=== PATIENT | male | born 1945 | race Hispanic/Latino ===

== ENCOUNTER 2017-03-12 08:19 | Inpatient (IN) | payer MEDICARE ==
[2017-03-12] MEDS ORDERED: Sodium Chloride 0.9% 1,000 ML IV SCH (08:30)
[2017-03-12] MEDS ORDERED: Sodium Chloride 0.9% 1,000 ML IV STA ×2 (08:30→12:48)
[2017-03-12] MEDS ORDERED: Propofol 10 mg/ml 1,000 MG/100 ML VIAL IV PRN (08:31)
--- NOTE | 2017-03-12 08:38 | ED PDOC ---
Arrival/HPI - General Time Seen by Provider: 03/12/17 08:23 Historian: Family, EMS - History of Present Illness Narrative History of Present Illness (Text): 03/12/17 08:2 Munir Sorensen is a 71 year old male, whose past medical history includes diabetes, hypertension, and bladder problems, is brought in via EMS after family found him unresponsive this morning. Per EMS, patient was intubated with Etomidate 30, Rocuronium 120 and Versed 5mg (after intubation). Patient was noted to be tachypneic. According to , she states patient has not been acting like himself recently and reports patient has not been eating. says he typically goes to [facility]. PMD: Dr. Maurer Time/Duration: Prior to Arrival Symptom Onset: Sudden Symptom Course: Unchanged Context: Home Past Medical History - Provider Review Nursing Documentation Reviewed: Yes Family/Social History - Physician Review Nursing Documentation Reviewed: Yes Family/Social History: Unknown Family HX Allergies/Home Meds Allergies/Adverse Reactions: Allergies No Known Allergies Allergy (Verified 03/12/17 08:28) believes her has not allergies to medications. Home Medications: Home Meds Medication Instructions Recorded Confirmed Unobtainable 03/12/17 03/12/17 Review of Systems - Review of Systems Systems not reviewed;Unavailable: Intubated Physical Exam Vital Signs Temp Pulse Resp BP Pulse Ox 03/12/17 10:24 132 H 16 146/74 100 03/12/17 08:51 98.8 F 139 H 20 140/89 Medical Decision Making ED Course and Treatment: 03/12/17 Impression: 71 year old male found unresponsive by family [employer]. Intubated in the field and found with an elevated glucose. Differential Diagnosis included but are not limited to: DKA due to Infectious Etiology vs Electroylyte abnormablity vs CVA vs Overdose Plan: -- EKG -- Chest X-ray -- CT Head without contrast -- Labs -- Diprivan, Sodium Chloride -- Urinalysis -- Reassess and disposition Progress Notes: 03/12/17 09:49 Patient's ABG found to have pH 6.88, pCO2 29 and Glucose of >750. Patient treated with Insulin IV bolus, then Insulin drip. WBC 22 with cloudy urine so treated empirically with Vancomycin IV and Zosyn IV. Case discussed with Dr. Segura who will accept patient to the ICU. 03/12/17 10:[address] Linder who is on the medical service for admissions. EKG: Regular rhythm, nonspecific intraventricular block 03/12/17 10:[address] Linder who will admit him to his service. - Critical Care Critical Care Minutes: 60 minutes - Lab Interpretations Lab Results: 03/12/17 08:30 03/12/17 10:20 Lab Results 03/12/17 10:46: POC Glucose (mg/dL) > 500 H* 03/12/17 10:20: pO2 273 H, VBG pH 6.86 L*, VBG pCO2 32.0 L, VBG HCO3 5.7 L, VBG Total CO2 6.7 L, VBG O2 Sat (Calc) 100.5 H, VBG Base Excess -27.6 L, VBG Potassium 4.2, Sodium 138.0, Chloride 98.0, Glucose > 750 H*, Lactate 1.8, FiO2 21.0, Venous Blood Potassium 4.2 03/12/17 10:20: Sodium 143, Chloride 101, Potassium 3.9, Carbon Dioxide 7 L, Anion Gap 39 H, BUN 42 H, Creatinine 2.1 H, Est GFR ( Amer) 38, Est GFR ( Non-Af Amer) 31, Random Glucose 760 H*, Calcium 8.8, Phosphorus 11.0 H, Magnesium 2.1, Total Bilirubin 0.6, AST 19, ALT 17, Alkaline Phosphatase 93, Lactate Dehydrogenase 415, Total Creatine Kinase 71, Troponin I 0.05, NT-Pro-B Natriuret Pep 382, Total Protein 7.6, Albumin 3.9, Globulin 3.7, Albumin/ Globulin Ratio 1.1 03/12/17 09:05: pCO2 29 L, pO2 252.0 H, HCO3 5.2 L*, ABG pH 6.86 L*, ABG Total CO2 6.1 L, ABG O2 Saturation 100.7 H, ABG Base Excess -27.7 L, ABG Potassium 3.9 , Sodium 138.0, Chloride 97.0 L, Glucose > 750 H*, Lactate 1.9, Mechanical Rate 14, FiO2 60.0, Tidal Volume 450, PEEP 5, Arterial Blood Potassium 3.9 03/12/17 08:30: PT 12.7 H, INR 1.18 H, APTT 30.1 03/12/17 08:30: WBC 22.4 H, RBC 5.43, Hgb 16.7, Hct 51.1, MCV 94.1, MCH 30.8, MCHC 32.7, RDW 14.2, Plt Count 428, MPV 10.6, Gran % 88.1 H, Lymph % (Auto) 4.9 L, [place] % (Auto) 6.5 H, Eos % (Auto) 0.1 L, Baso % (Auto) 0.4, Gran # 19.77 H, Lymph # 1.1 L, [place] # 1.5 H, Eos # 0.0, Baso # 0.08, Neutrophils % (Manual) 90 H , Lymphocytes % (Manual) 7 L, Monocytes % (Manual) 3, Platelet Evaluation Normal I have reviewed the lab results: Yes Interpretation: Abnormal lab values - RAD Interpretation Radiology Orders: 03/12/17 08:25 CHEST PORTABLE [RAD] Stat 03/12/17 08:28 HEAD W/O CONTRAST [CT] Stat Waste Elimination: ED Physician - EKG Interpretation Interpreted by ED Physician: Yes Type: 12 lead EKG - Medication Orders Current Medication Orders: Propofol (Diprivan) 1,000 mg in 100 mls @ 2.913 mls/hr IV .Q24H PRN; Protocol; 5 MCG/KG/MIN PRN Reason: TITRATE PER MD ORDER Last Admin: 03/12/17 10:01 Dose: 2.913 mls/hr Insulin Human Regular 100 (units/ Sodium Chloride) 100 mls @ 10 mls/hr IV .Q10H PRN; Protocol; 10 UNITS/HR PRN Reason: TITRATE PER MD ORDER Last Admin: 03/12/17 10:50 Dose: 10 mls/hr Sodium Bicarbonate 75 meq/ (Sodium Chloride) 1,075 mls @ 200 mls/hr IV .Q5H23M KAMILAH Last Admin: 03/12/17 10:49 Dose: 200 mls/hr Discontinued Medications Sodium Chloride (Sodium Chloride 0.9%) 1,000 mls @ 999 mls/hr IV .Q1H1M STA Stop: 03/12/17 09:30 Last Admin: 03/12/17 09:59 Dose: 999 mls/hr Vancomycin HCl (Vancomycin 1gm) 1 gm in 250 mls @ 167 mls/hr IVPB STAT STA PRN Reason: Protocol Stop: 03/12/17 10:45 Piperacillin Sod/Tazobactam Sod (Zosyn 4.5 Gm In Ns 100ml) 4.5 gm in 100 mls @ 200 mls/hr IVPB STAT STA PRN Reason: Protocol Stop: 03/12/17 09:44 Last Admin: 03/12/17 10:11 Dose: 200 mls/hr Insulin Human Regular (Humulin R) 10 units IVP STAT STA Stop: 03/12/17 09:02 Last Admin: 03/12/17 09:20 Dose: 10 units Sodium Bicarbonate (Sodium Bicarbonate 8.4% (50 Meq) Syringe) 50 meq IVP ONCE ONE Stop: 03/12/17 09:20 Last Admin: 03/12/17 10:58 Dose: 50 meq - Scribe Statement The provider has reviewed the documentation as recorded by the Bell Mon Provider Scribe Attestation: All medical record entries made by the Bell were at my direction and personally dictated by me. I have reviewed the chart and agree that the record accurately reflects my personal performance of the history, physical exam, medical decision making, and the department course for this patient. I have also personally directed, reviewed, and agree with the discharge instructions and disposition. Disposition/Present on Arrival - Present on Arrival Any Indicators Present on Arrival: No - Disposition Have Diagnosis and Disposition been Completed?: Yes Diagnosis: DKA (diabetic ketoacidoses), Respiratory distress Disposition Time: 09:51 Patient Plan: Admission, ICU Patient Problems: Current Active Problems Problem Status Onset DKA (diabetic ketoacidoses) Acute Respiratory distress Acute Condition: CRITICAL Referrals: PCP,NO [Primary Care Provider] - Follow up with primary
[2017-03-12 08:56] LABS: BASO # 0.08 K/mm3 (0.0-2.0); BASO % 0.4 % (0.0-3.0); EOS % 0.1 % (1.5-5.0); GRAN # 19.77 (1.4-6.5); GRAN % 88.1 % (50.0-68.0); HEMATOCRIT 51.1 % (42.0-52.0); LYMPH # 1.1 (1.2-3.4); LYMPH % 4.9 % (22.0-35.0); MEAN CELL VOLUME 94.1 fl (80.0-105.0); MEAN CORPUSCULAR HEMOGLOBIN 30.8 pg (25.0-35.0); MEAN CORPUSCULAR HGB CONC 32.7 g/dl (31.0-37.0); MEAN PLATELET VOLUME 10.6 fl (7.0-11.0); MONO # 1.5 (0.1-0.6); MONO % 6.5 % (1.0-6.0); PLATELET COUNT 428 10^3/uL (120.0-450.0); RED CELL DISTRIBUTION WIDTH 14.2 % (11.5-14.5); WHITE BLOOD COUNT 22.4 10^3/ul (4.5-11.0)
[2017-03-12] MEDS ORDERED: Insulin Regular 1 UNITS/0.01 ML ML IVP STA (09:01)
[2017-03-12 09:04] LABS: INR 1.18 (0.93-1.08); PARTIAL THROMBOPLASTIN TIME 30.1 Seconds (23.7-30.8)
[2017-03-12 09:09] LABS: ABG MECHANICAL RATE 14; ATERIAL BLOOD GAS PEEP 5
[2017-03-12 09:12] LABS: ARTERIAL BLOOD GAS PH 6.86 (7.35-7.45)
[2017-03-12 09:13] LABS: ARTERIAL BLOOD GAS HCO3 5.2 mmol/L (21-28)
[2017-03-12] MEDS ORDERED: Piperacill/Tazo 4.5gm in NS 4.5 GM/100 ML BAG IVPB STA (09:15)
[2017-03-12] MEDS ORDERED: Vancomycin 1gm in NS 250ml 1 GM/250 ML BAG IVPB STA (09:16)
[2017-03-12] MEDS ORDERED: Sodium Bicarbonate (8.4%) 50 Meq Syringe IVP ONE (09:19)
[2017-03-12] MEDS ORDERED: Insulin Regular 100 UNITS in Sodium Chloride 0.9% 99 ML IV PRN (09:47)
--- NOTE | 2017-03-12 09:58 | CT ---
PROCEDURE: CT HEAD WITHOUT CONTRAST. HISTORY: AMS r/o ICH COMPARISON: None available. TECHNIQUE: Axial computed tomography images were obtained through the head/brain without intravenous contrast. Radiation dose: Total exam DLP = 926.07 mGy-cm. This CT exam was performed using one or more of the following dose reduction techniques: Automated exposure control, adjustment of the mA and/or kV according to patient size, and/or use of iterative reconstruction technique. FINDINGS: HEMORRHAGE: No intracranial hemorrhage. BRAIN: There is no mass, mass effect or abnormal extra-axial fluid collection. VENTRICLES: There is mild age-related global parenchymal volume loss and proportionate enlargement of the ventricles and cortical sulci. CALVARIUM: There is no calvarial fracture. There is a large left occipital scalp hematoma. PARANASAL SINUSES: Predominantly clear. MASTOID AIR CELLS: Predominantly clear. OTHER FINDINGS: None. IMPRESSION: No acute intracranial abnormality. Large left occipital scalp hematoma. Mild age-related global parenchymal volume loss and proportionate enlargement of the ventricles and cortical sulci.
[2017-03-12 10:12] LABS: NEUTROPHIL 90 % (50.0-70.0)
[2017-03-12 10:13] LABS: PLATELET ESTIMATE NORMAL (NORMAL)
[2017-03-12 10:33] LABS: VENOUS BLOOD GAS BASE EXCESS -27.6 mmol/L (0.0-2.0); VENOUS BLOOD PH 6.86 (7.32-7.43)
[2017-03-12 10:43] LABS: ALB/GLOB RATIO 1.1 (1.1-1.8); BILIRUBIN,TOTAL 0.6 mg/dL (0.2-1.3); CALCIUM 8.8 mg/dL (8.4-10.5); MAGNESIUM 2.1 mg/dL (1.7-2.2); POTASSIUM 3.9 mmol/L (3.6-5.0); TOTAL PROTEIN 7.6 g/dL (5.8-8.3)
[2017-03-12 10:54] LABS: TROPONIN I 0.05 ng/mL
--- NOTE | 2017-03-12 12:44 | RAD ---
HISTORY: Sepsis Patient COMPARISON: No prior. FINDINGS: The endotracheal tube terminates 2 cm proximal to the marina. LUNGS: The lungs are well inflated and clear. PLEURA: No significant pleural effusion identified, no pneumothorax apparent. CARDIOVASCULAR: Normal. OSSEOUS STRUCTURES: No significant abnormalities. VISUALIZED UPPER ABDOMEN: Normal. OTHER FINDINGS: None. IMPRESSION: No acute findings.
[2017-03-12 13:02] LABS: ABG MECHANICAL RATE 20; ARTERIAL BLOOD GAS HCO3 7.1 mmol/L (21-28); ARTERIAL BLOOD GAS PH 7.23 (7.35-7.45); ATERIAL BLOOD GAS PEEP 5
[2017-03-12 13:05] VITALS: BMI 32.5
[2017-03-12] MEDS ORDERED: Pneumococcal 23-Valent Vaccine IM ONE (13:05)
[2017-03-12 13:14] LABS: VENOUS BLOOD GAS BASE EXCESS -18.9 mmol/L (0.0-2.0)
[2017-03-12] MEDS: Enoxaparin 40 mg Syringe SC SCH (13:18)
[2017-03-12 13:20] LABS: VENOUS BLOOD PH 7.14 (7.32-7.43)
[2017-03-12 13:24] LABS: CALCIUM 8.8 mg/dL (8.4-10.5); POTASSIUM 3.5 mmol/L (3.6-5.0)
--- NOTE | 2017-03-12 13:44 | CP.PCM.CON ---
History of Present Illness - History of Present Illness History of Present Illness: 71 year old male with PMH of DM, HTN, obesity with BMI 32 was brought in to [facility] because he was found to be unresponsive by the patient's . Apparently, the patient had been acting differently over a couple of days and was somewhat lethargic in the past couple of days. He was apparently also complaining of some dysuria. According to the , the patient also had a skin abscess on the mid-portion of his back about 2 months ago which he drained by himself. There was no note of fevers, no convulsions, no bowel or bladder incontinence, no vomiting. In the ED, the patient was noted to be tachypneic and was intubated and placed on a ventilator. He also was found to have leukocytosis. Infectious diseases consult is requested to further evaluate and manage. Review of Systems - Review of Systems Systems not reviewed;Unavailable: Intubated Past Patient History - Infectious Disease Hx of Infectious Diseases: None - Past Social History Smoking Status: Unknown If Ever Smoked - CARDIAC Hx Hypertension: Yes - ENDOCRINE/METABOLIC Hx Diabetes Mellitus Type 1: Yes - GENITOURINARY/GYNECOLOGICAL Other/Comment: Unknown bladder problem as per . Pt urinates a lot. - PSYCHIATRIC Hx Substance Use: No - SURGICAL HISTORY Hx Surgeries: No (unknown per ) Meds Allergies/Adverse Reactions: Allergies Allergy/AdvReac Type Severity Reaction Status Date / Time No Known Allergies Allergy Verified 03/12/17 11:24 - Medications Medications: Current Medications Enoxaparin Sodium (Lovenox) 40 mg SC DAILY [facility] PRN Reason: Protocol Propofol (Diprivan) 1,000 mg in 100 mls @ 2.913 mls/hr IV .Q24H PRN; Protocol; 5 MCG/KG/MIN PRN Reason: TITRATE PER MD ORDER Last Admin: 03/12/17 10:01 Dose: 2.913 mls/hr Insulin Human Regular 100 (units/ Sodium Chloride) 100 mls @ 10 mls/hr IV .Q10H PRN; Protocol; 10 UNITS/HR PRN Reason: TITRATE PER MD ORDER Last Admin: 03/12/17 10:50 Dose: 10 mls/hr Sodium Bicarbonate 75 meq/ (Sodium Chloride) 1,075 mls @ 200 mls/hr IV .Q5H23M KAMILAH Last Admin: 03/12/17 10:49 Dose: 200 mls/hr Pantoprazole Sodium (Protonix Susp) 40 mg PO 0600,1600 [facility] Physical Exam - Constitutional Appears: Other (Intubated, sedated) - Neck Exam Additional comments: ET tube in place - Respiratory Exam Respiratory Exam: Decreased Breath Sounds - Cardiovascular Exam Cardiovascular Exam: +S1, +S2 - GI/Abdominal Exam GI & Abdominal Exam: Soft. absent: Tenderness Results - Vital Signs Recent Vital Signs: Last Vital Signs Temp 98.8 F 03/12/17 08:51 Pulse 132 H 03/12/17 10:24 Resp 16 03/12/17 10:24 BP 146/74 03/12/17 10:24 Pulse Ox 100 03/12/17 10:24 - Labs Result Diagrams: 03/12/17 08:30 03/12/17 10:20 Assessment & Plan - Assessment and Plan (Free Text) Plan: Assessment Systemic Inflammatory Response with ventilator-dependent respiratory failure in a patient with hyperglycemia and metabolic acidosis in a patient with DM; R/O sepsis DM HTN obesity with BMI 32 Plan Started patient on Vancomycin and Zosyn pending blood, urine cx, PCT, CXR; will also review CT head will monitor clinically
[2017-03-12 13:50] LABS: TROPONIN I 0.15 ng/mL
[2017-03-12] MEDS ORDERED: Potassium Chloride 40 mEq/30 ml LIQ UD PO ONE (14:14)
[2017-03-12 14:50] LABS: PH,URINE 5.5 (4.7-8.0); URINE BILIRUBIN SMALL (NEGATIVE); URINE BLOOD LARGE (NEGATIVE); URINE GLUCOSE (UA) >=1000 mg/dL (NEGATIVE); URINE KETONE 40 mg/dL (NEGATIVE); URINE LEUKOCYTE ESTERASE MODERATE Leu/uL (NEGATIVE); URINE PROTEIN >=300 mg/dL (<30 mg/dL)
[2017-03-12 14:54] LABS: URINE APPEARANCE TURBID (CLEAR); URINE COLOR RED (YELLOW)
[2017-03-12 15:03] LABS: URINE BACTERIA FEW (NEG); URINE RBC TNTC /hpf (0-2); URINE WBC TNTC /hpf (0-6)
--- NOTE | 2017-03-12 15:32 | RAD ---
HISTORY: OG tube placement COMPARISON: 03/12/2017 FINDINGS: The nasogastric tube terminates in the duodenum. LUNGS: The visualized lungs are clear. The lungs apices are excluded from the film. PLEURA: No significant pleural effusion identified, no pneumothorax apparent. CARDIOVASCULAR: Normal. OSSEOUS STRUCTURES: No significant abnormalities. VISUALIZED UPPER ABDOMEN: Normal. OTHER FINDINGS: Surgical clips in the right upper quadrant are related to prior cholecystectomy. IMPRESSION: The nasogastric tube terminates in the duodenum. No acute findings.
--- NOTE | 2017-03-12 15:38 | CP.PCM.PCO ---
Physician Communication Note - Physician Communication Note Physician Communication Note: Pt is Jehov[employer] Witness- no blood pdts, requested DNR-DNI when extubated
--- NOTE | 2017-03-12 15:57 | CP.PCM.CON ---
History of Present Illness - History of Present Illness History of Present Illness: Palliative consult requested by Dr Luis Rasheed Reason: Goals of care 71 year old male who was found unresponsive at home. Patient was intubated in field by EMS. reports patient had been complaining of dysuria. She states he was lethargic and not himself for prior few days. also reports that patient had a cyst on lower back a few months ago which he drained himself. Labs ;WBC 22.4, Glucose 700 +, Tropinin 0.15. Head CT no acute findings, age related global parenchymal volume loss. Chest x ray no acute findings. PMHx: DM, HTN. Social History: Former smoker,unknown alcohol or drug mau. Family History: Non contributory Advance Care Planning: The patient does not have an Advance Directive. Review of Systems: Intubated/sedated unable to obtain Past Patient History - Infectious Disease Hx of Infectious Diseases: None - Past Social History Smoking Status: Unknown If Ever Smoked - CARDIAC Hx Hypertension: Yes - PULMONARY Hx Respiratory Disorders: Yes (SMOKED CIGARETTES H/O .QUIT 30 YRS AGO.) Hx Bronchitis: Yes Other/Comment: INTUBATED 03-12-17 RESP. DISTRESS. - NEUROLOGICAL Hx Neurological Disorder: Yes - HEENT Hx HEENT Problems: Yes Hx Cataracts: Yes (BILATERAL SX) Hx Deafness: Yes - RENAL Hx Chronic Kidney Disease: Yes Other/Comment: HAS BLADDER ISSUES? - ENDOCRINE/METABOLIC Hx Diabetes Mellitus Type 1: Yes - HEMATOLOGICAL/ONCOLOGICAL Hx Blood Disorders: Yes (HEAMTURIA H/O) Other/Comment: [employer]- NO BLOOD TRANSFUSION OR BLOOD PRODUCTS. - INTEGUMENTARY Hx Dermatological Problems: Yes Other/Comment: 03-12-17 BILATERAL GROIN RASH,PENIS,SCROTAL AND TESTICULAR AREA. HAS SOME INCONTINENCY.IASD. SCAR TO RIGHT LOWER BACK AND NECK AREA FROM REMOVAL OF CYST. - MUSCULOSKELETAL/RHEUMATOLOGICAL Hx Musculoskeletal Disorders: Yes Hx Falls: Yes Hx Unsteady Gait: Yes (CANE) - GASTROINTESTINAL Hx Gastrointestinal Disorders: Yes (APPENDECTOMY) - GENITOURINARY/GYNECOLOGICAL Other/Comment: Unknown bladder problem as per . Pt urinates a lot. - PSYCHIATRIC Hx Substance Use: No - SURGICAL HISTORY Hx Surgeries: No (unknown per ) Meds Allergies/Adverse Reactions: Allergies Allergy/AdvReac Type Severity Reaction Status Date / Time No Known Allergies Allergy Verified 03/12/17 11:24 - Medications Medications: Current Medications Enoxaparin Sodium (Lovenox) 40 mg SC DAILY [facility] PRN Reason: Protocol Last Admin: 03/12/17 13:18 Dose: 40 mg Propofol (Diprivan) 1,000 mg in 100 mls @ 2.913 mls/hr IV .Q24H PRN; Protocol; 5 MCG/KG/MIN PRN Reason: TITRATE PER MD ORDER Last Admin: 03/12/17 10:01 Dose: 2.913 mls/hr Sodium Bicarbonate 75 meq/ (Sodium Chloride) 1,075 mls @ 200 mls/hr IV .Q5H23M KAMILAH Last Admin: 03/12/17 10:49 Dose: 200 mls/hr Piperacillin Sod/Tazobactam Sod (Zosyn 3.375 In Ns 100ml) 100 mls @ 200 mls/hr IVPB Q6 [facility]AH PRN Reason: Protocol Stop: 03/19/17 18:01 Insulin Human Regular 100 (units/ Sodium Chloride) 100 mls @ 10 mls/hr IV .Q10H PRN; Protocol; 10 UNITS/HR PRN Reason: TITRATE PER MD ORDER Vancomycin HCl (Vancomycin 1gm) 1 gm in 250 mls @ 167 mls/hr IVPB Q12H [facility] PRN Reason: Protocol Nystatin (Nystop Topical Powder) 1 gm TOP BID KAMILAH Pantoprazole Sodium (Protonix Susp) 40 mg PO 0600,1600 [facility] Physical Exam - Constitutional Appears: Chronically Ill - Eye Exam Eye Exam: Normal appearance, PERRL - ENT Exam ENT Exam: Mucous Membranes Moist - Respiratory Exam Respiratory Exam: Clear to Auscultation Bilateral, NORMAL BREATHING PATTERN - Cardiovascular Exam Cardiovascular Exam: REGULAR RHYTHM, +S1, +S2 - GI/Abdominal Exam GI & Abdominal Exam: Normal Bowel Sounds, Soft - Exam Additional comments: hematuria - Extremities Exam Extremities exam: Positive for: pedal edema, pedal pulses present - Neurological Exam Neurological exam: Altered - Skin Skin Exam: Dry, Warm - Additional Findings Additional findings: Palliative performance scale rating 20% Results - Vital Signs Recent Vital Signs: Last Vital Signs Temp 98 F 03/12/17 12:13 Pulse 132 H 03/12/17 12:13 Resp 16 03/12/17 12:13 BP 146/74 03/12/17 12:13 Pulse Ox 100 03/12/17 10:24 - Labs Result Diagrams: 03/12/17 08:30 03/12/17 13:10 Labs: Laboratory Results - last 24 hr 03/12/17 03/12/17 03/12/17 12:31 12:59 13:10 pCO2 17 L* pO2 178.0 H HCO3 7.1 L* ABG pH 7.23 L ABG Total CO2 7.6 L ABG O2 Saturation 100.3 H ABG Base Excess -18.0 L ABG Potassium 3.0 L VBG pH VBG pCO2 VBG HCO3 VBG Total CO2 VBG O2 Sat (Calc) VBG Base Excess VBG Potassium Sodium 140.0 142 Chloride 102.0 100 Glucose 651 H* Lactate 1.5 Mechanical Rate 20 FiO2 40.0 Tidal Volume 450 PEEP 5 Potassium 3.5 L Carbon Dioxide 8 L Anion Gap 38 H BUN 47 H Creatinine 2.3 H Est GFR ( Amer) 34 Est GFR (Non-Af Amer) 28 POC Glucose (mg/dL) 479 H* Random Glucose 657 H* Calcium 8.8 Total Creatine Kinase 79 Troponin I 0.15 H* D Arterial Blood Potassium 3.0 L Venous Blood Potassium Urine Color Urine Appearance Urine pH Ur Specific [place] Urine Protein Urine Glucose (UA) Urine Ketones Urine Blood Urine Nitrate Urine Bilirubin Urine Urobilinogen Ur Leukocyte Esterase Urine RBC Urine WBC Urine Bacteria Urine Opiates Screen Urine Methadone Screen Ur Barbiturates Screen Ur Phencyclidine Scrn Ur Amphetamines Screen U Benzodiazepines Scrn U Oth Cocaine Metabols U Cannabinoids Screen 03/12/17 03/12/17 03/12/17 13:10 14:34 14:34 pCO2 pO2 48 HCO3 ABG pH ABG Total CO2 ABG O2 Saturation ABG Base Excess ABG Potassium VBG pH 7.14 L* VBG pCO2 25.0 L VBG HCO3 8.5 L VBG Total CO2 9.3 L VBG O2 Sat (Calc) 86.4 H VBG Base Excess -18.9 L VBG Potassium 3.7 Sodium Chloride 98.0 Glucose > 750 H* Lactate 3.0 H Mechanical Rate FiO2 21.0 Tidal Volume PEEP Potassium Carbon Dioxide Anion Gap BUN Creatinine Est GFR ( Amer) Est GFR (Non-Af Amer) POC Glucose (mg/dL) Random Glucose Calcium Total Creatine Kinase Troponin I Arterial Blood Potassium Venous Blood Potassium 3.7 Urine Color Red Urine Appearance Turbid Urine pH 5.5 Ur Specific [place] 1.020 Urine Protein >=300 H Urine Glucose (UA) >=1000 Urine Ketones 40 H Urine Blood Large H Urine Nitrate Positive H Urine Bilirubin Small H Urine Urobilinogen 1.0 H Ur Leukocyte Esterase Moderate H Urine RBC Tntc Urine WBC Tntc Urine Bacteria Few Urine Opiates Screen Negative Urine Methadone Screen Negative Ur Barbiturates Screen Negative Ur Phencyclidine Scrn Negative Ur Amphetamines Screen Negative U Benzodiazepines Scrn Positive H U Oth Cocaine Metabols Negative U Cannabinoids Screen Negative 03/12/17 14:43 pCO2 pO2 HCO3 ABG pH ABG Total CO2 ABG O2 Saturation ABG Base Excess ABG Potassium VBG pH VBG pCO2 VBG HCO3 VBG Total CO2 VBG O2 Sat (Calc) VBG Base Excess VBG Potassium Sodium Chloride Glucose Lactate Mechanical Rate FiO2 Tidal Volume PEEP Potassium Carbon Dioxide Anion Gap BUN Creatinine Est GFR ( Amer) Est GFR (Non-Af Amer) POC Glucose (mg/dL) > 500 H* Random Glucose Calcium Total Creatine Kinase Troponin I Arterial Blood Potassium Venous Blood Potassium Urine Color Urine Appearance Urine pH Ur Specific [place] Urine Protein Urine Glucose (UA) Urine Ketones Urine Blood Urine Nitrate Urine Bilirubin Urine Urobilinogen Ur Leukocyte Esterase Urine RBC Urine WBC Urine Bacteria Urine Opiates Screen Urine Methadone Screen Ur Barbiturates Screen Ur Phencyclidine Scrn Ur Amphetamines Screen U Benzodiazepines Scrn U Oth Cocaine Metabols U Cannabinoids Screen Assessment & Plan - Assessment and Plan (Free Text) Assessment: 71 year old male with history of HTN,DM found unresponsive at home. Intubated in field by EMS. He was admitted with hyperglycemia, respiratory failure, leukocytosis. Patient's and order checker at bedside. Patient is [employer]. As per , patient is not to receive full blood products, but blood expanders acceptable. We discussed resuscitation wishes at length. states patient is DNR. DNR form signed by , a copy is placed in chart. If patient is extubated , does not want him re-intubated in the future. At this point wants time to see if patient improves. If his condition continues to deteriorate or if he needs permanent life prolonging interventions, is willing to discuss alternative options for care. Advance care planning discussion with , 30 minutes Plan: DNR Advance care planning Palliative support
[2017-03-12 17:06] LABS: VENOUS BLOOD GAS BASE EXCESS -9.2 mmol/L (0.0-2.0); VENOUS BLOOD PH 7.23 (7.32-7.43)
[2017-03-12] MEDS: Nystatin 100,000 Units/gm Topical Pow(15 gm) TOP SCH (17:13)
[2017-03-12] MEDS: Piperacillin/Tazobact 3.375 gm 100 ML IVPB SCH ×2 (17:14→23:38)
[2017-03-12] MEDS: Pantoprazole 40 mg Susp UD PO SCH (17:14)
[2017-03-12] MEDS: Insulin Regular 100 UNITS in Sodium Chloride 0.9% 99 ML IV PRN ×2 (17:26→22:08)
[2017-03-12 17:30] LABS: TROPONIN I 0.17 ng/mL
[2017-03-12] MEDS: Propofol 10 mg/ml 1,000 MG/100 ML VIAL IV PRN ×2 (18:10→22:28)
[2017-03-12 18:13] LABS: BASO # 0.02 K/mm3 (0.0-2.0); BASO % 0.1 % (0.0-3.0); GRAN # 14.26 (1.4-6.5); GRAN % 82.7 % (50.0-68.0); HEMATOCRIT 41.4 % (42.0-52.0); LYMPH % 5.6 % (22.0-35.0); MEAN CELL VOLUME 86.3 fl (80.0-105.0); MEAN CORPUSCULAR HEMOGLOBIN 30.4 pg (25.0-35.0); MEAN CORPUSCULAR HGB CONC 35.3 g/dl (31.0-37.0); MEAN PLATELET VOLUME 9.9 fl (7.0-11.0); MONO % 11.6 % (1.0-6.0); RED CELL DISTRIBUTION WIDTH 13.5 % (11.5-14.5); WHITE BLOOD COUNT 17.2 10^3/ul (4.5-11.0)
[2017-03-12 18:32] LABS: CALCIUM 8.5 mg/dL (8.4-10.5); POTASSIUM 3.2 mmol/L (3.6-5.0)
--- NOTE | 2017-03-12 20:25 | CON ---
DATE: 03/12/2017 HISTORY OF PRESENT ILLNESS: The patient is a 71-year-old male who was found unconscious at home. He was intubated, placed on a ventilator brought to the emergency room. PAST MEDICAL HISTORY: The patient's past medical history is notable for history of diabetes mellitus and hypertension. No known cardiac history according to his . According to his , the patient has been feeling weak and "acting funny." She denies any previous cardiac history. There is no smoking history. REVIEW OF SYSTEMS: Unavailable. PHYSICAL EXAMINATION: VITAL SIGNS: The blood pressure is 146/71, heart rate is 132, sinus tachycardia. NECK: Negative JVD. LUNGS: Without rales. HEART: S1, S2. Extremities: Without edema. EKG shows a sinus tachycardia. LABORATORY: White count of 22,000 with a hemoglobin of 16.7. His glucose is 760. His carbon dioxide is 7, BUN and creatinine are 42 and 2.1. IMPRESSION: 1. Respiratory failure. 2. Loss of consciousness 3. Diabetic ketoacidosis. 4. Prerenal azotemia with a renal component to it. 5. Diabetes mellitus. 6. History of diabetic coma in the past. Given these findings, Adenocard was administered at 6 and 12 mg. There was no slowing of the heart rate consistent with a sinus tachycardia. We will obtain an echocardiogram to evaluate LV function. Aggressive IV fluid hydration and insulin would be appropriate. Bernardo Cruz MD
[2017-03-12 20:48] LABS: CALCIUM 8.2 mg/dL (8.4-10.5)
--- NOTE | 2017-03-12 20:56 | CARD ---
APPROVED REPORT EKG Measurement Heart [id number] <Conclusion> Wide complex tachycardia Left axis deviation Nonspecific intraventricular block Abnormal ECG
[2017-03-12] MEDS ORDERED: Vancomycin 1gm in NS 250ml 1 GM/250 ML BAG IVPB SCH (21:00)
[2017-03-12 21:01] LABS: TROPONIN I 0.15 ng/mL
--- NOTE | 2017-03-12 21:08 | HP ---
DATE: March 11, 2017 HISTORY OF PRESENT ILLNESS The patient is a 71-year-old male who was brought into the emergency room by the [facility] [place] ambulance for altered mental status. The patient was brought to the emergency room by the EMS for altered mental status. All of the history is obtained through the patient's and the friend. According to the patient's , the patient has been acting differently for the last few days which is being concurred by the patient's friend. The patient was last seen in a normal state of mind last seen awake and responsive last night according to the . The patient was seen awake and responsive last night according to the patient's . The patient's 13 system review of symptoms according to the patient's as history of diabetes, hypertension, bladder problem, history of some back problems or infection, months ago self-treated by the patient. According the patient's 13 system review is also that the patient was found unresponsive this morning with the patient's . The patient's called EMS. The patient was intubated by the EMS with etomidate, rocuronium, and Versed. The patient was found to be tachypneic in the field by the EMS the patient was intubated. By the EMS and the patient was brought to the emergency room. CODE STATUS Full code. LIVING WILL/ADVANCE DIRECTIVE None. ALLERGIES None. HOME MEDICATIONS Lantus 40 units twice a day, Cozaar 100 mg daily, metoprolol 100 mg twice a day, glipizide 10 mg twice a day, NPH insulin dose unknown. PAST MEDICAL HISTORY Significant for hypertension, history of diabetic ketoacidosis many years ago, history of type 1 insulin requiring diabetes mellitus, history of questionable noncompliance, history of questionable infection of the back many years ago self treated according to the patient's . The patient's all previous hospitalization are in [place] or [place]. The patient is seen in ICU bed #5. The patient is intubated lying in the bed. Responsive only to painful stimuli of the right lower extremity when the patient withdraws his right lower extremity. PHYSICAL EXAMINATION VITAL SIGNS: T-max 98.8, pulse rate 130 to 139. Blood pressure 146/74 to 140/89, respiration 16 to 20, O2 sat of intubation and respirator 100%. HEAD: Normocephalic and atraumatic. HEENT: Shows small questionable fixed nonreactive pupils. No gross facial asymmetry noted. Positive ET tube noted. NECK: No neck rigidity. CHEST: Symmetrical. LUNGS: Shows positive rhonchi upper lung lozoya. CARDIOVASCULAR: S1 and S2, tachycardic rhythm. ABDOMEN: Protuberant. Positive bowel sound. Nontender abdomen. GENITALIA: Male. Positive Abad catheter. RECTAL: Deferred. EXTREMITIES: Show no pitting edema. No Mitchell's or Salima's signs. NEURO: Neurologically, the patient is not responsive verbally, only responsive to responsive to painful stimuli of the lower extremity when the patient withdraws his right lower extremity. MUSCULOSKELETAL: Shows a body mass index of almost 33. Cranial nerve II through XII limited. PSYCHIATRIC: Not applicable. VASCULAR: Palpable pulses. DIAGNOSTICS EKG shows questionable white complex rhythm with left anterior hemiblock. No old EKG available for comparison. Chest x-ray was reviewed. The patient had a CAT scan of the head done, which was negative for bleed or acute stroke. Ventriculomegaly and global parenchymal volume loss was noted and a large left occipital scalp hematoma was noted. The patient was seen in the emergency room by Dr. Rae. LABORATORY DATA The patient's lab work was reviewed. WBC count 22.4, hemoglobin/hematocrit 16.7/51.1, platelet 428, granulocytes 88% 90%segs. PT/TT 12.7/30.1. The patient's ABG was done pH of 6.686, pCO2 of 29, pO2 of 252, bicarb of 5.2. Lactate was 1.8, blood glucose greater than 750. Chemistry shows sodium 143, potassium 3.9, chloride 101, CO2 of 7, anion gap 39, BUN 42, creatinine 2.1, GFR 38. Initial glucose chemistry glucose 760 and repeat glucose greater than 500, calcium 8.8, phosphorus 11.0, magnesium 2.1. Troponin 0.25 and BNP 382. TSH is normal. The patient was treated and stabilized in the ER by Dr. Rae. The patient was started on insulin drip. The patient was started on IV fluid. The patient was given bicarb drip by the heel builder. The patient was given a gram of vancomycin and Zosyn 4.5 in the ER. Bicarb drip was ordered. Insulin drip was ordered. Diprivan was ordered. The patient was evaluated in the emergency room by the ER physician and heel builder. IMPRESSION AND PLAN 1. Acute ventilator dependent respiratory failure. 2. Diabetic ketoacidosis. 3. Tachycardia, etiology undetermined. 4. Questionable sepsis with leukocytosis, granulocytosis, and tachycardia. 5. Questionable systemic inflammatory response syndrome versus sepsis. 6. Diabetic ketoacidosis with increase anion gap metabolic acidosis. 7. Acute kidney injury. 8. Uncontrolled type 1 diabetes mellitus with hyperglycemia. 9. Hyperphosphatemia. 10. Indeterminate troponin. 11. Obesity. 12. History of hypertension and diabetes mellitus. 13. Questionable altered mental status versus encephalopathy, etiology undetermined. 14. Cerebral cortical atrophy of the brain with the ventriculomegaly 15. Left occipital scalp hematoma. 16. Tachycardia with left anterior hemiblock. 17. Leukocytosis with granulocytosis, etiology undetermined. 18. Encephalopathy verses altered mental status, etiology undetermined. 19. Questionable cardiomegaly on the chest x-ray. PLAN At this time, the patient is to be admitted to intensive care unit. The patient has been ordered serial labs. The patient has been ordered blood cultures, urine cultures. Current consultation Cardiology, Endocrinology, Infectious Disease, Nephrology, and Neurology program. Procalcitonin level was ordered. The patient was given insulin 10 units IV and the patient started on insulin drip at 10 Hz per hour. Diprivan drip was started. Bicarb drip has been ordered by . The patient is on IV fluids hydration. The patient is on bicarb drip at 200 mL an hour. The patient was given vancomycin 1 g and Zosyn 4.5 in the emergency room. The patient has been ordered serial EKG echocardiogram. The patient at present has been admitted to intensive care unit. At present, the patient's further management will be dependent upon the patient's clinical condition, hemodynamic status and as per the patient response to therapeutic intervention as per the patient's diagnostic test results and as per recommendation by all the physician involved in the care of the patient. The patient's condition is critical. Prognosis is guarded to poor. I have met with the patient's and the friend, who brought the patient to the emergency room. I have explained to the patient's and the patient's friend about overall the patient's diagnosis in layman's language and test results in layman's language which they acknowledged understand. I have also explained to the patient's and the friend that the patient's prognosis is guarded to poor and condition is critical and the patient is at risk for multiple complication and is at risk for multiple bad outcomes, which they acknowledged understood. Time spent in the entire management reviewed data and discussion with physicians more than 1 hour 55 minutes. Paulino Linder MD
[2017-03-12] MEDS: SODIUM BICARBONATE IV SCH (22:13)
[2017-03-12] MEDS: [UNRECOGNIZED DRUG - OTHER] IV SCH (22:13)
[2017-03-12] MEDS: POTASSIUM CHLORIDE IV SCH (22:13)
--- NOTE | 2017-03-12 23:46 | CON ---
DATE: 03/12/2017 HISTORY OF PRESENT ILLNESS: This is a 71-year-old gentleman who was found to be unresponsive this morning and was brought in by his family members to [facility] ER. His past medical history includes diabetes, hypertension, bladder problem. The patient was intubated by EMS services using etomidate, vecuronium and Versed. He also noted to be tachypneic. There was some period of personality changes. The patient also was not feeling well over the last few days according to the patient's . No nausea, no vomiting, no diarrhea, no constipation, no fever, no chills, no sweats. PAST MEDICAL HISTORY: Diabetes, hypertension, bladder problems. FAMILY HISTORY: Noncontributory. SOCIAL HISTORY: No alcohol or illicit drug abuse. No tobacco smoking. ALLERGIES: NKDA. HOME MEDICATIONS: Insulin, Cozaar, metoprolol, glipizide, NPH insulin. REVIEW OF SYSTEMS: Review of 12-point review of systems other than mentioned in history of present illness is negative. PHYSICAL EXAMINATION VITAL SIGNS: Heart rate 134, blood pressure 156/85, oxygen saturation 100% on 40% FiO2. The patient is intubated chronically. He is on PRVC 450/20/5/40. HEAD AND NECK: There are some scalp hematoma present. HEART: Regular rate and rhythm. S1 and S2 normal. ABDOMEN: Soft, nontender and nondistended. MUSCULOSKELETAL: No C/C/E. NEUROLOGIC: The patient is sedated with Propofol 20 mcg per kg per minute. SKIN: Moist. PSYCHIATRY: The patient is sedated. LABORATORY DATA: WBC 22.4, hemoglobin 16.7, platelet counts 428. Neutrophil predominant. ABG showed pH 6.86, pCO2 of 29, pO2 of 252 on 60% FiO2, lactic acid 1.9. Sodium 143, potassium 3.9, chloride 101, carbon dioxide 7, BUN 42, creatinine 2.1. Glucose 760; however, it later went down to 479. AST 19, ALT 17. Albumin 3.9. TSH 1.23. Potassium 4.2. CURRENT MEDICATION: Insulin drip with Accu-Chek every 1 hour, Lovenox 40 mg subcutaneous daily, bicarbonate drip 200 mL per hour, Propofol drip, vancomycin was given, Zosyn every 6 hours. CAT scan of the head reveals scalp hematoma, but no acute intracranial bleed or subacute or chronic stroke. EKG showed supraventricular tachycardia ( administration of adenosine 6 mg and then 12 mg did not lead to episode of slowing down his heart rate, thus it is hard to say whether it is sinus tachycardia or other type of SVT). Chest x-ray; no active pulmonary disease. Bedside review of echocardiogram revealed presumably 35 to 40% ejection fraction; however, right ventricular assessment is difficult. Official report is pending. ASSESSMENT AND PLAN: This is a 71-year-old gentleman who presented with DKA, most likely due to severe sepsis secondary to UTI, with MOSF, including septic encephalopathy. respiratory failure and AUGUSTIN/ATN. Fluid resuscitation, insulin drip, BMP q4, accu q1h, empiric abx, septic workup, protective lung ventilation strategy to avoid VILI. Once anion gap closed, switch to longer acting s/c formulation of insulin. Once BG<250 will switch to D5 containing IVF NEUROLOGIC: The patient is sedated with Propofol; however, noted to move his left upper extremity. PULMONARY: We will continue with protective lung ventilation strategy. Once the patient is fully fluid resuscitated. Conservative fluid management will be instituted. Conservative oxygen management. FiO2 went down to 40% from 60%. Repeated ABG is pending. VAP bundle. Head of bed elevated > 35 degrees, oral hygiene. Deep venous thrombosis and gastrointestinal prophylaxis. CARDIOVASCULAR: Cardiology consult was appreciated. Official report of echocardiogram is pending. Troponin first set is negative. The patient has supraventricular tachycardia with maintaining adequate blood pressure. GASTROINTESTINAL: The patient currently is n.p.o. Gastrointestinal prophylaxis. ENDOCRINE: We will continue with insulin drip. Accu-Chek every one hour. BMP every 4 hours. Correction electrolytes aggressively. The patient was started on bicarbonate drip as his pH is extremely low at 6.8. Once his anion gap closed, we will switch to long acting subcutaneous formulation of insulin. Once his blood glucose below 250, we will switch to D5 containing fluid. ID: The patient has leukocytosis. He is started on empiric antibiotics and septic workup initiated. ID service was contacted and we will be following the patient as well. We will continue to maintain euvolemia, euglycemia, normothermia, and oxygen saturation of more than 90%. ccm time 40 min Roldan Segura MD [facility]
[2017-03-13] MEDS ORDERED: Potassium Chloride 40 mEq/30 ml LIQ UD PO ONE (00:17)
[2017-03-13] MEDS ORDERED: Acetaminophen 160 mg/5 ml UD PO PRN (01:14)
--- NOTE | 2017-03-13 01:29 | CON ---
ENDOCRINOLOGY CONSULT DATE: LOCATION: Room 128, 5 in CCU. HISTORY OF PRESENT ILLNESS: This is a 71-year-old male with known history of type 2 insulin-requiring diabetes, who apparently was found unresponsive by his at home and has been admitted here for further workup and management of recent marked hyperglycemic exacerbations as noted. PAST MEDICAL HISTORY: As mentioned above, history of type 2 insulin-requiring diabetes on a combination of Lantus given as 40 units subcutaneously b.i.d. with NPH given as coverage scale as ordered, history of hypertensive cardiovascular disease, and dyslipidemia. He is also on glipizide given as 10 mg b.i.d. as ordered and Lantus given as 40 units subcutaneously every 12 hours at home as given. He has also underlying history of morbid obesity. FAMILY HISTORY: Positive for hypertension and heart disease. SOCIAL HISTORY: The patient has supportive family. No known substance use. REVIEW OF SYSTEMS: Review of systems is not possible at this time as the patient is endotracheally intubated as noted. PHYSICAL EXAMINATION: GENERAL: Obese male, in no apparent distress. VITAL SIGNS: Blood pressure of 140/90, pulse of 70 beats per minute and regular, temperature 98, respirations 20, height is 5 feet 8 inches, and weight is 214 pounds. HEENT: Head is normocephalic. Eyes: Anicteric with pink conjunctivae. Funduscopy not possible at this time. Ears, nose and throat otherwise normal. NECK: Supple. Thyroid gland is normal in size. No carotid bruits or any cervical adenopathy. CARDIOPULMONARY: Adynamic precordium. S1 and S2 is rapid and regular. LUNGS: Clear to auscultation. ABDOMEN: Flat and soft with positive bowel sounds. EXTREMITIES: No peripheral edema. Pulses are +2 bilaterally. LABORATORY DATA: The initial chemistry showed BUN of 42, sodium 143, potassium 3.9, chloride 101, CO2 is 7, glucose is 760, creatinine is 2.1, and TSH is normal at this time. ASSESSMENT: This is a 71-year-old male with uncontrolled and decompensated type 2 insulin-requiring diabetes, presenting here with diabetic coma and associated clinical and biochemical evidence of dehydration and prerenal azotemia with previous hyponatremia and severe diabetic ketoacidosis as noted thereof. PLAN OF MANAGEMENT: I concur with current insulin drip infusion started by the vp analysis in the ICU for intense insulin therapy, especially in the light of severe acidosis. We will also continued vigorous IV hydration as given to replenish the lost fluids and electrolytes and the increase of osmotic diuresis resulting in the aforementioned high volume loss of both fluids and electrolytes as mentioned. He was also started on bicarbonate drip as noted because of persistent acidosis as observed. He has also been started empirically on IV antibiotics for possible bacteremia and/or septicemia as noted. We will obtain serial chemistries and supplement accordingly as needed. As the patient improves metabolically and also clinically, then we will start him back on a more physiologic basal and bolus insulin drug combination as ordered. If he is weaned off the ventilator after the substance and improvement of the acidosis, then we will advance his diet and switch him over to a more physiologic basal and bolus insulin drug combination as indicated. We will follow with you. Trinidad Gomez MD
[2017-03-13 02:31] LABS: CALCIUM 8.5 mg/dL (8.4-10.5); POTASSIUM 3.7 mmol/L (3.6-5.0)
[2017-03-13] MEDS: Insulin Regular 100 UNITS in Sodium Chloride 0.9% 99 ML IV PRN (02:39)
--- NOTE | 2017-03-13 03:21 | CON ---
NEUROLOGY CONSULTATION NOTE DATE: REASON FOR CONSULTATION: Altered mental status. HISTORY OF PRESENT ILLNESS: The patient is a 71-year-old male who has been asked for altered mental status. Patient was found unresponsive by the family in the morning. Patient was intubated and brought to the hospital. According to , patient was not acting like himself and not eating properly. Patient is unable to give history because of his underlying medical condition. PAST MEDICAL HISTORY: Includes diabetes mellitus and hypertension. FAMILY HISTORY: Unknown. SOCIAL HISTORY: Patient drinks socially. There is no history of illicit drug use. Nonsmoker. REVIEW OF SYSTEMS: Unable to obtain because of patient being intubated and slightly sedated. MEDICATIONS AT HOME: Include insulin, Cozaar, Lopressor, Glipizide, and Novolin. ALLERGIES: NO KNOWN DRUG ALLERGIES, PHYSICAL EXAMINATION: VITAL SIGNS: Patient is an elderly male, lying on the bed, on a ventilator. His blood pressure is 146/74, heart rate is 130 per minute, breathing at the rate of 16 per minute, temperature is 98 degree Fahrenheit. HEENT: Head is normocephalic and atraumatic. NECK: Supple. There are no carotid bruits. LUNGS: Clear. CARDIOVASCULAR: S1 and S2 audible. No murmurs. ABDOMEN: Soft and nontender. Bowel sounds are present. NEUROLOGIC: Mental status: Patient is slightly sedated. He is not following commands. He withdraws all extremities to to noxious painful stimuli. Minimal grimace to pain. Cranial nerve examination: Pupils 2 mm minimally reactive to light. Positive dolls eye movements. Positive corneal reflex. Positive gag reflex. Positive withdrawal of extremities to noxious painful stimuli. Reflexes are absent. Plantars no response. Gait is untestable. LABORATORY DATA: Reviewed. Shows WBC of 22.4, hemoglobin of 16.7, hematocrit 51.1 and platelets of 428. His sodium is 142, potassium 3.5, chloride 100, carbon dioxide content of 8, BUN of 47, creatinine of 2.3 and glucose of . Urinalysis is positive for nitrites and bacteria. Urine toxicology screen is positive for benzodiazepines. He had a CT scan of the head done, which shows no acute intracranial abnormality. Large left occipital scalp hematoma. Mild age related global parenchymal volume loss. IMPRESSION: Altered mental status, which appears to be secondary to toxic metabolic encephalopathy with underlying urinary tract infection and sepsis as well as possible diabetic ketoacidosis. RECOMMENDATIONS: 1. Patient to have a electroencephalogram. 2. Patient to be continued on IV antibiotics. 3. Patient is on insulin drip at the moment. 4. Patient to have ventilator support. 5. Patient's DNR status is noted. 6. Please continue supportive care and other treatment. Thank you for the opportunity to participate in the care of this patient. Jone Sigala MD
[2017-03-13] MEDS: SODIUM BICARBONATE IV SCH ×2 (04:55→11:14)
[2017-03-13] MEDS: POTASSIUM CHLORIDE IV SCH ×2 (04:55→11:14)
[2017-03-13] MEDS: [UNRECOGNIZED DRUG - OTHER] IV SCH ×2 (04:55→11:14)
[2017-03-13 05:38] LABS: ALB/GLOB RATIO 0.9 (1.1-1.8); BILIRUBIN,DIRECT 0.5 mg/dL (0.0-0.4); BILIRUBIN,TOTAL 0.6 mg/dL (0.2-1.3); CALCIUM 8.5 mg/dL (8.4-10.5); MAGNESIUM 1.7 mg/dL (1.7-2.2); TOTAL PROTEIN 6.6 g/dL (5.8-8.3)
[2017-03-13] MEDS ORDERED: Potassium & Sodium Phosphate PO SCH (06:00)
[2017-03-13] MEDS: Piperacillin/Tazobact 3.375 gm 100 ML IVPB SCH ×3 (06:28→20:32)
[2017-03-13] MEDS: Pantoprazole 40 mg Susp UD PO SCH ×2 (06:31→16:50)
[2017-03-13] MEDS: Potassium & Sodium Phosphate GT SCH ×3 (06:31→21:41)
[2017-03-13 06:50] LABS: BASO # 0.02 K/mm3 (0.0-2.0); BASO % 0.1 % (0.0-3.0); EOS % 0.1 % (1.5-5.0); GRAN # 17.11 (1.4-6.5); GRAN % 87.9 % (50.0-68.0); LYMPH # 0.5 (1.2-3.4); LYMPH % 2.6 % (22.0-35.0); MEAN CELL VOLUME 83.9 fl (80.0-105.0); MEAN CORPUSCULAR HEMOGLOBIN 30.1 pg (25.0-35.0); MEAN CORPUSCULAR HGB CONC 35.9 g/dl (31.0-37.0); MEAN PLATELET VOLUME 10.4 fl (7.0-11.0); MONO # 1.8 (0.1-0.6); MONO % 9.3 % (1.0-6.0); RED CELL DISTRIBUTION WIDTH 13.5 % (11.5-14.5)
[2017-03-13 06:53] LABS: PHOSPHOROUS 0.5 mg/dL (2.5-4.5); WHITE BLOOD COUNT 19.5 10^3/ul (4.5-11.0)
[2017-03-13] MEDS ORDERED: Insulin Detemir 100 units/ml Vial (Levemir) SC ONE (08:00)
[2017-03-13 08:01] LABS: VENOUS BLOOD GAS BASE EXCESS 0.7 mmol/L (0.0-2.0); VENOUS BLOOD PH 7.41 (7.32-7.43)
[2017-03-13] MEDS: Insulin Lispro (HUMAlog) HIGH Coverage SC SCH ×3 (08:15→21:39)
[2017-03-13] MEDS: Linezolid 600 mg in D5W 300 ml 600 MG/300 ML BAG IVPB SCH ×2 (09:30→21:42)
[2017-03-13] MEDS: Enoxaparin 40 mg Syringe SC SCH (09:32)
[2017-03-13] MEDS: Nystatin 100,000 Units/gm Topical Pow(15 gm) TOP SCH (09:35)
--- NOTE | 2017-03-13 09:51 | PN ---
DATE: 03/13/2017 SUBJECTIVE: The patient is seen and examined at bedside. He is off of sedation. Propofol is off. He is on pressure support 5/5 with rapid shallow breathing index varies between 70-80 and FiO2 of 40%. On that setting, his oxygen saturation 100% and heart rate 107. The patient is febrile with a temperature of 102. Of note, the patient has moderate leukocyte esterase in the urine and positive urine nitrites with multiple WBCs and bacteria. Urine culture is pending. PHYSICAL EXAMINATION: VITAL SIGNS: Heart rate 107, oxygen saturation 100%, temperature 102, and blood pressure 111/70. HEENT: Head and neck, some hematoma on the scalp. HEART: Regular rate and rhythm. S1 and S2 normal. ABDOMEN: Soft, nontender, and nondistended. MUSCULOSKELETAL: No C/C/E. NEUROLOGIC: The patient is still under residual effect of propofol. SKIN: Moist. PSYCHIATRIC: The patient is sedated. LABORATORY DATA: WBC 19.5 up from 17.2, hemoglobin 14, and platelet count >100. Sodium 144, potassium 4, chloride 109, carbon dioxide 25, BUN 49, and creatinine 1.7 relatively stable. Blood glucose 127, phosphorus 0.5 (supplemented), AST 30, and ALT 27. MEDICATIONS: Tylenol IV p.r.n., Lovenox 40 mg subcutaneously daily, regular insulin drip, Protonix, phosphorus supplementation, propofol drip as well, normal saline 200 mL/hour, vancomycin, and Zosyn. ASSESSMENT AND PLAN: This is a 71-year-old gentleman who presented with diabetic ketoacidosis most likely secondary to severe sepsis with urinary tract infection. He initially was found unresponsive, requiring endotracheal intubation for airway protection. At present time, his anion gap closed. Propofol is off and we are awaiting for him to wake up to proceed with extubation attempt. The patient is on pressure support and appears to tolerate respiratory montague well. Pressure support 5/5 with FiO2 of 40%. He maintains hemodynamics relatively stable (except for mild tachycardia at 107, sinus). NEUROLOGIC: The patient is off of propofol and started to waking up; however, needs to be more awake and alert before extubation will be attempted. PULMONARY: The patient tolerated pressure support trial. Sedation is off with weaning attempt is in progress. At present time, the patient appears to be fluid resuscitated and we will proceed with conservative fluid management and conservative oxygen management. Head of bed elevated >35 degrees, oral hygiene, DVT and GI prophylaxis. CARDIOVASCULAR: The patient is relatively stable except for mild tachycardia. He is fluid resuscitated. GASTROINTESTINAL: The patient is n.p.o. in anticipation of extubation soon. He is on GI prophylaxis. INFECTIOUS DISEASE: The patient has UTI with severe sepsis. He is on vancomycin and Zosyn while septic workup is in progress. ID service is following the patient as well. He is febrile, most likely due to UTI. ENDOCRINE: The patient's blood glucose is controlled and we will overlap long-acting subcutaneous formulation of insulin with insulin drip with subsequent discontinue of insulin drip. Anion gap is closed. RENAL: The patient has acute kidney injury, which is improving; however, we are continuing fluids. We will continue to target euvolemia, glycemia, normothermia, and oxygen saturation more than 90%. ccm time 40 min Roldan Segura MD [facility]
--- NOTE | 2017-03-13 10:13 | CP.PCM.PN ---
Subjective - Date & Time of Evaluation Date of Evaluation: 03/13/17 Time of Evaluation: 09:50 - Subjective Subjective: Still on the ventilator, has now developed fever but is on a weaning trial. Objective - Vital Signs/Intake and Output Vital Signs (last 24 hours): Temp Pulse Resp BP Pulse Ox 100.9 F H 111 H 20 84/52 L 100 03/13/17 03:13 03/13/17 03:13 03/13/17 03:13 03/13/17 03:13 03/13/17 03:13 Intake and Output: 03/12/17 03/13/17 18:59 06:59 Intake Total 315 Balance 315 - Medications Medications: Current Medications Acetaminophen (Tylenol 160mg/5ml Oral Soln) 320 mg PO Q4 PRN PRN Reason: Temperature Last Admin: 03/13/17 02:20 Dose: 320 mg Enoxaparin Sodium (Lovenox) 40 mg SC DAILY KAMILAH PRN Reason: Protocol Last Admin: 03/12/17 13:18 Dose: 40 mg Piperacillin Sod/Tazobactam Sod (Zosyn 3.375 In Ns 100ml) 100 mls @ 200 mls/hr IVPB Q6 KAMILAH PRN Reason: Protocol Stop: 03/19/17 18:01 Last Admin: 03/13/17 06:28 Dose: 200 mls/hr Insulin Human Regular 100 (units/ Sodium Chloride) 100 mls @ 10 mls/hr IV .Q10H PRN; Protocol; 10 UNITS/HR PRN Reason: TITRATE PER MD ORDER Last Titration: 03/13/17 04:03 Dose: 5 units/hr, 5 mls/hr Vancomycin HCl (Vancomycin 1gm) 1 gm in 250 mls @ 167 mls/hr IVPB Q12H KAMILAH PRN Reason: Protocol Last Admin: 03/12/17 21:01 Dose: 167 mls/hr Propofol (Diprivan) 1,000 mg in 100 mls @ 2.913 mls/hr IV .Q24H PRN; Protocol; 5 MCG/KG/MIN PRN Reason: TITRATE PER MD ORDER Last Admin: 03/12/17 22:28 Dose: 20 mcg/kg/min, 11.652 mls/hr Sodium Bicarbonate 75 meq/Potassium Chloride 10 meq/Sodium Chloride 1,080 mls @ 200 mls/hr IV .Q5H24M [facility] Last Admin: 03/13/17 04:55 Dose: 200 mls/hr Nystatin (Nystop Topical Powder) 1 gm TOP BID [facility] Last Admin: 03/12/17 17:13 Dose: 1 pow Pantoprazole Sodium (Protonix Susp) 40 mg PO 0600,1600 [facility] Last Admin: 03/13/17 06:31 Dose: 40 mg Potassium Phos/Sodium Phos (Neutra-Phos) 1 pkt GT Q8H [facility] Last Admin: 03/13/17 06:31 Dose: 1 pkt - Labs Labs: 03/12/17 18:07 03/13/17 01:30 PT 12.7 Seconds (9.9-11.8) H 03/12/17 08:30 INR 1.18 (0.93-1.08) H 03/12/17 08:30 APTT 30.1 Seconds (23.7-30.8) 03/12/17 08:30 - Constitutional Appears: Other (intubated, arousable by tactile stimuli) - ENT Exam Additional comments: ET tube in place - Neck Exam Neck Exam: absent: Meningismus - Respiratory Exam Respiratory Exam: Decreased Breath Sounds - Cardiovascular Exam Cardiovascular Exam: +S1, +S2 - GI/Abdominal Exam GI & Abdominal Exam: Soft. absent: Tenderness - Skin Skin Exam: Rash (noted in the perineal area, erythematous) Assessment and Plan - Assessment and Plan (Free Text) Plan: Assessment Systemic Inflammatory Response with fever and ventilator-dependent respiratory failure in a patient with hyperglycemia and metabolic acidosis in a patient with DM, R/O severe sepsis from UTI acute on chronic renal failure DM HTN obesity with BMI 32 Plan continue Zosyn and will change Vancomycin to Zyvox pending blood, urine cx, PCT ; CXR does not show infiltrates; will also review CT head will continue to monitor clinically
--- NOTE | 2017-03-13 11:43 | PN ---
DATE: 03/13/2017 The patient is seen today in ICU bed #5. The patient is more responsive. The patient is presently on a CPAP. The patient is responsive to painful stimuli. Overnight nurse's notes were reviewed. Overnight, the patient was maintained on AC tidal volume of 450, FIO2 of 40%, rate of 20, PEEP of 5. Vital signs: T-max is 100.8. Telemetry shows sinus tachycardia in 100s. Blood pressure on telemetry at present 146/86, in the last 24 hours blood pressure has been in his 90s systolic. Respirations 20, O2 sat is 100%. Head examination normocephalic, atraumatic. Positive ET tube noted. Positive NG tube noted. Neck is short and supple. Chest: Examination shows kyphosis. Lungs: Examination shows positive rhonchi upper lung lozoya.. Cardiovascular: Shows S1, S2. Regular rhythm, tachycardic rhythm. Abdomen is soft, protuberant. Genitalia: Male. Positive Abad catheter. Neurologic: The patient is responsive to painful stimuli by grimacing and attempting to open eyes. Musculoskeletal: Examination shows elevated body mass index of 33. Psychiatric examination is not applicable. Motor strength. The patient is responsive to painful stimuli. DIAGNOSTICS: Reviewed. WBC 19.5, down from 22.4. Granulocytes 88% segs. The patient's VBG shows a pH of 7.41, pCO2 of 40, bicarb 25, O2 sat 82%, lactic acid is 2.5. Sodium 141, potassium 4.0, chloride 104, CO2 22, anion gap 19, BUN 46, creatinine 1.6, creatinine is down from 2.1 to 1.65; GFR is 52, glucose random glucose down from 760-657 to 507-306 to 119-99, calcium 8.8, hemoglobin A1c is 14.4, fructose mean is elevated at 324, calcium 8.0, phosphorus is down from 11 to 0.5. LFTs are normal. Troponin has bumped up to 0.17 now 0.15. Procalcitonin level is negative. Vitamin D 25 hydroxy level is 24, beta-hydroxybutyrate is pending. Blood cultures, no growth. IMPRESSION: 1. Ventilator dependent respiratory failure. 2. Diabetic ketoacidosis. 3. Possible sepsis. 4. Severe increased anion gap metabolic acidosis. 5. Questionable acute non-ST elevation myocardial infarction with elevated with elevated troponin. 6. Questionable non-ST elevation myocardial infarction. 7. Fever. 8. Tachycardia. 9. Leukocytosis with granulocytosis. 10. Severe metabolic acidosis and diabetic ketoacidosis. 11. Lactic acidosis. 12. Acute kidney injury with underlying chronic kidney disease. 13. Uncontrolled insulin requiring diabetes mellitus with hemoglobin A1c of 14.4 and fructose mean of greater than 300. 14. Hypocalcemia. 15. Hypophosphatemia and hyperphosphatemia. 16. Hypovitaminosis D. 17. Proteinuria, ketonuria microscopic hematuria, pyuria, bacteriuria. The patient will be ordered an MRI of the brain and MRA of the brain once relatively stable, the patient will be continued on the above therapeutic interventions. At present, the patient is ordered above diagnostic therapeutic interventions, we are awaiting for further diagnostic therapeutic interventions and further recommendations by all the physicians involving the care of the patient. At present, the patient will be continued on the above therapeutic interventions. The patient's overall prognosis is guarded to poor. CONDITION: Critical. Paulino Linder MD
[2017-03-13 12:20] LABS: VENOUS BLOOD GAS BASE EXCESS 4.9 mmol/L (0.0-2.0)
[2017-03-13 12:27] LABS: CALCIUM 8.1 mg/dL (8.4-10.5); POTASSIUM 3.4 mmol/L (3.6-5.0)
--- NOTE | 2017-03-13 12:30 | RAD ---
HISTORY: fever COMPARISON: Made with prior study 03/12/2017 FINDINGS: In situ ETT, tip of which lies approximately 3.5 cm above marina. NGT is present, the tip of which overlies the mid upper abdomen. LUNGS: Mild bibasilar atelectasis right greater than left. . PLEURA: No significant pleural effusion identified, no pneumothorax apparent. CARDIOVASCULAR: Normal. OSSEOUS STRUCTURES: Mild multilevel degenerative spondylosis of the thoracic spine. VISUALIZED UPPER ABDOMEN: Metallic clips right upper quadrant of the abdomen consistent with prior cholecystectomy. OTHER FINDINGS: None. IMPRESSION: ETT and NGT as above. Mild bibasilar atelectasis right greater than left. Slight elevation right hemidiaphragm could be due to eventration of.
--- NOTE | 2017-03-13 13:35 | PN ---
DATE: 03/13/2017 The patient remains lethargic. OBJECTIVE: Blood pressure is 130/68, the heart rate is sinus tachycardia at 108 temperature is 101.3. Neck: Negative JVD. Lungs: Without rales or S1, S2. Extremities: Without edema. Hemoglobin is 14, white count is 19, BUN and creatinine is 45 and 1.7. Glucose is 116. IMPRESSION: 1. Status post diabetic ketoacidosis. 2. Altered mental status. 3. Renal insufficiency. 4. Sinus tachycardia. 5. Sepsis. Given these findings the findings, the patient's LV function is preserved. We will continue aggressive IV hydration as well as treatment for his infection. Bernardo Cruz MD
[2017-03-13] MEDS ORDERED: Fluconazole IV 200mg/100 ml NS 100 ML IVPB ONE (14:35)
[2017-03-13] MEDS: Fluconazole IV 200mg/100 ml NS 100 MG in Premixed IV 1 EA IVPB SCH (16:10)
[2017-03-13] MEDS: Metoprolol 1 mg/ml Inj IVP SCH ×3 (16:18→21:35)
[2017-03-13] MEDS ORDERED: POTASSIUM PHOSPHATE IV SCH (17:00)
[2017-03-13] MEDS ORDERED: SODIUM CHLORIDE IV SCH (17:00)
--- NOTE | 2017-03-13 19:14 | PN ---
ENDO FOLLOWUP NOTE LOCATION: In ICU 128, room 5. SUBJECTIVE: This is a 71-year-old male with acute respiratory failure and was actually found unresponsive at home by his and with supervening diabetic ketoacidosis and dehydration and is now being followed closely for metabolic management. He received intensive insulin therapy with an insulin drip infusion as noted with vigorous IV hydration as given. He remains intubated at this time with fever developing overnight on concomitant IV antibiotics for empirical management. His glycemic levels are fluctuating, but much improved at this time and the latest glucose levels have ranged from 110 to 120 mg/dL. His latest chemistry showed a BUN of 45, sodium 146, potassium 3.4, , CO2 of 27, glucose 153 and creatinine is 1.5. So at this time, we will continue the present medical management with ongoing finger stick every 6 hours with Humalog high-dose as given. He is also receiving a stat dose of Levemir at 20 units subcu this morning as noted and given. We will obtain serum chemistries and supplement accordingly as needed. If hyperglycemic levels supervene then we will give him a ongoing dose of basal insulin given once or twice daily as indicated. We will follow. Trinidad Gomez MD
--- NOTE | 2017-03-13 20:26 | PN ---
NEUROLOGY PROGRESS NOTE DATE: SUBJECTIVE: The patient is lying on the bed, in no acute distress. PHYSICAL EXAMINATION VITAL SIGNS: His blood pressure is 134/80, heart rate is 98 per minute, he is breathing at a rate of 16 per minute, temperature is 102 degree Fahrenheit. HEENT: Head is normocephalic, atraumatic. NECK: Supple. There are no carotid bruits. LUNGS: Clear. HEART: S1 and S2 audible. No murmurs. ABDOMEN: Soft. Nontender. Bowel sounds present. NEUROLOGIC: Mental status: The patient is sleepy, but arousable. He is not following commands. He just moans to painful stimuli. He is not verbalizing. Cranial nerve examination, pupils 3-mm bilaterally reactive to light, the extraocular movements are intact. There is no facial asymmetry. He is moving all 4 extremities symmetrically, power appears to be 5/5. Plantars are downgoing bilaterally. LABORATORY DATA: Reviewed shows WBC of 19.5, hemoglobin of 14.0, hematocrit 39.0 and platelets of 243. His sodium is 146, potassium 3.4, chloride 109, carbon dioxide 27, BUN of 45, creatinine 1.7 and glucose of 116. He had an electroencephalogram done which shows [id number] bihemispheric cerebral dysfunction. No epileptiform activity is seen. IMPRESSION: Altered mental status which appears to be secondary to toxic metabolic encephalopathy. RECOMMENDATIONS: 1. The patient to have MRI of the brain without contrast. 2. The patient is status post extubation. 3. The patient to be continued on IV antibiotics. 4. The patient's electroencephalogram does not show any epileptogenic activity. 5. Please continue supportive care and other treatment. Thank you for the opportunity to participate in the care of this patient. Jone Sigala MD
[2017-03-13] MEDS: SODIUM CHLORIDE IV SCH (20:32)
[2017-03-13] MEDS: POTASSIUM PHOSPHATE IV SCH (20:32)
--- NOTE | 2017-03-13 22:18 | US ---
EXAM: US Retroperitoneal Limited, Renal CLINICAL HISTORY: 71 years old, male; Abnormal findings; Abnormal lab test; Abnormal kidney function lab tests; Additional info: ? Arf, ckd, iddm/dka TECHNIQUE: Real-time ultrasound of the retroperitoneum (limited) with image documentation. COMPARISON: No relevant prior studies available. FINDINGS: Right kidney: No stones. No solid mass. Mild hydronephrosis. Left kidney: No stones. No solid mass. No hydronephrosis. An anechoic focus is identified within the upper pole of the left kidney, measuring 8.4 cm in greatest dimension, consistent with a cyst. IMPRESSION: Mild right-sided hydronephrosis. Simple cyst within the upper pole of the left kidney.
--- NOTE | 2017-03-13 22:54 | CARD ---
APPROVED REPORT EKG Measurement Heart [id number] <Conclusion> Sinus tachycardia with short KS Left anterior fascicular block Abnormal ECG
[2017-03-14] MEDS: Piperacillin/Tazobact 3.375 gm 100 ML IVPB SCH ×4 (00:47→17:32)
--- NOTE | 2017-03-14 02:10 | CON ---
DATE: 03/13/2017 The patient is admitted for Dr. Linder. REFERRING PHYSICIAN: Paulino Linder MD REASON FOR CONSULTATION: Evaluation of the patient unknown to me, who presents with altered mental status, DKA in the setting of IDDM, and an elevated BUN and creatinine. HISTORY OF PRESENT ILLNESS: The patient is a 71-year-old white male, unknown to me from previous evaluation. The patient apparently had been followed at the [facility] with admissions to the hospital in [place] when necessary. A long history of IDDM with questionable compliance. Past history of DKA according to family, history of hypertension, the patient presented to the hospital with altered mental status. He was found to have urinary tract infection. No pneumonia. He was felt to be possibly septic with a white blood cell count of 22,400. The patient was found to be in respiratory distress and was intubated. He is currently extubated. He is not responsive to any verbal communication. There are no family members at the bedside for further questioning. The patient was treated successfully for diabetic ketoacidosis. He remains mildly prerenal. On admission, his BUN was 42, it went up as high as 50, it is presently 45. We do not know his baseline BUN. His creatinine was 2.1 on admission, it went as high as 2.3. It is currently 1.7. The patient has been receiving IV fluids with sodium bicarbonate and potassium. We are asked to evaluate the patient for his abnormal renal parameters and to assist in his fluid management in light of his electrolyte abnormalities. Of note, his phosphorus level was 11 on admission, it went down as low as 0.5, it is currently 1.1. Magnesium level is normal. Calcium level is 8.1. Hemoglobin A1c was 14.4%. TSH level was normal. His urinalysis was positive for red blood cells, white blood cells, positive ketones, positive protein. PAST MEDICAL HISTORY: Significant for that of IDDM with a past history of DKA and likely noncompliance with his medications. Hypertension. MEDICATIONS: At home included that of insulin Lantus long acting, Cozaar, metoprolol, glipizide, and perhaps short-acting insulin. ALLERGIES: NO KNOWN ALLERGIES TO MEDICATIONS. CURRENT MEDICATIONS: In hospital include that of, fluconazole, insulin, Lopressor, Lovenox, Neutra-Phos, Nystatin, Ofirmev, Protonix, IV fluid with sodium bicarbonate, Zosyn, and Zyvox. FAMILY HISTORY: Unobtainable. SOCIAL HISTORY: Through the chart, no history of cigarette smoking. Positive history of alcohol use. REVIEW OF SYSTEMS: Unobtainable. PHYSICAL EXAMINATION GENERAL: The patient is currently seen in ICU bed 5. He was staring at the ceiling. He is not responsive to verbal communication. VITAL SIGNS: Blood pressure 134/80, pulse 89, temperature 100 degrees Fahrenheit with a respiratory rate of 25, pulse ox is 100%. HEENT: Shows him to be normocephalic, atraumatic. Conjunctivae are pink. Sclerae are nonicteric. Pupils appear to be equal and reactive to light and accommodation. Extraocular muscles appear to be intact. Posterior pharynx appears to be normal. NECK: Supple. No lymphadenopathy. No neck vein distention. No thyromegaly. No bruits. CHEST: Clear to auscultation and percussion. No rales, no rhonchi, no wheezing. CARDIOVASCULAR: Shows a regular rate and rhythm without murmurs, rubs, or gallops. ABDOMEN: Soft. Bowel sounds normal. No rebound, no guarding, no masses. BACK: No CVAT. No spinal tenderness. EXTREMITIES: Show no cyanosis, no clubbing or edema. Distal lower extremity pulses are 2+ bilaterally. NEUROLOGIC: Difficult to assess. The patient opens his eyes, but is not responsive. He appears to be able to move all 4 extremities without difficulty. The patient has an indwelling Abad catheter. LABORATORY DATA AND IMAGING: Admitting chest x-ray showed no acute pulmonary disease, he had bibasilar atelectasis, right greater than left. Admitting EKG showed a wide complex tachycardia. Labs, CBC, white blood cell count 22.4 on admission, it is currently 19.5, hemoglobin was 16.7, it is currently 14, platelet count is 243,000. Coags, PT of 12.7 with a PTT of 30.1. Admitting blood gas showed a pH of 7.86 with a bicarbonate of 5.2, pCO2 of 29 and a pO2 of 252. Last blood gas was 7.50, with a pO2 of 84 and a pCO2 of 36 with a bicarbonate of 28.1. Chemistries, labs today, sodium 141, potassium 4.0, chloride 104, and CO2 of 22, BUN 46 with a creatinine of 1.6. Glucose is 999, calcium is 8.0, phosphorus level was 1.1 on last check, magnesium 1.7. Liver enzymes are normal. Albumin is 3.1. Vitamin D level 24.5, hemoglobin A1c as noted above was 14.4. TSH level was normal. Urine is positive for red blood cells and WBC. Urine pH was 5.5 with 4+ protein and positive urine ketones. Toxicology positive for benzodiazepines. Microbiology, all cultures are negative, that is blood cultures, urine cultures are pending. ASSESSMENT: Elevated BUN and creatinine. We have no baseline on this patient as his medical care had been done at the [facility]. It is unclear from the ICU staff speaking to his family whether or not the patient has ever had any renal issues in the past. Currently, he is prerenal. His creatinine had dropped from 2.3 to 1.7. His BUN remains in the 40s. The patient will continue hydration and perhaps since it is unclear whether he will eat, a Dobbhoff tube will be placed so that he will receive nutrition. I will obtain a urine sodium, urine creatinine, urine Jesus stain. I will obtain a renal ultrasound to assess his kidney size and to look for any increased echogenicity consistent with chronic medical renal disease. I will obtain 24-hour urine for creatinine clearance and protein. History of IDDM, not well controlled secondary to likely noncompliance. DKA noted and treated. The patient currently is no longer acidotic. IV fluid with sodium bicarbonate will be discontinued and we can continue the patient on IV fluid hydration with K-Phos in light of his low phosphorus levels. Likely sepsis, possibly secondary to UTI, no evidence for pneumonia. Urine cultures are pending. The patient remains on broad-spectrum antibiotics. Altered mental status. It is unclear what the patient's baseline is. In light of the fact that the patient will likely not take in any oral nutrition, discussed with ICU staff, the patient should have a Dobbhoff tube placed for feedings. Hypophosphatemia. The patient will receive IV fluids with K-Phos supplements. Continue to monitor the patient closely in an ICU setting. Accurate I's and O's and daily labs. Discussed with ICU house staff and ICU nursing staff in detail. We will try and obtain outpatient records to see whether or not the patient has any baseline chronic kidney disease. Greater than 35 minutes spent in the care of this patient. Munir Moran MD [facility]
[2017-03-14] MEDS: Insulin Lispro (HUMAlog) HIGH Coverage SC SCH ×5 (03:38→20:23)
[2017-03-14] MEDS: Metoprolol 1 mg/ml Inj IVP SCH ×2 (03:47→09:23)
[2017-03-14] MEDS: SODIUM CHLORIDE IV SCH (04:02)
[2017-03-14] MEDS: POTASSIUM PHOSPHATE IV SCH (04:02)
[2017-03-14] MEDS: Potassium & Sodium Phosphate GT SCH ×3 (06:18→21:16)
--- NOTE | 2017-03-14 07:21 | CP.CCUPN ---
CCU Subjective - Physician Review Subjective (Free Text): 03/14/17 13:49 Patient seen and examined at bedside. Extubated yesterday and had no acute events overnight. Patient is AO x 1 and confused. Follows few commands but stares blankly and responds with minimal words. As per at bedside, patient' s mentation has slightly improved since day of admission but he is still not at baseline and is confused. Complete ROS unobtainable secondary to mental status. CCU Objective - Vital Signs / Intake & Output Vital Signs (Last 4 hours): Vital Signs Temp Pulse Resp BP Pulse Ox 03/14/17 06:28 99.5 F 96 H 95 03/14/17 06:13 100.0 F H 93 H 28 H 111/69 97 03/14/17 06:06 100.0 F H 93 H 28 H 118/58 L 96 03/14/17 06:01 100.0 F H 95 H 98 03/14/17 06:00 100.0 F H 96 H 27 H 95 03/14/17 05:44 100.2 F H 93 H 97 03/14/17 05:36 100.0 F H 93 H 100 03/14/17 05:35 100.0 F H 93 H 100 03/14/17 05:29 100.2 F H 95 H 97 03/14/17 05:22 100.0 F H 95 H 99 03/14/17 05:00 100.0 F H 91 H 28 H 99 03/14/17 04:51 92 H 31 H 03/14/17 04:14 92 H 111/61 100 03/14/17 04:00 90 32 H 100 03/14/17 03:49 99 H 24 112/50 L 100 03/14/17 03:47 102 H 23 112/50 L Intake and Output (Last 8hrs): Intake & Output 03/13/17 03/14/17 03/14/17 22:59 06:59 14:59 Intake Total 700 1550 Output Total 750 1800 Balance -50 -250 Intake: IV 1550 Right Antecubital 1500 Right Forearm 50 Other 700 Output: Urine 750 1800 Urethral (Abad) 750 1800 Other: # Bowel Movements 1 - Physical Exam Head: Positive for: Atraumatic, Normocephalic Pupils: Positive for: PERRL Conjunctiva: Positive for: Normal Mouth: Positive for: Moist Mucous Membranes Respiratory/Chest: Positive for: Rhonchi. Negative for: Respiratory Distress, Accessory Muscle Use Cardiovascular: Positive for: Regular Rate and Rhythm, Normal S1, S2. Negative for: Murmurs Abdomen: Positive for: Distention (mild), Normal Bowel Sounds. Negative for: Tenderness Upper Extremity: Positive for: Normal Inspection. Negative for: Cyanosis, Edema Lower Extremity: Positive for: Normal Inspection. Negative for: Edema Skin: Positive for: Warm, Dry, Normal Color Psychiatric: Positive for: Alert. Negative for: Oriented x 3, Normal Insight, Normal Concentration, Normal Affect - Medications Active Medications: Active Medications Generic Name Dose Route Start Last Admin Trade Name Freq PRN Reason Stop Dose Admin Acetaminophen 650 mg 03/13/17 10:13 Tylenol 325mg Tab PO Q6H PRN TEMP>=99.5F Acetaminophen 650 mg 03/13/17 10:13 Tylenol 650 Mg Supp RC Q6H PRN TEMP>=99.5F Enoxaparin Sodium 40 mg 03/12/17 12:00 03/13/17 09:32 Lovenox SC 40 mg DAILY KAMILAH Administration Protocol Piperacillin Sod/Tazobactam Sod 100 mls @ 200 mls/hr 03/12/17 18:00 03/14/17 06:17 Zosyn 3.375 In Ns 100ml IVPB 03/19/17 18:01 200 mls/hr Q6 KAMILAH Administration Protocol Propofol 1,000 mg in 100 mls @ 2.913 mls/hr 03/12/17 17:42 03/12/17 22:28 Diprivan IV 20 mcg/kg/min .Q24H PRN 11.652 mls/hr TITRATE PER MD ORDER Administration Protocol 5 MCG/KG/MIN Acetaminophen 1,000 mg in 100 mls @ 400 mls/hr 03/13/17 07:29 03/13/17 09:33 Ofirmev IVPB 03/15/17 07:30 400 mls/hr Q6H PRN Administration fever Linezolid 600 mg in 300 mls @ 200 mls/hr 03/13/17 08:45 03/13/17 21:42 Zyvox 600mg/300ml D5w IVPB 03/20/17 08:46 200 mls/hr Q12 KAMILAH Administration Protocol Fluconazole 100 mg/ 50 mls @ 100 mls/hr 03/13/17 10:15 03/13/17 16:10 Miscellaneous IVPB 100 mls/hr DAILY KAMILAH Administration Protocol Potassium Phosphate 10 mmole/ 1,003.3333 mls @ 125 mls/hr 03/13/17 17:01 04:02 Sodium Chloride IV 125 mls/hr .Q8H2M KAMILAH Administration Insulin Human Lispro 0 units 03/13/17 08:15 03/14/17 03:38 Humalog High SC Not Given Q6H KAMILAH Protocol Metoprolol Tartrate 2.5 mg 03/13/17 10:15 03/14/17 03:47 Lopressor IVP 2.5 mg Q6H KAMILAH Administration Nystatin 1 gm 03/12/17 18:00 03/13/17 09:35 Nystop Topical Powder TOP 1 pow BID KAMILAH Administration Nystatin 1 ea 03/14/17 22:00 Mycostatin Cream TOP TID KAMILAH Pantoprazole Sodium 40 mg 03/14/17 10:00 Protonix Inj IVP Q12 KAMILAH Potassium Phos/Sodium Phos 1 pkt 03/13/17 06:15 03/14/17 06:18 Neutra-Phos GT Not Given Q8H KAMILAH - Patient Studies Lab Studies: Lab Studies 03/13/17 03/13/17 03/13/17 Range/Units 23:23 21:15 20:31 pO2 (30-55) mm/Hg VBG pH (7.32-7.43) VBG pCO2 (40-60) VBG HCO3 (21-28) mmol/l VBG Total CO2 (22-28) mmol.L VBG O2 Sat (Calc) (40-65) % VBG Base Excess (0.0-2.0) mmol/L VBG Potassium (3.6-5.2) mmol/L Sodium (132-148) mmol/L Chloride (98-107) mmol/L Glucose (75-110) mg/dl Lactate (0.7-2.1) mmol/L FiO2 % Potassium (3.6-5.0) mmol/L Carbon Dioxide (21-33) mmol/L Anion Gap (10-20) BUN (7-21) mg/dL Creatinine (0.5-1.4) mg/dL Est GFR ( Amer) Est GFR (Non-Af Amer) POC Glucose (mg/dL) 291 H 221 H (65-110) mg/dL Random Glucose (70-110) mg/dL Calcium (8.4-10.5) mg/dL Phosphorus (2.5-4.5) mg/dL Venous Blood Potassium (3.6-5.2) mmol/L Urine Eosinophils Ur Random Creatinine mg/dL Ur Random Sodium meq/L Stool Occult Blood Positive H (NEGATIVE) 03/13/17 03/13/17 03/13/17 Range/Units 18:47 18:47 16:14 pO2 (30-55) mm/Hg VBG pH (7.32-7.43) VBG pCO2 (40-60) VBG HCO3 (21-28) mmol/l VBG Total CO2 (22-28) mmol.L VBG O2 Sat (Calc) (40-65) % VBG Base Excess (0.0-2.0) mmol/L VBG Potassium (3.6-5.2) mmol/L Sodium (132-148) mmol/L Chloride (98-107) mmol/L Glucose (75-110) mg/dl Lactate (0.7-2.1) mmol/L FiO2 % Potassium (3.6-5.0) mmol/L Carbon Dioxide (21-33) mmol/L Anion Gap (10-20) BUN (7-21) mg/dL Creatinine (0.5-1.4) mg/dL Est GFR ( Amer) Est GFR (Non-Af Amer) POC Glucose (mg/dL) 168 H (65-110) mg/dL Random Glucose (70-110) mg/dL Calcium (8.4-10.5) mg/dL Phosphorus (2.5-4.5) mg/dL Venous Blood Potassium (3.6-5.2) mmol/L Urine Eosinophils Negative Ur Random Creatinine 43 mg/dL Ur Random Sodium 34 meq/L Stool Occult Blood (NEGATIVE) 03/13/17 03/13/17 03/13/17 Range/Units 15:04 13:57 13:14 pO2 (30-55) mm/Hg VBG pH (7.32-7.43) VBG pCO2 (40-60) VBG HCO3 (21-28) mmol/l VBG Total CO2 (22-28) mmol.L VBG O2 Sat (Calc) (40-65) % VBG Base Excess (0.0-2.0) mmol/L VBG Potassium (3.6-5.2) mmol/L Sodium (132-148) mmol/L Chloride (98-107) mmol/L Glucose (75-110) mg/dl Lactate (0.7-2.1) mmol/L FiO2 % Potassium (3.6-5.0) mmol/L Carbon Dioxide (21-33) mmol/L Anion Gap (10-20) BUN (7-21) mg/dL Creatinine (0.5-1.4) mg/dL Est GFR ( Amer) Est GFR (Non-Af Amer) POC Glucose (mg/dL) 151 H 141 H 120 H (65-110) mg/dL Random Glucose (70-110) mg/dL Calcium (8.4-10.5) mg/dL Phosphorus (2.5-4.5) mg/dL Venous Blood Potassium (3.6-5.2) mmol/L Urine Eosinophils Ur Random Creatinine mg/dL Ur Random Sodium meq/L Stool Occult Blood (NEGATIVE) 03/13/17 03/13/17 03/13/17 Range/Units 12:30 12:15 12:14 pO2 84 H (30-55) mm/Hg VBG pH 7.50 H (7.32-7.43) VBG pCO2 36.0 L (40-60) VBG HCO3 28.1 H (21-28) mmol/l VBG Total CO2 29.2 H (22-28) mmol.L VBG O2 Sat (Calc) 99.0 H (40-65) % VBG Base Excess 4.9 H (0.0-2.0) mmol/L VBG Potassium 3.3 L (3.6-5.2) mmol/L Sodium 144.0 (132-148) mmol/L Chloride 110.0 H (98-107) mmol/L Glucose 120 H (75-110) mg/dl Lactate 1.5 (0.7-2.1) mmol/L FiO2 21.0 % Potassium (3.6-5.0) mmol/L Carbon Dioxide (21-33) mmol/L Anion Gap (10-20) BUN (7-21) mg/dL Creatinine (0.5-1.4) mg/dL Est GFR ( Amer) Est GFR (Non-Af Amer) POC Glucose (mg/dL) 110 (65-110) mg/dL Random Glucose (70-110) mg/dL Calcium (8.4-10.5) mg/dL Phosphorus 1.1 L* (2.5-4.5) mg/dL Venous Blood Potassium 3.3 L (3.6-5.2) mmol/L Urine Eosinophils Ur Random Creatinine mg/dL Ur Random Sodium meq/L Stool Occult Blood (NEGATIVE) 03/13/17 03/13/17 03/13/17 Range/Units 12:14 11:04 10:07 pO2 (30-55) mm/Hg VBG pH (7.32-7.43) VBG pCO2 (40-60) VBG HCO3 (21-28) mmol/l VBG Total CO2 (22-28) mmol.L VBG O2 Sat (Calc) (40-65) % VBG Base Excess (0.0-2.0) mmol/L VBG Potassium (3.6-5.2) mmol/L Sodium 146 (132-148) mmol/L Chloride 109 H (98-107) mmol/L Glucose (75-110) mg/dl Lactate (0.7-2.1) mmol/L FiO2 % Potassium 3.4 L (3.6-5.0) mmol/L Carbon Dioxide 27 (21-33) mmol/L Anion Gap 13 (10-20) BUN 45 H (7-21) mg/dL Creatinine 1.7 H (0.5-1.4) mg/dL Est GFR ( Amer) 48 Est GFR (Non-Af Amer) 40 POC Glucose (mg/dL) 140 H 143 H (65-110) mg/dL Random Glucose 116 H (70-110) mg/dL Calcium 8.1 L (8.4-10.5) mg/dL Phosphorus (2.5-4.5) mg/dL Venous Blood Potassium (3.6-5.2) mmol/L Urine Eosinophils Ur Random Creatinine mg/dL Ur Random Sodium meq/L Stool Occult Blood (NEGATIVE) 03/13/17 03/13/17 03/13/17 Range/Units 09:03 08:26 07:30 pO2 37 (30-55) mm/Hg VBG pH 7.41 (7.32-7.43) VBG pCO2 40.0 (40-60) VBG HCO3 25.4 (21-28) mmol/l VBG Total CO2 26.6 (22-28) mmol.L VBG O2 Sat (Calc) 82.5 H (40-65) % VBG Base Excess 0.7 (0.0-2.0) mmol/L VBG Potassium 3.8 (3.6-5.2) mmol/L Sodium 139.0 (132-148) mmol/L Chloride 106.0 (98-107) mmol/L Glucose 107 (75-110) mg/dl Lactate 2.5 H (0.7-2.1) mmol/L FiO2 21.0 % Potassium (3.6-5.0) mmol/L Carbon Dioxide (21-33) mmol/L Anion Gap (10-20) BUN (7-21) mg/dL Creatinine (0.5-1.4) mg/dL Est GFR ( Amer) Est GFR (Non-Af Amer) POC Glucose (mg/dL) 117 H 119 H (65-110) mg/dL Random Glucose (70-110) mg/dL Calcium (8.4-10.5) mg/dL Phosphorus (2.5-4.5) mg/dL Venous Blood Potassium 3.8 (3.6-5.2) mmol/L Urine Eosinophils Ur Random Creatinine mg/dL Ur Random Sodium meq/L Stool Occult Blood (NEGATIVE) 03/13/17 03/13/17 Range/Units 07:30 07:19 pO2 (30-55) mm/Hg VBG pH (7.32-7.43) VBG pCO2 (40-60) VBG HCO3 (21-28) mmol/l VBG Total CO2 (22-28) mmol.L VBG O2 Sat (Calc) (40-65) % VBG Base Excess (0.0-2.0) mmol/L VBG Potassium (3.6-5.2) mmol/L Sodium 141 (132-148) mmol/L Chloride 104 (98-107) mmol/L Glucose (75-110) mg/dl Lactate (0.7-2.1) mmol/L FiO2 % Potassium 4.0 (3.6-5.0) mmol/L Carbon Dioxide 22 (21-33) mmol/L Anion Gap 19 (10-20) BUN 46 H (7-21) mg/dL Creatinine 1.6 H (0.5-1.4) mg/dL Est GFR ( Amer) 52 Est GFR (Non-Af Amer) 43 POC Glucose (mg/dL) 127 H (65-110) mg/dL Random Glucose 99 (70-110) mg/dL Calcium 8.0 L (8.4-10.5) mg/dL Phosphorus (2.5-4.5) mg/dL Venous Blood Potassium (3.6-5.2) mmol/L Urine Eosinophils Ur Random Creatinine mg/dL Ur Random Sodium meq/L Stool Occult Blood (NEGATIVE) Laboratory Results - last 24 hr 03/13/17 03/13/17 03/13/17 07:19 07:30 07:30 pO2 37 VBG pH 7.41 VBG pCO2 40.0 VBG HCO3 25.4 VBG Total CO2 26.6 VBG O2 Sat (Calc) 82.5 H VBG Base Excess 0.7 VBG Potassium 3.8 Sodium 141 139.0 Chloride 104 106.0 Glucose 107 Lactate 2.5 H FiO2 21.0 Potassium 4.0 Carbon Dioxide 22 Anion Gap 19 BUN 46 H Creatinine 1.6 H Est GFR ( Amer) 52 Est GFR (Non-Af Amer) 43 POC Glucose (mg/dL) 127 H Random Glucose 99 Calcium 8.0 L Phosphorus Venous Blood Potassium 3.8 Urine Eosinophils Ur Random Creatinine Ur Random Sodium Stool Occult Blood 03/13/17 03/13/17 03/13/17 08:26 09:03 10:07 pO2 VBG pH VBG pCO2 VBG HCO3 VBG Total CO2 VBG O2 Sat (Calc) VBG Base Excess VBG Potassium Sodium Chloride Glucose Lactate FiO2 Potassium Carbon Dioxide Anion Gap BUN Creatinine Est GFR ( Amer) Est GFR (Non-Af Amer) POC Glucose (mg/dL) 119 H 117 H 143 H Random Glucose Calcium Phosphorus Venous Blood Potassium Urine Eosinophils Ur Random Creatinine Ur Random Sodium Stool Occult Blood 03/13/17 03/13/17 03/13/17 11:04 12:14 12:14 pO2 84 H VBG pH 7.50 H VBG pCO2 36.0 L VBG HCO3 28.1 H VBG Total CO2 29.2 H VBG O2 Sat (Calc) 99.0 H VBG Base Excess 4.9 H VBG Potassium 3.3 L Sodium 146 144.0 Chloride 109 H 110.0 H Glucose 120 H Lactate 1.5 FiO2 21.0 Potassium 3.4 L Carbon Dioxide 27 Anion Gap 13 BUN 45 H Creatinine 1.7 H Est GFR ( Amer) 48 Est GFR (Non-Af Amer) 40 POC Glucose (mg/dL) 140 H Random Glucose 116 H Calcium 8.1 L Phosphorus Venous Blood Potassium 3.3 L Urine Eosinophils Ur Random Creatinine Ur Random Sodium Stool Occult Blood 03/13/17 03/13/17 03/13/17 12:15 12:30 13:14 pO2 VBG pH VBG pCO2 VBG HCO3 VBG Total CO2 VBG O2 Sat (Calc) VBG Base Excess VBG Potassium Sodium Chloride Glucose Lactate FiO2 Potassium Carbon Dioxide Anion Gap BUN Creatinine Est GFR ( Amer) Est GFR (Non-Af Amer) POC Glucose (mg/dL) 110 120 H Random Glucose Calcium Phosphorus 1.1 L* Venous Blood Potassium Urine Eosinophils Ur Random Creatinine Ur Random Sodium Stool Occult Blood 03/13/17 03/13/17 03/13/17 13:57 15:04 16:14 pO2 VBG pH VBG pCO2 VBG HCO3 VBG Total CO2 VBG O2 Sat (Calc) VBG Base Excess VBG Potassium Sodium Chloride Glucose Lactate FiO2 Potassium Carbon Dioxide Anion Gap BUN Creatinine Est GFR ( Amer) Est GFR (Non-Af Amer) POC Glucose (mg/dL) 141 H 151 H 168 H Random Glucose Calcium Phosphorus Venous Blood Potassium Urine Eosinophils Ur Random Creatinine Ur Random Sodium Stool Occult Blood 03/13/17 03/13/17 03/13/17 18:47 18:47 20:31 pO2 VBG pH VBG pCO2 VBG HCO3 VBG Total CO2 VBG O2 Sat (Calc) VBG Base Excess VBG Potassium Sodium Chloride Glucose Lactate FiO2 Potassium Carbon Dioxide Anion Gap BUN Creatinine Est GFR ( Amer) Est GFR (Non-Af Amer) POC Glucose (mg/dL) 221 H Random Glucose Calcium Phosphorus Venous Blood Potassium Urine Eosinophils Negative Ur Random Creatinine 43 Ur Random Sodium 34 Stool Occult Blood 03/13/17 03/13/17 21:15 23:23 pO2 VBG pH VBG pCO2 VBG HCO3 VBG Total CO2 VBG O2 Sat (Calc) VBG Base Excess VBG Potassium Sodium Chloride Glucose Lactate FiO2 Potassium Carbon Dioxide Anion Gap BUN Creatinine Est GFR ( Amer) Est GFR (Non-Af Amer) POC Glucose (mg/dL) 291 H Random Glucose Calcium Phosphorus Venous Blood Potassium Urine Eosinophils Ur Random Creatinine Ur Random Sodium Stool Occult Blood Positive H Fingerstick Blood Sugar Results: 250 Review of Systems - Review of Systems Systems not reviewed;Unavailable: Acuity of Condition (AMS) Assessment/Plan - Assessment and Plan (Free Text) Assessment: 71yo male PMHx HTN and DM BIBA for AMS. Found to be in DKA secondary to severe sepsis with UTI Plan: Neuro: - AO x 1 - AMS likely secondary to toxic metabolic encephalopathy vs UTI - Head CT: no acute intracranial abnormality. Large left occipital scalp hematoma. Mild age-related global parenchymal volume loss and proprotionate enlargement of the ventricles and cortical sulci. - Carotid artery u/s: b/l 20-39% proximal ICA stenoses. Antegrade flow in both vertebral arteries - EEG: mild to moderate bihemispheric cerebral dysfunction. No epileptiforms - f/u MRI - f/u ammonia - PT/OT ordered - f/u Speech/swallow eval reccs - Neuro Dr. Brianne Sigala on board Cardio: - f/u Echo - hx of HTN - Lopressor 25mg po bid - Cardio Dr. Cruz on board Respiratory: - extubated 03/13 and satting well on room air - no acute issues GI: - FOBT + - No verito blood loss and H&H stable - f/u CT abd/pelvis - GI Dr. Weathers consulted Renal: - AUGUSTIN vs CKD - baseline unknown - Renal u/s: midl R hydronephrosis- simple cyst upper pole L kidney - f/u CT abd/pelvis - Monitor - Nephro Dr. Moran on board Endo: - Patient presented with DKA - Insulin gtt discontinued and anion gap has closed - HgbA1c 14.4 - Betahydroxybutyric acid pending - Fructosamine: 324 - Accucheck - Levemir 3 u sc hs - RISS high - Endo Dr. Gomez on board Heme/Onc: - H&H stable - No blood transfusions as patient is Jehovas witness - Monitor ID: - UTI with severe sepsis - Blood culture prelim negative x 4 vials - Urine culture pending - UA + Large blood, +nitrate, moderate leuk esterase - Procal 0.3 - low grade temp overnight - Ofirmev 400cc ivpb q6 prn temp - Tylenol 650 po q6 prn temp - Fluconazole 100mg ivpb qdaily - Linezolid 600mg ivpb q12 Day 2 - Zosyn 3.375 ivpb q6 Day 3 - Nystatin 1gm top bid and 1 ea top tid - ID Dr. Andersen on board MSK: - no acute issues Fluids: D5W @ 100cc DVT ppx: Lovenox 40mg sc qd; SCDs GI ppx: Protonix 40mg ivp q12 [address] discussed with Dr. Jovon Soliz PGY2
[2017-03-14 07:24] LABS: BASO # 0.01 K/mm3 (0.0-2.0); BASO % 0.1 % (0.0-3.0); EOS # 0.1 (0.0-0.7); EOS % 0.6 % (1.5-5.0); GRAN # 9.34 (1.4-6.5); GRAN % 86.7 % (50.0-68.0); HEMATOCRIT 40.9 % (42.0-52.0); LYMPH # 0.5 (1.2-3.4); LYMPH % 4.8 % (22.0-35.0); MEAN CELL VOLUME 88.1 fl (80.0-105.0); MEAN CORPUSCULAR HEMOGLOBIN 29.5 pg (25.0-35.0); MEAN CORPUSCULAR HGB CONC 33.5 g/dl (31.0-37.0); MEAN PLATELET VOLUME 9.9 fl (7.0-11.0); MONO # 0.8 (0.1-0.6); MONO % 7.8 % (1.0-6.0); RED CELL DISTRIBUTION WIDTH 14.4 % (11.5-14.5); WHITE BLOOD COUNT 10.8 10^3/ul (4.5-11.0)
[2017-03-14 08:13] LABS: ALB/GLOB RATIO 0.9 (1.1-1.8); BILIRUBIN,DIRECT 0.6 mg/dL (0.0-0.4); BILIRUBIN,TOTAL 0.6 mg/dL (0.2-1.3); CALCIUM 8.1 mg/dL (8.4-10.5); MAGNESIUM 1.7 mg/dL (1.7-2.2); PHOSPHOROUS 3.5 mg/dL (2.5-4.5); POTASSIUM 3.6 mmol/L (3.6-5.0); TOTAL PROTEIN 5.7 g/dL (5.8-8.3)
--- NOTE | 2017-03-14 08:29 | EEG ---
ELECTROENCEPHALOGRAM REPORT DATE: 03/13/2017 INTRODUCTION: This is a digitally recorded EEG monitoring using standard EEG montages. BACKGROUND RHYTHM: The EEG shows background activity of 6 to 7 Hz theta activity in parieto-occipital region. The EEG activity is bilaterally symmetrical and synchronous. Moderate amount of myogenic artifact noticed in this EEG recording. No sleep recording was noted. Abnormal potentials, no spike, sharp waves, or focal slowing was seen. Photic stimulation and hyperventilation. Photic stimulation did not reveal any abnormality. Hyperventilation was not performed. IMPRESSION: Abnormal electroencephalogram. The above findings are consistent with [id number] bihemispheric cerebral dysfunction. No epileptiform activity seen in this electroencephalogram recording. Jone Sigala MD
[2017-03-14] MEDS ORDERED: Fluconazole IV 200mg/100 ml NS 100 ML IVPB ONE (08:53)
[2017-03-14] MEDS: Fluconazole IV 200mg/100 ml NS 100 MG in Premixed IV 1 EA IVPB SCH (09:02)
[2017-03-14] MEDS: Linezolid 600 mg in D5W 300 ml 600 MG/300 ML BAG IVPB SCH ×2 (09:03→21:25)
[2017-03-14] MEDS: Enoxaparin 40 mg Syringe SC SCH (09:04)
[2017-03-14] MEDS: Nystatin 100,000 Units/gm Topical Pow(15 gm) TOP SCH ×2 (09:06→17:31)
--- NOTE | 2017-03-14 10:08 | US ---
PROCEDURE: Bilateral carotid artery duplex ultrasound HISTORY: Carotid stenosis PHYSICIAN(S): Bernardo Escalera MD. TECHNIQUE: Duplex sonography and color-flow Doppler were used to evaluate the carotid bifurcations and limited segments of the vertebral arteries bilaterally. The exam is limited by the patient's inability to cooperate. FINDINGS: There is mild smooth hypoechoic plaque noted at the carotid bifurcations bilaterally. The peak systolic velocity in the proximal right internal carotid artery is 80 cm/sec. This corresponds to a 20 to 39% proximal right ICA stenosis. Normal systolic velocities are noted in the proximal right external carotid artery. There is antegrade flow in the right vertebral artery. The peak systolic velocity in the proximal left internal carotid artery is 83 cm/sec. This corresponds to a 20 to 39% proximal left ICA stenosis. Normal systolic velocities are noted in the proximal left external carotid artery. There is antegrade flow in the left vertebral artery. IMPRESSION: 1. Bilateral 20-39% proximal ICA stenoses. 2. Antegrade flow in both vertebral arteries.
--- NOTE | 2017-03-14 10:33 | CP.PCM.PN ---
Subjective - Date & Time of Evaluation Date of Evaluation: 03/14/17 Time of Evaluation: 09:50 - Subjective Subjective: Now extubated, no fevers this morning, but had low grade fevers overnight. Objective - Vital Signs/Intake and Output Vital Signs (last 24 hours): Temp Pulse Resp BP Pulse Ox 99.5 F 96 H 28 H 111/69 95 03/14/17 06:28 03/14/17 06:28 03/14/17 06:13 03/14/17 06:13 03/14/17 06:28 Intake and Output: 03/13/17 03/14/17 18:59 06:59 Intake Total 720 1550 Output Total 750 1800 Balance -30 -250 - Medications Medications: Current Medications Acetaminophen (Tylenol 325mg Tab) 650 mg PO Q6H PRN PRN Reason: TEMP>=99.5F Acetaminophen (Tylenol 650 Mg Supp) 650 mg RC Q6H PRN PRN Reason: TEMP>=99.5F Enoxaparin Sodium (Lovenox) 40 mg SC DAILY KAMILAH PRN Reason: Protocol Last Admin: 03/13/17 09:32 Dose: 40 mg Piperacillin Sod/Tazobactam Sod (Zosyn 3.375 In Ns 100ml) 100 mls @ 200 mls/hr IVPB Q6 KAMILAH PRN Reason: Protocol Stop: 03/19/17 18:01 Last Admin: 03/14/17 06:17 Dose: 200 mls/hr Propofol (Diprivan) 1,000 mg in 100 mls @ 2.913 mls/hr IV .Q24H PRN; Protocol; 5 MCG/KG/MIN PRN Reason: TITRATE PER MD ORDER Last Admin: 03/12/17 22:28 Dose: 20 mcg/kg/min, 11.652 mls/hr Acetaminophen (Ofirmev) 1,000 mg in 100 mls @ 400 mls/hr IVPB Q6H PRN PRN Reason: fever Stop: 03/15/17 07:30 Last Admin: 03/13/17 09:33 Dose: 400 mls/hr Linezolid (Zyvox 600mg/300ml D5w) 600 mg in 300 mls @ 200 mls/hr IVPB Q12 KAMILAH PRN Reason: Protocol Stop: 03/20/17 08:46 Last Admin: 03/13/17 21:42 Dose: 200 mls/hr Fluconazole 100 mg/ (Miscellaneous) 50 mls @ 100 mls/hr IVPB DAILY [facility] PRN Reason: Protocol Last Admin: 03/13/17 16:10 Dose: 100 mls/hr Potassium Phosphate 10 mmole/ (Sodium Chloride) 1,003.3333 mls @ 125 mls/hr IV .Q8H2M [facility] Last Admin: 03/14/17 04:02 Dose: 125 mls/hr Insulin Human Lispro (Humalog High) 0 units SC Q6H KAMILAH PRN Reason: Protocol Last Admin: 03/14/17 03:38 Dose: Not Given Metoprolol Tartrate (Lopressor) 2.5 mg IVP Q6H [facility] Last Admin: 03/14/17 03:47 Dose: 2.5 mg Nystatin (Nystop Topical Powder) 1 gm TOP BID [facility] Last Admin: 03/13/17 09:35 Dose: 1 pow Nystatin (Mycostatin Cream) 1 ea TOP TID KAMILAH Pantoprazole Sodium (Protonix Inj) 40 mg IVP Q12 [facility] Potassium Phos/Sodium Phos (Neutra-Phos) 1 pkt GT Q8H [facility] Last Admin: 03/14/17 06:18 Dose: Not Given - Labs Labs: 03/13/17 04:30 03/13/17 12:14 PT 12.7 Seconds (9.9-11.8) H 03/12/17 08:30 INR 1.18 (0.93-1.08) H 03/12/17 08:30 APTT 30.1 Seconds (23.7-30.8) 03/12/17 08:30 - Constitutional Appears: Non-toxic - Head Exam Head Exam: NORMAL INSPECTION - ENT Exam ENT Exam: Mucous Membranes Moist - Neck Exam Neck Exam: absent: Meningismus - Respiratory Exam Respiratory Exam: Decreased Breath Sounds - Cardiovascular Exam Cardiovascular Exam: +S1, +S2 - GI/Abdominal Exam GI & Abdominal Exam: Soft. absent: Tenderness Assessment and Plan - Assessment and Plan (Free Text) Plan: Assessment Systemic Inflammatory Response with fever S/P ventilator-dependent respiratory failure in a patient with hyperglycemia and metabolic acidosis in a patient with DM, R/O severe sepsis from UTI probable [place] rash on the perineum acute on chronic renal failure DM HTN obesity with BMI 32 Plan continue Zosyn and Zyvox (day 2) pending final blood, urine cx; PCT is only 0.3 ; CXR does not show infiltrates; reviewed CT head showing left occipital scalp hematoma will continue to monitor clinically
[2017-03-14] MEDS ORDERED: POTASSIUM PHOSPHATE IV SCH (10:45)
[2017-03-14] MEDS ORDERED: DEXTROSE IV SCH (10:45)
[2017-03-14] MEDS ORDERED: NS IV SCH (10:45)
--- NOTE | 2017-03-14 11:03 | CP.PCM.PN ---
<DerickTrell - Last Filed: 03/14/17 15:20> Subjective - Date & Time of Evaluation Date of Evaluation: 03/14/17 Time of Evaluation: 10:59 - Subjective Subjective: Medicine Progress note. Dr. Linder Pt seen and examined at bedside. No acute events overnight. Patient was extubated yesterday. Currently responds to questions with minimal words. Alert and oriented to person only. Does not follow commands appropriately. Denies any complaints. Objective - Vital Signs/Intake and Output Vital Signs (last 24 hours): Temp Pulse Resp BP Pulse Ox 99.5 F 88 28 H 127/61 95 03/14/17 06:28 03/14/17 09:23 03/14/17 06:13 03/14/17 09:23 03/14/17 06:28 Intake and Output: 03/14/17 03/14/17 06:59 18:59 Intake Total 1550 Output Total 1800 Balance -250 - Medications Medications: Current Medications Acetaminophen (Tylenol 325mg Tab) 650 mg PO Q6H PRN PRN Reason: TEMP>=99.5F Acetaminophen (Tylenol 650 Mg Supp) 650 mg RC Q6H PRN PRN Reason: TEMP>=99.5F Enoxaparin Sodium (Lovenox) 40 mg SC DAILY [facility] PRN Reason: Protocol Last Admin: 03/14/17 09:04 Dose: 40 mg Piperacillin Sod/Tazobactam Sod (Zosyn 3.375 In Ns 100ml) 100 mls @ 200 mls/hr IVPB Q6 [facility]AH PRN Reason: Protocol Stop: 03/19/17 18:01 Last Admin: 03/14/17 06:17 Dose: 200 mls/hr Propofol (Diprivan) 1,000 mg in 100 mls @ 2.913 mls/hr IV .Q24H PRN; Protocol; 5 MCG/KG/MIN PRN Reason: TITRATE PER MD ORDER Last Admin: 03/12/17 22:28 Dose: 20 mcg/kg/min, 11.652 mls/hr Acetaminophen (Ofirmev) 1,000 mg in 100 mls @ 400 mls/hr IVPB Q6H PRN PRN Reason: fever Stop: 03/15/17 07:30 Last Admin: 03/13/17 09:33 Dose: 400 mls/hr Linezolid (Zyvox 600mg/300ml D5w) 600 mg in 300 mls @ 200 mls/hr IVPB Q12 [facility] PRN Reason: Protocol Stop: 03/20/17 08:46 Last Admin: 03/14/17 09:03 Dose: 200 mls/hr Fluconazole 100 mg/ (Miscellaneous) 50 mls @ 100 mls/hr IVPB DAILY K[facility]ILAH PRN Reason: Protocol Last Admin: 03/14/17 09:02 Dose: 100 mls/hr Potassium Phosphate 10 mmole/ (Dextrose/Sodium Chloride) 1,003.3333 mls @ 100 mls/hr IV .Q10H2M [facility] Insulin Human Lispro (Humalog High) 0 units SC Q6H K[facility]ILAH PRN Reason: Protocol Last Admin: 03/14/17 08:43 Dose: 7 units Metoprolol Tartrate (Lopressor) 2.5 mg IVP Q6H [facility] Last Admin: 03/14/17 09:23 Dose: 2.5 mg Nystatin (Nystop Topical Powder) 1 gm TOP BID [facility] Last Admin: 03/14/17 09:06 Dose: 1 pow Nystatin (Mycostatin Cream) 1 ea TOP TID [facility] Pantoprazole Sodium (Protonix Inj) 40 mg IVP Q12 [facility] Last Admin: 03/14/17 09:05 Dose: 40 mg Potassium Phos/Sodium Phos (Neutra-Phos) 1 pkt GT Q8H [facility] Last Admin: 03/14/17 06:18 Dose: Not Given - Labs Labs: 03/14/17 06:30 03/14/17 06:30 PT 12.7 Seconds (9.9-11.8) H 03/12/17 08:30 INR 1.18 (0.93-1.08) H 03/12/17 08:30 APTT 30.1 Seconds (23.7-30.8) 03/12/17 08:30 - Constitutional Appears: Well, No Acute Distress - Head Exam Head Exam: ATRAUMATIC, NORMAL INSPECTION, NORMOCEPHALIC - Eye Exam Eye Exam: EOMI Pupil Exam: PERRL - ENT Exam ENT Exam: Mucous Membranes Moist - Respiratory Exam Respiratory Exam: Decreased Breath Sounds, Rhonchi (diffuse rhonchi heard). absent: Respiratory Distress - Cardiovascular Exam Cardiovascular Exam: RRR. absent: JVD - GI/Abdominal Exam GI & Abdominal Exam: Distended (mild distention noted), Soft. absent: Guarding , Rigid, Tenderness - Extremities Exam Extremities Exam: Normal Inspection - Neurological Exam Neurological Exam: Alert Additional comments: oriented to person only. Unable to answer where he is, what month or the situation. Does not follow commands appropriately - Skin Skin Exam: Dry, Intact, Rash, Warm Assessment and Plan - Assessment and Plan (Free Text) Assessment: 71yo M with PMHx including HTN and DM here with AMS, DKA, and SIRS 1. AMS likely secondary to metabolic derangements CT head - no intracranial hemorrhage. Left occipital scalp hematoma - f/u MRI Brain - f/u Ammonia Carotid US - bilateral 20-39% proximal ICA stenosis. Antegrade flow in vertebrals Neurology following, appreciate recs f/u Speech and Language eval recs 2. DKA likely secondary to severe sepsis, UTI Endocrindology following, appreciate recs On SS coverage Levemir 14U SC q12 3. Severe Sepsis, UTI Leukocytosis improving, Afebrile ID following, appreciate recs Rash Nystatin Topical Blood Cxs - NGTD Urine Cxs - pending Zosyn renally dosed Linezolid Fluconazole 4. Electrolyte abnormalities Recheck and replete as needed Hypernatremia D5W @100 5. Renal insufficiency Nephrology following Renal US - mild R hydronephrosis BUN/Creat improving continue to monitor 6. Positive FOB f/u CT GI consulted, appreciate recs on protonix 40q12 7. Mildly Elevated Troponins Cardiology following, appreciate recs No evidence of heart failure tolerating current IV fluids 8. PPx Protonix Lovenox Dispo: Start Liquid diet if tolerating for enteric feeding Palliative care consult appreciated. DNR/DNI. If patient does not improve clinically, alternate options may be discussed Congregational: NO blood products. Blood expanding products okay to use Further recs as per Dr. Kailash Sepulveda PGY1 <Paulino Linder U - Last Filed: 03/24/17 21:57> Objective - Vital Signs/Intake and Output Vital Signs (last 24 hours): Temp Pulse Resp BP Pulse Ox 97.9 F 68 20 110/60 98 03/24/17 16:44 03/24/17 17:57 03/24/17 16:44 03/24/17 17:22 03/24/17 16:44 Intake and Output: 03/24/17 03/25/17 18:59 06:59 Intake Total 320 600 Output Total 700 900 Balance -380 -300 - Medications Medications: Current Medications Acetaminophen (Tylenol 325mg Tab) 650 mg PO Q6H PRN PRN Reason: TEMP>=99.5F Acetaminophen (Tylenol 650 Mg Supp) 650 mg RC Q6H PRN PRN Reason: TEMP>=99.5F Last Admin: 03/17/17 03:50 Dose: 650 mg Apixaban (Eliquis) 5 mg PO BID [facility] PRN Reason: Protocol Last Admin: 03/24/17 18:39 Dose: 5 mg Diltiazem HCl (Cardizem) 60 mg PO TID [facility] Last Admin: 03/24/17 18:39 Dose: 60 mg Fluconazole (Diflucan) 100 mg PO DAILY [facility] PRN Reason: Protocol Last Admin: 03/24/17 10:11 Dose: 100 mg Insulin Detemir (Levemir) 10 unit SC DAILY [facility] Last Admin: 03/24/17 10:12 Dose: 1 unit Insulin Human Regular (Humulin R Low) 0 units SC ACHS [facility] PRN Reason: Protocol Last Admin: 03/24/17 18:40 Dose: 3 units Magnesium Oxide (Mag-Ox) 400 mg PO BID [facility] Last Admin: 03/24/17 18:39 Dose: 400 mg Metoprolol Tartrate (Lopressor) 25 mg PO BID [facility] Last Admin: 03/24/17 17:22 Dose: Not Given Nystatin (Nystop Topical Powder) 1 gm TOP BID [facility] Last Admin: 03/23/17 17:32 Dose: 1 applic Pantoprazole Sodium (Protonix Ec Tab) 40 mg PO 0600 [facility] Last Admin: 03/24/17 05:41 Dose: 40 mg Valacyclovir HCl (Valtrex) 1 gm PO DAILY [facility]AH PRN Reason: Protocol Last Admin: 03/24/17 17:24 Dose: 1 gm - Labs Labs: 03/24/17 05:30 03/23/17 05:00 PT 13.7 Seconds (9.9-11.8) H 03/22/17 08:50 INR 1.27 (0.93-1.08) H 03/22/17 08:50 APTT 59.1 Seconds (23.7-30.8) H 03/22/17 08:50 Attending/Attestation - Attestation I have personally seen and examined this patient.: Yes I have fully participated in the care of the patient.: Yes I have reviewed all pertinent clinical information, including history, physical exam and plan: Yes
--- NOTE | 2017-03-14 11:33 | PN ---
DATE: 03/14/2017 CARDIOLOGY FOLLOWUP SUBJECTIVE: The patient is awake in no acute distress. PHYSICAL EXAMINATION: VITAL SIGNS: Blood pressure 127/61, heart rate in the 80s, temperature is 100. NECK: Negative JVD. LUNGS: Decreased breath sounds bilaterally. HEART: Reveal S1, S2. EXTREMITIES: Without edema. LABORATORY DATA: Hemoglobin is 13.7, white count is down to 10.8, glucose 338 with a creatinine of 1.5. IMPRESSION: 1. Status post below knee amputation 2. Sepsis. 3. Improvement of altered mental status. 4. Renal insufficiency. 5. Diabetes. PLAN: Given these findings, the patient is not in any heart failure. His LV function is tolerating his IV fluids. Bernardo Cruz MD
[2017-03-14 12:40] LABS: CHOLESTEROL 171 mg/dL (130-200)
[2017-03-14] MEDS ORDERED: Insulin Detemir 100 units/ml Vial (Levemir) SC ONE (14:00)
--- NOTE | 2017-03-14 14:15 | PN ---
DATE: 03/14/2017 NEUROLOGY PROGRESS NOTE SUBJECTIVE: The patient is lying on the bed, in no acute distress. Denies having any headaches. PHYSICAL EXAMINATION VITAL SIGNS: His blood pressure is 92/47, heart rate is 89 per minute, breathing at the rate of 16 per minute, temperature is 100 degrees Fahrenheit. HEENT: Head is normocephalic and atraumatic. NECK: Supple. There are no carotid bruits. LUNGS: Clear. CARDIOVASCULAR: S1 and S2 audible. No murmurs. ABDOMEN: Soft and nontender. Bowel sounds are present. NEUROLOGICAL EXAM: Mental Status: The patient is awake, alert. He looks at the examiner. He follows some commands. He answers some simple questions, mostly by yes and no. He knows his name. Cranial Nerve Examination: Pupils are 3 mm bilaterally reactive to light. Visual lozoya are full. Extraocular movements are intact. There is no facial asymmetry. Palate is upgoing bilaterally and tongue is midline. Motor Examination: Tone is normal and power appears to be 4 to 5/5 all over, however, he is moving his right side less than the left. Gait is deferred at the moment. LABORATORY DATA: Reviewed shows WBC of 10.8, hemoglobin 13.7, hematocrit 40.9, and platelets of 163. His sodium is 151, potassium 3.6, chloride of 110, carbon dioxide content of 22, BUN of 37, creatinine 1.5, and glucose of 338. IMPRESSION: 1. Altered mental status, appears to be secondary to toxic metabolic encephalopathy. RECOMMENDATIONS: 1. The patient to have MRI of the brain without contrast. 2. The patient to be continued on IV antibiotics. 3. I will also obtain serum ammonia level. 4. Please continue support care and other treatment. Thank you for the opportunity to participate in the care of this patient. Jone Sigala MD
--- NOTE | 2017-03-14 14:38 | MRI ---
PROCEDURE: MRI BRAIN WITHOUT CONTRAST HISTORY: AMS COMPARISON: None. TECHNIQUE: Multiplanar, multisequence MR images of the brain were obtained without intravenous contrast enhancement. FINDINGS: Motion artifacts severely degraded core on this examination. HEMORRHAGE: None DWI: No no definitive evidence of an acute or early subacute infarction. BRAIN PARENCHYMA: Diffuse cerebral atrophy chronic microangiopathy are identified. There is a 1 cm lesion abutting the nikko-superior margin of the right-sided the incisura or possibly in the superior anterior margins of the right cerebellum appearing dark on T1, bright on T2 and very bright on FLAIR weighting. This may represent a proteinaceous cyst or potentially a solid lesion. It is dark on diffusion-weighted imaging. Follow-up MRI with contrast is advised, particularly the patient is able to maintain adequate positioning. VENTRICLES: Unremarkable. No hydrocephalus. CRANIUM: Unremarkable. ORBITS: Grossly unremarkable. PARANASAL SINUSES/MASTOIDS: Limited right mastoid effusions are identified. VASCULAR SYSTEM: Skull base flow voids intact. OTHER FINDINGS: None. IMPRESSION: Very limited brain MRI due to motion artifacts with no definite acute or subacute brain infarction appreciated. 1 cm proteinaceous cyst or potential solid lesion is seen at the right posterior fossa approaching the anterior incisura, potentially representing a complex cyst or even a solid mass. This is dark on CT and does not represent acute hemorrhage but is bright on gradient echo imaging and is not represent chronic hemorrhage either. Follow-up MRI with contrast is advised, particularly if the patient is able to maintain adequate positioning. Age related neuro degenerative changes are identified mildly once again. Bilateral occipital scalp hematoma is appreciated with in the left the left greater than right.
--- NOTE | 2017-03-14 15:16 | CT ---
PROCEDURE: CT Chest, Abdomen and Pelvis without intravenous contrast HISTORY: ??sepsis/HYDRONEPHROSIS COMPARISON: None. TECHNIQUE: Radiation dose: Total exam DLP = 1480.35 mGy-cm. This CT exam was performed using one or more of the following dose reduction techniques: Automated exposure control, adjustment of the mA and/or kV according to patient size, and/or use of iterative reconstruction technique. FINDINGS: CT CHEST WITHOUT CONTRAST: LUNGS: Prior endotracheal tube seen in chest radiograph 03/13/2017 is been removed as well as nasogastric tube. Limited bilateral dependent atelectasis favored over pneumonia though the latter is not completely excluded. Central airways appear clear. No definitive pulmonary mass is identified within well-aerated lung. MEDIASTINUM: Unremarkable. Normal caliber aorta and pulmonary arterial trunk. Normal size heart. Thoracic inlet appears unremarkable. LYMPH NODES: Unremarkable. PLEURA: Minimal bilateral pleural effusions are identified, right greater than left. No pericardial effusion. BONES: Unremarkable. OTHER FINDINGS: None. CT ABDOMEN AND PELVIS: LIVER: Unremarkable. No gross lesion or ductal dilatation. GALLBLADDER AND BILE DUCTS: Prior cholecystectomy noted. Clinically correlate. PANCREAS: Unremarkable. No gross lesion or ductal dilatation. SPLEEN: Unremarkable. ADRENALS: Unremarkable. No mass. KIDNEYS AND URETERS: No definite obstructive uropathy bilaterally. A tiny right renal cyst identified measuring a maximum of 1.9 cm off the lower pole right kidney with punctate intrarenal calculus calculus difficult to exclude at the midpole right kidney. The lucency is too small to characterize the midpole right kidney anteriorly. A the 3.5 x 2.8 cm cyst seen the at the upper pole left kidney with the 9.9 x 7.6 cm cyst exophytic off the mid to lower pole posteriorly. Nonspecific streaky perinephric changes are identified bilaterally. VASCULATURE: Unremarkable. No aortic aneurysm. BOWEL: Unremarkable. No obstruction. No gross mural thickening. APPENDIX: Normal appendix. PERITONEUM: Unremarkable. No free fluid. No free air. LYMPH NODES: Unremarkable. No enlarged lymph nodes. BLADDER: The bladder is decompressed by Abad catheter. REPRODUCTIVE: Mildly enlarged prostate gland noted. BONES: No suspicious bony findings although multilevel lumbar spondylosis appreciated. OTHER FINDINGS: None. IMPRESSION: Limited bilateral basilar dependent atelectasis favored over pneumonia however clinical correlation is advised. Trace bilateral pleural effusions are identified. No significant thoracic lymphadenopathy. Patient apparently extubated prior chest radiograph 03/13/2017. No abscess or suspicious fluid collection is appreciated in the abdomen. Bilateral renal cysts are identified greater the left and right kidney which are poorly characterized due lack of intravenous contrast. Nonspecific perinephric changes seen in the kidneys. Prior cholecystectomy. Additional lesser findings as discussed above.
--- NOTE | 2017-03-14 16:29 | CP.CCUPN ---
CCU Subjective - Physician Review Events Since Last Encounter (Free Text): 03/14/17 16:27 Overnight noted to have low grade temp 100. AMS. CCU Objective - Vital Signs / Intake & Output Vital Signs (Last 4 hours): Vital Signs Temp Pulse Resp BP Pulse Ox 03/14/17 15:48 92 H 03/14/17 15:43 100.4 F H 90 97 03/14/17 15:38 100.4 F H 93 H 81 L 03/14/17 15:36 100.4 F H 92 H 97 03/14/17 15:34 100.4 F H 91 H 17 03/14/17 15:33 100.4 F H 91 H 30 H 95 03/14/17 15:32 100.4 F H 92 H 18 03/14/17 15:27 100.2 F H 92 H 97 03/14/17 15:26 100.2 F H 94 H 11 L 03/14/17 15:22 100.2 F H 90 97 03/14/17 15:19 100.2 F H 90 97 03/14/17 15:18 100.2 F H 91 H 96 03/14/17 15:17 100.2 F H 91 H 98 03/14/17 15:15 100.2 F H 90 97 03/14/17 15:13 100.2 F H 91 H 34 H 115/61 98 03/14/17 15:12 100.2 F H 90 96 03/14/17 15:11 100.2 F H 90 98 03/14/17 15:08 100.2 F H 90 97 03/14/17 15:03 100.0 F H 94 H 95 03/14/17 15:00 100.0 F H 90 11 L 97 03/14/17 14:57 100.0 F H 92 H 95 03/14/17 14:56 100.0 F H 92 H 97 03/14/17 14:54 100.0 F H 91 H 96 03/14/17 14:50 100.0 F H 93 H 97 03/14/17 14:48 100.0 F H 92 H 98 03/14/17 14:47 100.0 F H 92 H 97 03/14/17 14:13 100.2 F H 90 29 H 123/59 L 97 03/14/17 14:11 100.2 F H 88 96 03/14/17 14:07 100.2 F H 89 03/14/17 14:05 100.2 F H 89 03/14/17 14:03 100.2 F H 89 13 126/67 03/14/17 14:00 100.2 F H 03/14/17 13:01 100.0 F H 89 03/14/17 13:00 100.0 F H 90 34 H 03/14/17 12:58 100.0 F H 89 03/14/17 12:54 100.0 F H 92 H 03/14/17 12:40 100.0 F H 89 03/14/17 12:33 100.0 F H 88 Intake and Output (Last 8hrs): Intake & Output 03/14/17 03/14/17 03/14/17 06:59 14:59 22:59 Intake Total 1550 Output Total 1800 Balance -250 Intake: IV 1550 Right Antecubital 1500 Right Forearm 50 Output: Urine 1800 Urethral (Abad) 1800 Other: # Bowel Movements 1 - Physical Exam Physical Exam Limitations: Positive for: Altered Mental Status Head: Positive for: Atraumatic, Normocephalic Pupils: Positive for: PERRL Conjunctiva: Positive for: Normal Mouth: Positive for: Moist Mucous Membranes Respiratory/Chest: Positive for: Rhonchi. Negative for: Respiratory Distress, Accessory Muscle Use Cardiovascular: Positive for: Regular Rate and Rhythm, Normal S1, S2. Negative for: Murmurs Abdomen: Positive for: Distention (mild), Normal Bowel Sounds. Negative for: Tenderness Upper Extremity: Positive for: Normal Inspection. Negative for: Cyanosis, Edema Lower Extremity: Positive for: Normal Inspection. Negative for: Edema Skin: Positive for: Warm, Dry, Normal Color Psychiatric: Positive for: Alert. Negative for: Oriented x 3, Normal Insight, Normal Concentration, Normal Affect - Medications Active Medications: Active Medications Generic Name Dose Route Start Last Admin Trade Name Freq PRN Reason Stop Dose Admin Acetaminophen 650 mg 03/13/17 10:13 Tylenol 325mg Tab PO Q6H PRN TEMP>=99.5F Acetaminophen 650 mg 03/13/17 10:13 Tylenol 650 Mg Supp RC Q6H PRN TEMP>=99.5F Enoxaparin Sodium 40 mg 03/12/17 12:00 03/14/17 09:04 Lovenox SC 40 mg DAILY KMAILAH Administration Protocol Piperacillin Sod/Tazobactam Sod 100 mls @ 200 mls/hr 03/12/17 18:00 03/14/17 12:07 Zosyn 3.375 In Ns 100ml IVPB 03/19/17 18:01 200 mls/hr Q6 KAMILAH Administration Protocol Acetaminophen 1,000 mg in 100 mls @ 400 mls/hr 03/13/17 07:29 03/13/17 09:33 Ofirmev IVPB 03/15/17 07:30 400 mls/hr Q6H PRN Administration fever Linezolid 600 mg in 300 mls @ 200 mls/hr 03/13/17 08:45 03/14/17 09:03 Zyvox 600mg/300ml D5w IVPB 03/20/17 08:46 200 mls/hr Q12 KAMILAH Administration Protocol Fluconazole 100 mg/ 50 mls @ 100 mls/hr 03/13/17 10:15 03/14/17 09:02 Miscellaneous IVPB 100 mls/hr DAILY KAMILAH Administration Protocol Dextrose 1,000 mls @ 100 mls/hr 03/14/17 11:45 03/14/17 12:05 Dextrose 5% In Water 1000 Ml IV 100 mls/hr .Q10H KAMILAH Administration Insulin Detemir 14 unit 03/14/17 20:00 Levemir SC Q12H KAMILAH Insulin Human Lispro 0 units 03/14/17 16:11 Humalog High SC Q4H KAMILAH Protocol Metoprolol Tartrate 25 mg 03/14/17 18:00 Lopressor PO BID KAMILAH Nystatin 1 gm 03/12/17 18:00 03/14/17 09:06 Nystop Topical Powder TOP 1 pow BID KAMILAH Administration Nystatin 1 ea 03/14/17 22:00 Mycostatin Cream TOP TID KAMILAH Pantoprazole Sodium 40 mg 03/14/17 10:00 03/14/17 09:05 Protonix Inj IVP 40 mg Q12 KAMILAH Administration Potassium Phos/Sodium Phos 1 pkt 03/13/17 06:15 03/14/17 14:17 Neutra-Phos GT Not Given Q8H KAMILAH - Patient Studies Lab Studies: Microbiology Studies 03/12/17 12:00 MRSA Culture (Admit) - Final Nose MRSA NOT DETECTED 03/13/17 07:30 Blood Culture - Preliminary Blood-Venous NO GROWTH AFTER 24 HOURS 03/13/17 07:50 Blood Culture - Preliminary Blood-Venous NO GROWTH AFTER 24 HOURS Lab Studies 03/14/17 03/14/17 03/14/17 Range/Units 16:07 14:05 11:04 WBC (4.5-11.0) 10^3/ul RBC (3.5-6.1) 10^6/uL Hgb (14.0-18.0) g/dL Hct (42.0-52.0) % MCV (80.0-105.0) fl MCH (25.0-35.0) pg MCHC (31.0-37.0) g/dl RDW (11.5-14.5) % Plt Count (120.0-450.0) 10^3/uL MPV (7.0-11.0) fl Gran % (50.0-68.0) % Lymph % (Auto) (22.0-35.0) % [place] % (Auto) (1.0-6.0) % Eos % (Auto) (1.5-5.0) % Baso % (Auto) (0.0-3.0) % Gran # (1.4-6.5) Lymph # (1.2-3.4) [place] # (0.1-0.6) Eos # (0.0-0.7) Baso # (0.0-2.0) K/mm3 Sodium (132-148) mmol/L Potassium (3.6-5.0) mmol/L Chloride (98-107) mmol/L Carbon Dioxide (21-33) mmol/L Anion Gap (10-20) BUN (7-21) mg/dL Creatinine (0.5-1.4) mg/dL Est GFR ( Amer) Est GFR (Non-Af Amer) POC Glucose (mg/dL) 483 H* 395 H 358 H (65-110) mg/dL Random Glucose (70-110) mg/dL Fructosamine (190-270) umol/L Calcium (8.4-10.5) mg/dL Phosphorus (2.5-4.5) mg/dL Magnesium (1.7-2.2) mg/dL Total Bilirubin (0.2-1.3) mg/dL Direct Bilirubin (0.0-0.4) mg/dL AST (17-59) U/L ALT (7-56) U/L Alkaline Phosphatase (38-126) U/L Total Protein (5.8-8.3) g/dL Albumin (3.0-4.8) g/dL Globulin gm/dL Albumin/Globulin Ratio (1.1-1.8) Triglycerides (35-160) mg/dL Cholesterol (130-200) mg/dL LDL Cholesterol Direct (0-129) mg/dL HDL Cholesterol (29-60) mg/dL Urine Eosinophils Ur Random Creatinine mg/dL Ur Random Sodium meq/L Stool Occult Blood (NEGATIVE) 03/14/17 03/14/17 03/14/17 Range/Units 07:47 07:00 06:30 WBC (4.5-11.0) 10^3/ul RBC (3.5-6.1) 10^6/uL Hgb (14.0-18.0) g/dL Hct (42.0-52.0) % MCV (80.0-105.0) fl MCH (25.0-35.0) pg MCHC (31.0-37.0) g/dl RDW (11.5-14.5) % Plt Count (120.0-450.0) 10^3/uL MPV (7.0-11.0) fl Gran % (50.0-68.0) % Lymph % (Auto) (22.0-35.0) % [place] % (Auto) (1.0-6.0) % Eos % (Auto) (1.5-5.0) % Baso % (Auto) (0.0-3.0) % Gran # (1.4-6.5) Lymph # (1.2-3.4) [place] # (0.1-0.6) Eos # (0.0-0.7) Baso # (0.0-2.0) K/mm3 Sodium 151 H (132-148) mmol/L Potassium 3.6 (3.6-5.0) mmol/L Chloride 110 H (98-107) mmol/L Carbon Dioxide 22 (21-33) mmol/L Anion Gap 23 H (10-20) BUN 37 H (7-21) mg/dL Creatinine 1.5 H (0.5-1.4) mg/dL Est GFR ( Amer) 56 Est GFR (Non-Af Amer) 46 POC Glucose (mg/dL) 288 H (65-110) mg/dL Random Glucose 338 H* D (70-110) mg/dL Fructosamine (190-270) umol/L Calcium 8.1 L (8.4-10.5) mg/dL Phosphorus 3.5 (2.5-4.5) mg/dL Magnesium 1.7 (1.7-2.2) mg/dL Total Bilirubin 0.6 (0.2-1.3) mg/dL Direct Bilirubin 0.6 H (0.0-0.4) mg/dL AST 22 (17-59) U/L ALT 23 (7-56) U/L Alkaline Phosphatase 85 (38-126) U/L Total Protein 5.7 L (5.8-8.3) g/dL Albumin 2.7 L (3.0-4.8) g/dL Globulin 2.9 gm/dL Albumin/Globulin Ratio 0.9 L (1.1-1.8) Triglycerides 244 H (35-160) mg/dL Cholesterol 171 (130-200) mg/dL LDL Cholesterol Direct 98 (0-129) mg/dL HDL Cholesterol 28 L (29-60) mg/dL Urine Eosinophils Ur Random Creatinine mg/dL Ur Random Sodium meq/L Stool Occult Blood (NEGATIVE) 03/14/17 03/14/17 03/13/17 Range/Units 06:30 02:06 23:23 WBC 10.8 D (4.5-11.0) 10^3/ul RBC 4.64 (3.5-6.1) 10^6/uL Hgb 13.7 L (14.0-18.0) g/dL Hct 40.9 L (42.0-52.0) % MCV 88.1 D (80.0-105.0) fl MCH 29.5 (25.0-35.0) pg MCHC 33.5 (31.0-37.0) g/dl RDW 14.4 (11.5-14.5) % Plt Count 163 (120.0-450.0) 10^3/uL MPV 9.9 (7.0-11.0) fl Gran % 86.7 H (50.0-68.0) % Lymph % (Auto) 4.8 L (22.0-35.0) % [place] % (Auto) 7.8 H (1.0-6.0) % Eos % (Auto) 0.6 L (1.5-5.0) % Baso % (Auto) 0.1 (0.0-3.0) % Gran # 9.34 H (1.4-6.5) Lymph # 0.5 L (1.2-3.4) [place] # 0.8 H (0.1-0.6) Eos # 0.1 (0.0-0.7) Baso # 0.01 (0.0-2.0) K/mm3 Sodium (132-148) mmol/L Potassium (3.6-5.0) mmol/L Chloride (98-107) mmol/L Carbon Dioxide (21-33) mmol/L Anion Gap (10-20) BUN (7-21) mg/dL Creatinine (0.5-1.4) mg/dL Est GFR ( Amer) Est GFR (Non-Af Amer) POC Glucose (mg/dL) 254 H 291 H (65-110) mg/dL Random Glucose (70-110) mg/dL Fructosamine (190-270) umol/L Calcium (8.4-10.5) mg/dL Phosphorus (2.5-4.5) mg/dL Magnesium (1.7-2.2) mg/dL Total Bilirubin (0.2-1.3) mg/dL Direct Bilirubin (0.0-0.4) mg/dL AST (17-59) U/L ALT (7-56) U/L Alkaline Phosphatase (38-126) U/L Total Protein (5.8-8.3) g/dL Albumin (3.0-4.8) g/dL Globulin gm/dL Albumin/Globulin Ratio (1.1-1.8) Triglycerides (35-160) mg/dL Cholesterol (130-200) mg/dL LDL Cholesterol Direct (0-129) mg/dL HDL Cholesterol (29-60) mg/dL Urine Eosinophils Ur Random Creatinine mg/dL Ur Random Sodium meq/L Stool Occult Blood (NEGATIVE) 03/13/17 03/13/17 03/13/17 Range/Units 21:15 20:31 18:47 WBC (4.5-11.0) 10^3/ul RBC (3.5-6.1) 10^6/uL Hgb (14.0-18.0) g/dL Hct (42.0-52.0) % MCV (80.0-105.0) fl MCH (25.0-35.0) pg MCHC (31.0-37.0) g/dl RDW (11.5-14.5) % Plt Count (120.0-450.0) 10^3/uL MPV (7.0-11.0) fl Gran % (50.0-68.0) % Lymph % (Auto) (22.0-35.0) % [place] % (Auto) (1.0-6.0) % Eos % (Auto) (1.5-5.0) % Baso % (Auto) (0.0-3.0) % Gran # (1.4-6.5) Lymph # (1.2-3.4) [place] # (0.1-0.6) Eos # (0.0-0.7) Baso # (0.0-2.0) K/mm3 Sodium (132-148) mmol/L Potassium (3.6-5.0) mmol/L Chloride (98-107) mmol/L Carbon Dioxide (21-33) mmol/L Anion Gap (10-20) BUN (7-21) mg/dL Creatinine (0.5-1.4) mg/dL Est GFR ( Amer) Est GFR (Non-Af Amer) POC Glucose (mg/dL) 221 H (65-110) mg/dL Random Glucose (70-110) mg/dL Fructosamine (190-270) umol/L Calcium (8.4-10.5) mg/dL Phosphorus (2.5-4.5) mg/dL Magnesium (1.7-2.2) mg/dL Total Bilirubin (0.2-1.3) mg/dL Direct Bilirubin (0.0-0.4) mg/dL AST (17-59) U/L ALT (7-56) U/L Alkaline Phosphatase (38-126) U/L Total Protein (5.8-8.3) g/dL Albumin (3.0-4.8) g/dL Globulin gm/dL Albumin/Globulin Ratio (1.1-1.8) Triglycerides (35-160) mg/dL Cholesterol (130-200) mg/dL LDL Cholesterol Direct (0-129) mg/dL HDL Cholesterol (29-60) mg/dL Urine Eosinophils Negative Ur Random Creatinine mg/dL Ur Random Sodium meq/L Stool Occult Blood Positive H (NEGATIVE) 03/13/17 03/12/17 Range/Units 18:47 11:50 WBC (4.5-11.0) 10^3/ul RBC (3.5-6.1) 10^6/uL Hgb (14.0-18.0) g/dL Hct (42.0-52.0) % MCV (80.0-105.0) fl MCH (25.0-35.0) pg MCHC (31.0-37.0) g/dl RDW (11.5-14.5) % Plt Count (120.0-450.0) 10^3/uL MPV (7.0-11.0) fl Gran % (50.0-68.0) % Lymph % (Auto) (22.0-35.0) % [place] % (Auto) (1.0-6.0) % Eos % (Auto) (1.5-5.0) % Baso % (Auto) (0.0-3.0) % Gran # (1.4-6.5) Lymph # (1.2-3.4) [place] # (0.1-0.6) Eos # (0.0-0.7) Baso # (0.0-2.0) K/mm3 Sodium (132-148) mmol/L Potassium (3.6-5.0) mmol/L Chloride (98-107) mmol/L Carbon Dioxide (21-33) mmol/L Anion Gap (10-20) BUN (7-21) mg/dL Creatinine (0.5-1.4) mg/dL Est GFR ( Amer) Est GFR (Non-Af Amer) POC Glucose (mg/dL) (65-110) mg/dL Random Glucose (70-110) mg/dL Fructosamine 324 H (190-270) umol/L Calcium (8.4-10.5) mg/dL Phosphorus (2.5-4.5) mg/dL Magnesium (1.7-2.2) mg/dL Total Bilirubin (0.2-1.3) mg/dL Direct Bilirubin (0.0-0.4) mg/dL AST (17-59) U/L ALT (7-56) U/L Alkaline Phosphatase (38-126) U/L Total Protein (5.8-8.3) g/dL Albumin (3.0-4.8) g/dL Globulin gm/dL Albumin/Globulin Ratio (1.1-1.8) Triglycerides (35-160) mg/dL Cholesterol (130-200) mg/dL LDL Cholesterol Direct (0-129) mg/dL HDL Cholesterol (29-60) mg/dL Urine Eosinophils Ur Random Creatinine 43 mg/dL Ur Random Sodium 34 meq/L Stool Occult Blood (NEGATIVE) Laboratory Results - last 24 hr 03/12/17 03/13/17 03/13/17 11:50 18:47 18:47 WBC RBC Hgb Hct MCV MCH MCHC RDW Plt Count MPV Gran % Lymph % (Auto) [place] % (Auto) Eos % (Auto) Baso % (Auto) Gran # Lymph # [place] # Eos # Baso # Sodium Potassium Chloride Carbon Dioxide Anion Gap BUN Creatinine Est GFR ( Amer) Est GFR (Non-Af Amer) POC Glucose (mg/dL) Random Glucose Fructosamine 324 H Calcium Phosphorus Magnesium Total Bilirubin Direct Bilirubin AST ALT Alkaline Phosphatase Total Protein Albumin Globulin Albumin/Globulin Ratio Triglycerides Cholesterol LDL Cholesterol Direct HDL Cholesterol Urine Eosinophils Negative Ur Random Creatinine 43 Ur Random Sodium 34 Stool Occult Blood 03/13/17 03/13/17 03/13/17 20:31 21:15 23:23 WBC RBC Hgb Hct MCV MCH MCHC RDW Plt Count MPV Gran % Lymph % (Auto) [place] % (Auto) Eos % (Auto) Baso % (Auto) Gran # Lymph # [place] # Eos # Baso # Sodium Potassium Chloride Carbon Dioxide Anion Gap BUN Creatinine Est GFR ( Amer) Est GFR (Non-Af Amer) POC Glucose (mg/dL) 221 H 291 H Random Glucose Fructosamine Calcium Phosphorus Magnesium Total Bilirubin Direct Bilirubin AST ALT Alkaline Phosphatase Total Protein Albumin Globulin Albumin/Globulin Ratio Triglycerides Cholesterol LDL Cholesterol Direct HDL Cholesterol Urine Eosinophils Ur Random Creatinine Ur Random Sodium Stool Occult Blood Positive H 03/14/17 03/14/17 03/14/17 02:06 06:30 06:30 WBC 10.8 D RBC 4.64 Hgb 13.7 L Hct 40.9 L MCV 88.1 D MCH 29.5 MCHC 33.5 RDW 14.4 Plt Count 163 MPV 9.9 Gran % 86.7 H Lymph % (Auto) 4.8 L [place] % (Auto) 7.8 H Eos % (Auto) 0.6 L Baso % (Auto) 0.1 Gran # 9.34 H Lymph # 0.5 L [place] # 0.8 H Eos # 0.1 Baso # 0.01 Sodium 151 H Potassium 3.6 Chloride 110 H Carbon Dioxide 22 Anion Gap 23 H BUN 37 H Creatinine 1.5 H Est GFR ( Amer) 56 Est GFR (Non-Af Amer) 46 POC Glucose (mg/dL) 254 H Random Glucose 338 H* D Fructosamine Calcium 8.1 L Phosphorus 3.5 Magnesium 1.7 Total Bilirubin 0.6 Direct Bilirubin 0.6 H AST 22 ALT 23 Alkaline Phosphatase 85 Total Protein 5.7 L Albumin 2.7 L Globulin 2.9 Albumin/Globulin Ratio 0.9 L Triglycerides Cholesterol LDL Cholesterol Direct HDL Cholesterol Urine Eosinophils Ur Random Creatinine Ur Random Sodium Stool Occult Blood 03/14/17 03/14/17 03/14/17 07:00 07:47 11:04 WBC RBC Hgb Hct MCV MCH MCHC RDW Plt Count MPV Gran % Lymph % (Auto) [place] % (Auto) Eos % (Auto) Baso % (Auto) Gran # Lymph # [place] # Eos # Baso # Sodium Potassium Chloride Carbon Dioxide Anion Gap BUN Creatinine Est GFR ( Amer) Est GFR (Non-Af Amer) POC Glucose (mg/dL) 288 H 358 H Random Glucose Fructosamine Calcium Phosphorus Magnesium Total Bilirubin Direct Bilirubin AST ALT Alkaline Phosphatase Total Protein Albumin Globulin Albumin/Globulin Ratio Triglycerides 244 H Cholesterol 171 LDL Cholesterol Direct 98 HDL Cholesterol 28 L Urine Eosinophils Ur Random Creatinine Ur Random Sodium Stool Occult Blood 03/14/17 03/14/17 14:05 16:07 WBC RBC Hgb Hct MCV MCH MCHC RDW Plt Count MPV Gran % Lymph % (Auto) [place] % (Auto) Eos % (Auto) Baso % (Auto) Gran # Lymph # [place] # Eos # Baso # Sodium Potassium Chloride Carbon Dioxide Anion Gap BUN Creatinine Est GFR ( Amer) Est GFR (Non-Af Amer) POC Glucose (mg/dL) 395 H 483 H* Random Glucose Fructosamine Calcium Phosphorus Magnesium Total Bilirubin Direct Bilirubin AST ALT Alkaline Phosphatase Total Protein Albumin Globulin Albumin/Globulin Ratio Triglycerides Cholesterol LDL Cholesterol Direct HDL Cholesterol Urine Eosinophils Ur Random Creatinine Ur Random Sodium Stool Occult Blood Fingerstick Blood Sugar Results: 250 Review of Systems - Review of Systems Systems not reviewed;Unavailable: Altered Mental Status Critical Care Progress Note - Ventilator Checklist PUD Prophalyxis: Yes Oral Care with Chlorhexidine Gluconate {CHG}: Yes - Nutrition Nutrition: Nutrition Category Date Time Status Liquid Diet [DIET] Diets 03/14/17 Dinner Ordered Assessment/Plan - Assessment and Plan (Free Text) Assessment: 71 y/o M w/ AMS unclear source. Likely from Sepsis, possibly from Uro source. R Hydronephrosis . UTI . On ABX to cover gram- . CX pending. MRI brain done, no new findings. AMS w/ fevers continued then would plan from LP to r/o encephalitis. Currently patient is stable, no new findings. Monitor electrolytes . AUGUSTIN , baseline unknown. Urine output adequate. D5W added due to free water deficit . DVT P cc time 55 min
--- NOTE | 2017-03-14 17:23 | PN ---
DATE: 03/14/2017 SUBJECTIVE: Patient is seen in ICU, bed 5. Patient is extubated. Patient is alert, awake, responsive, confused, disoriented. Patient is not able to follow simple commands, though the patient is awake. REVIEW OF SYSTEMS: Patient 13 system review could not be accurately obtained. PHYSICAL EXAMINATION: GENERAL: The patient is seen lying in the bed. VITAL SIGNS: T-max is 100.4-100.6. Telemetry shows sinus rhythm, heart rate now down to 80s and 90s. Blood pressure is 117/60, 118/68, 131/62, respiration is high 20s to low 30s per minute, O2 sat is 97-98. INTAKE/OUTPUT: Intake 1550, output 1800. HEENT: Head: Normocephalic, atraumatic. Eyes show pink conjunctivae. Anicteric sclerae. No oropharyngeal lesion. NECK: Questionable soft carotid bruit. CHEST: Kyphosis. LUNGS: Shows occasional positive rhonchi upper lung field. CARDIOVASCULAR: Shows S1, S2, regular rhythm. Questionable soft systolic murmur left sternal border, right second intercostal space. ABDOMEN: Protuberant. Positive bowel sounds. GENITALIA: Male. RECTAL: Deferred. Positive Abda catheter. EXTREMITIES: Shows positive SCDs. Trace swelling of the lower extremity noted. MUSCULOSKELETAL: Shows a body mass index of 32.5. NEUROLOGIC: The patient is alert, awake, responsive, confused, disoriented. Gait examination is not tested. VASCULAR: Palpate pulses. DIAGNOSTICS: 03/14/2017, WBC count is down to 10.8 from 22.4, hemoglobin/hematocrit 13.7 and 40.9, platelets 163. Granulocytes 87% segs. Sodium is 151, potassium 3.6, chloride 110, CO2 22, anion gap 23, BUN 37, creatinine 1.5, GFR 56. Glucose 358, 288, 338, , hemoglobin A1c 14.4, fructosamine 324, calcium 8.1, phosphorus 3.5, magnesium 1.7, total protein 5.7, albumin 2.7. Stool occult blood positive. Fecal occult blood positive. Drug screen positive for benzos. Blood cultures negative. Carotid ultrasound bilateral 20-39% proximal internal carotid artery stenosis. Renal ultrasound shows mild right hydronephrosis, left renal simple cyst. Chest x-ray 03/13/2017, bibasilar atelectasis with right upper abdomen clip suggestive of previous cholecystectomy. Echocardiogram results pending. EKG shows sinus rhythm, sinus tachycardia, left anterior hemiblock. EEG s done which shows bihemispheric cerebral dysfunction. IMPRESSION: 1. Status post ventilator dependent respiratory failure status post extubation. 2. Acute ventilator dependent respiratory failure. 3. Encephalopathy with confusion. 4. Diabetic ketoacidosis. 5. Increased anion gap metabolic acidosis and lactic acidosis. 6. Systemic inflammatory response syndrome with high-grade fever. 7. Possible candidal rash in the perineum. 8. Possible toxic metabolic encephalopathy. 9. Acute renal failure, acute kidney injury with underlying chronic kidney disease stage III. 10. Hypophosphatemia. 11. Persistent refractory fever a body. 12. Leukocytosis with granulocytosis. 13. Lactic acidosis. 14. Severe increased anion gap metabolic acidosis. 15. Hypernatremia. 16. Persistent hyperglycemia. 17. Hypophosphatemia. 18. Protein malnutrition and hypoalbuminemia. 19. Hypokalemia. 20. Questionable acute non-ST elevation myocardial infarction with elevated troponin. 21. Proteinuria, ketonuria, pyuria, bacteriuria. 22. Feet occult blood positive, etiology undetermined. 23. Bilateral internal carotid artery, proximal internal carotid artery 20-39% stenosis. 24. Mild right hydronephrosis with left renal simple cyst. 25. Bibasilar atelectasis, right more than the left. 26. Degenerative spondylosis of the thoracic spine. 27. Status post cholecystectomy. 28. Left anterior hemiblock. 29. Bihemispheric cerebral dysfunction on EEG. 30. Deconditioning. 31. Gait dysfunction. 32. Cerebral cortical atrophy of the brain with ventriculomegaly. 33. Left occipital scalp hematoma. 34. Left anterior hemiblock. 35. Hypernatremia. 36. Leukocytosis with granulocytosis. 37. Persistent hyperglycemia. 38. Uncontrolled diabetes mellitus with persistent hyperglycemia and elevated hemoglobin A1c of 14.49 and elevated fructosamine of greater than 300. 39. Hypovitaminosis D. 40. Morbid obesity with elevated body mass index of 32. PLAN: At this time, the patient has been ordered serial labs. Urine cultures are pending. The patient has current consultation with cardiology, endocrinology, gastroenterology, infectious disease, nephrology, neurology and palliative care. CURRENT MEDICATIONS: IV acetaminophen, Ofirmev 1000 mg IV q. 6h. The patient's IV fluid is changed to D5W at 100 mL an hour for hypernatremia. The patient is on Diflucan 200 mg daily, Humalog high-dose sliding scale coverage q. 6 hours, Levemir was given 20 units one dose yesterday. The patient is on Lopressor 2.5 mg IV q. 6 hours, which will be changed to Lopressor 25 mg q. 12 hours or q. 8 hours, Lovenox 40 mg subcu daily, Mycostatin to affected area three times a day. The patient is on Neutra-Phos three times a day, nystatin cream or powder to affected area. The patient has been on Protonix 40 mg IV q. 12, Tylenol p.r.n., Zosyn 3.375 g IV q. 6, Zyvox 600 mg IV q. 12. The patient's MRI, MRA of the brain is pending. The patient has been ordered a CAT scan of the chest, abdomen, pelvis without contrast only. Repeat EKG ordered. The patient will be ordered out of bed to chair, NELDA blackwell, SCDs. The patient will be started on liquid diet. The patient will be ordered liquid diet. The patient's prognosis at this time is guarded to poor. The patient's further management will be dependent upon the patient's clinical condition, hemodynamic status , as per the patient response to therapeutic intervention, as per the patient's diagnostic test results and as per recommendation by all the physicians involved in the care of the patient. Patient is a DNR as per the patient's 's request and a DNR document completed by the family. Time spent in the entire management, more than 45 minutes. Paulino Linder MD
[2017-03-14 18:32] LABS: URINE BILIRUBIN NEGATIVE (NEGATIVE); URINE BLOOD LARGE (NEGATIVE); URINE GLUCOSE (UA) >=1000 mg/dL (NEGATIVE); URINE KETONE 15 mg/dL (NEGATIVE); URINE LEUKOCYTE ESTERASE MODERATE Leu/uL (NEGATIVE); URINE PROTEIN 30 mg/dL (<30 mg/dL); URINE UROBILINOGEN 0.2 E.U./dL (<1 E.U./dL)
[2017-03-14 18:37] LABS: URINE APPEARANCE SL CLOUDY (CLEAR); URINE COLOR YELLOW (YELLOW)
[2017-03-14 18:47] LABS: URINE RBC TNTC /hpf (0-2); URINE WBC TNTC /hpf (0-6)
[2017-03-14 18:49] LABS: URINE AMORPHOUS SEDIMENT FEW; URINE BACTERIA MOD (NEG); URINE URIC ACID CRYSTALS FEW /hpf
[2017-03-14] MEDS ORDERED: Insulin Detemir 100 units/ml Vial (Levemir) SC SCH ×2 (20:00→22:00)
--- NOTE | 2017-03-14 20:44 | PN ---
DATE: 03/14/2017 SUBJECTIVE: The patient is seen lying in bed. is at bedside. He is arousable. He is confused?, he is moaning, but he does not know why he is moaning. He denies any pain. He denies any chest tightness. He denies any shortness of breath. He does not seem to know where he is. He is currently receiving D5W at 100 mL per hour, IV fluconazole, IV antibiotics, no longer on IV insulin. PHYSICAL EXAMINATION: GENERAL: Obese elderly male, lying in bed in the ICU. VITAL SIGNS: Blood pressure 120/66, heart rate 93, respiratory rate 18. T-max is 100.6. HEENT: Normocephalic, atraumatic. Pupils reactive to light. No pallor. No icterus. NECK: Supple, no JVD. LUNGS: Bilateral equal entry, bilateral equal expansion, no rales, no rhonchi. CARDIAC: S1 and S2. Regular rate and rhythm, no murmur, no rub. ABDOMEN: Obese, distended, soft, bowel sounds present. EXTREMITIES: 2+ pitting edema of the lower extremities. INTAKE AND OUTPUT: 2217/2515. LABORATORY DATA: WBC 10.8, hemoglobin 13.7, hematocrit 40.9, platelets 163. Sodium 151, potassium 3.6, chloride of 110, carbon dioxide 22, BUN 37, creatinine 1.5, glucose 338, calcium 8.1, phosphorus 3.5, magnesium 1.7, total bili 0.6. Urinalysis: Red turbid; pH 5.5; specific gravity 1020; protein greater than 300; glucose greater than 1000; ketones large blood; nitrate positive; moderate leukocyte esterase, stool occult positive, benzodiazepines positive in urine. Blood culture, no growth. CT of the abdomen, chest and pelvis; bilateral basilar dependant atelectasis, trace bilateral pleural effusions, no thoracic lymphadenopathy, no abscess, bilateral renal cysts. CURRENT MEDICATIONS: D5W at 100 mL per hour, fluconazole 100 daily, Humalog insulin, Levemir insulin, Lopressor 25 b.i.d., Lovenox 40, Mycostatin, Neutra-Phos on hold, Protonix 40 IV q. 12; Tylenol, Zosyn 3.375 q. 6; Zyvox 300 q. 12. ASSESSMENT: 1. Severe hypernatremia. 2. Resolving acute kidney injury, suspect underlying chronic kidney disease, stage 3. 3. Status post below the knee amputation. 4. Hypokalemia. 5. Resolved hypophosphatemia. 6. Resolved hypomagnesemia. 7. Poorly controlled diabetes, A1c 14. 8. Urinary tract infection. 9. Sepsis, leukocytosis, fever. 10. Altered mental status?anoxic encephalopathy versus metabolic encephalopathy?? PLAN: 1. Agree with hypotonic IV fluids. 2. Add 10 mEq of KCL to each IV fluid bag. 3. Agree with antibiotics to cover for UTI. 4. Continue finger stick monitoring and titer insulin coverage. 5. Repeat urinalysis. Case discussed at bedside with ICU resident, case discussed with ICU staff, more than 35 minutes spent in the care of this critical-ill patient. Caitlyn Coburn MD
[2017-03-14] MEDS: Nystatin 100,000 Units/gm Cream(15 gm) TOP SCH (21:16)
[2017-03-14 22:16] LABS: HEMATOCRIT 36.8 % (42.0-52.0); MEAN CORPUSCULAR HEMOGLOBIN 29.7 pg (25.0-35.0); MEAN CORPUSCULAR HGB CONC 33.7 g/dl (31.0-37.0); MEAN PLATELET VOLUME 9.1 fl (7.0-11.0); RED CELL DISTRIBUTION WIDTH 14.3 % (11.5-14.5); WHITE BLOOD COUNT 10.1 10^3/ul (4.5-11.0)
--- NOTE | 2017-03-14 23:11 | CARD ---
APPROVED REPORT EKG Measurement Heart [id number] VT [id number] <Conclusion> Normal sinus rhythm Left anterior fascicular block Prolonged QT Abnormal ECG
[2017-03-15] MEDS: Insulin Detemir 100 units/ml Vial (Levemir) SC SCH ×2 (00:23→09:10)
[2017-03-15] MEDS: Insulin Lispro (HUMAlog) HIGH Coverage SC SCH ×6 (00:33→20:58)
[2017-03-15] MEDS: Piperacillin/Tazobact 3.375 gm 100 ML IVPB SCH ×5 (00:33→23:43)
[2017-03-15 01:38] LABS: BLOOD UREA NITROGEN 30 mg/dL (7-21); CALCIUM 7.7 mg/dL (8.4-10.5); CARBON DIOXIDE 25 mmol/L (21-33); CHLORIDE 109 mmol/L (98-107); GFR AFRICAN-AMERICAN > 60; MAGNESIUM 1.8 mg/dL (1.7-2.2); POTASSIUM 3.3 mmol/L (3.6-5.0); SODIUM 146 mmol/L (132-148)
[2017-03-15 01:44] LABS: GLUCOSE,RANDOM 397 mg/dL (70-110)
--- NOTE | 2017-03-15 01:46 | CP.CCUPN ---
CCU Subjective - Physician Review Events Since Last Encounter (Free Text): Patients temperature spiked to 101.7. Na was 151 at 6pm 03/15/17 01:41 03/15/17 01:48 Critical Care Time Spent (in minutes): 50 CCU Objective - Vital Signs / Intake & Output Intake and Output (Last 8hrs): Intake & Output 03/14/17 03/14/17 03/15/17 14:59 22:59 06:59 Intake Total 1875 Output Total 2200 Balance -325 Intake: IV 1875 Right Antecubital 1875 Output: Urine 2200 Urethral (Abad) 2200 Other: # Bowel Movements 1 - Physical Exam Head: Positive for: Atraumatic, Normocephalic Pupils: Positive for: PERRL Conjunctiva: Positive for: Normal Mouth: Positive for: Moist Mucous Membranes Respiratory/Chest: Positive for: Rhonchi. Negative for: Respiratory Distress, Accessory Muscle Use Cardiovascular: Positive for: Regular Rate and Rhythm, Normal S1, S2. Negative for: Murmurs Abdomen: Positive for: Distention (mild), Normal Bowel Sounds. Negative for: Tenderness Upper Extremity: Positive for: Normal Inspection. Negative for: Cyanosis, Edema Lower Extremity: Positive for: Normal Inspection. Negative for: Edema Skin: Positive for: Warm, Dry, Normal Color Psychiatric: Positive for: Alert. Negative for: Oriented x 3, Normal Insight, Normal Concentration, Normal Affect - Medications Active Medications: Active Medications Generic Name Dose Route Start Last Admin Trade Name Freq PRN Reason Stop Dose Admin Acetaminophen 650 mg 03/13/17 10:13 Tylenol 325mg Tab PO Q6H PRN TEMP>=99.5F Acetaminophen 650 mg 03/13/17 10:13 Tylenol 650 Mg Supp RC Q6H PRN TEMP>=99.5F Enoxaparin Sodium 40 mg 03/12/17 12:00 03/14/17 09:04 Lovenox SC 40 mg DAILY KAMILAH Administration Protocol Piperacillin Sod/Tazobactam Sod 100 mls @ 200 mls/hr 03/12/17 18:00 03/15/17 00:33 Zosyn 3.375 In Ns 100ml IVPB 03/19/17 18:01 200 mls/hr Q6 KAMILAH Administration Protocol Acetaminophen 1,000 mg in 100 mls @ 400 mls/hr 03/13/17 07:29 03/14/17 21:17 Ofirmev IVPB 03/15/17 07:30 400 mls/hr Q6H PRN Administration fever Linezolid 600 mg in 300 mls @ 200 mls/hr 03/13/17 08:45 03/14/17 21:25 Zyvox 600mg/300ml D5w IVPB 03/20/17 08:46 200 mls/hr Q12 KAMILAH Administration Protocol Fluconazole 100 mg/ 50 mls @ 100 mls/hr 03/13/17 10:15 03/14/17 09:02 Miscellaneous IVPB 100 mls/hr DAILY KAMILAH Administration Protocol Potassium Chloride 10 meq/ 1,005 mls @ 100 mls/hr 03/14/17 17:45 03/14/17 21: 21 Dextrose IV 100 mls/hr .Q10H3M KAMILAH Administration Insulin Detemir 20 unit 03/14/17 21:48 03/15/17 00:23 Levemir SC Not Given Q12H KAMILAH Insulin Human Lispro 0 units 03/14/17 16:11 03/15/17 00:33 Humalog High SC 15 units Q4H KAMILAH Administration Protocol Metoprolol Tartrate 25 mg 03/14/17 18:00 03/14/17 17:31 Lopressor PO Not Given BID KAMILAH Nystatin 1 gm 03/12/17 18:00 03/14/17 17:31 Nystop Topical Powder TOP 1 applic BID KAMILAH Administration Nystatin 1 ea 03/14/17 22:00 03/14/17 21:16 Mycostatin Cream TOP 1 units TID KAMILAH Administration Pantoprazole Sodium 40 mg 03/14/17 10:00 03/14/17 21:25 Protonix Inj IVP 40 mg Q12 KAMILAH Administration Potassium Phos/Sodium Phos 1 pkt 03/13/17 06:15 03/14/17 21:16 Neutra-Phos GT Not Given Q8H KAMILAH - Patient Studies Lab Studies: Microbiology Studies 03/12/17 12:00 MRSA Culture (Admit) - Final Nose MRSA NOT DETECTED 03/13/17 07:30 Blood Culture - Preliminary Blood-Venous NO GROWTH AFTER 24 HOURS 03/13/17 07:50 Blood Culture - Preliminary Blood-Venous NO GROWTH AFTER 24 HOURS Lab Studies 09/20/17 09/20/17 09/20/17 Range/Units 22:00 22:00 18:25 WBC 10.1 (4.5-11.0) 10^3/ul RBC 4.18 (3.5-6.1) 10^6/uL Hgb 12.4 L (14.0-18.0) g/dL Hct 36.8 L (42.0-52.0) % MCV 88.0 (80.0-105.0) fl MCH 29.7 (25.0-35.0) pg MCHC 33.7 (31.0-37.0) g/dl RDW 14.3 (11.5-14.5) % Plt Count 166 (120.0-450.0) 10^3/uL MPV 9.1 (7.0-11.0) fl Gran % (50.0-68.0) % Lymph % (Auto) (22.0-35.0) % Walker % (Auto) (1.0-6.0) % Eos % (Auto) (1.5-5.0) % Baso % (Auto) (0.0-3.0) % Gran # (1.4-6.5) Lymph # (1.2-3.4) Walker # (0.1-0.6) Eos # (0.0-0.7) Baso # (0.0-2.0) K/mm3 Sodium (132-148) mmol/L Potassium (3.6-5.0) mmol/L Chloride (98-107) mmol/L Carbon Dioxide (21-33) mmol/L Anion Gap (10-20) BUN (7-21) mg/dL Creatinine (0.5-1.4) mg/dL Est GFR ( Amer) Est GFR (Non-Af Amer) POC Glucose (mg/dL) (65-110) mg/dL Random Glucose (70-110) mg/dL Fructosamine (190-270) umol/L Calcium (8.4-10.5) mg/dL Phosphorus (2.5-4.5) mg/dL Magnesium (1.7-2.2) mg/dL Total Bilirubin (0.2-1.3) mg/dL Direct Bilirubin (0.0-0.4) mg/dL AST (17-59) U/L ALT (7-56) U/L Alkaline Phosphatase (38-126) U/L Ammonia < 9 L (9-33) umol/L Total Protein (5.8-8.3) g/dL Albumin (3.0-4.8) g/dL Globulin gm/dL Albumin/Globulin Ratio (1.1-1.8) Triglycerides (35-160) mg/dL Cholesterol (130-200) mg/dL LDL Cholesterol Direct (0-129) mg/dL HDL Cholesterol (29-60) mg/dL Urine Color Yellow (YELLOW) Urine Appearance Sl cloudy (CLEAR) Urine pH 6.0 (4.7-8.0) Ur Specific [place] 1.010 (1.005-1.035) Urine Protein 30 H (<30 mg/dL) mg/dL Urine Glucose (UA) >=1000 (NEGATIVE) mg/dL Urine Ketones 15 H (NEGATIVE) mg/dL Urine Blood Large H (NEGATIVE) Urine Nitrate Negative (NEGATIVE) Urine Bilirubin Negative (NEGATIVE) Urine Urobilinogen 0.2 (<1 E.U./dL) E.U./dL Ur Leukocyte Esterase Moderate H (NEGATIVE) Brennan/uL Urine RBC Tntc (0-2) /hpf Urine WBC Tntc (0-6) /hpf Ur Epithelial Cells 4 - 5 (0-5) /hpf Uric Acid Crystals Few /hpf Amorphous Sediment Few Urine Bacteria Mod (NEG) 03/14/17 03/14/17 03/14/17 Range/Units 16:07 14:05 11:04 WBC (4.5-11.0) 10^3/ul RBC (3.5-6.1) 10^6/uL Hgb (14.0-18.0) g/dL Hct (42.0-52.0) % MCV (80.0-105.0) fl MCH (25.0-35.0) pg MCHC (31.0-37.0) g/dl RDW (11.5-14.5) % Plt Count (120.0-450.0) 10^3/uL MPV (7.0-11.0) fl Gran % (50.0-68.0) % Lymph % (Auto) (22.0-35.0) % Walker % (Auto) (1.0-6.0) % Eos % (Auto) (1.5-5.0) % Baso % (Auto) (0.0-3.0) % Gran # (1.4-6.5) Lymph # (1.2-3.4) Walker # (0.1-0.6) Eos # (0.0-0.7) Baso # (0.0-2.0) K/mm3 Sodium (132-148) mmol/L Potassium (3.6-5.0) mmol/L Chloride (98-107) mmol/L Carbon Dioxide (21-33) mmol/L Anion Gap (10-20) BUN (7-21) mg/dL Creatinine (0.5-1.4) mg/dL Est GFR ( Amer) Est GFR (Non-Af Amer) POC Glucose (mg/dL) 483 H* 395 H 358 H (65-110) mg/dL Random Glucose (70-110) mg/dL Fructosamine (190-270) umol/L Calcium (8.4-10.5) mg/dL Phosphorus (2.5-4.5) mg/dL Magnesium (1.7-2.2) mg/dL Total Bilirubin (0.2-1.3) mg/dL Direct Bilirubin (0.0-0.4) mg/dL AST (17-59) U/L ALT (7-56) U/L Alkaline Phosphatase (38-126) U/L Ammonia (9-33) umol/L Total Protein (5.8-8.3) g/dL Albumin (3.0-4.8) g/dL Globulin gm/dL Albumin/Globulin Ratio (1.1-1.8) Triglycerides (35-160) mg/dL Cholesterol (130-200) mg/dL LDL Cholesterol Direct (0-129) mg/dL HDL Cholesterol (29-60) mg/dL Urine Color (YELLOW) Urine Appearance (CLEAR) Urine pH (4.7-8.0) Ur Specific [place] (1.005-1.035) Urine Protein (<30 mg/dL) mg/dL Urine Glucose (UA) (NEGATIVE) mg/dL Urine Ketones (NEGATIVE) mg/dL Urine Blood (NEGATIVE) Urine Nitrate (NEGATIVE) Urine Bilirubin (NEGATIVE) Urine Urobilinogen (<1 E.U./dL) E.U./dL Ur Leukocyte Esterase (NEGATIVE) Brennan/uL Urine RBC (0-2) /hpf Urine WBC (0-6) /hpf Ur Epithelial Cells (0-5) /hpf Uric Acid Crystals /hpf Amorphous Sediment Urine Bacteria (NEG) 03/14/17 03/14/17 03/14/17 Range/Units 07:47 07:00 06:30 WBC (4.5-11.0) 10^3/ul RBC (3.5-6.1) 10^6/uL Hgb (14.0-18.0) g/dL Hct (42.0-52.0) % MCV (80.0-105.0) fl MCH (25.0-35.0) pg MCHC (31.0-37.0) g/dl RDW (11.5-14.5) % Plt Count (120.0-450.0) 10^3/uL MPV (7.0-11.0) fl Gran % (50.0-68.0) % Lymph % (Auto) (22.0-35.0) % Walker % (Auto) (1.0-6.0) % Eos % (Auto) (1.5-5.0) % Baso % (Auto) (0.0-3.0) % Gran # (1.4-6.5) Lymph # (1.2-3.4) Walker # (0.1-0.6) Eos # (0.0-0.7) Baso # (0.0-2.0) K/mm3 Sodium 151 H (132-148) mmol/L Potassium 3.6 (3.6-5.0) mmol/L Chloride 110 H (98-107) mmol/L Carbon Dioxide 22 (21-33) mmol/L Anion Gap 23 H (10-20) BUN 37 H (7-21) mg/dL Creatinine 1.5 H (0.5-1.4) mg/dL Est GFR ( Amer) 56 Est GFR (Non-Af Amer) 46 POC Glucose (mg/dL) 288 H (65-110) mg/dL Random Glucose 338 H* D (70-110) mg/dL Fructosamine (190-270) umol/L Calcium 8.1 L (8.4-10.5) mg/dL Phosphorus 3.5 (2.5-4.5) mg/dL Magnesium 1.7 (1.7-2.2) mg/dL Total Bilirubin 0.6 (0.2-1.3) mg/dL Direct Bilirubin 0.6 H (0.0-0.4) mg/dL AST 22 (17-59) U/L ALT 23 (7-56) U/L Alkaline Phosphatase 85 (38-126) U/L Ammonia (9-33) umol/L Total Protein 5.7 L (5.8-8.3) g/dL Albumin 2.7 L (3.0-4.8) g/dL Globulin 2.9 gm/dL Albumin/Globulin Ratio 0.9 L (1.1-1.8) Triglycerides 244 H (35-160) mg/dL Cholesterol 171 (130-200) mg/dL LDL Cholesterol Direct 98 (0-129) mg/dL HDL Cholesterol 28 L (29-60) mg/dL Urine Color (YELLOW) Urine Appearance (CLEAR) Urine pH (4.7-8.0) Ur Specific [place] (1.005-1.035) Urine Protein (<30 mg/dL) mg/dL Urine Glucose (UA) (NEGATIVE) mg/dL Urine Ketones (NEGATIVE) mg/dL Urine Blood (NEGATIVE) Urine Nitrate (NEGATIVE) Urine Bilirubin (NEGATIVE) Urine Urobilinogen (<1 E.U./dL) E.U./dL Ur Leukocyte Esterase (NEGATIVE) Brennan/uL Urine RBC (0-2) /hpf Urine WBC (0-6) /hpf Ur Epithelial Cells (0-5) /hpf Uric Acid Crystals /hpf Amorphous Sediment Urine Bacteria (NEG) 03/14/17 03/14/17 03/12/17 Range/Units 06:30 02:06 11:50 WBC 10.8 D (4.5-11.0) 10^3/ul RBC 4.64 (3.5-6.1) 10^6/uL Hgb 13.7 L (14.0-18.0) g/dL Hct 40.9 L (42.0-52.0) % MCV 88.1 D (80.0-105.0) fl MCH 29.5 (25.0-35.0) pg MCHC 33.5 (31.0-37.0) g/dl RDW 14.4 (11.5-14.5) % Plt Count 163 (120.0-450.0) 10^3/uL MPV 9.9 (7.0-11.0) fl Gran % 86.7 H (50.0-68.0) % Lymph % (Auto) 4.8 L (22.0-35.0) % Walker % (Auto) 7.8 H (1.0-6.0) % Eos % (Auto) 0.6 L (1.5-5.0) % Baso % (Auto) 0.1 (0.0-3.0) % Gran # 9.34 H (1.4-6.5) Lymph # 0.5 L (1.2-3.4) Walker # 0.8 H (0.1-0.6) Eos # 0.1 (0.0-0.7) Baso # 0.01 (0.0-2.0) K/mm3 Sodium (132-148) mmol/L Potassium (3.6-5.0) mmol/L Chloride (98-107) mmol/L Carbon Dioxide (21-33) mmol/L Anion Gap (10-20) BUN (7-21) mg/dL Creatinine (0.5-1.4) mg/dL Est GFR ( Amer) Est GFR (Non-Af Amer) POC Glucose (mg/dL) 254 H (65-110) mg/dL Random Glucose (70-110) mg/dL Fructosamine 324 H (190-270) umol/L Calcium (8.4-10.5) mg/dL Phosphorus (2.5-4.5) mg/dL Magnesium (1.7-2.2) mg/dL Total Bilirubin (0.2-1.3) mg/dL Direct Bilirubin (0.0-0.4) mg/dL AST (17-59) U/L ALT (7-56) U/L Alkaline Phosphatase (38-126) U/L Ammonia (9-33) umol/L Total Protein (5.8-8.3) g/dL Albumin (3.0-4.8) g/dL Globulin gm/dL Albumin/Globulin Ratio (1.1-1.8) Triglycerides (35-160) mg/dL Cholesterol (130-200) mg/dL LDL Cholesterol Direct (0-129) mg/dL HDL Cholesterol (29-60) mg/dL Urine Color (YELLOW) Urine Appearance (CLEAR) Urine pH (4.7-8.0) Ur Specific [place] (1.005-1.035) Urine Protein (<30 mg/dL) mg/dL Urine Glucose (UA) (NEGATIVE) mg/dL Urine Ketones (NEGATIVE) mg/dL Urine Blood (NEGATIVE) Urine Nitrate (NEGATIVE) Urine Bilirubin (NEGATIVE) Urine Urobilinogen (<1 E.U./dL) E.U./dL Ur Leukocyte Esterase (NEGATIVE) Brennan/uL Urine RBC (0-2) /hpf Urine WBC (0-6) /hpf Ur Epithelial Cells (0-5) /hpf Uric Acid Crystals /hpf Amorphous Sediment Urine Bacteria (NEG) Laboratory Results - last 24 hr 03/12/17 03/14/17 03/14/17 11:50 02:06 06:30 WBC 10.8 D RBC 4.64 Hgb 13.7 L Hct 40.9 L MCV 88.1 D MCH 29.5 MCHC 33.5 RDW 14.4 Plt Count 163 MPV 9.9 Gran % 86.7 H Lymph % (Auto) 4.8 L Walker % (Auto) 7.8 H Eos % (Auto) 0.6 L Baso % (Auto) 0.1 Gran # 9.34 H Lymph # 0.5 L Walker # 0.8 H Eos # 0.1 Baso # 0.01 Sodium Potassium Chloride Carbon Dioxide Anion Gap BUN Creatinine Est GFR ( Amer) Est GFR (Non-Af Amer) POC Glucose (mg/dL) 254 H Random Glucose Fructosamine 324 H Calcium Phosphorus Magnesium Total Bilirubin Direct Bilirubin AST ALT Alkaline Phosphatase Ammonia Total Protein Albumin Globulin Albumin/Globulin Ratio Triglycerides Cholesterol LDL Cholesterol Direct HDL Cholesterol Urine Color Urine Appearance Urine pH Ur Specific [place] Urine Protein Urine Glucose (UA) Urine Ketones Urine Blood Urine Nitrate Urine Bilirubin Urine Urobilinogen Ur Leukocyte Esterase Urine RBC Urine WBC Ur Epithelial Cells Uric Acid Crystals Amorphous Sediment Urine Bacteria 03/14/17 03/14/17 03/14/17 06:30 07:00 07:47 WBC RBC Hgb Hct MCV MCH MCHC RDW Plt Count MPV Gran % Lymph % (Auto) Walker % (Auto) Eos % (Auto) Baso % (Auto) Gran # Lymph # Walker # Eos # Baso # Sodium 151 H Potassium 3.6 Chloride 110 H Carbon Dioxide 22 Anion Gap 23 H BUN 37 H Creatinine 1.5 H Est GFR ( Amer) 56 Est GFR (Non-Af Amer) 46 POC Glucose (mg/dL) 288 H Random Glucose 338 H* D Fructosamine Calcium 8.1 L Phosphorus 3.5 Magnesium 1.7 Total Bilirubin 0.6 Direct Bilirubin 0.6 H AST 22 ALT 23 Alkaline Phosphatase 85 Ammonia Total Protein 5.7 L Albumin 2.7 L Globulin 2.9 Albumin/Globulin Ratio 0.9 L Triglycerides 244 H Cholesterol 171 LDL Cholesterol Direct 98 HDL Cholesterol 28 L Urine Color Urine Appearance Urine pH Ur Specific [place] Urine Protein Urine Glucose (UA) Urine Ketones Urine Blood Urine Nitrate Urine Bilirubin Urine Urobilinogen Ur Leukocyte Esterase Urine RBC Urine WBC Ur Epithelial Cells Uric Acid Crystals Amorphous Sediment Urine Bacteria 03/14/17 03/14/17 03/14/17 11:04 14:05 16:07 WBC RBC Hgb Hct MCV MCH MCHC RDW Plt Count MPV Gran % Lymph % (Auto) Walker % (Auto) Eos % (Auto) Baso % (Auto) Gran # Lymph # Walker # Eos # Baso # Sodium Potassium Chloride Carbon Dioxide Anion Gap BUN Creatinine Est GFR ( Amer) Est GFR (Non-Af Amer) POC Glucose (mg/dL) 358 H 395 H 483 H* Random Glucose Fructosamine Calcium Phosphorus Magnesium Total Bilirubin Direct Bilirubin AST ALT Alkaline Phosphatase Ammonia Total Protein Albumin Globulin Albumin/Globulin Ratio Triglycerides Cholesterol LDL Cholesterol Direct HDL Cholesterol Urine Color Urine Appearance Urine pH Ur Specific [place] Urine Protein Urine Glucose (UA) Urine Ketones Urine Blood Urine Nitrate Urine Bilirubin Urine Urobilinogen Ur Leukocyte Esterase Urine RBC Urine WBC Ur Epithelial Cells Uric Acid Crystals Amorphous Sediment Urine Bacteria 03/14/17 03/14/17 03/14/17 18:25 22:00 22:00 WBC 10.1 RBC 4.18 Hgb 12.4 L Hct 36.8 L MCV 88.0 MCH 29.7 MCHC 33.7 RDW 14.3 Plt Count 166 MPV 9.1 Gran % Lymph % (Auto) Walker % (Auto) Eos % (Auto) Baso % (Auto) Gran # Lymph # Walker # Eos # Baso # Sodium Potassium Chloride Carbon Dioxide Anion Gap BUN Creatinine Est GFR ( Amer) Est GFR (Non-Af Amer) POC Glucose (mg/dL) Random Glucose Fructosamine Calcium Phosphorus Magnesium Total Bilirubin Direct Bilirubin AST ALT Alkaline Phosphatase Ammonia < 9 L Total Protein Albumin Globulin Albumin/Globulin Ratio Triglycerides Cholesterol LDL Cholesterol Direct HDL Cholesterol Urine Color Yellow Urine Appearance Sl cloudy Urine pH 6.0 Ur Specific [place] 1.010 Urine Protein 30 H Urine Glucose (UA) >=1000 Urine Ketones 15 H Urine Blood Large H Urine Nitrate Negative Urine Bilirubin Negative Urine Urobilinogen 0.2 Ur Leukocyte Esterase Moderate H Urine RBC Tntc Urine WBC Tntc Ur Epithelial Cells 4 - 5 Uric Acid Crystals Few Amorphous Sediment Few Urine Bacteria Mod Fingerstick Blood Sugar Results: 433 Critical Care Progress Note - Nutrition Nutrition: Nutrition Category Date Time Status Liquid Diet [DIET] Diets 03/14/17 Dinner Ordered Assessment/Plan - Assessment and Plan (Free Text) Assessment: 71 y/o M w/ AMS and Spiking Fever and Hypernatremia CBC, Urine and Blood Cultures ordered, chest x ray ordered Patient still on Abx, Will consult ID and discusss if we want to change the Abx regimen. Possible LP to be performed
[2017-03-15] MEDS ORDERED: Magnesium Sulfate 1 gm in D5W 1 GM/100 ML BAG IVPB ONE (07:08)
[2017-03-15 07:24] LABS: BASO # 0.01 K/mm3 (0.0-2.0); BASO % 0.1 % (0.0-3.0); EOS # 0.1 (0.0-0.7); EOS % 1.2 % (1.5-5.0); GRAN # 8.72 (1.4-6.5); HEMATOCRIT 42.9 % (42.0-52.0); LYMPH # 0.7 (1.2-3.4); LYMPH % 6.6 % (22.0-35.0); MEAN CELL VOLUME 88.5 fl (80.0-105.0); MEAN CORPUSCULAR HEMOGLOBIN 29.7 pg (25.0-35.0); MEAN CORPUSCULAR HGB CONC 33.6 g/dl (31.0-37.0); MEAN PLATELET VOLUME 9.9 fl (7.0-11.0); MONO # 0.4 (0.1-0.6); MONO % 4.1 % (1.0-6.0); RED CELL DISTRIBUTION WIDTH 14.4 % (11.5-14.5); WHITE BLOOD COUNT 9.9 10^3/ul (4.5-11.0)
--- NOTE | 2017-03-15 07:40 | RAD ---
HISTORY: AMS COMPARISON: Portable chest 03/13/2017 FINDINGS: Patient appears to been extubated with nasogastric tube also now removed apparently. LUNGS: Trace medial basilar atelectasis is identified with no left-sided airspace disease evident. Limited elevation right hemidiaphragm again evident. PLEURA: No significant pleural effusion identified, no pneumothorax apparent. CARDIOVASCULAR: Normal. OSSEOUS STRUCTURES: No significant abnormalities. VISUALIZED UPPER ABDOMEN: Normal. OTHER FINDINGS: None. IMPRESSION: Status post extubation with nasogastric tube apparently removed as well. Limited atelectasis is noted at the right base, diminished. No left basilar infiltrate identified. No pleural effusion bilaterally.
--- NOTE | 2017-03-15 08:30 | PN ---
DATE: 03/14/2017 ENDOCRINOLOGY FOLLOWUP NOTE LOCATION: In ICU 128, room 5. SUBJECTIVE: This is a 71-year-old male with recent acute respiratory failure presenting here with diabetic ketoacidosis and dehydration and is now being followed closely for metabolic management. He received intensive insulin therapy with an insulin drip infusion and vigorous IV hydration as given. Today's glucose values are fluctuating and elevated, ranging from 288 to 358 and 395 mg/dL. His latest chemistry showed a BUN of 37, sodium 151, potassium 3.6, chloride 110, CO2 is 22, glucose is 338 and creatinine is 1.5. So at this time, we will actually titrate his dose regimen and increase the Levemir to 14 units subcutaneous every 12 hours at 10 a.m. and 10 p.m. daily as given. We will continue Humalog high-dose correction scale given every 4 hours as ordered. We will titrate incrementally as indicated to optimize metabolic control. We will obtain serum chemistry and supplement accordingly as needed. We will follow. Trinidad Gomez MD
[2017-03-15 08:37] LABS: ALB/GLOB RATIO 0.9 (1.1-1.8); ALKALINE PHOSPHATASE 72 U/L (38-126); ALT/SGPT 17 U/L (7-56); AST/SGOT 20 U/L (17-59); BILIRUBIN,DIRECT 0.4 mg/dL (0.0-0.4); BILIRUBIN,TOTAL 0.5 mg/dL (0.2-1.3); BLOOD UREA NITROGEN 24 mg/dL (7-21); CALCIUM 8.2 mg/dL (8.4-10.5); CARBON DIOXIDE 27 mmol/L (21-33); CHLORIDE 113 mmol/L (98-107); GFR AFRICAN-AMERICAN > 60; GLUCOSE,RANDOM 293 mg/dL (70-110); MAGNESIUM 1.8 mg/dL (1.7-2.2); POTASSIUM 3.3 mmol/L (3.6-5.0); SODIUM 150 mmol/L (132-148); TOTAL PROTEIN 6.4 g/dL (5.8-8.3)
[2017-03-15 08:40] LABS: PHOSPHOROUS 1.4 mg/dL (2.5-4.5)
[2017-03-15 08:48] LABS: TROPONIN I 0.05 ng/mL
[2017-03-15] MEDS: Enoxaparin 40 mg Syringe SC SCH (09:10)
[2017-03-15] MEDS ORDERED: Potassium Phosphate 15 MMOLE in Sodium Chloride 0.9% 250 ML IVPB ONE ×3 (09:10→15:30)
[2017-03-15] MEDS: Fluconazole IV 200mg/100 ml NS 100 MG in Premixed IV 1 EA IVPB SCH (09:13)
[2017-03-15] MEDS ORDERED: Potassium Chloride 40 mEq/30 ml LIQ UD PO ONE (09:13)
[2017-03-15] MEDS: Nystatin 100,000 Units/gm Topical Pow(15 gm) TOP SCH ×2 (09:15→17:23)
[2017-03-15] MEDS: Nystatin 100,000 Units/gm Cream(15 gm) TOP SCH ×3 (09:16→17:23)
[2017-03-15] MEDS: Meropenem 1g/NS 100mL IVPB 1 GM/100 ML PIGGYBACK IVPB SCH ×2 (09:18→22:31)
--- NOTE | 2017-03-15 10:07 | CP.CCUPN ---
<Michell Rasheed - Last Filed: 03/15/17 12:49> CCU Subjective - Physician Review Events Since Last Encounter (Free Text): 03/15/17 10:03 Given tylenol overnight for fever. Subjective (Free Text): 03/15/17 10:04 Critical care progress note for Dr. Kelly Rasheed, PGY-1 Pt S & E at bedside. Pt refusing to answer most questions- denies any pain or problems breathing. Critical Care Time Spent (in minutes): 35 CCU Objective - Vital Signs / Intake & Output Vital Signs (Last 4 hours): Vital Signs Pulse Resp BP Pulse Ox 03/15/17 09:12 97 H 147/50 L 03/15/17 09:00 96 H 98 03/15/17 08:16 88 24 147/50 L 97 03/15/17 08:00 89 26 H 97 03/15/17 07:16 90 18 118/61 97 03/15/17 07:00 90 26 H 96 03/15/17 06:16 90 21 116/56 L 92 L Intake and Output (Last 8hrs): Intake & Output 03/14/17 03/15/17 03/15/17 22:59 06:59 14:59 Intake Total 1875 Output Total 2200 Balance -325 Intake: IV 1875 Right Antecubital 1875 Output: Urine 2200 Urethral (Henriquez) 2200 Other: # Bowel Movements 1 - Physical Exam Head: Positive for: Atraumatic, Normocephalic Extroacular Muscles: Positive for: EOMI Conjunctiva: Positive for: Normal Mouth: Positive for: Moist Mucous Membranes. Negative for: Normal Teeth (poor dentition) Nose (External): Positive for: Atraumatic Respiratory/Chest: Positive for: Clear to Auscultation, Good Air Exchange. Negative for: Respiratory Distress, Accessory Muscle Use Cardiovascular: Positive for: Regular Rate and Rhythm, Normal S1, S2. Negative for: Murmurs Abdomen: Positive for: Normal Bowel Sounds. Negative for: Tenderness, Distention (obese), Peritoneal Signs Genitourinary Male: Positive for: Erythema (over scrotum, B/L inguinal areas) Back: Positive for: Normal Inspection Upper Extremity: Positive for: Normal Inspection. Negative for: Cyanosis, Edema Lower Extremity: Positive for: Normal Inspection. Negative for: Edema Neurological: Positive for: GCS=15, Speech Normal Skin: Positive for: Warm, Rashes, Erythematous (B/L inguinal areas with erythema , yellow plaques and white powder in place). Negative for: Dry (moist intertriginous areas), Normal Color Psychiatric: Positive for: Alert, Normal Insight, Normal Concentration, Other ( non compliant with most questioning). Negative for: Oriented x 3, Normal Affect - Medications Active Medications: Active Medications Generic Name Dose Route Start Last Admin Trade Name Freq PRN Reason Stop Dose Admin Acetaminophen 650 mg 03/13/17 10:13 Tylenol 325mg Tab PO Q6H PRN TEMP>=99.5F Acetaminophen 650 mg 03/13/17 10:13 Tylenol 650 Mg Supp RC Q6H PRN TEMP>=99.5F Enoxaparin Sodium 40 mg 03/12/17 12:00 03/15/17 09:10 Lovenox SC 40 mg DAILY KAMILAH Administration Protocol Piperacillin Sod/Tazobactam Sod 100 mls @ 200 mls/hr 03/12/17 18:00 03/15/17 05:07 Zosyn 3.375 In Ns 100ml IVPB 03/19/17 18:01 200 mls/hr Q6 KAMILAH Administration Protocol Fluconazole 100 mg/ 50 mls @ 100 mls/hr 03/13/17 10:15 03/15/17 09:13 Miscellaneous IVPB 100 mls/hr DAILY KAMILAH Administration Protocol Potassium Chloride 10 meq/ 1,005 mls @ 100 mls/hr 03/14/17 17:45 03/15/17 05: 02 Dextrose IV 100 mls/hr .Q10H3M KAMILAH Administration Meropenem 1g/NS 100mL IVPB 1 gm in 100 mls @ 100 mls/hr 03/15/17 10:00 09:18 Meropenem 1g/Ns 100ml Ivpb IVPB 03/22/17 10:01 100 mls/hr Q12 KAMILAH Administration Protocol Potassium Phosphate 15 mmole/ 255 mls @ 42.5 mls/hr 03/15/17 09:10 Sodium Chloride IVPB 03/15/17 15:09 ONCE ONE Potassium Phosphate 15 mmole/ 255 mls @ 42.5 mls/hr 03/15/17 10:30 Sodium Chloride IVPB 03/15/17 16:29 ONCE ONE Insulin Detemir 20 unit 03/14/17 21:48 03/15/17 09:10 Levemir SC 20 unit Q12H KAMILAH Administration Insulin Human Lispro 0 units 03/14/17 16:11 03/15/17 09:11 Humalog High SC 7 units Q4H KAMILAH Administration Protocol Metoprolol Tartrate 25 mg 03/14/17 18:00 03/15/17 09:12 Lopressor PO 25 mg BID KAMILAH Administration Nystatin 1 gm 03/12/17 18:00 03/15/17 09:15 Nystop Topical Powder TOP 1 applic BID KAMILAH Administration Nystatin 1 ea 03/14/17 22:00 03/15/17 09:16 Mycostatin Cream TOP 1 applic TID KAMILAH Administration Pantoprazole Sodium 40 mg 03/14/17 10:00 03/15/17 09:17 Protonix Inj IVP 40 mg Q12 KAMILAH Administration Potassium Phos/Sodium Phos 1 pkt 03/13/17 06:15 03/14/17 21:16 Neutra-Phos GT Not Given Q8H KAMILAH - Patient Studies Lab Studies: Microbiology Studies 03/13/17 07:30 Blood Culture - Preliminary Blood-Venous NO GROWTH AFTER 48 HOURS 03/13/17 07:50 Blood Culture - Preliminary Blood-Venous NO GROWTH AFTER 48 HOURS 03/12/17 12:00 MRSA Culture (Admit) - Final Nose MRSA NOT DETECTED Lab Studies 03/15/17 03/15/17 03/15/17 Range/Units 08:27 08:03 06:30 WBC (4.5-11.0) 10^3/ul RBC (3.5-6.1) 10^6/uL Hgb (14.0-18.0) g/dL Hct (42.0-52.0) % MCV (80.0-105.0) fl MCH (25.0-35.0) pg MCHC (31.0-37.0) g/dl RDW (11.5-14.5) % Plt Count (120.0-450.0) 10^3/uL MPV (7.0-11.0) fl Gran % (50.0-68.0) % Lymph % (Auto) (22.0-35.0) % [place] % (Auto) (1.0-6.0) % Eos % (Auto) (1.5-5.0) % Baso % (Auto) (0.0-3.0) % Gran # (1.4-6.5) Lymph # (1.2-3.4) [place] # (0.1-0.6) Eos # (0.0-0.7) Baso # (0.0-2.0) K/mm3 Sodium 150 H (132-148) mmol/L Potassium 3.3 L (3.6-5.0) mmol/L Chloride 113 H (98-107) mmol/L Carbon Dioxide 27 (21-33) mmol/L Anion Gap 13 (10-20) BUN 24 H (7-21) mg/dL Creatinine 1.3 (0.5-1.4) mg/dL Est GFR ( Amer) > 60 Est GFR (Non-Af Amer) 54 POC Glucose (mg/dL) 297 H (65-110) mg/dL Random Glucose 293 H (70-110) mg/dL Fructosamine (190-270) umol/L Calcium 8.2 L (8.4-10.5) mg/dL Phosphorus 1.4 L* (2.5-4.5) mg/dL Magnesium 1.8 (1.7-2.2) mg/dL Total Bilirubin 0.5 (0.2-1.3) mg/dL Direct Bilirubin 0.4 (0.0-0.4) mg/dL AST 20 (17-59) U/L ALT 17 (7-56) U/L Alkaline Phosphatase 72 (38-126) U/L Ammonia (9-33) umol/L Total Creatine Kinase 82 (35-230) U/L Troponin I 0.05 D ng/mL Total Protein 6.4 (5.8-8.3) g/dL Albumin 2.9 L (3.0-4.8) g/dL Globulin 3.4 gm/dL Albumin/Globulin Ratio 0.9 L (1.1-1.8) Triglycerides (35-160) mg/dL Cholesterol (130-200) mg/dL LDL Cholesterol Direct (0-129) mg/dL HDL Cholesterol (29-60) mg/dL Prostate Specific Ag 8.7 H (0.00-2.5) ng/mL Urine Color (YELLOW) Urine Appearance (CLEAR) Urine pH (4.7-8.0) Ur Specific [place] (1.005-1.035) Urine Protein (<30 mg/dL) mg/dL Urine Glucose (UA) (NEGATIVE) mg/dL Urine Ketones (NEGATIVE) mg/dL Urine Blood (NEGATIVE) Urine Nitrate (NEGATIVE) Urine Bilirubin (NEGATIVE) Urine Urobilinogen (<1 E.U./dL) E.U./dL Ur Leukocyte Esterase (NEGATIVE) Brennan/uL Urine RBC (0-2) /hpf Urine WBC (0-6) /hpf Ur Epithelial Cells (0-5) /hpf Uric Acid Crystals /hpf Amorphous Sediment Urine Bacteria (NEG) 03/15/17 03/15/17 03/15/17 Range/Units 06:30 04:50 00:10 WBC 9.9 (4.5-11.0) 10^3/ul RBC 4.85 (3.5-6.1) 10^6/uL Hgb 14.4 D (14.0-18.0) g/dL Hct 42.9 (42.0-52.0) % MCV 88.5 (80.0-105.0) fl MCH 29.7 (25.0-35.0) pg MCHC 33.6 (31.0-37.0) g/dl RDW 14.4 (11.5-14.5) % Plt Count 178 (120.0-450.0) 10^3/uL MPV 9.9 (7.0-11.0) fl Gran % 88.0 H (50.0-68.0) % Lymph % (Auto) 6.6 L (22.0-35.0) % [place] % (Auto) 4.1 (1.0-6.0) % Eos % (Auto) 1.2 L (1.5-5.0) % Baso % (Auto) 0.1 (0.0-3.0) % Gran # 8.72 H (1.4-6.5) Lymph # 0.7 L (1.2-3.4) [place] # 0.4 (0.1-0.6) Eos # 0.1 (0.0-0.7) Baso # 0.01 (0.0-2.0) K/mm3 Sodium 146 (132-148) mmol/L Potassium 3.3 L (3.6-5.0) mmol/L Chloride 109 H (98-107) mmol/L Carbon Dioxide 25 (21-33) mmol/L Anion Gap 15 (10-20) BUN 30 H (7-21) mg/dL Creatinine 1.3 (0.5-1.4) mg/dL Est GFR ( Amer) > 60 Est GFR (Non-Af Amer) 54 POC Glucose (mg/dL) 322 H (65-110) mg/dL Random Glucose 397 H* (70-110) mg/dL Fructosamine (190-270) umol/L Calcium 7.7 L (8.4-10.5) mg/dL Phosphorus (2.5-4.5) mg/dL Magnesium 1.8 (1.7-2.2) mg/dL Total Bilirubin (0.2-1.3) mg/dL Direct Bilirubin (0.0-0.4) mg/dL AST (17-59) U/L ALT (7-56) U/L Alkaline Phosphatase (38-126) U/L Ammonia (9-33) umol/L Total Creatine Kinase (35-230) U/L Troponin I ng/mL Total Protein (5.8-8.3) g/dL Albumin (3.0-4.8) g/dL Globulin gm/dL Albumin/Globulin Ratio (1.1-1.8) Triglycerides (35-160) mg/dL Cholesterol (130-200) mg/dL LDL Cholesterol Direct (0-129) mg/dL HDL Cholesterol (29-60) mg/dL Prostate Specific Ag (0.00-2.5) ng/mL Urine Color (YELLOW) Urine Appearance (CLEAR) Urine pH (4.7-8.0) Ur Specific [place] (1.005-1.035) Urine Protein (<30 mg/dL) mg/dL Urine Glucose (UA) (NEGATIVE) mg/dL Urine Ketones (NEGATIVE) mg/dL Urine Blood (NEGATIVE) Urine Nitrate (NEGATIVE) Urine Bilirubin (NEGATIVE) Urine Urobilinogen (<1 E.U./dL) E.U./dL Ur Leukocyte Esterase (NEGATIVE) Brennan/uL Urine RBC (0-2) /hpf Urine WBC (0-6) /hpf Ur Epithelial Cells (0-5) /hpf Uric Acid Crystals /hpf Amorphous Sediment Urine Bacteria (NEG) 03/14/17 03/14/17 03/14/17 Range/Units 23:45 22:00 22:00 WBC 10.1 (4.5-11.0) 10^3/ul RBC 4.18 (3.5-6.1) 10^6/uL Hgb 12.4 L (14.0-18.0) g/dL Hct 36.8 L (42.0-52.0) % MCV 88.0 (80.0-105.0) fl MCH 29.7 (25.0-35.0) pg MCHC 33.7 (31.0-37.0) g/dl RDW 14.3 (11.5-14.5) % Plt Count 166 (120.0-450.0) 10^3/uL MPV 9.1 (7.0-11.0) fl Gran % (50.0-68.0) % Lymph % (Auto) (22.0-35.0) % [place] % (Auto) (1.0-6.0) % Eos % (Auto) (1.5-5.0) % Baso % (Auto) (0.0-3.0) % Gran # (1.4-6.5) Lymph # (1.2-3.4) [place] # (0.1-0.6) Eos # (0.0-0.7) Baso # (0.0-2.0) K/mm3 Sodium (132-148) mmol/L Potassium (3.6-5.0) mmol/L Chloride (98-107) mmol/L Carbon Dioxide (21-33) mmol/L Anion Gap (10-20) BUN (7-21) mg/dL Creatinine (0.5-1.4) mg/dL Est GFR ( Amer) Est GFR (Non-Af Amer) POC Glucose (mg/dL) 433 H* (65-110) mg/dL Random Glucose (70-110) mg/dL Fructosamine (190-270) umol/L Calcium (8.4-10.5) mg/dL Phosphorus (2.5-4.5) mg/dL Magnesium (1.7-2.2) mg/dL Total Bilirubin (0.2-1.3) mg/dL Direct Bilirubin (0.0-0.4) mg/dL AST (17-59) U/L ALT (7-56) U/L Alkaline Phosphatase (38-126) U/L Ammonia < 9 L (9-33) umol/L Total Creatine Kinase (35-230) U/L Troponin I ng/mL Total Protein (5.8-8.3) g/dL Albumin (3.0-4.8) g/dL Globulin gm/dL Albumin/Globulin Ratio (1.1-1.8) Triglycerides (35-160) mg/dL Cholesterol (130-200) mg/dL LDL Cholesterol Direct (0-129) mg/dL HDL Cholesterol (29-60) mg/dL Prostate Specific Ag (0.00-2.5) ng/mL Urine Color (YELLOW) Urine Appearance (CLEAR) Urine pH (4.7-8.0) Ur Specific [place] (1.005-1.035) Urine Protein (<30 mg/dL) mg/dL Urine Glucose (UA) (NEGATIVE) mg/dL Urine Ketones (NEGATIVE) mg/dL Urine Blood (NEGATIVE) Urine Nitrate (NEGATIVE) Urine Bilirubin (NEGATIVE) Urine Urobilinogen (<1 E.U./dL) E.U./dL Ur Leukocyte Esterase (NEGATIVE) Brennan/uL Urine RBC (0-2) /hpf Urine WBC (0-6) /hpf Ur Epithelial Cells (0-5) /hpf Uric Acid Crystals /hpf Amorphous Sediment Urine Bacteria (NEG) 03/14/17 03/14/17 03/14/17 Range/Units 20:18 18:25 16:07 WBC (4.5-11.0) 10^3/ul RBC (3.5-6.1) 10^6/uL Hgb (14.0-18.0) g/dL Hct (42.0-52.0) % MCV (80.0-105.0) fl MCH (25.0-35.0) pg MCHC (31.0-37.0) g/dl RDW (11.5-14.5) % Plt Count (120.0-450.0) 10^3/uL MPV (7.0-11.0) fl Gran % (50.0-68.0) % Lymph % (Auto) (22.0-35.0) % [place] % (Auto) (1.0-6.0) % Eos % (Auto) (1.5-5.0) % Baso % (Auto) (0.0-3.0) % Gran # (1.4-6.5) Lymph # (1.2-3.4) [place] # (0.1-0.6) Eos # (0.0-0.7) Baso # (0.0-2.0) K/mm3 Sodium (132-148) mmol/L Potassium (3.6-5.0) mmol/L Chloride (98-107) mmol/L Carbon Dioxide (21-33) mmol/L Anion Gap (10-20) BUN (7-21) mg/dL Creatinine (0.5-1.4) mg/dL Est GFR ( Amer) Est GFR (Non-Af Amer) POC Glucose (mg/dL) 343 H 483 H* (65-110) mg/dL Random Glucose (70-110) mg/dL Fructosamine (190-270) umol/L Calcium (8.4-10.5) mg/dL Phosphorus (2.5-4.5) mg/dL Magnesium (1.7-2.2) mg/dL Total Bilirubin (0.2-1.3) mg/dL Direct Bilirubin (0.0-0.4) mg/dL AST (17-59) U/L ALT (7-56) U/L Alkaline Phosphatase (38-126) U/L Ammonia (9-33) umol/L Total Creatine Kinase (35-230) U/L Troponin I ng/mL Total Protein (5.8-8.3) g/dL Albumin (3.0-4.8) g/dL Globulin gm/dL Albumin/Globulin Ratio (1.1-1.8) Triglycerides (35-160) mg/dL Cholesterol (130-200) mg/dL LDL Cholesterol Direct (0-129) mg/dL HDL Cholesterol (29-60) mg/dL Prostate Specific Ag (0.00-2.5) ng/mL Urine Color Yellow (YELLOW) Urine Appearance Sl cloudy (CLEAR) Urine pH 6.0 (4.7-8.0) Ur Specific [place] 1.010 (1.005-1.035) Urine Protein 30 H (<30 mg/dL) mg/dL Urine Glucose (UA) >=1000 (NEGATIVE) mg/dL Urine Ketones 15 H (NEGATIVE) mg/dL Urine Blood Large H (NEGATIVE) Urine Nitrate Negative (NEGATIVE) Urine Bilirubin Negative (NEGATIVE) Urine Urobilinogen 0.2 (<1 E.U./dL) E.U./dL Ur Leukocyte Esterase Moderate H (NEGATIVE) Brennan/uL Urine RBC Tntc (0-2) /hpf Urine WBC Tntc (0-6) /hpf Ur Epithelial Cells 4 - 5 (0-5) /hpf Uric Acid Crystals Few /hpf Amorphous Sediment Few Urine Bacteria Mod (NEG) 03/14/17 03/14/17 03/14/17 Range/Units 14:05 11:04 07:00 WBC (4.5-11.0) 10^3/ul RBC (3.5-6.1) 10^6/uL Hgb (14.0-18.0) g/dL Hct (42.0-52.0) % MCV (80.0-105.0) fl MCH (25.0-35.0) pg MCHC (31.0-37.0) g/dl RDW (11.5-14.5) % Plt Count (120.0-450.0) 10^3/uL MPV (7.0-11.0) fl Gran % (50.0-68.0) % Lymph % (Auto) (22.0-35.0) % [place] % (Auto) (1.0-6.0) % Eos % (Auto) (1.5-5.0) % Baso % (Auto) (0.0-3.0) % Gran # (1.4-6.5) Lymph # (1.2-3.4) [place] # (0.1-0.6) Eos # (0.0-0.7) Baso # (0.0-2.0) K/mm3 Sodium (132-148) mmol/L Potassium (3.6-5.0) mmol/L Chloride (98-107) mmol/L Carbon Dioxide (21-33) mmol/L Anion Gap (10-20) BUN (7-21) mg/dL Creatinine (0.5-1.4) mg/dL Est GFR ( Amer) Est GFR (Non-Af Amer) POC Glucose (mg/dL) 395 H 358 H (65-110) mg/dL Random Glucose (70-110) mg/dL Fructosamine (190-270) umol/L Calcium (8.4-10.5) mg/dL Phosphorus (2.5-4.5) mg/dL Magnesium (1.7-2.2) mg/dL Total Bilirubin (0.2-1.3) mg/dL Direct Bilirubin (0.0-0.4) mg/dL AST (17-59) U/L ALT (7-56) U/L Alkaline Phosphatase (38-126) U/L Ammonia (9-33) umol/L Total Creatine Kinase (35-230) U/L Troponin I ng/mL Total Protein (5.8-8.3) g/dL Albumin (3.0-4.8) g/dL Globulin gm/dL Albumin/Globulin Ratio (1.1-1.8) Triglycerides 244 H (35-160) mg/dL Cholesterol 171 (130-200) mg/dL LDL Cholesterol Direct 98 (0-129) mg/dL HDL Cholesterol 28 L (29-60) mg/dL Prostate Specific Ag (0.00-2.5) ng/mL Urine Color (YELLOW) Urine Appearance (CLEAR) Urine pH (4.7-8.0) Ur Specific [place] (1.005-1.035) Urine Protein (<30 mg/dL) mg/dL Urine Glucose (UA) (NEGATIVE) mg/dL Urine Ketones (NEGATIVE) mg/dL Urine Blood (NEGATIVE) Urine Nitrate (NEGATIVE) Urine Bilirubin (NEGATIVE) Urine Urobilinogen (<1 E.U./dL) E.U./dL Ur Leukocyte Esterase (NEGATIVE) Brennan/uL Urine RBC (0-2) /hpf Urine WBC (0-6) /hpf Ur Epithelial Cells (0-5) /hpf Uric Acid Crystals /hpf Amorphous Sediment Urine Bacteria (NEG) 03/12/17 Range/Units 11:50 WBC (4.5-11.0) 10^3/ul RBC (3.5-6.1) 10^6/uL Hgb (14.0-18.0) g/dL Hct (42.0-52.0) % MCV (80.0-105.0) fl MCH (25.0-35.0) pg MCHC (31.0-37.0) g/dl RDW (11.5-14.5) % Plt Count (120.0-450.0) 10^3/uL MPV (7.0-11.0) fl Gran % (50.0-68.0) % Lymph % (Auto) (22.0-35.0) % [place] % (Auto) (1.0-6.0) % Eos % (Auto) (1.5-5.0) % Baso % (Auto) (0.0-3.0) % Gran # (1.4-6.5) Lymph # (1.2-3.4) [place] # (0.1-0.6) Eos # (0.0-0.7) Baso # (0.0-2.0) K/mm3 Sodium (132-148) mmol/L Potassium (3.6-5.0) mmol/L Chloride (98-107) mmol/L Carbon Dioxide (21-33) mmol/L Anion Gap (10-20) BUN (7-21) mg/dL Creatinine (0.5-1.4) mg/dL Est GFR ( Amer) Est GFR (Non-Af Amer) POC Glucose (mg/dL) (65-110) mg/dL Random Glucose (70-110) mg/dL Fructosamine 324 H (190-270) umol/L Calcium (8.4-10.5) mg/dL Phosphorus (2.5-4.5) mg/dL Magnesium (1.7-2.2) mg/dL Total Bilirubin (0.2-1.3) mg/dL Direct Bilirubin (0.0-0.4) mg/dL AST (17-59) U/L ALT (7-56) U/L Alkaline Phosphatase (38-126) U/L Ammonia (9-33) umol/L Total Creatine Kinase (35-230) U/L Troponin I ng/mL Total Protein (5.8-8.3) g/dL Albumin (3.0-4.8) g/dL Globulin gm/dL Albumin/Globulin Ratio (1.1-1.8) Triglycerides (35-160) mg/dL Cholesterol (130-200) mg/dL LDL Cholesterol Direct (0-129) mg/dL HDL Cholesterol (29-60) mg/dL Prostate Specific Ag (0.00-2.5) ng/mL Urine Color (YELLOW) Urine Appearance (CLEAR) Urine pH (4.7-8.0) Ur Specific [place] (1.005-1.035) Urine Protein (<30 mg/dL) mg/dL Urine Glucose (UA) (NEGATIVE) mg/dL Urine Ketones (NEGATIVE) mg/dL Urine Blood (NEGATIVE) Urine Nitrate (NEGATIVE) Urine Bilirubin (NEGATIVE) Urine Urobilinogen (<1 E.U./dL) E.U./dL Ur Leukocyte Esterase (NEGATIVE) Brennan/uL Urine RBC (0-2) /hpf Urine WBC (0-6) /hpf Ur Epithelial Cells (0-5) /hpf Uric Acid Crystals /hpf Amorphous Sediment Urine Bacteria (NEG) Laboratory Results - last 24 hr 03/12/17 03/14/17 03/14/17 11:50 07:00 11:04 WBC RBC Hgb Hct MCV MCH MCHC RDW Plt Count MPV Gran % Lymph % (Auto) [place] % (Auto) Eos % (Auto) Baso % (Auto) Gran # Lymph # [place] # Eos # Baso # Sodium Potassium Chloride Carbon Dioxide Anion Gap BUN Creatinine Est GFR ( Amer) Est GFR (Non-Af Amer) POC Glucose (mg/dL) 358 H Random Glucose Fructosamine 324 H Calcium Phosphorus Magnesium Total Bilirubin Direct Bilirubin AST ALT Alkaline Phosphatase Ammonia Total Creatine Kinase Troponin I Total Protein Albumin Globulin Albumin/Globulin Ratio Triglycerides 244 H Cholesterol 171 LDL Cholesterol Direct 98 HDL Cholesterol 28 L Prostate Specific Ag Urine Color Urine Appearance Urine pH Ur Specific [place] Urine Protein Urine Glucose (UA) Urine Ketones Urine Blood Urine Nitrate Urine Bilirubin Urine Urobilinogen Ur Leukocyte Esterase Urine RBC Urine WBC Ur Epithelial Cells Uric Acid Crystals Amorphous Sediment Urine Bacteria 03/14/17 03/14/17 03/14/17 14:05 16:07 18:25 WBC RBC Hgb Hct MCV MCH MCHC RDW Plt Count MPV Gran % Lymph % (Auto) [place] % (Auto) Eos % (Auto) Baso % (Auto) Gran # Lymph # [place] # Eos # Baso # Sodium Potassium Chloride Carbon Dioxide Anion Gap BUN Creatinine Est GFR ( Amer) Est GFR (Non-Af Amer) POC Glucose (mg/dL) 395 H 483 H* Random Glucose Fructosamine Calcium Phosphorus Magnesium Total Bilirubin Direct Bilirubin AST ALT Alkaline Phosphatase Ammonia Total Creatine Kinase Troponin I Total Protein Albumin Globulin Albumin/Globulin Ratio Triglycerides Cholesterol LDL Cholesterol Direct HDL Cholesterol Prostate Specific Ag Urine Color Yellow Urine Appearance Sl cloudy Urine pH 6.0 Ur Specific [place] 1.010 Urine Protein 30 H Urine Glucose (UA) >=1000 Urine Ketones 15 H Urine Blood Large H Urine Nitrate Negative Urine Bilirubin Negative Urine Urobilinogen 0.2 Ur Leukocyte Esterase Moderate H Urine RBC Tntc Urine WBC Tntc Ur Epithelial Cells 4 - 5 Uric Acid Crystals Few Amorphous Sediment Few Urine Bacteria Mod 03/14/17 03/14/17 03/14/17 20:18 22:00 22:00 WBC 10.1 RBC 4.18 Hgb 12.4 L Hct 36.8 L MCV 88.0 MCH 29.7 MCHC 33.7 RDW 14.3 Plt Count 166 MPV 9.1 Gran % Lymph % (Auto) [place] % (Auto) Eos % (Auto) Baso % (Auto) Gran # Lymph # [place] # Eos # Baso # Sodium Potassium Chloride Carbon Dioxide Anion Gap BUN Creatinine Est GFR ( Amer) Est GFR (Non-Af Amer) POC Glucose (mg/dL) 343 H Random Glucose Fructosamine Calcium Phosphorus Magnesium Total Bilirubin Direct Bilirubin AST ALT Alkaline Phosphatase Ammonia < 9 L Total Creatine Kinase Troponin I Total Protein Albumin Globulin Albumin/Globulin Ratio Triglycerides Cholesterol LDL Cholesterol Direct HDL Cholesterol Prostate Specific Ag Urine Color Urine Appearance Urine pH Ur Specific [place] Urine Protein Urine Glucose (UA) Urine Ketones Urine Blood Urine Nitrate Urine Bilirubin Urine Urobilinogen Ur Leukocyte Esterase Urine RBC Urine WBC Ur Epithelial Cells Uric Acid Crystals Amorphous Sediment Urine Bacteria 03/14/17 03/15/17 03/15/17 23:45 00:10 04:50 WBC RBC Hgb Hct MCV MCH MCHC RDW Plt Count MPV Gran % Lymph % (Auto) [place] % (Auto) Eos % (Auto) Baso % (Auto) Gran # Lymph # [place] # Eos # Baso # Sodium 146 Potassium 3.3 L Chloride 109 H Carbon Dioxide 25 Anion Gap 15 BUN 30 H Creatinine 1.3 Est GFR ( Amer) > 60 Est GFR (Non-Af Amer) 54 POC Glucose (mg/dL) 433 H* 322 H Random Glucose 397 H* Fructosamine Calcium 7.7 L Phosphorus Magnesium 1.8 Total Bilirubin Direct Bilirubin AST ALT Alkaline Phosphatase Ammonia Total Creatine Kinase Troponin I Total Protein Albumin Globulin Albumin/Globulin Ratio Triglycerides Cholesterol LDL Cholesterol Direct HDL Cholesterol Prostate Specific Ag Urine Color Urine Appearance Urine pH Ur Specific [place] Urine Protein Urine Glucose (UA) Urine Ketones Urine Blood Urine Nitrate Urine Bilirubin Urine Urobilinogen Ur Leukocyte Esterase Urine RBC Urine WBC Ur Epithelial Cells Uric Acid Crystals Amorphous Sediment Urine Bacteria 03/15/17 03/15/17 03/15/17 06:30 06:30 08:03 WBC 9.9 RBC 4.85 Hgb 14.4 D Hct 42.9 MCV 88.5 MCH 29.7 MCHC 33.6 RDW 14.4 Plt Count 178 MPV 9.9 Gran % 88.0 H Lymph % (Auto) 6.6 L [place] % (Auto) 4.1 Eos % (Auto) 1.2 L Baso % (Auto) 0.1 Gran # 8.72 H Lymph # 0.7 L [place] # 0.4 Eos # 0.1 Baso # 0.01 Sodium Potassium Chloride Carbon Dioxide Anion Gap BUN Creatinine Est GFR ( Amer) Est GFR (Non-Af Amer) POC Glucose (mg/dL) 297 H Random Glucose Fructosamine Calcium Phosphorus Magnesium Total Bilirubin Direct Bilirubin AST ALT Alkaline Phosphatase Ammonia Total Creatine Kinase Troponin I Total Protein Albumin Globulin Albumin/Globulin Ratio Triglycerides Cholesterol LDL Cholesterol Direct HDL Cholesterol Prostate Specific Ag 8.7 H Urine Color Urine Appearance Urine pH Ur Specific [place] Urine Protein Urine Glucose (UA) Urine Ketones Urine Blood Urine Nitrate Urine Bilirubin Urine Urobilinogen Ur Leukocyte Esterase Urine RBC Urine WBC Ur Epithelial Cells Uric Acid Crystals Amorphous Sediment Urine Bacteria 03/15/17 08:27 WBC RBC Hgb Hct MCV MCH MCHC RDW Plt Count MPV Gran % Lymph % (Auto) [place] % (Auto) Eos % (Auto) Baso % (Auto) Gran # Lymph # [place] # Eos # Baso # Sodium 150 H Potassium 3.3 L Chloride 113 H Carbon Dioxide 27 Anion Gap 13 BUN 24 H Creatinine 1.3 Est GFR ( Amer) > 60 Est GFR (Non-Af Amer) 54 POC Glucose (mg/dL) Random Glucose 293 H Fructosamine Calcium 8.2 L Phosphorus 1.4 L* Magnesium 1.8 Total Bilirubin 0.5 Direct Bilirubin 0.4 AST 20 ALT 17 Alkaline Phosphatase 72 Ammonia Total Creatine Kinase 82 Troponin I 0.05 D Total Protein 6.4 Albumin 2.9 L Globulin 3.4 Albumin/Globulin Ratio 0.9 L Triglycerides Cholesterol LDL Cholesterol Direct HDL Cholesterol Prostate Specific Ag Urine Color Urine Appearance Urine pH Ur Specific [place] Urine Protein Urine Glucose (UA) Urine Ketones Urine Blood Urine Nitrate Urine Bilirubin Urine Urobilinogen Ur Leukocyte Esterase Urine RBC Urine WBC Ur Epithelial Cells Uric Acid Crystals Amorphous Sediment Urine Bacteria Fingerstick Blood Sugar Results: 297 Review of Systems - Review of Systems Systems not reviewed;Unavailable: Uncooperative All systems: reviewed and no additional remarkable complaints except - Constitutional Constitutional: absent: Fever, Chills - Cardiovascular Cardiovascular: absent: Chest Pain - Gastrointestinal Gastrointestinal: absent: Abdominal Pain Critical Care Progress Note - Extremities/Vascular Does the Patient have a Central Venous Catheter?: No Does the Patient need a Central Venous Catheter?: No Does the Patient have a Henriquez Catheter?: Yes Does the Patient need a Henriquez Catheter?: No (will remove) - Prophylaxis GI Prophylaxis GI: PPI - Prophylaxis DVT Prophylaxis DVT: Lovenox, SCDs - Nutrition Nutrition: Nutrition Category Date Time Status Liquid Diet [DIET] Diets 03/14/17 Dinner Ordered Assessment/Plan - Assessment and Plan (Free Text) Assessment: 71M w/sepsis, likely 2/2 to UTI, improved clinically, stable for transfer to med -surg Plan: Neuro Does not answer most questions Unable to assess Arousable to verbal stimuli/tactile stimuli Neuro following CVS Normotensive Episodes of hypotension overnight, mostly WNL slightly positive trop sx 3 (0.15, 0.17), no longer positive Cardio following Pulm Sao2>98% on RA Target Sao2>94% Nephro Hypernatremia D5@ + 20KCl@100 Hypokalemia K 3.3 Replaced 40mEq KCl Hypophosphatemia 1.4 Replaced Neutra-phos Nephro following GI CLD GI following Henriquez in place D/c henriquez Endo DM ISS Levemir Accuchecks Endo following ID Febrile overnight, Tmax 100.8 No leukocytosis Groin rash Tylenol PRN fevers Fluconazole Merrem Zosyn Nystatin topical powder Blood cx Urine cx FU repeat Blood and urine cx ID following MSK OOBTC w/assistance Wound care to intertriginous rash/buttocks PT/OT GI/DVT Lovenox Protonix SCDs TEDS Dispo DNR/DNI Stable Transfer to med-surg Pallative care following DW ICU attending Kathya, PGY-1 - Date & Time Date: 03/15/17 Time: 09:50 <Jovon KULKARNI,Yanet H - Last Filed: 03/15/17 16:24> CCU Objective - Vital Signs / Intake & Output Vital Signs (Last 4 hours): Vital Signs Temp Pulse Resp BP Pulse Ox 03/15/17 15:16 83 34 H 138/60 03/15/17 15:00 84 32 H 03/15/17 14:30 85 35 H 03/15/17 14:16 110/56 L 03/15/17 13:52 86 03/15/17 13:16 86 22 134/53 L 94 L 03/15/17 13:00 86 23 96 03/15/17 12:29 97.8 F Intake and Output (Last 8hrs): Intake & Output 03/15/17 03/15/17 03/15/17 06:59 14:59 22:59 Intake Total 1830 Output Total 2200 Balance -370 Intake: IV 1350 Right Antecubital 1350 Oral 480 Output: Urine 2200 Urethral (Henriquez) 2200 Other: # Bowel Movements 1 - Medications Active Medications: Active Medications Generic Name Dose Route Start Last Admin Trade Name Freq PRN Reason Stop Dose Admin Acetaminophen 650 mg 03/13/17 10:13 Tylenol 325mg Tab PO Q6H PRN TEMP>=99.5F Acetaminophen 650 mg 03/13/17 10:13 Tylenol 650 Mg Supp RC Q6H PRN TEMP>=99.5F Enoxaparin Sodium 40 mg 03/12/17 12:00 03/15/17 09:10 Lovenox SC 40 mg DAILY KAMILAH Administration Protocol Piperacillin Sod/Tazobactam Sod 100 mls @ 200 mls/hr 03/12/17 18:00 03/15/17 13:14 Zosyn 3.375 In Ns 100ml IVPB 03/19/17 18:01 200 mls/hr Q6 KAMILAH Administration Protocol Fluconazole 100 mg/ 50 mls @ 100 mls/hr 03/13/17 10:15 03/15/17 09:13 Miscellaneous IVPB 100 mls/hr DAILY KAMILAH Administration Protocol Potassium Chloride 10 meq/ 1,005 mls @ 100 mls/hr 03/14/17 17:45 03/15/17 05: 02 Dextrose IV 100 mls/hr .Q10H3M KAMILAH Administration Meropenem 1g/NS 100mL IVPB 1 gm in 100 mls @ 100 mls/hr 03/15/17 10:00 09:18 Meropenem 1g/Ns 100ml Ivpb IVPB 03/22/17 10:01 100 mls/hr Q12 KAMILAH Administration Protocol Potassium Phosphate 15 mmole/ 255 mls @ 100 mls/hr 03/15/17 15:30 Sodium Chloride IVPB 03/15/17 18:02 ONCE ONE Insulin Detemir 40 unit 03/15/17 22:00 Levemir SC Q12H KAMILAH Insulin Human Lispro 0 units 03/14/17 16:11 03/15/17 13:12 Humalog High SC 10 units Q4H KAMILAH Administration Protocol Metoprolol Tartrate 25 mg 03/14/17 18:00 03/15/17 09:12 Lopressor PO 25 mg BID KAMILAH Administration Nystatin 1 gm 03/12/17 18:00 03/15/17 09:15 Nystop Topical Powder TOP 1 applic BID KAMILAH Administration Nystatin 1 ea 03/14/17 22:00 03/15/17 13:18 Mycostatin Cream TOP 1 applic TID KAMILAH Administration Pantoprazole Sodium 40 mg 03/14/17 10:00 03/15/17 09:17 Protonix Inj IVP 40 mg Q12 KAMILAH Administration Potassium Phos/Sodium Phos 1 pkt 03/13/17 06:15 03/15/17 13:14 Neutra-Phos GT 1 pkt Q8H KAMILAH Administration - Patient Studies Lab Studies: Microbiology Studies 03/13/17 06:52 Urine Culture - Final Urine Yeast Species 03/13/17 07:30 Blood Culture - Preliminary Blood-Venous NO GROWTH AFTER 48 HOURS 03/13/17 07:50 Blood Culture - Preliminary Blood-Venous NO GROWTH AFTER 48 HOURS 03/12/17 12:00 MRSA Culture (Admit) - Final Nose MRSA NOT DETECTED Lab Studies 03/15/17 03/15/17 03/15/17 Range/Units 15:07 11:36 10:09 WBC (4.5-11.0) 10^3/ul RBC (3.5-6.1) 10^6/uL Hgb (14.0-18.0) g/dL Hct (42.0-52.0) % MCV (80.0-105.0) fl MCH (25.0-35.0) pg MCHC (31.0-37.0) g/dl RDW (11.5-14.5) % Plt Count (120.0-450.0) 10^3/uL MPV (7.0-11.0) fl Gran % (50.0-68.0) % Lymph % (Auto) (22.0-35.0) % [place] % (Auto) (1.0-6.0) % Eos % (Auto) (1.5-5.0) % Baso % (Auto) (0.0-3.0) % Gran # (1.4-6.5) Lymph # (1.2-3.4) [place] # (0.1-0.6) Eos # (0.0-0.7) Baso # (0.0-2.0) K/mm3 Sodium (132-148) mmol/L Potassium (3.6-5.0) mmol/L Chloride (98-107) mmol/L Carbon Dioxide (21-33) mmol/L Anion Gap (10-20) BUN (7-21) mg/dL Creatinine (0.5-1.4) mg/dL Est GFR ( Amer) Est GFR (Non-Af Amer) POC Glucose (mg/dL) 312 H 327 H (65-110) mg/dL Random Glucose (70-110) mg/dL Calcium (8.4-10.5) mg/dL Phosphorus (2.5-4.5) mg/dL Magnesium (1.7-2.2) mg/dL Total Bilirubin (0.2-1.3) mg/dL Direct Bilirubin (0.0-0.4) mg/dL AST (17-59) U/L ALT (7-56) U/L Alkaline Phosphatase (38-126) U/L Ammonia (9-33) umol/L Total Creatine Kinase (35-230) U/L Troponin I ng/mL Total Protein (5.8-8.3) g/dL Albumin (3.0-4.8) g/dL Globulin gm/dL Albumin/Globulin Ratio (1.1-1.8) Prostate Specific Ag (0.00-2.5) ng/mL Procalcitonin (0.19-0.49) NG/ML Urine Color Yellow (YELLOW) Urine Appearance Turbid (CLEAR) Urine pH 6.5 (4.7-8.0) Ur Specific [place] 1.010 (1.005-1.035) Urine Protein 100 H (<30 mg/dL) mg/dL Urine Glucose (UA) 500 H (NEGATIVE) mg/dL Urine Ketones Negative (NEGATIVE) mg/dL Urine Blood Moderate H (NEGATIVE) Urine Nitrate Negative (NEGATIVE) Urine Bilirubin Negative (NEGATIVE) Urine Urobilinogen 0.2 (<1 E.U./dL) E.U./dL Ur Leukocyte Esterase Moderate H (NEGATIVE) Brennan/uL Urine RBC 1 - 3 (0-2) /hpf Urine WBC Tntc (0-6) /hpf Ur Epithelial Cells (0-5) /hpf Uric Acid Crystals /hpf Amorphous Sediment Urine Bacteria Few (NEG) 03/15/17 03/15/17 03/15/17 Range/Units 08:27 08:03 06:30 WBC (4.5-11.0) 10^3/ul RBC (3.5-6.1) 10^6/uL Hgb (14.0-18.0) g/dL Hct (42.0-52.0) % MCV (80.0-105.0) fl MCH (25.0-35.0) pg MCHC (31.0-37.0) g/dl RDW (11.5-14.5) % Plt Count (120.0-450.0) 10^3/uL MPV (7.0-11.0) fl Gran % (50.0-68.0) % Lymph % (Auto) (22.0-35.0) % [place] % (Auto) (1.0-6.0) % Eos % (Auto) (1.5-5.0) % Baso % (Auto) (0.0-3.0) % Gran # (1.4-6.5) Lymph # (1.2-3.4) [place] # (0.1-0.6) Eos # (0.0-0.7) Baso # (0.0-2.0) K/mm3 Sodium 150 H (132-148) mmol/L Potassium 3.3 L (3.6-5.0) mmol/L Chloride 113 H (98-107) mmol/L Carbon Dioxide 27 (21-33) mmol/L Anion Gap 13 (10-20) BUN 24 H (7-21) mg/dL Creatinine 1.3 (0.5-1.4) mg/dL Est GFR ( Amer) > 60 Est GFR (Non-Af Amer) 54 POC Glucose (mg/dL) 297 H (65-110) mg/dL Random Glucose 293 H (70-110) mg/dL Calcium 8.2 L (8.4-10.5) mg/dL Phosphorus 1.4 L* (2.5-4.5) mg/dL Magnesium 1.8 (1.7-2.2) mg/dL Total Bilirubin 0.5 (0.2-1.3) mg/dL Direct Bilirubin 0.4 (0.0-0.4) mg/dL AST 20 (17-59) U/L ALT 17 (7-56) U/L Alkaline Phosphatase 72 (38-126) U/L Ammonia (9-33) umol/L Total Creatine Kinase 82 (35-230) U/L Troponin I 0.05 D ng/mL Total Protein 6.4 (5.8-8.3) g/dL Albumin 2.9 L (3.0-4.8) g/dL Globulin 3.4 gm/dL Albumin/Globulin Ratio 0.9 L (1.1-1.8) Prostate Specific Ag (0.00-2.5) ng/mL Procalcitonin 0.56 H (0.19-0.49) NG/ML Urine Color (YELLOW) Urine Appearance (CLEAR) Urine pH (4.7-8.0) Ur Specific [place] (1.005-1.035) Urine Protein (<30 mg/dL) mg/dL Urine Glucose (UA) (NEGATIVE) mg/dL Urine Ketones (NEGATIVE) mg/dL Urine Blood (NEGATIVE) Urine Nitrate (NEGATIVE) Urine Bilirubin (NEGATIVE) Urine Urobilinogen (<1 E.U./dL) E.U./dL Ur Leukocyte Esterase (NEGATIVE) Brennan/uL Urine RBC (0-2) /hpf Urine WBC (0-6) /hpf Ur Epithelial Cells (0-5) /hpf Uric Acid Crystals /hpf Amorphous Sediment Urine Bacteria (NEG) 03/15/17 03/15/17 03/15/17 Range/Units 06:30 06:30 04:50 WBC 9.9 (4.5-11.0) 10^3/ul RBC 4.85 (3.5-6.1) 10^6/uL Hgb 14.4 D (14.0-18.0) g/dL Hct 42.9 (42.0-52.0) % MCV 88.5 (80.0-105.0) fl MCH 29.7 (25.0-35.0) pg MCHC 33.6 (31.0-37.0) g/dl RDW 14.4 (11.5-14.5) % Plt Count 178 (120.0-450.0) 10^3/uL MPV 9.9 (7.0-11.0) fl Gran % 88.0 H (50.0-68.0) % Lymph % (Auto) 6.6 L (22.0-35.0) % [place] % (Auto) 4.1 (1.0-6.0) % Eos % (Auto) 1.2 L (1.5-5.0) % Baso % (Auto) 0.1 (0.0-3.0) % Gran # 8.72 H (1.4-6.5) Lymph # 0.7 L (1.2-3.4) [place] # 0.4 (0.1-0.6) Eos # 0.1 (0.0-0.7) Baso # 0.01 (0.0-2.0) K/mm3 Sodium (132-148) mmol/L Potassium (3.6-5.0) mmol/L Chloride (98-107) mmol/L Carbon Dioxide (21-33) mmol/L Anion Gap (10-20) BUN (7-21) mg/dL Creatinine (0.5-1.4) mg/dL Est GFR ( Amer) Est GFR (Non-Af Amer) POC Glucose (mg/dL) 322 H (65-110) mg/dL Random Glucose (70-110) mg/dL Calcium (8.4-10.5) mg/dL Phosphorus (2.5-4.5) mg/dL Magnesium (1.7-2.2) mg/dL Total Bilirubin (0.2-1.3) mg/dL Direct Bilirubin (0.0-0.4) mg/dL AST (17-59) U/L ALT (7-56) U/L Alkaline Phosphatase (38-126) U/L Ammonia (9-33) umol/L Total Creatine Kinase (35-230) U/L Troponin I ng/mL Total Protein (5.8-8.3) g/dL Albumin (3.0-4.8) g/dL Globulin gm/dL Albumin/Globulin Ratio (1.1-1.8) Prostate Specific Ag 8.7 H (0.00-2.5) ng/mL Procalcitonin (0.19-0.49) NG/ML Urine Color (YELLOW) Urine Appearance (CLEAR) Urine pH (4.7-8.0) Ur Specific [place] (1.005-1.035) Urine Protein (<30 mg/dL) mg/dL Urine Glucose (UA) (NEGATIVE) mg/dL Urine Ketones (NEGATIVE) mg/dL Urine Blood (NEGATIVE) Urine Nitrate (NEGATIVE) Urine Bilirubin (NEGATIVE) Urine Urobilinogen (<1 E.U./dL) E.U./dL Ur Leukocyte Esterase (NEGATIVE) Brennan/uL Urine RBC (0-2) /hpf Urine WBC (0-6) /hpf Ur Epithelial Cells (0-5) /hpf Uric Acid Crystals /hpf Amorphous Sediment Urine Bacteria (NEG) 03/15/17 03/14/17 03/14/17 Range/Units 00:10 23:45 22:00 WBC (4.5-11.0) 10^3/ul RBC (3.5-6.1) 10^6/uL Hgb (14.0-18.0) g/dL Hct (42.0-52.0) % MCV (80.0-105.0) fl MCH (25.0-35.0) pg MCHC (31.0-37.0) g/dl RDW (11.5-14.5) % Plt Count (120.0-450.0) 10^3/uL MPV (7.0-11.0) fl Gran % (50.0-68.0) % Lymph % (Auto) (22.0-35.0) % [place] % (Auto) (1.0-6.0) % Eos % (Auto) (1.5-5.0) % Baso % (Auto) (0.0-3.0) % Gran # (1.4-6.5) Lymph # (1.2-3.4) [place] # (0.1-0.6) Eos # (0.0-0.7) Baso # (0.0-2.0) K/mm3 Sodium 146 (132-148) mmol/L Potassium 3.3 L (3.6-5.0) mmol/L Chloride 109 H (98-107) mmol/L Carbon Dioxide 25 (21-33) mmol/L Anion Gap 15 (10-20) BUN 30 H (7-21) mg/dL Creatinine 1.3 (0.5-1.4) mg/dL Est GFR ( Amer) > 60 Est GFR (Non-Af Amer) 54 POC Glucose (mg/dL) 433 H* (65-110) mg/dL Random Glucose 397 H* (70-110) mg/dL Calcium 7.7 L (8.4-10.5) mg/dL Phosphorus (2.5-4.5) mg/dL Magnesium 1.8 (1.7-2.2) mg/dL Total Bilirubin (0.2-1.3) mg/dL Direct Bilirubin (0.0-0.4) mg/dL AST (17-59) U/L ALT (7-56) U/L Alkaline Phosphatase (38-126) U/L Ammonia < 9 L (9-33) umol/L Total Creatine Kinase (35-230) U/L Troponin I ng/mL Total Protein (5.8-8.3) g/dL Albumin (3.0-4.8) g/dL Globulin gm/dL Albumin/Globulin Ratio (1.1-1.8) Prostate Specific Ag (0.00-2.5) ng/mL Procalcitonin (0.19-0.49) NG/ML Urine Color (YELLOW) Urine Appearance (CLEAR) Urine pH (4.7-8.0) Ur Specific [place] (1.005-1.035) Urine Protein (<30 mg/dL) mg/dL Urine Glucose (UA) (NEGATIVE) mg/dL Urine Ketones (NEGATIVE) mg/dL Urine Blood (NEGATIVE) Urine Nitrate (NEGATIVE) Urine Bilirubin (NEGATIVE) Urine Urobilinogen (<1 E.U./dL) E.U./dL Ur Leukocyte Esterase (NEGATIVE) Brennan/uL Urine RBC (0-2) /hpf Urine WBC (0-6) /hpf Ur Epithelial Cells (0-5) /hpf Uric Acid Crystals /hpf Amorphous Sediment Urine Bacteria (NEG) 03/14/17 03/14/17 03/14/17 Range/Units 22:00 20:18 18:25 WBC 10.1 (4.5-11.0) 10^3/ul RBC 4.18 (3.5-6.1) 10^6/uL Hgb 12.4 L (14.0-18.0) g/dL Hct 36.8 L (42.0-52.0) % MCV 88.0 (80.0-105.0) fl MCH 29.7 (25.0-35.0) pg MCHC 33.7 (31.0-37.0) g/dl RDW 14.3 (11.5-14.5) % Plt Count 166 (120.0-450.0) 10^3/uL MPV 9.1 (7.0-11.0) fl Gran % (50.0-68.0) % Lymph % (Auto) (22.0-35.0) % [place] % (Auto) (1.0-6.0) % Eos % (Auto) (1.5-5.0) % Baso % (Auto) (0.0-3.0) % Gran # (1.4-6.5) Lymph # (1.2-3.4) [place] # (0.1-0.6) Eos # (0.0-0.7) Baso # (0.0-2.0) K/mm3 Sodium (132-148) mmol/L Potassium (3.6-5.0) mmol/L Chloride (98-107) mmol/L Carbon Dioxide (21-33) mmol/L Anion Gap (10-20) BUN (7-21) mg/dL Creatinine (0.5-1.4) mg/dL Est GFR ( Amer) Est GFR (Non-Af Amer) POC Glucose (mg/dL) 343 H (65-110) mg/dL Random Glucose (70-110) mg/dL Calcium (8.4-10.5) mg/dL Phosphorus (2.5-4.5) mg/dL Magnesium (1.7-2.2) mg/dL Total Bilirubin (0.2-1.3) mg/dL Direct Bilirubin (0.0-0.4) mg/dL AST (17-59) U/L ALT (7-56) U/L Alkaline Phosphatase (38-126) U/L Ammonia (9-33) umol/L Total Creatine Kinase (35-230) U/L Troponin I ng/mL Total Protein (5.8-8.3) g/dL Albumin (3.0-4.8) g/dL Globulin gm/dL Albumin/Globulin Ratio (1.1-1.8) Prostate Specific Ag (0.00-2.5) ng/mL Procalcitonin (0.19-0.49) NG/ML Urine Color Yellow (YELLOW) Urine Appearance Sl cloudy (CLEAR) Urine pH 6.0 (4.7-8.0) Ur Specific [place] 1.010 (1.005-1.035) Urine Protein 30 H (<30 mg/dL) mg/dL Urine Glucose (UA) >=1000 (NEGATIVE) mg/dL Urine Ketones 15 H (NEGATIVE) mg/dL Urine Blood Large H (NEGATIVE) Urine Nitrate Negative (NEGATIVE) Urine Bilirubin Negative (NEGATIVE) Urine Urobilinogen 0.2 (<1 E.U./dL) E.U./dL Ur Leukocyte Esterase Moderate H (NEGATIVE) Brennan/uL Urine RBC Tntc (0-2) /hpf Urine WBC Tntc (0-6) /hpf Ur Epithelial Cells 4 - 5 (0-5) /hpf Uric Acid Crystals Few /hpf Amorphous Sediment Few Urine Bacteria Mod (NEG) 03/14/17 Range/Units 16:07 WBC (4.5-11.0) 10^3/ul RBC (3.5-6.1) 10^6/uL Hgb (14.0-18.0) g/dL Hct (42.0-52.0) % MCV (80.0-105.0) fl MCH (25.0-35.0) pg MCHC (31.0-37.0) g/dl RDW (11.5-14.5) % Plt Count (120.0-450.0) 10^3/uL MPV (7.0-11.0) fl Gran % (50.0-68.0) % Lymph % (Auto) (22.0-35.0) % [place] % (Auto) (1.0-6.0) % Eos % (Auto) (1.5-5.0) % Baso % (Auto) (0.0-3.0) % Gran # (1.4-6.5) Lymph # (1.2-3.4) [place] # (0.1-0.6) Eos # (0.0-0.7) Baso # (0.0-2.0) K/mm3 Sodium (132-148) mmol/L Potassium (3.6-5.0) mmol/L Chloride (98-107) mmol/L Carbon Dioxide (21-33) mmol/L Anion Gap (10-20) BUN (7-21) mg/dL Creatinine (0.5-1.4) mg/dL Est GFR ( Amer) Est GFR (Non-Af Amer) POC Glucose (mg/dL) 483 H* (65-110) mg/dL Random Glucose (70-110) mg/dL Calcium (8.4-10.5) mg/dL Phosphorus (2.5-4.5) mg/dL Magnesium (1.7-2.2) mg/dL Total Bilirubin (0.2-1.3) mg/dL Direct Bilirubin (0.0-0.4) mg/dL AST (17-59) U/L ALT (7-56) U/L Alkaline Phosphatase (38-126) U/L Ammonia (9-33) umol/L Total Creatine Kinase (35-230) U/L Troponin I ng/mL Total Protein (5.8-8.3) g/dL Albumin (3.0-4.8) g/dL Globulin gm/dL Albumin/Globulin Ratio (1.1-1.8) Prostate Specific Ag (0.00-2.5) ng/mL Procalcitonin (0.19-0.49) NG/ML Urine Color (YELLOW) Urine Appearance (CLEAR) Urine pH (4.7-8.0) Ur Specific [place] (1.005-1.035) Urine Protein (<30 mg/dL) mg/dL Urine Glucose (UA) (NEGATIVE) mg/dL Urine Ketones (NEGATIVE) mg/dL Urine Blood (NEGATIVE) Urine Nitrate (NEGATIVE) Urine Bilirubin (NEGATIVE) Urine Urobilinogen (<1 E.U./dL) E.U./dL Ur Leukocyte Esterase (NEGATIVE) Brennan/uL Urine RBC (0-2) /hpf Urine WBC (0-6) /hpf Ur Epithelial Cells (0-5) /hpf Uric Acid Crystals /hpf Amorphous Sediment Urine Bacteria (NEG) Laboratory Results - last 24 hr 03/14/17 03/14/17 03/14/17 16:07 18:25 20:18 WBC RBC Hgb Hct MCV MCH MCHC RDW Plt Count MPV Gran % Lymph % (Auto) [place] % (Auto) Eos % (Auto) Baso % (Auto) Gran # Lymph # [place] # Eos # Baso # Sodium Potassium Chloride Carbon Dioxide Anion Gap BUN Creatinine Est GFR ( Amer) Est GFR (Non-Af Amer) POC Glucose (mg/dL) 483 H* 343 H Random Glucose Calcium Phosphorus Magnesium Total Bilirubin Direct Bilirubin AST ALT Alkaline Phosphatase Ammonia Total Creatine Kinase Troponin I Total Protein Albumin Globulin Albumin/Globulin Ratio Prostate Specific Ag Procalcitonin Urine Color Yellow Urine Appearance Sl cloudy Urine pH 6.0 Ur Specific [place] 1.010 Urine Protein 30 H Urine Glucose (UA) >=1000 Urine Ketones 15 H Urine Blood Large H Urine Nitrate Negative Urine Bilirubin Negative Urine Urobilinogen 0.2 Ur Leukocyte Esterase Moderate H Urine RBC Tntc Urine WBC Tntc Ur Epithelial Cells 4 - 5 Uric Acid Crystals Few Amorphous Sediment Few Urine Bacteria Mod 03/14/17 03/14/17 03/14/17 22:00 22:00 23:45 WBC 10.1 RBC 4.18 Hgb 12.4 L Hct 36.8 L MCV 88.0 MCH 29.7 MCHC 33.7 RDW 14.3 Plt Count 166 MPV 9.1 Gran % Lymph % (Auto) [place] % (Auto) Eos % (Auto) Baso % (Auto) Gran # Lymph # [place] # Eos # Baso # Sodium Potassium Chloride Carbon Dioxide Anion Gap BUN Creatinine Est GFR ( Amer) Est GFR (Non-Af Amer) POC Glucose (mg/dL) 433 H* Random Glucose Calcium Phosphorus Magnesium Total Bilirubin Direct Bilirubin AST ALT Alkaline Phosphatase Ammonia < 9 L Total Creatine Kinase Troponin I Total Protein Albumin Globulin Albumin/Globulin Ratio Prostate Specific Ag Procalcitonin Urine Color Urine Appearance Urine pH Ur Specific [place] Urine Protein Urine Glucose (UA) Urine Ketones Urine Blood Urine Nitrate Urine Bilirubin Urine Urobilinogen Ur Leukocyte Esterase Urine RBC Urine WBC Ur Epithelial Cells Uric Acid Crystals Amorphous Sediment Urine Bacteria 03/15/17 03/15/17 03/15/17 00:10 04:50 06:30 WBC 9.9 RBC 4.85 Hgb 14.4 D Hct 42.9 MCV 88.5 MCH 29.7 MCHC 33.6 RDW 14.4 Plt Count 178 MPV 9.9 Gran % 88.0 H Lymph % (Auto) 6.6 L [place] % (Auto) 4.1 Eos % (Auto) 1.2 L Baso % (Auto) 0.1 Gran # 8.72 H Lymph # 0.7 L [place] # 0.4 Eos # 0.1 Baso # 0.01 Sodium 146 Potassium 3.3 L Chloride 109 H Carbon Dioxide 25 Anion Gap 15 BUN 30 H Creatinine 1.3 Est GFR ( Amer) > 60 Est GFR (Non-Af Amer) 54 POC Glucose (mg/dL) 322 H Random Glucose 397 H* Calcium 7.7 L Phosphorus Magnesium 1.8 Total Bilirubin Direct Bilirubin AST ALT Alkaline Phosphatase Ammonia Total Creatine Kinase Troponin I Total Protein Albumin Globulin Albumin/Globulin Ratio Prostate Specific Ag Procalcitonin Urine Color Urine Appearance Urine pH Ur Specific [place] Urine Protein Urine Glucose (UA) Urine Ketones Urine Blood Urine Nitrate Urine Bilirubin Urine Urobilinogen Ur Leukocyte Esterase Urine RBC Urine WBC Ur Epithelial Cells Uric Acid Crystals Amorphous Sediment Urine Bacteria 03/15/17 03/15/17 03/15/17 06:30 06:30 08:03 WBC RBC Hgb Hct MCV MCH MCHC RDW Plt Count MPV Gran % Lymph % (Auto) [place] % (Auto) Eos % (Auto) Baso % (Auto) Gran # Lymph # [place] # Eos # Baso # Sodium Potassium Chloride Carbon Dioxide Anion Gap BUN Creatinine Est GFR ( Amer) Est GFR (Non-Af Amer) POC Glucose (mg/dL) 297 H Random Glucose Calcium Phosphorus Magnesium Total Bilirubin Direct Bilirubin AST ALT Alkaline Phosphatase Ammonia Total Creatine Kinase Troponin I Total Protein Albumin Globulin Albumin/Globulin Ratio Prostate Specific Ag 8.7 H Procalcitonin 0.56 H Urine Color Urine Appearance Urine pH Ur Specific [place] Urine Protein Urine Glucose (UA) Urine Ketones Urine Blood Urine Nitrate Urine Bilirubin Urine Urobilinogen Ur Leukocyte Esterase Urine RBC Urine WBC Ur Epithelial Cells Uric Acid Crystals Amorphous Sediment Urine Bacteria 03/15/17 03/15/17 03/15/17 08:27 10:09 11:36 WBC RBC Hgb Hct MCV MCH MCHC RDW Plt Count MPV Gran % Lymph % (Auto) [place] % (Auto) Eos % (Auto) Baso % (Auto) Gran # Lymph # [place] # Eos # Baso # Sodium 150 H Potassium 3.3 L Chloride 113 H Carbon Dioxide 27 Anion Gap 13 BUN 24 H Creatinine 1.3 Est GFR ( Amer) > 60 Est GFR (Non-Af Amer) 54 POC Glucose (mg/dL) 327 H Random Glucose 293 H Calcium 8.2 L Phosphorus 1.4 L* Magnesium 1.8 Total Bilirubin 0.5 Direct Bilirubin 0.4 AST 20 ALT 17 Alkaline Phosphatase 72 Ammonia Total Creatine Kinase 82 Troponin I 0.05 D Total Protein 6.4 Albumin 2.9 L Globulin 3.4 Albumin/Globulin Ratio 0.9 L Prostate Specific Ag Procalcitonin Urine Color Yellow Urine Appearance Turbid Urine pH 6.5 Ur Specific [place] 1.010 Urine Protein 100 H Urine Glucose (UA) 500 H Urine Ketones Negative Urine Blood Moderate H Urine Nitrate Negative Urine Bilirubin Negative Urine Urobilinogen 0.2 Ur Leukocyte Esterase Moderate H Urine RBC 1 - 3 Urine WBC Tntc Ur Epithelial Cells Uric Acid Crystals Amorphous Sediment Urine Bacteria Few 03/15/17 15:07 WBC RBC Hgb Hct MCV MCH MCHC RDW Plt Count MPV Gran % Lymph % (Auto) [place] % (Auto) Eos % (Auto) Baso % (Auto) Gran # Lymph # [place] # Eos # Baso # Sodium Potassium Chloride Carbon Dioxide Anion Gap BUN Creatinine Est GFR ( Amer) Est GFR (Non-Af Amer) POC Glucose (mg/dL) 312 H Random Glucose Calcium Phosphorus Magnesium Total Bilirubin Direct Bilirubin AST ALT Alkaline Phosphatase Ammonia Total Creatine Kinase Troponin I Total Protein Albumin Globulin Albumin/Globulin Ratio Prostate Specific Ag Procalcitonin Urine Color Urine Appearance Urine pH Ur Specific [place] Urine Protein Urine Glucose (UA) Urine Ketones Urine Blood Urine Nitrate Urine Bilirubin Urine Urobilinogen Ur Leukocyte Esterase Urine RBC Urine WBC Ur Epithelial Cells Uric Acid Crystals Amorphous Sediment Urine Bacteria Critical Care Progress Note - Nutrition Nutrition: Nutrition Category Date Time Status Liquid Diet [DIET] Diets 03/14/17 Dinner Ordered Attending/Attestation - Attestation I have personally seen and examined this patient.: Yes I have fully participated in the care of the patient.: Yes I have reviewed all pertinent clinical information: Yes Notes (Text): 03/15/17 16:19 71 y/o M w/ AMS secondary to metabolic encephalopathy Pt is currently on abx for presumed UTI and urine source. CX pending. Pt WBC has improved and mental status has improved briefly. MRI and Neurology consult called without any new changes in management. BP controlled . If new fevers continue and mental status doesn't improve consider LP Also needs strict insulin control. c time 45 min
--- NOTE | 2017-03-15 10:23 | CP.PCM.PN ---
Subjective - Date & Time of Evaluation Date of Evaluation: 03/15/17 Time of Evaluation: 09:20 - Subjective Subjective: Patient is still having fevers but continues to be extubated, no diarrhea, no vomiting. Objective - Vital Signs/Intake and Output Vital Signs (last 24 hours): Temp Pulse Resp BP Pulse Ox 88.0 F L 89 26 H 118/55 L 96 03/15/17 04:40 03/15/17 05:13 03/15/17 05:13 03/15/17 05:13 03/15/17 05:13 Intake and Output: 03/14/17 03/15/17 18:59 06:59 Intake Total 1875 Output Total 2200 Balance -325 - Medications Medications: Current Medications Acetaminophen (Tylenol 325mg Tab) 650 mg PO Q6H PRN PRN Reason: TEMP>=99.5F Acetaminophen (Tylenol 650 Mg Supp) 650 mg RC Q6H PRN PRN Reason: TEMP>=99.5F Enoxaparin Sodium (Lovenox) 40 mg SC DAILY KAMILAH PRN Reason: Protocol Last Admin: 03/14/17 09:04 Dose: 40 mg Piperacillin Sod/Tazobactam Sod (Zosyn 3.375 In Ns 100ml) 100 mls @ 200 mls/hr IVPB Q6 KAMILAH PRN Reason: Protocol Stop: 03/19/17 18:01 Last Admin: 03/15/17 05:07 Dose: 200 mls/hr Acetaminophen (Ofirmev) 1,000 mg in 100 mls @ 400 mls/hr IVPB Q6H PRN PRN Reason: fever Stop: 03/15/17 07:30 Last Admin: 03/14/17 21:17 Dose: 400 mls/hr Linezolid (Zyvox 600mg/300ml D5w) 600 mg in 300 mls @ 200 mls/hr IVPB Q12 KAMILAH PRN Reason: Protocol Stop: 03/20/17 08:46 Last Admin: 03/14/17 21:25 Dose: 200 mls/hr Fluconazole 100 mg/ (Miscellaneous) 50 mls @ 100 mls/hr IVPB DAILY KAMILAH PRN Reason: Protocol Last Admin: 03/14/17 09:02 Dose: 100 mls/hr Potassium Chloride 10 meq/ (Dextrose) 1,005 mls @ 100 mls/hr IV .Q10H3M [facility] Last Admin: 03/15/17 05:02 Dose: 100 mls/hr Insulin Detemir (Levemir) 20 unit SC Q12H [facility] Last Admin: 03/15/17 00:23 Dose: Not Given Insulin Human Lispro (Humalog High) 0 units SC Q4H [facility] PRN Reason: Protocol Last Admin: 03/15/17 05:06 Dose: 10 units Metoprolol Tartrate (Lopressor) 25 mg PO BID [facility] Last Admin: 03/14/17 17:31 Dose: Not Given Nystatin (Nystop Topical Powder) 1 gm TOP BID [facility] Last Admin: 03/14/17 17:31 Dose: 1 applic Nystatin (Mycostatin Cream) 1 ea TOP TID [facility] Last Admin: 03/14/17 21:16 Dose: 1 units Pantoprazole Sodium (Protonix Inj) 40 mg IVP Q12 [facility] Last Admin: 03/14/17 21:25 Dose: 40 mg Potassium Phos/Sodium Phos (Neutra-Phos) 1 pkt GT Q8H [facility] Last Admin: 03/14/17 21:16 Dose: Not Given - Labs Labs: 03/14/17 22:00 03/15/17 00:10 PT 12.7 Seconds (9.9-11.8) H 03/12/17 08:30 INR 1.18 (0.93-1.08) H 03/12/17 08:30 APTT 30.1 Seconds (23.7-30.8) 03/12/17 08:30 - Constitutional Appears: Chronically Ill - Head Exam Head Exam: NORMAL INSPECTION - ENT Exam ENT Exam: Mucous Membranes Moist - Neck Exam Neck Exam: absent: Meningismus - Respiratory Exam Respiratory Exam: Decreased Breath Sounds - Cardiovascular Exam Cardiovascular Exam: +S1, +S2 - GI/Abdominal Exam GI & Abdominal Exam: Soft. absent: Tenderness - Skin Skin Exam: Rash (around the perineal area is improving) Assessment and Plan - Assessment and Plan (Free Text) Plan: Assessment Systemic Inflammatory Response with fever S/P ventilator-dependent respiratory failure in a patient with hyperglycemia and metabolic acidosis in a patient with DM, R/O severe sepsis from UTI probable [place] rash on the perineum acute on chronic renal failure DM HTN obesity with BMI 32 Plan continue Zyvox and will change Zosyn to Merrem (day 3) pending urine cx; blood cx are negative; PCT is only 0.3; CXR does not show infiltrates; reviewed CT head showing left occipital scalp hematoma (which is also seen on the brain MRI) continue Diflucan (day 3) will continue to monitor clinically
[2017-03-15 10:43] LABS: PH,URINE 6.5 (4.7-8.0); URINE BILIRUBIN NEGATIVE (NEGATIVE); URINE BLOOD MODERATE (NEGATIVE); URINE GLUCOSE (UA) 500 mg/dL (NEGATIVE); URINE KETONE NEGATIVE (NEGATIVE); URINE LEUKOCYTE ESTERASE MODERATE Leu/uL (NEGATIVE); URINE PROTEIN 100 mg/dL (<30 mg/dL); URINE UROBILINOGEN 0.2 E.U./dL (<1 E.U./dL)
[2017-03-15 10:44] LABS: URINE APPEARANCE TURBID (CLEAR); URINE COLOR YELLOW (YELLOW)
[2017-03-15 10:45] LABS: URINE BACTERIA FEW (NEG); URINE WBC TNTC /hpf (0-6)
[2017-03-15] MEDS ORDERED: Insulin Detemir 100 units/ml Vial (Levemir) SC SCH ×2 (11:09→22:00)
[2017-03-15] MEDS ORDERED: Insulin Detemir 100 units/ml Vial (Levemir) SC ONE (11:15)
--- NOTE | 2017-03-15 11:31 | PN ---
DATE: 03/13/2017 The patient is seen today in ICU bed #5. The patient is more responsive. The patient is presently on a CPAP. The patient is responsive to painful stimuli. Overnight nurse's notes were reviewed. Overnight, the patient was maintained on AC tidal volume of 450, FIO2 of 40%, rate of 20, PEEP of 5. Vital signs: T-max is 100.8. Telemetry shows sinus tachycardia in 100s. Blood pressure on telemetry at present 146/86, in the last 24 hours blood pressure has been in his 90s systolic. Respirations 20, O2 sat is 100%. Head examination normocephalic, atraumatic. Positive ET tube noted. Positive NG tube noted. Neck is short and supple. Chest: Examination shows kyphosis. Lungs: Examination shows positive rhonchi upper lung lozoya.. Cardiovascular: Shows S1, S2. Regular rhythm, tachycardic rhythm. Abdomen is soft, protuberant. Genitalia: Male. Positive Abad catheter. Neurologic: The patient is responsive to painful stimuli by grimacing and attempting to open eyes. Musculoskeletal: Examination shows elevated body mass index of 33. Psychiatric examination is not applicable. Motor strength. The patient is responsive to painful stimuli. DIAGNOSTICS: Reviewed. WBC 19.5, down from 22.4. Granulocytes 88% segs. The patient's VBG shows a pH of 7.41, pCO2 of 40, bicarb 25, O2 sat 82%, lactic acid is 2.5. Sodium 141, potassium 4.0, chloride 104, CO2 of 22, anion gap 19, BUN 46, creatinine 1.6, creatinine is down from 2.1 to 1.6; GFR is 52, glucose random glucose down from 760-657 to 507-306 to 119-99, calcium 8.8, hemoglobin A1c is 14.4, fructosamine is elevated at 324, calcium 8.0, phosphorus is down from 11 to 0.5. LFTs are normal. Troponin has bumped up to 0.17 now 0.15. Procalcitonin level is negative. Vitamin D 25 hydroxy level is 24, beta-hydroxybutyrate is pending. Blood cultures, no growth. IMPRESSION: 1. Ventilator dependent respiratory failure. 2. Diabetic ketoacidosis. 3. Possible sepsis. 4. Severe increased anion gap metabolic acidosis. 5. Questionable acute non-ST elevation myocardial infarction with elevated with elevated troponin. 6. Questionable non-ST elevation myocardial infarction. 7. Fever. 8. Tachycardia. 9. Leukocytosis with granulocytosis. 10. Severe metabolic acidosis and diabetic ketoacidosis. 11. Lactic acidosis. 12. Acute kidney injury with underlying chronic kidney disease. 13. Uncontrolled insulin requiring diabetes mellitus with hemoglobin A1c of 14.4 and fructosamine of greater than 300. 14. Hypocalcemia. 15. Hypophosphatemia and hyperphosphatemia. 16. Hypovitaminosis D. 17. Proteinuria, ketonuria microscopic hematuria, pyuria, bacteriuria. 18. Toxic metabolic encephalopathy. 19. Decompensated type 2 insulin requiring diabetes mellitus. 20. Severe diabetic ketoacidosis. 21. Systemic inflammatory response syndrome with ventilator dependent respiratory failure. Plan at this time, the patient has been ordered serial CMP, LFT, magnesium, phosphorus, the patient's has requested a do not resuscitate as per the patient. The patient is a Druze. The patient was seen by CARLOS Godwin from palliative care. The patient's has signed the DNR form. The patient is made DNR at present. The patient has been ordered repeat blood cultures and urine cultures. Current consultations Cardiology, Infectious Disease, Nephrology, Neurology and Palliative Care. The patient's current medications the patient is on Tylenol IV 1000 mg q. 6 h., IV. The patient is on Diflucan 200 mg daily Diprivan drip, Humalog high-dose q. 6 h. sliding scale. The patient is on Levemir 20 units x1 dose, Lopressor was ordered 2.5 IV q. 6 hours, Lovenox 40 mg subcutaneous daily, Neutra-Phos 1 packet q. 8 h., nystatin powder to the affected area. The patient was given potassium 40 mEq x1 dose by the ICU resident. The patient is on bicarb drip. The patient has been ordered bicarbonate drip at 200 mL an hour. The patient is on vancomycin 1 g IV, one dose, the patient is on Zosyn 3.375 IV q. 6 h, Zyvox 600 mg IV q. 12 h. Repeat EKG ordered, EEG ordered by neurology. The patient will be ordered an MRI of the brain and MRA of the brain once relatively stable, the patient will be continued on the above therapeutic interventions. At present, the patient is ordered above diagnostic and therapeutic interventions, we are awaiting for further diagnostic and therapeutic interventions and further recommendations by all the physicians involving the care of the patient. At present, the patient will be continued on the above therapeutic interventions. The patient's overall prognosis is guarded to poor. CONDITION: Critical. Paulino Linder MD
--- NOTE | 2017-03-15 12:05 | PN ---
NEUROLOGY PROGRESS NOTE SUBJECTIVE: The patient is lying on the bed, in no acute distress. Denies having any headaches. PHYSICAL EXAMINATION: VITAL SIGNS: His blood pressure is 147/50, heart rate is 97 per minute, breathing at the rate of 16 per minute, temperature is 99 degree Fahrenheit. HEENT EXAM: Head is normocephalic and atraumatic. NECK: Supple. There are no carotid bruits. LUNGS: Clear. CARDIOVASCULAR EXAM: S1 and S2 audible. No murmurs. ABDOMEN: Soft and nontender. Bowel sounds are present. NEUROLOGICAL EXAM: Mental Status: The patient is awake and alert. He looks at the examiner. He answers some simples questions. He does not know the year or the month. He follows simple commands. Cranial Nerve Examination: Pupils are 3 mm bilaterally, reactive to light. Visual lozoya are full. Extraocular movements are intact. There is no obvious facial asymmetry. He is moving all 4 extremities. Appears to be 4 to 5/5 except the right upper extremity which appears to be 4/5. Plantars downgoing bilaterally. LABORATORY DATA: Reviewed. MRI of the brain shows very limited examination due to motion artifact. No acute or subacute brain infarction appreciated. A 1 cm proteinaceous or potential solid lesion is seen at the right posterior fossa approaching the anterior incisura, potentially representing a complex cyst or even a solid mass that is dark on CT and does not represent acute hemorrhage and is bright on gradient echo imaging and is not representing chronic hemorrhage. Followup MRI with contrast is advised. Age-related degenerative changes. IMPRESSION: Altered mental status which appears to be secondary to toxic metabolic encephalopathy. RECOMMENDATION: 1. The patient is more alert and awake. 2. The patient's MRI does not reveal any acute pathology responsible for the patient's mental status changes. 3. The patient's ammonia level is less than 9. 4. Try to find out the patient's baseline mental status. 5. The patient will have physical therapy and speech therapy. 6. The patient's blood sugar is better controlled. 7. Please continue supportive care and other treatment. Thank you for the opportunity to participate in the care of this patient. Jone Sigala MD [facility] # [id number]
--- NOTE | 2017-03-15 13:10 | PN ---
DATE: 03/15/2017 SUBJECTIVE: The patient is seen in ICU bed 5. The patient is lying in the bed. The patient is much more awake, responsive, alert, oriented x1 to person, disoriented to place, year, date of . Overnight nurse's notes were reviewed. The patient was seen by speech therapist. According to the speech therapist, the patient has severe oropharyngeal dysphagia with high risk for aspiration. The patient was evaluated yesterday. The patient was seen by the licensed clinical social worker. OBJECTIVE: VITAL SIGNS: T-max 100.68. Telemetry shows sinus rhythm, heart rate is in 80s and 90s. Blood pressure 147/50, respirations 24, O2 sat 97-98. Intake 1875 and output 2200. HEAD: Examination normocephalic, atraumatic. EENT: Examination shows pink conjunctivae. Anicteric sclerae. No oropharyngeal lesion. NECK: No neck rigidity. CHEST: Examination symmetrical. LUNGS: Examination shows occasional rhonchi in upper lung field. CARDIOVASCULAR: S1, S2, regular rhythm. Questionable soft systolic murmur left sternal border, right second intercostal space. ABDOMEN: Soft, protuberant. Positive bowel sound. GENITALIA: Male. RECTAL: Examination is deferred. EXTREMITIES: Shows missing NELDA stockings and SCDs. NEUROLOGIC: The patient is alert, awake, oriented x1. Disoriented to person year, date, months, time, place. MUSCULOSKELETAL: Examination shows a body mass index of 32.5. Cranial nerves II-XII limited. Gait examination could not be tested. DIAGNOSTIC DATA: WBC 9.9, hemoglobin/hematocrit 14.4/43, platelet 178. Granulocytes 88% segs. Sodium this morning around 01:00 a.m. the patient's sodium was 146, potassium 3.3, chloride 109, CO2 is 25, anion gap 15, BUN 30, creatinine 1.3, GFR greater than 60. Point of contact glucose 433, 397, 322, 297, 293. Repeat chemistry at 08:27 a.m.; sodium has gone up to 150, potassium is 3.3, chloride 113, CO2 is 27, anion gap 13, BUN 24, creatinine 1.3, GFR greater than 60, glucose 293, calcium 8.2, phosphorus is 1.4, magnesium 1.8. Troponin is 0.05, dropping from the peak troponin is 0.17. PSA is elevated at 8.7. Blood and urine cultures are negative. The patient's chest x-ray from today was reviewed which shows bibasilar atelectasis, right hemidiaphragm elevation. MRI of the brain was reviewed. EKG from 03/15/2017 reviewed. IMPRESSION: 1. Status post ventilator dependent respiratory failure. 2. Status post diabetic ketoacidosis with increase anion gap, metabolic acidosis and lactic acidosis. 3. Systemic inflammatory response syndrome with fever. 4. Tachycardia. 5. High-grade fever. 6. Tachypnea. 7. Hypertension. 8. Transient hypotension with history of hypertension. 9. Leukocytosis with granulocytosis. 10. Severe metabolic alkalosis secondary to diabetic ketoacidosis and increase anion gap metabolic acidosis and lactic acidosis. 11. Hypernatremia. 12. Hypokalemia. 13. Acute kidney injury. 14. Increase anion gap metabolic acidosis. 15. Uncontrolled type 1 insulin requiring diabetes mellitus with hyperglycemia and hemoglobin A1c of 14.4. 16. Hypophosphatemia, hypokalemia, hypomagnesemia. 17. Elevated prostate-specific antigen. 18. Hypertriglyceridemia, hypercholesteremia with elevated LDL and decreased HDL. 19. Questionable non-ST elevation myocardial infarction with elevated troponin. 20. Elevated prostate-specific antigen of grater than 8.5. 21. Hypovitaminosis D. 23. Proteinuria, glycosuria, ketonuria, microscopic hematuria, pyuria, bacteriuria. 24. Fecal occult blood positive, etiology undetermined. 25. Bibasilar atelectasis with elevated right hemidiaphragm. 26. Diffuse cerebral cortical atrophy of the brain with microangiopathy. 27. Right posterior fossa 1 cm proteinaceous cyst or potential solid lesion approaching the anterior incisural representing a complex cyst versus a solid mass. 28. Age related neurodegenerative changes. 29. Bilateral occipital scalp hematoma, left greater than the right. 30. Bibasilar atelectasis with pneumonia. 31. Bilateral pleural effusion, right more than the left. 32. Cholecystectomy. 33. Right renal cyst. 34. Right intrarenal calculus. 35. Left renal cyst. 36. Prostatomegaly. 37. Multilevel lumbar spine degenerative spondylosis. 38. Bilateral renal cyst. 39. Mild right hydronephrosis. 40. Bilateral internal carotid artery 39% stenosis. 41. Left anterior hemiblock. 42. Moderate bihemispheric cerebral dysfunction. 43. Severe hypernatremia. 44. Acute kidney injury with underlying chronic kidney disease stage III. 45. Hypophosphatemia. 46. History of hypertension. 47. History of insulin requiring diabetes mellitus. 48. History of appendectomy. 49. History of cataract surgery. 50. History of hearing deficit. 51. History of gait dysfunction. 52. History of former nicotine and alcohol use. 53. History of hematuria. 54. Status post diabetic ketoacidosis. 55. Altered mental status. 56. Questionable fungal dermatitis of the groin and groin area. 57. Severe oropharyngeal dysphagia with higher risk of aspiration. PLAN: At this time, the patient is awaiting transfer out of the ICU. The patient has been ordered serial CPKs, serial cardiac enzymes, serial chemistries, three repeat CBC has been stable, CBC will be discontinued. The patient's current consultation; cardiology, endocrinology, gastroenterology, infectious disease, nephrology, neurology, and urology for elevated PSA. The patient is presently on D5W at 100 mL an hour with 10 mEq of potassium. The patient is on Diflucan at 200 mg daily, Humalog high-dose sliding scale q. 4 hours, Levemir 20 units twice a day, Lopressor 25 mg twice a day, Lovenox 40 mg subcu daily. The patient is ordered magnesium sulfate rider. The patient is on meropenem 1 g IV q. 12 hours. Nystatin cream ordered to affected area. The patient is on Neutra-Phos q. 8 hours. The patient has been ordered K-Phos rider for hypophosphatemia and hypokalemia. The patient is on Zosyn 3.375 g IV q. 6 hours. The patient is started on liquid diet. The patient has been ordered out of bed, SCDs, NELDA, physical therapy, occupational therapy, speech therapy has been ordered. The patient's condition and prognosis is guarded. Paulino Linder MD
[2017-03-15] MEDS: Potassium & Sodium Phosphate GT SCH ×2 (13:14→22:49)
--- NOTE | 2017-03-15 14:41 | CP.PCM.PN ---
Subjective - Date & Time of Evaluation Date of Evaluation: 03/15/17 Time of Evaluation: 13:00 - Subjective Subjective: Awake, slow to respond to questions/command. Intermittently able to follow simple command Objective - Vital Signs/Intake and Output Vital Signs (last 24 hours): Temp Pulse Resp BP Pulse Ox 97.8 F 86 22 134/53 L 94 L 03/15/17 12:29 03/15/17 13:16 03/15/17 13:16 03/15/17 13:16 03/15/17 13:16 - Medications Medications: Current Medications Acetaminophen (Tylenol 325mg Tab) 650 mg PO Q6H PRN PRN Reason: TEMP>=99.5F Acetaminophen (Tylenol 650 Mg Supp) 650 mg RC Q6H PRN PRN Reason: TEMP>=99.5F Enoxaparin Sodium (Lovenox) 40 mg SC DAILY KAMILAH PRN Reason: Protocol Last Admin: 03/15/17 09:10 Dose: 40 mg Piperacillin Sod/Tazobactam Sod (Zosyn 3.375 In Ns 100ml) 100 mls @ 200 mls/hr IVPB Q6 KAMILAH PRN Reason: Protocol Stop: 03/19/17 18:01 Last Admin: 03/15/17 13:14 Dose: 200 mls/hr Fluconazole 100 mg/ (Miscellaneous) 50 mls @ 100 mls/hr IVPB DAILY KAMILAH PRN Reason: Protocol Last Admin: 03/15/17 09:13 Dose: 100 mls/hr Potassium Chloride 10 meq/ (Dextrose) 1,005 mls @ 100 mls/hr IV .Q10H3M [facility] Last Admin: 03/15/17 05:02 Dose: 100 mls/hr Meropenem 1g/NS 100mL IVPB (Meropenem 1g/Ns 100ml Ivpb) 1 gm in 100 mls @ 100 mls/hr IVPB Q12 KAMILAH PRN Reason: Protocol Stop: 03/22/17 10:01 Last Admin: 03/15/17 09:18 Dose: 100 mls/hr Potassium Phosphate 15 mmole/ (Sodium Chloride) 255 mls @ 42.5 mls/hr IVPB ONCE ONE Stop: 03/15/17 15:09 Last Admin: 03/15/17 13:19 Dose: 42.5 mls/hr Potassium Phosphate 15 mmole/ (Sodium Chloride) 255 mls @ 42.5 mls/hr IVPB ONCE ONE Stop: 03/15/17 16:29 Insulin Detemir (Levemir) 30 unit SC Q12H [facility] Last Admin: 03/15/17 13:18 Dose: Not Given Insulin Human Lispro (Humalog High) 0 units SC Q4H [facility] PRN Reason: Protocol Last Admin: 03/15/17 13:12 Dose: 10 units Metoprolol Tartrate (Lopressor) 25 mg PO BID [facility] Last Admin: 03/15/17 09:12 Dose: 25 mg Nystatin (Nystop Topical Powder) 1 gm TOP BID [facility] Last Admin: 03/15/17 09:15 Dose: 1 applic Nystatin (Mycostatin Cream) 1 ea TOP TID [facility] Last Admin: 03/15/17 13:18 Dose: 1 applic Pantoprazole Sodium (Protonix Inj) 40 mg IVP Q12 [facility] Last Admin: 03/15/17 09:17 Dose: 40 mg Potassium Phos/Sodium Phos (Neutra-Phos) 1 pkt GT Q8H [facility] Last Admin: 03/15/17 13:14 Dose: 1 pkt - Labs Labs: 03/15/17 06:30 03/15/17 08:27 PT 12.7 Seconds (9.9-11.8) H 03/12/17 08:30 INR 1.18 (0.93-1.08) H 03/12/17 08:30 APTT 30.1 Seconds (23.7-30.8) 03/12/17 08:30 - Constitutional Appears: No Acute Distress, Chronically Ill - Head Exam Head Exam: NORMAL INSPECTION - Eye Exam Eye Exam: Normal appearance, PERRL - ENT Exam ENT Exam: Mucous Membranes Moist - Neck Exam Neck Exam: Normal Inspection - Respiratory Exam Respiratory Exam: Clear to Ausculation Bilateral, NORMAL BREATHING PATTERN - Cardiovascular Exam Cardiovascular Exam: REGULAR RHYTHM, +S1, +S2 - GI/Abdominal Exam GI & Abdominal Exam: Soft, Normal Bowel Sounds - Exam Additional comments: Erythematous rash inguinal area - Extremities Exam Extremities Exam: Full ROM, Normal Inspection - Back Exam Back Exam: NORMAL INSPECTION - Neurological Exam Neurological Exam: Alert - Skin Skin Exam: Dry, Warm Assessment and Plan - Assessment and Plan (Free Text) Assessment: 71 year old male with history of uncontrolled DM, HTN who was admitted with AMS , respiratory failure s/p intubation, DKA, SIRS. Patient appears comfortable, alert with altered mental status. He needs affiance with all ADL's. Swallow evaluation recommendation of puree consistency diet with thin liquids; aspiration precautions. Patients , Janette at [facility]. We discussed future goals of care and advance care planning. understands that patent will likely need rehab at [facility]. POLST explained. agreeable and completed POLST:DNR/DNI. A copy is on the chart. Psychosocial support given Time spent id advance care planning discussion with , 20 minutes Plan: POLST: DNR/DNI Palliative counseling and support.
--- NOTE | 2017-03-15 14:49 | CP.PCM.CON ---
<Katty Rico - Last Filed: 03/15/17 14:46> History of Present Illness - History of Present Illness History of Present Illness: Covering GI consult for Dr. Weathers. Seen and examined at the bedside earlier today, the chart was reviewed. Request for GI consult is for positive guaiac. HPI: This is a 71-year-old male seen in the ICU was brought to the emergency room by ambulance for altered mental status. The patient on admission was intubated by EMS, he was found to be tapped to picnic. The patient previous to this was reported to be awake and responsive the night before although the patient's and friend reported that the patient was acting differently for the past few days.The patient now has been extubated is awake and alert not as verbal, poor historian and no family at the bedside. All The patient medical information obtained from medical team and medical chart. The patient follows simple commands. yesterday, the patient had a bowel movement it was noted to be dark so stool for guaiac was obtained which was positive. Patient with no reports of nausea, hematemesis, or abdominal pain. His hemoglobin has been stable with no reports of verito bleeding. He had a brain MRI which showed bilateral occipital scalp hematoma left greater than right. He also had a CT scan of the chest abdomen and pelvis, the report was reviewed, findings were bilateral pleural effusion, abdomen was negative for abscess or fluid collection , reporting cholecystectomy, and bilateral renal cysts. Past medical history: Diabetes mellitus type 2, noncompliant with medications, hypertension, history of DKA many years ago Surgical history: unknown, on ct scan cholecystectomy Allergies: No known drug allergies Family history: unknown Social history:as per chart no history of smoking, history of alcohol use Medications: Reviewed as per MAR ROS: Systems reviewed with positive finding see HPI Past Patient History - Infectious Disease Hx of Infectious Diseases: None - Past Social History Smoking Status: Unknown If Ever Smoked - CARDIAC Hx Hypertension: Yes - PULMONARY Hx Respiratory Disorders: Yes (SMOKED CIGARETTES H/O .QUIT 30 YRS AGO.) Hx Bronchitis: Yes Other/Comment: INTUBATED 03-12-17 RESP. DISTRESS. - NEUROLOGICAL Hx Neurological Disorder: Yes - HEENT Hx HEENT Problems: Yes Hx Cataracts: Yes (BILATERAL SX) Hx Deafness: Yes - RENAL Hx Chronic Kidney Disease: Yes Other/Comment: HAS BLADDER ISSUES? - ENDOCRINE/METABOLIC Hx Diabetes Mellitus Type 1: Yes - HEMATOLOGICAL/ONCOLOGICAL Hx Blood Disorders: Yes (HEAMTURIA H/O) Other/Comment: ANABAPTISM- NO BLOOD TRANSFUSION OR BLOOD PRODUCTS. - INTEGUMENTARY Hx Dermatological Problems: Yes Other/Comment: 03-12-17 BILATERAL GROIN RASH,PENIS,SCROTAL AND TESTICULAR AREA. HAS SOME INCONTINENCY.IASD. SCAR TO RIGHT LOWER BACK AND NECK AREA FROM REMOVAL OF CYST. - MUSCULOSKELETAL/RHEUMATOLOGICAL Hx Musculoskeletal Disorders: Yes Hx Falls: Yes Hx Unsteady Gait: Yes (CANE) - GASTROINTESTINAL Hx Gastrointestinal Disorders: Yes (APPENDECTOMY) - GENITOURINARY/GYNECOLOGICAL Other/Comment: Unknown bladder problem as per . Pt urinates a lot. - PSYCHIATRIC Hx Substance Use: No - SURGICAL HISTORY Hx Surgeries: No (unknown per ) Meds Allergies/Adverse Reactions: Allergies Allergy/AdvReac Type Severity Reaction Status Date / Time No Known Allergies Allergy Verified 03/12/17 11:24 - Medications Medications: Current Medications Acetaminophen (Tylenol 325mg Tab) 650 mg PO Q6H PRN PRN Reason: TEMP>=99.5F Acetaminophen (Tylenol 650 Mg Supp) 650 mg RC Q6H PRN PRN Reason: TEMP>=99.5F Enoxaparin Sodium (Lovenox) 40 mg SC DAILY KAMILAH PRN Reason: Protocol Last Admin: 03/15/17 09:10 Dose: 40 mg Piperacillin Sod/Tazobactam Sod (Zosyn 3.375 In Ns 100ml) 100 mls @ 200 mls/hr IVPB Q6 KAMILAH PRN Reason: Protocol Stop: 03/19/17 18:01 Last Admin: 03/15/17 13:14 Dose: 200 mls/hr Fluconazole 100 mg/ (Miscellaneous) 50 mls @ 100 mls/hr IVPB DAILY KAMILAH PRN Reason: Protocol Last Admin: 03/15/17 09:13 Dose: 100 mls/hr Potassium Chloride 10 meq/ (Dextrose) 1,005 mls @ 100 mls/hr IV .Q10H3M [facility] Last Admin: 03/15/17 05:02 Dose: 100 mls/hr Meropenem 1g/NS 100mL IVPB (Meropenem 1g/Ns 100ml Ivpb) 1 gm in 100 mls @ 100 mls/hr IVPB Q12 KAMILAH PRN Reason: Protocol Stop: 03/22/17 10:01 Last Admin: 03/15/17 09:18 Dose: 100 mls/hr Potassium Phosphate 15 mmole/ (Sodium Chloride) 255 mls @ 42.5 mls/hr IVPB ONCE ONE Stop: 03/15/17 15:09 Last Admin: 03/15/17 13:19 Dose: 42.5 mls/hr Potassium Phosphate 15 mmole/ (Sodium Chloride) 255 mls @ 42.5 mls/hr IVPB ONCE ONE Stop: 03/15/17 16:29 Insulin Detemir (Levemir) 30 unit SC Q12H [facility] Last Admin: 03/15/17 13:18 Dose: Not Given Insulin Human Lispro (Humalog High) 0 units SC Q4H [facility] PRN Reason: Protocol Last Admin: 03/15/17 13:12 Dose: 10 units Metoprolol Tartrate (Lopressor) 25 mg PO BID [facility] Last Admin: 03/15/17 09:12 Dose: 25 mg Nystatin (Nystop Topical Powder) 1 gm TOP BID [facility] Last Admin: 03/15/17 09:15 Dose: 1 applic Nystatin (Mycostatin Cream) 1 ea TOP TID [facility] Last Admin: 03/15/17 13:18 Dose: 1 applic Pantoprazole Sodium (Protonix Inj) 40 mg IVP Q12 [facility] Last Admin: 03/15/17 09:17 Dose: 40 mg Potassium Phos/Sodium Phos (Neutra-Phos) 1 pkt GT Q8H [facility] Last Admin: 03/15/17 13:14 Dose: 1 pkt Physical Exam - Constitutional Appears: No Acute Distress - Head Exam Head Exam: NORMOCEPHALIC - Eye Exam Eye Exam: Normal appearance. absent: Scleral icterus - ENT Exam ENT Exam: Mucous Membranes Moist - Neck Exam Neck exam: Positive for: Normal Inspection - Respiratory Exam Respiratory Exam: Decreased Breath Sounds, Rhonchi, NORMAL BREATHING PATTERN. absent: Respiratory Distress - Cardiovascular Exam Cardiovascular Exam: +S1, +S2 - GI/Abdominal Exam GI & Abdominal Exam: Distended, Normal Bowel Sounds, Soft. absent: Guarding, Rebound, Tenderness - Rectal Exam Rectal Exam: Hemorrhoids. absent: Black Stool, Bloody Stool - Extremities Exam Extremities exam: Positive for: pedal pulses present. Negative for: calf tenderness, pedal edema - Neurological Exam Neurological exam: Alert, Altered Additional comments: follows some simple command - Skin Skin Exam: Dry, Warm Results - Vital Signs Recent Vital Signs: Last Vital Signs Temp 97.8 F 03/15/17 12:29 Pulse 86 03/15/17 13:16 Resp 22 03/15/17 13:16 BP 134/53 L 03/15/17 13:16 Pulse Ox 94 L 03/15/17 13:16 - Labs Result Diagrams: 03/15/17 06:30 03/15/17 08:27 Labs: Laboratory Results - last 24 hr 03/12/17 03/14/17 03/14/17 11:50 16:07 18:25 WBC RBC Hgb Hct MCV MCH MCHC RDW Plt Count MPV Gran % Lymph % (Auto) [place] % (Auto) Eos % (Auto) Baso % (Auto) Gran # Lymph # [place] # Eos # Baso # Sodium Potassium Chloride Carbon Dioxide Anion Gap BUN Creatinine Est GFR ( Amer) Est GFR (Non-Af Amer) POC Glucose (mg/dL) 483 H* Random Glucose Fructosamine 324 H Calcium Phosphorus Magnesium Total Bilirubin Direct Bilirubin AST ALT Alkaline Phosphatase Ammonia Total Creatine Kinase Troponin I Total Protein Albumin Globulin Albumin/Globulin Ratio Prostate Specific Ag Procalcitonin Urine Color Yellow Urine Appearance Sl cloudy Urine pH 6.0 Ur Specific [place] 1.010 Urine Protein 30 H Urine Glucose (UA) >=1000 Urine Ketones 15 H Urine Blood Large H Urine Nitrate Negative Urine Bilirubin Negative Urine Urobilinogen 0.2 Ur Leukocyte Esterase Moderate H Urine RBC Tntc Urine WBC Tntc Ur Epithelial Cells 4 - 5 Uric Acid Crystals Few Amorphous Sediment Few Urine Bacteria Mod 03/14/17 03/14/17 03/14/17 20:18 22:00 22:00 WBC 10.1 RBC 4.18 Hgb 12.4 L Hct 36.8 L MCV 88.0 MCH 29.7 MCHC 33.7 RDW 14.3 Plt Count 166 MPV 9.1 Gran % Lymph % (Auto) [place] % (Auto) Eos % (Auto) Baso % (Auto) Gran # Lymph # [place] # Eos # Baso # Sodium Potassium Chloride Carbon Dioxide Anion Gap BUN Creatinine Est GFR ( Amer) Est GFR (Non-Af Amer) POC Glucose (mg/dL) 343 H Random Glucose Fructosamine Calcium Phosphorus Magnesium Total Bilirubin Direct Bilirubin AST ALT Alkaline Phosphatase Ammonia < 9 L Total Creatine Kinase Troponin I Total Protein Albumin Globulin Albumin/Globulin Ratio Prostate Specific Ag Procalcitonin Urine Color Urine Appearance Urine pH Ur Specific [place] Urine Protein Urine Glucose (UA) Urine Ketones Urine Blood Urine Nitrate Urine Bilirubin Urine Urobilinogen Ur Leukocyte Esterase Urine RBC Urine WBC Ur Epithelial Cells Uric Acid Crystals Amorphous Sediment Urine Bacteria 03/14/17 03/15/17 03/15/17 23:45 00:10 04:50 WBC RBC Hgb Hct MCV MCH MCHC RDW Plt Count MPV Gran % Lymph % (Auto) [place] % (Auto) Eos % (Auto) Baso % (Auto) Gran # Lymph # [place] # Eos # Baso # Sodium 146 Potassium 3.3 L Chloride 109 H Carbon Dioxide 25 Anion Gap 15 BUN 30 H Creatinine 1.3 Est GFR ( Amer) > 60 Est GFR (Non-Af Amer) 54 POC Glucose (mg/dL) 433 H* 322 H Random Glucose 397 H* Fructosamine Calcium 7.7 L Phosphorus Magnesium 1.8 Total Bilirubin Direct Bilirubin AST ALT Alkaline Phosphatase Ammonia Total Creatine Kinase Troponin I Total Protein Albumin Globulin Albumin/Globulin Ratio Prostate Specific Ag Procalcitonin Urine Color Urine Appearance Urine pH Ur Specific [place] Urine Protein Urine Glucose (UA) Urine Ketones Urine Blood Urine Nitrate Urine Bilirubin Urine Urobilinogen Ur Leukocyte Esterase Urine RBC Urine WBC Ur Epithelial Cells Uric Acid Crystals Amorphous Sediment Urine Bacteria 03/15/17 03/15/17 03/15/17 06:30 06:30 06:30 WBC 9.9 RBC 4.85 Hgb 14.4 D Hct 42.9 MCV 88.5 MCH 29.7 MCHC 33.6 RDW 14.4 Plt Count 178 MPV 9.9 Gran % 88.0 H Lymph % (Auto) 6.6 L [place] % (Auto) 4.1 Eos % (Auto) 1.2 L Baso % (Auto) 0.1 Gran # 8.72 H Lymph # 0.7 L [place] # 0.4 Eos # 0.1 Baso # 0.01 Sodium Potassium Chloride Carbon Dioxide Anion Gap BUN Creatinine Est GFR ( Amer) Est GFR (Non-Af Amer) POC Glucose (mg/dL) Random Glucose Fructosamine Calcium Phosphorus Magnesium Total Bilirubin Direct Bilirubin AST ALT Alkaline Phosphatase Ammonia Total Creatine Kinase Troponin I Total Protein Albumin Globulin Albumin/Globulin Ratio Prostate Specific Ag 8.7 H Procalcitonin 0.56 H Urine Color Urine Appearance Urine pH Ur Specific [place] Urine Protein Urine Glucose (UA) Urine Ketones Urine Blood Urine Nitrate Urine Bilirubin Urine Urobilinogen Ur Leukocyte Esterase Urine RBC Urine WBC Ur Epithelial Cells Uric Acid Crystals Amorphous Sediment Urine Bacteria 03/15/17 03/15/17 03/15/17 08:03 08:27 10:09 WBC RBC Hgb Hct MCV MCH MCHC RDW Plt Count MPV Gran % Lymph % (Auto) [place] % (Auto) Eos % (Auto) Baso % (Auto) Gran # Lymph # [place] # Eos # Baso # Sodium 150 H Potassium 3.3 L Chloride 113 H Carbon Dioxide 27 Anion Gap 13 BUN 24 H Creatinine 1.3 Est GFR ( Amer) > 60 Est GFR (Non-Af Amer) 54 POC Glucose (mg/dL) 297 H Random Glucose 293 H Fructosamine Calcium 8.2 L Phosphorus 1.4 L* Magnesium 1.8 Total Bilirubin 0.5 Direct Bilirubin 0.4 AST 20 ALT 17 Alkaline Phosphatase 72 Ammonia Total Creatine Kinase 82 Troponin I 0.05 D Total Protein 6.4 Albumin 2.9 L Globulin 3.4 Albumin/Globulin Ratio 0.9 L Prostate Specific Ag Procalcitonin Urine Color Yellow Urine Appearance Turbid Urine pH 6.5 Ur Specific [place] 1.010 Urine Protein 100 H Urine Glucose (UA) 500 H Urine Ketones Negative Urine Blood Moderate H Urine Nitrate Negative Urine Bilirubin Negative Urine Urobilinogen 0.2 Ur Leukocyte Esterase Moderate H Urine RBC 1 - 3 Urine WBC Tntc Ur Epithelial Cells Uric Acid Crystals Amorphous Sediment Urine Bacteria Few 03/15/17 11:36 WBC RBC Hgb Hct MCV MCH MCHC RDW Plt Count MPV Gran % Lymph % (Auto) [place] % (Auto) Eos % (Auto) Baso % (Auto) Gran # Lymph # [place] # Eos # Baso # Sodium Potassium Chloride Carbon Dioxide Anion Gap BUN Creatinine Est GFR ( Amer) Est GFR (Non-Af Amer) POC Glucose (mg/dL) 327 H Random Glucose Fructosamine Calcium Phosphorus Magnesium Total Bilirubin Direct Bilirubin AST ALT Alkaline Phosphatase Ammonia Total Creatine Kinase Troponin I Total Protein Albumin Globulin Albumin/Globulin Ratio Prostate Specific Ag Procalcitonin Urine Color Urine Appearance Urine pH Ur Specific [place] Urine Protein Urine Glucose (UA) Urine Ketones Urine Blood Urine Nitrate Urine Bilirubin Urine Urobilinogen Ur Leukocyte Esterase Urine RBC Urine WBC Ur Epithelial Cells Uric Acid Crystals Amorphous Sediment Urine Bacteria Assessment & Plan - Assessment and Plan (Free Text) Assessment: ASSESSMENT: Guiac Positive, h/h stable, no active GI bleed Hemorrhoids Altered Mental Status S/p Respiratitory Failure Improving leukocytosis UTI DKA Obesity Left Occipital Hematoma Plan: Monitor H&H and for GI bleed Continue Protonix twice a day On the Lovenox IV antibiotics as per ID On clear liquids Pending swallow evaluation as per ICU team Thank you for this consult and for allowing us to participate in your patient's care, further recommendations based upon clinical course. Seen and discussed with Dr. Mix. <Sae Mix V - Last Filed: 03/16/17 23:14> Meds - Medications Medications: Current Medications Acetaminophen (Tylenol 325mg Tab) 650 mg PO Q6H PRN PRN Reason: TEMP>=99.5F Acetaminophen (Tylenol 650 Mg Supp) 650 mg RC Q6H PRN PRN Reason: TEMP>=99.5F Last Admin: 03/15/17 22:44 Dose: 650 mg Enoxaparin Sodium (Lovenox) 40 mg SC DAILY KAMILAH PRN Reason: Protocol Last Admin: 03/15/17 09:10 Dose: 40 mg Piperacillin Sod/Tazobactam Sod (Zosyn 3.375 In Ns 100ml) 100 mls @ 200 mls/hr IVPB Q6 KAMILAH PRN Reason: Protocol Stop: 03/19/17 18:01 Last Admin: 03/15/17 23:43 Dose: 200 mls/hr Fluconazole 100 mg/ (Miscellaneous) 50 mls @ 100 mls/hr IVPB DAILY KAMILAH PRN Reason: Protocol Last Admin: 03/15/17 09:13 Dose: 100 mls/hr Meropenem 1g/NS 100mL IVPB (Meropenem 1g/Ns 100ml Ivpb) 1 gm in 100 mls @ 100 mls/hr IVPB Q12 KAMILAH PRN Reason: Protocol Stop: 03/22/17 10:01 Last Admin: 03/15/17 22:31 Dose: 100 mls/hr Potassium Phosphate 15 mmole/ (Dextrose) 1,005 mls @ 100 mls/hr IV .Q10H3M [facility] Insulin Detemir (Levemir) 40 unit SC Q12H [facility] Last Admin: 03/15/17 22:29 Dose: 40 unit Insulin Human Lispro (Humalog High) 0 units SC Q4H [facility] PRN Reason: Protocol Last Admin: 03/15/17 20:58 Dose: Not Given Metoprolol Tartrate (Lopressor) 25 mg PO BID [facility] Last Admin: 03/15/17 17:21 Dose: 25 mg Nystatin (Nystop Topical Powder) 1 gm TOP BID [facility] Last Admin: 03/15/17 17:23 Dose: 1 applic Nystatin (Mycostatin Cream) 1 ea TOP TID [facility] Last Admin: 03/15/17 17:23 Dose: 1 applic Pantoprazole Sodium (Protonix Inj) 40 mg IVP Q12 [facility] Last Admin: 03/15/17 22:31 Dose: 40 mg Potassium Phos/Sodium Phos (Neutra-Phos) 1 pkt GT Q8H [facility] Last Admin: 03/15/17 22:49 Dose: Not Given Results - Vital Signs Recent Vital Signs: Last Vital Signs Temp 102.1 F H 03/15/17 22:44 Pulse 82 03/15/17 17:21 Resp 34 H 03/15/17 15:16 BP 123/82 03/15/17 17:21 Pulse Ox 94 L 03/15/17 13:16 - Labs Result Diagrams: 03/16/17 07:41 03/16/17 07:41 Labs: Laboratory Results - last 24 hr 03/14/17 03/14/17 03/15/17 20:18 23:45 00:10 WBC RBC Hgb Hct MCV MCH MCHC RDW Plt Count MPV Gran % Lymph % (Auto) [place] % (Auto) Eos % (Auto) Baso % (Auto) Gran # Lymph # [place] # Eos # Baso # Sodium 146 Potassium 3.3 L Chloride 109 H Carbon Dioxide 25 Anion Gap 15 BUN 30 H Creatinine 1.3 Est GFR ( Amer) > 60 Est GFR (Non-Af Amer) 54 POC Glucose (mg/dL) 343 H 433 H* Random Glucose 397 H* Calcium 7.7 L Phosphorus Magnesium 1.8 Total Bilirubin Direct Bilirubin AST ALT Alkaline Phosphatase Total Creatine Kinase Troponin I Total Protein Albumin Globulin Albumin/Globulin Ratio Prostate Specific Ag Procalcitonin Urine Color Urine Appearance Urine pH Ur Specific [place] Urine Protein Urine Glucose (UA) Urine Ketones Urine Blood Urine Nitrate Urine Bilirubin Urine Urobilinogen Ur Leukocyte Esterase Urine RBC Urine WBC Urine Bacteria 03/15/17 03/15/17 03/15/17 04:50 06:30 06:30 WBC 9.9 RBC 4.85 Hgb 14.4 D Hct 42.9 MCV 88.5 MCH 29.7 MCHC 33.6 RDW 14.4 Plt Count 178 MPV 9.9 Gran % 88.0 H Lymph % (Auto) 6.6 L [place] % (Auto) 4.1 Eos % (Auto) 1.2 L Baso % (Auto) 0.1 Gran # 8.72 H Lymph # 0.7 L [place] # 0.4 Eos # 0.1 Baso # 0.01 Sodium Potassium Chloride Carbon Dioxide Anion Gap BUN Creatinine Est GFR ( Amer) Est GFR (Non-Af Amer) POC Glucose (mg/dL) 322 H Random Glucose Calcium Phosphorus Magnesium Total Bilirubin Direct Bilirubin AST ALT Alkaline Phosphatase Total Creatine Kinase Troponin I Total Protein Albumin Globulin Albumin/Globulin Ratio Prostate Specific Ag 8.7 H Procalcitonin Urine Color Urine Appearance Urine pH Ur Specific [place] Urine Protein Urine Glucose (UA) Urine Ketones Urine Blood Urine Nitrate Urine Bilirubin Urine Urobilinogen Ur Leukocyte Esterase Urine RBC Urine WBC Urine Bacteria 03/15/17 03/15/17 03/15/17 06:30 08:03 08:27 WBC RBC Hgb Hct MCV MCH MCHC RDW Plt Count MPV Gran % Lymph % (Auto) [place] % (Auto) Eos % (Auto) Baso % (Auto) Gran # Lymph # [place] # Eos # Baso # Sodium 150 H Potassium 3.3 L Chloride 113 H Carbon Dioxide 27 Anion Gap 13 BUN 24 H Creatinine 1.3 Est GFR ( Amer) > 60 Est GFR (Non-Af Amer) 54 POC Glucose (mg/dL) 297 H Random Glucose 293 H Calcium 8.2 L Phosphorus 1.4 L* Magnesium 1.8 Total Bilirubin 0.5 Direct Bilirubin 0.4 AST 20 ALT 17 Alkaline Phosphatase 72 Total Creatine Kinase 82 Troponin I 0.05 D Total Protein 6.4 Albumin 2.9 L Globulin 3.4 Albumin/Globulin Ratio 0.9 L Prostate Specific Ag Procalcitonin 0.56 H Urine Color Urine Appearance Urine pH Ur Specific [place] Urine Protein Urine Glucose (UA) Urine Ketones Urine Blood Urine Nitrate Urine Bilirubin Urine Urobilinogen Ur Leukocyte Esterase Urine RBC Urine WBC Urine Bacteria 03/15/17 03/15/17 03/15/17 10:09 11:36 15:07 WBC RBC Hgb Hct MCV MCH MCHC RDW Plt Count MPV Gran % Lymph % (Auto) [place] % (Auto) Eos % (Auto) Baso % (Auto) Gran # Lymph # [place] # Eos # Baso # Sodium Potassium Chloride Carbon Dioxide Anion Gap BUN Creatinine Est GFR ( Amer) Est GFR (Non-Af Amer) POC Glucose (mg/dL) 327 H 312 H Random Glucose Calcium Phosphorus Magnesium Total Bilirubin Direct Bilirubin AST ALT Alkaline Phosphatase Total Creatine Kinase Troponin I Total Protein Albumin Globulin Albumin/Globulin Ratio Prostate Specific Ag Procalcitonin Urine Color Yellow Urine Appearance Turbid Urine pH 6.5 Ur Specific [place] 1.010 Urine Protein 100 H Urine Glucose (UA) 500 H Urine Ketones Negative Urine Blood Moderate H Urine Nitrate Negative Urine Bilirubin Negative Urine Urobilinogen 0.2 Ur Leukocyte Esterase Moderate H Urine RBC 1 - 3 Urine WBC Tntc Urine Bacteria Few 03/15/17 03/15/17 17:17 20:49 WBC RBC Hgb Hct MCV MCH MCHC RDW Plt Count MPV Gran % Lymph % (Auto) [place] % (Auto) Eos % (Auto) Baso % (Auto) Gran # Lymph # [place] # Eos # Baso # Sodium Potassium Chloride Carbon Dioxide Anion Gap BUN Creatinine Est GFR ( Amer) Est GFR (Non-Af Amer) POC Glucose (mg/dL) 174 H 273 H Random Glucose Calcium Phosphorus Magnesium Total Bilirubin Direct Bilirubin AST ALT Alkaline Phosphatase Total Creatine Kinase Troponin I Total Protein Albumin Globulin Albumin/Globulin Ratio Prostate Specific Ag Procalcitonin Urine Color Urine Appearance Urine pH Ur Specific [place] Urine Protein Urine Glucose (UA) Urine Ketones Urine Blood Urine Nitrate Urine Bilirubin Urine Urobilinogen Ur Leukocyte Esterase Urine RBC Urine WBC Urine Bacteria Attending/Attestation - Attestation I have personally seen and examined this patient.: Yes I have fully participated in the care of the patient.: Yes I have reviewed all pertinent clinical information: Yes Notes (Text): This is an addendum to GI progress report dictated by Katty Rico APN.The patient was seen and examined earlier. Medical records, lab studies, imagings were reviewed. Last 24 hours events reviewed. Agreed with the above treatment plan as outlined in Katty Rico APN's notes the with the addition of the following occult GI bleeding no obvious melena or bright red blood per rectum extending examination abdomen soft no tenderness Follow up of the hemoglobin and hematocrit Would benefit from GI workup after further optimization of the patient electively Dr. Mix covering for Dr. Sabino Weathers 03/15/17 18:06
--- NOTE | 2017-03-15 14:56 | CP.PCM.PN ---
<DerickTrell - Last Filed: 03/15/17 14:53> Subjective - Date & Time of Evaluation Date of Evaluation: 03/15/17 Time of Evaluation: 12:00 - Subjective Subjective: Medicine progress note. Dr. Linder Pt seen and examined at bedside. No acute events overnight. Patient at bedside. Patient is more alert and responsive this morning, however, still only oriented to place. Currently denies any symptoms or complaints. Objective - Vital Signs/Intake and Output Vital Signs (last 24 hours): Temp Pulse Resp BP Pulse Ox 97.8 F 86 22 134/53 L 94 L 03/15/17 12:29 03/15/17 13:16 03/15/17 13:16 03/15/17 13:16 03/15/17 13:16 - Medications Medications: Current Medications Acetaminophen (Tylenol 325mg Tab) 650 mg PO Q6H PRN PRN Reason: TEMP>=99.5F Acetaminophen (Tylenol 650 Mg Supp) 650 mg RC Q6H PRN PRN Reason: TEMP>=99.5F Enoxaparin Sodium (Lovenox) 40 mg SC DAILY [facility] PRN Reason: Protocol Last Admin: 03/15/17 09:10 Dose: 40 mg Piperacillin Sod/Tazobactam Sod (Zosyn 3.375 In Ns 100ml) 100 mls @ 200 mls/hr IVPB Q6 [facility] PRN Reason: Protocol Stop: 03/19/17 18:01 Last Admin: 03/15/17 13:14 Dose: 200 mls/hr Fluconazole 100 mg/ (Miscellaneous) 50 mls @ 100 mls/hr IVPB DAILY [facility] PRN Reason: Protocol Last Admin: 03/15/17 09:13 Dose: 100 mls/hr Potassium Chloride 10 meq/ (Dextrose) 1,005 mls @ 100 mls/hr IV .Q10H3M [facility] Last Admin: 03/15/17 05:02 Dose: 100 mls/hr Meropenem 1g/NS 100mL IVPB (Meropenem 1g/Ns 100ml Ivpb) 1 gm in 100 mls @ 100 mls/hr IVPB Q12 [facility] PRN Reason: Protocol Stop: 03/22/17 10:01 Last Admin: 03/15/17 09:18 Dose: 100 mls/hr Potassium Phosphate 15 mmole/ (Sodium Chloride) 255 mls @ 42.5 mls/hr IVPB ONCE ONE Stop: 03/15/17 15:09 Last Admin: 03/15/17 13:19 Dose: 42.5 mls/hr Potassium Phosphate 15 mmole/ (Sodium Chloride) 255 mls @ 42.5 mls/hr IVPB ONCE ONE Stop: 03/15/17 16:29 Insulin Detemir (Levemir) 30 unit SC Q12H [facility] Last Admin: 03/15/17 13:18 Dose: Not Given Insulin Human Lispro (Humalog High) 0 units SC Q4H [facility] PRN Reason: Protocol Last Admin: 03/15/17 13:12 Dose: 10 units Metoprolol Tartrate (Lopressor) 25 mg PO BID [facility] Last Admin: 03/15/17 09:12 Dose: 25 mg Nystatin (Nystop Topical Powder) 1 gm TOP BID [facility] Last Admin: 03/15/17 09:15 Dose: 1 applic Nystatin (Mycostatin Cream) 1 ea TOP TID [facility] Last Admin: 03/15/17 13:18 Dose: 1 applic Pantoprazole Sodium (Protonix Inj) 40 mg IVP Q12 [facility] Last Admin: 03/15/17 09:17 Dose: 40 mg Potassium Phos/Sodium Phos (Neutra-Phos) 1 pkt GT Q8H [facility] Last Admin: 03/15/17 13:14 Dose: 1 pkt - Labs Labs: 03/15/17 06:30 03/15/17 08:27 PT 12.7 Seconds (9.9-11.8) H 03/12/17 08:30 INR 1.18 (0.93-1.08) H 03/12/17 08:30 APTT 30.1 Seconds (23.7-30.8) 03/12/17 08:30 - Constitutional Appears: Well, No Acute Distress - Head Exam Head Exam: ATRAUMATIC, NORMAL INSPECTION, NORMOCEPHALIC - Eye Exam Eye Exam: EOMI - ENT Exam ENT Exam: Mucous Membranes Moist - Respiratory Exam Respiratory Exam: Rhonchi (occasional rhonchi in the upper lung lozoya), NORMAL BREATHING PATTERN. absent: Respiratory Distress - Cardiovascular Exam Cardiovascular Exam: RRR, +S1, +S2. absent: JVD - GI/Abdominal Exam GI & Abdominal Exam: Soft. absent: Guarding, Rigid, Tenderness - Extremities Exam Extremities Exam: Normal Inspection - Neurological Exam Neurological Exam: Alert. absent: Oriented x3 Additional comments: oriented to person only Assessment and Plan - Assessment and Plan (Free Text) Assessment: 71yo M with PMHx including HTN and DM here with AMS, DKA, and SIRS 1. AMS likely secondary to metabolic derangements CT head - no intracranial hemorrhage. Left occipital scalp hematoma MRI Brain - poor study due motion artifact. No evidence of acute infarct. 1cm cyst or solid lesion at right posterior fossa Ammonia - wnl Carotid US - bilateral 20-39% proximal ICA stenosis. Antegrade flow in vertebrals Neurology following, appreciate recs Speech eval - high risk for aspiration 2. DKA gap closed likely secondary to severe sepsis, UTI Endocrindology following, appreciate recs On SS coverage Levemir 30U SC q12 3. Severe Sepsis, UTI Leukocytosis improving, Afebrile ID following, appreciate recs Rash Nystatin Topical Blood Cxs - NGTD Urine Cxs - pending Zosyn renally dosed Linezolid Fluconazole 4. Electrolyte abnormalities Recheck and replete as needed Hypernatremia D5W @100 5. Renal insufficiency Nephrology following Renal US - mild R hydronephrosis BUN/Creat improving continue to monitor 6. Positive FOB CT - no abdominal abscess or suspicious fluid collections. Bilateral renal cysts , right greater than left GI consulted, appreciate recs continue to monitor H/H for GI bleed on protonix 40q12 7. Mildly Elevated Troponins Cardiology following, appreciate recs No evidence of heart failure tolerating current IV fluids 8. PPx Protonix Lovenox Dispo: Transfer to [facility] High risk for aspiration Palliative care consult appreciated. DNR/DNI. If patient does not improve clinically, alternate options may be discussed [facility]: NO blood products. Blood expanding products okay to use Further recs as per Dr. Kailash Sepulveda PGY1 <Paulino Linder - Last Filed: 03/24/17 21:57> Objective - Vital Signs/Intake and Output Vital Signs (last 24 hours): Temp Pulse Resp BP Pulse Ox 97.9 F 68 20 110/60 98 03/24/17 16:44 03/24/17 17:57 03/24/17 16:44 03/24/17 17:22 03/24/17 16:44 Intake and Output: 03/24/17 03/25/17 18:59 06:59 Intake Total 320 600 Output Total 700 900 Balance -380 -300 - Medications Medications: Current Medications Acetaminophen (Tylenol 325mg Tab) 650 mg PO Q6H PRN PRN Reason: TEMP>=99.5F Acetaminophen (Tylenol 650 Mg Supp) 650 mg RC Q6H PRN PRN Reason: TEMP>=99.5F Last Admin: 03/17/17 03:50 Dose: 650 mg Apixaban (Eliquis) 5 mg PO BID [facility] PRN Reason: Protocol Last Admin: 03/24/17 18:39 Dose: 5 mg Diltiazem HCl (Cardizem) 60 mg PO TID [facility] Last Admin: 03/24/17 18:39 Dose: 60 mg Fluconazole (Diflucan) 100 mg PO DAILY [facility] PRN Reason: Protocol Last Admin: 03/24/17 10:11 Dose: 100 mg Insulin Detemir (Levemir) 10 unit SC DAILY [facility] Last Admin: 03/24/17 10:12 Dose: 1 unit Insulin Human Regular (Humulin R Low) 0 units SC ACHS [facility] PRN Reason: Protocol Last Admin: 03/24/17 18:40 Dose: 3 units Magnesium Oxide (Mag-Ox) 400 mg PO BID [facility] Last Admin: 03/24/17 18:39 Dose: 400 mg Metoprolol Tartrate (Lopressor) 25 mg PO BID [facility] Last Admin: 03/24/17 17:22 Dose: Not Given Nystatin (Nystop Topical Powder) 1 gm TOP BID [facility] Last Admin: 03/23/17 17:32 Dose: 1 applic Pantoprazole Sodium (Protonix Ec Tab) 40 mg PO 0600 [facility] Last Admin: 03/24/17 05:41 Dose: 40 mg Valacyclovir HCl (Valtrex) 1 gm PO DAILY [facility] PRN Reason: Protocol Last Admin: 03/24/17 17:24 Dose: 1 gm - Labs Labs: 03/24/17 05:30 03/23/17 05:00 PT 13.7 Seconds (9.9-11.8) H 03/22/17 08:50 INR 1.27 (0.93-1.08) H 03/22/17 08:50 APTT 59.1 Seconds (23.7-30.8) H 03/22/17 08:50 Attending/Attestation - Attestation I have personally seen and examined this patient.: Yes I have fully participated in the care of the patient.: Yes I have reviewed all pertinent clinical information, including history, physical exam and plan: Yes
--- NOTE | 2017-03-15 17:06 | PN ---
ENDOCRINOLOGY FOLLOWUP NOTE LOCATION: ICU 128, room #5. This is a 71-year-old male with persistent hyperglycemic acceleration. Glucose values still in their 300 range from 312 to 327 mg/dL. His latest chemistry shows BUN of 24, sodium 150, potassium 3.3, chloride 113, CO2 is 27, glucose is 293 and creatinine is 1.3. He remains endotracheally intubated with recent acute respiratory failure as noted, so at this time, we will modify once again his basal insulin and increase the Levemir to 40 units subQ every 12 hours at 8:00 a.m. and 8:00 p.m. daily, as given. We will titrate incrementally as indicated to optimize metabolic control. We will also continue the high-dose correction scale using Humalog insulin as stated. We will follow with you. Trinidad Gomez MD
--- NOTE | 2017-03-15 18:57 | CARD ---
APPROVED REPORT EKG Measurement Heart [id number] <Conclusion> Sinus rhythm with short NV Left anterior fascicular block Prolonged QT Abnormal ECG
--- NOTE | 2017-03-15 22:19 | PN ---
SUBJECTIVE: The patient is seen in the ICU. He is lying in bed. Eyes are open. He is awake. He is not really following commands. He talks but does not make any sense. He does not answer any questions. is at bedside. He does not appear to be in any kind of distress. He is currently on IV fluconazole, IV meropenem, IV Zosyn. He is also receiving IV fluids with potassium phosphate. PHYSICAL EXAMINATION: GENERAL: Obese elderly male, lying in bed in the ICU. VITAL SIGNS: Blood pressure 110/56, heart rate 85, respiratory rate 35, temperature 97.8. HEENT: Normocephalic, atraumatic, positive pallor. NECK: Supple, no JVD. LUNGS: Bilateral equal entry, bilateral equal expansion, poor air entry at bases. CARDIAC: S1 and S2, regular rate and rhythm, no murmur, no rub. ABDOMEN: Obese, distended, soft, nontender, bowel sounds present. EXTREMITIES: Dry skin, 1+ pitting edema, no cyanosis. INTAKE AND OUTPUT: 1830/2200. LABORATORY DATA: WBC 9.9, hemoglobin 14.4, hematocrit 42.9, platelets 178. Sodium 150, potassium 3.3, chloride of 113, CO2 of 27, BUN 24, creatinine 1.3, glucose 293, calcium 8.2, phosphorus 1.4, magnesium 1.8, troponin 0.05, albumin 2.9, PSA 8.7, procalcitonin 0.56. Blood culture, no growth. Urine culture, yeast from . CT of the abdomen, chest and pelvis; bilateral basilar dependant atelectasis, trace bilateral pleural effusions, no abscess or suspicious fluid collection in the abdomen, bilateral renal cysts, nonspecific perinephric changes in the kidneys. CURRENT MEDICATIONS: Fluconazole 100 IV daily, insulin, Lopressor 25 b.i.d., Lovenox 40, meropenem 1 gram q. 12, nystatin, potassium phosphate one packet q. 8, IV fluids with potassium chloride at a 100, switch to IV fluids with potassium phosphate 15 mL, Protonix, Tylenol, Zosyn 3.375 q. 6. ASSESSMENT: 1. Severe hypernatremia. 2. Resolving acute kidney injury, suspect underlying chronic kidney disease, stage 3. 3. Hypokalemia. 4. Hypophosphatemia. 5. Resolved hypomagnesemia. 6. Fungal urinary tract infection. 7. Sepsis, leukocytosis, fever. 8. Altered mental status. 9. Occult-positive stool. 10. Status post diabetic ketoacidosis. PLAN: 1. Continue hypotonic IV fluids. 2. Add potassium phosphate to IV fluids. 3. Continue antibiotics as per ID recommendations. 4. Continue antifungals. 5. Monitor fingersticks and continue insulin coverage. 5. Monitor H and H closely. 7. Monitor electrolytes closely. Case discussed with ICU resident, at bedside, ICU nursing staff at length. More than 35 minutes was spent in the care of this critically-ill patient. Caitlyn Coburn MD
[2017-03-15] MEDS: WATER IV SCH (23:50)
[2017-03-15] MEDS: POTASSIUM PHOSPHATE IV SCH (23:50)
[2017-03-15] MEDS: DEXTROSE IV SCH (23:50)
[2017-03-16] MEDS: Insulin Lispro (HUMAlog) HIGH Coverage SC SCH ×6 (01:11→20:40)
[2017-03-16 04:29] LABS: ARTERIAL BLOOD GAS HCO3 24.5 mmol/L (21-28); ARTERIAL BLOOD GAS PH 7.55 (7.35-7.45)
[2017-03-16] MEDS: Piperacillin/Tazobact 3.375 gm 100 ML IVPB SCH (05:29)
[2017-03-16] MEDS ORDERED: cefTRIAXone 2 GM IN NS 2 GM/100 ML BAG IVPB STA (05:41)
[2017-03-16] MEDS ORDERED: SODIUM CHLORIDE 0.9% IV STA (05:41)
[2017-03-16] MEDS ORDERED: ACYCLOVIR IV STA (05:41)
[2017-03-16] MEDS ORDERED: Vancomycin 1gm in NS 250ml 1 GM/250 ML BAG IVPB STA (05:48)
--- NOTE | 2017-03-16 06:56 | CT ---
EXAM: CT Head Without Intravenous Contrast EXAM DATE/TIME: 03/16/2017 5:36 AM CLINICAL HISTORY: 71 years old, male; Signs and symptoms; Altered mental status/memory loss; Additional info: Change in mental status. New fever. TECHNIQUE: Axial computed tomography images of the head/brain without intravenous contrast. All CT scans at this facility use one or more dose reduction techniques, viz.: automated exposure control; ma/kV adjustment per patient size (including targeted exams where dose is matched to indication; i.e. head); or iterative reconstruction technique. COMPARISON: CT - HEAD W/O CONTRAST 03/12/2017 9:30:51 AM FINDINGS: The previously seen endotracheal tube has been removed. Again seen is subcutaneous soft tissue swelling/subcutaneous hematoma in the occipital region not significantly changed. The brain parenchyma is unchanged. There is no hemorrhage or edema. No significant fluid in the sinuses. The osseous structures are normal. IMPRESSION: No acute findings.
[2017-03-16 07:46] LABS: VENOUS BLOOD GAS BASE EXCESS 0.5 mmol/L (0.0-2.0); VENOUS BLOOD PH 7.34 (7.32-7.43)
[2017-03-16 07:47] LABS: BASO # 0.01 K/mm3 (0.0-2.0); BASO % 0.1 % (0.0-3.0); EOS % 0.1 % (1.5-5.0); GRAN # 15.07 (1.4-6.5); GRAN % 89.7 % (50.0-68.0); HEMATOCRIT 48.6 % (42.0-52.0); LYMPH # 0.5 (1.2-3.4); LYMPH % 2.8 % (22.0-35.0); MEAN CELL VOLUME 90.3 fl (80.0-105.0); MEAN CORPUSCULAR HEMOGLOBIN 29.9 pg (25.0-35.0); MEAN CORPUSCULAR HGB CONC 33.1 g/dl (31.0-37.0); MEAN PLATELET VOLUME 9.7 fl (7.0-11.0); MONO # 1.2 (0.1-0.6); MONO % 7.3 % (1.0-6.0); PLATELET COUNT 166 10^3/uL (120.0-450.0); RED CELL DISTRIBUTION WIDTH 14.3 % (11.5-14.5)
[2017-03-16 07:52] LABS: WHITE BLOOD COUNT 16.8 10^3/ul (4.5-11.0)
[2017-03-16 08:21] LABS: ALB/GLOB RATIO 0.8 (1.1-1.8); ALKALINE PHOSPHATASE 90 U/L (38-126); AST/SGOT 28 U/L (17-59); BILIRUBIN,DIRECT 0.6 mg/dL (0.0-0.4); BILIRUBIN,TOTAL 0.7 mg/dL (0.2-1.3); BLOOD UREA NITROGEN 25 mg/dL (7-21); CALCIUM 8.4 mg/dL (8.4-10.5); CARBON DIOXIDE 26 mmol/L (21-33); CHLORIDE 111 mmol/L (98-107); GFR AFRICAN-AMERICAN 38; GLUCOSE,RANDOM 277 mg/dL (70-110); MAGNESIUM 1.9 mg/dL (1.7-2.2); PHOSPHOROUS 2.4 mg/dL (2.5-4.5); POTASSIUM 3.6 mmol/L (3.6-5.0); SODIUM 148 mmol/L (132-148); TOTAL PROTEIN 7.2 g/dL (5.8-8.3)
[2017-03-16 08:25] LABS: ALT/SGPT < 6 U/L (7-56)
--- NOTE | 2017-03-16 08:37 | RAD ---
HISTORY: New fever COMPARISON: 03/15/2017 FINDINGS: LUNGS: Again seen are low lung volumes. There is mild venous congestion and bibasilar atelectasis. No focal consolidation. PLEURA: No significant pleural effusion identified, no pneumothorax apparent. CARDIOVASCULAR: Normal. OSSEOUS STRUCTURES: No significant abnormalities. VISUALIZED UPPER ABDOMEN: Normal. OTHER FINDINGS: None. IMPRESSION: No acute findings.
[2017-03-16] MEDS ORDERED: Potassium Phosphate 15 MMOLE in Dextrose 5% In Water 250 ML IVPB ONE (09:29)
--- NOTE | 2017-03-16 09:47 | CP.CCUPN ---
<NISHANT TINEO - Last Filed: 03/16/17 09:43> CCU Subjective - Physician Review Subjective (Free Text): 03/16/17 09:43 ICU consulted to evaluate patient with acute mental status changes post ICU discharge on 03/15. Patient seen and assessed at bedside in room 377-2. Patient was unresponive to verbal or tactile stimuli but was responive to noxious stimuli, with incomprehensible sounds made to sternal rub. Per nursing, patient was "more awake and alert" when she received him yesterday afternoon and then he went "downhill" from a mental status standpoint after she had signed him out to the night nurse. Patients was at bedside during this evaluation and states that patient has not been answering to her calling his name since last night. ROS unobtainable due to patients clinical condition. CCU Objective - Vital Signs / Intake & Output Vital Signs (Last 4 hours): Vital Signs Temp Pulse Resp BP Pulse Ox 03/16/17 06:00 102.6 F H 121 H 36 H 130/86 97 03/16/17 05:45 104 F H Intake and Output (Last 8hrs): Intake & Output 03/15/17 03/16/17 03/16/17 22:59 06:59 14:59 Intake Total 1830 1050 Output Total 2200 Balance -370 1050 Intake: IV 1350 1050 R forearm 1050 Right Antecubital 1350 Oral 480 0 Output: Urine 2200 Urethral (Abad) 2200 Other: # Voids Urine, Voided 2 # Bowel Movements 1 0 - Physical Exam Physical Exam Limitations: Positive for: Altered Mental Status Head: Positive for: Atraumatic, Normocephalic Pupils: Positive for: Sluggish Conjunctiva: Positive for: Normal Mouth: Positive for: Moist Mucous Membranes. Negative for: Normal Teeth (poor dentition) Nose (External): Positive for: Atraumatic Neck: Positive for: Normal Range of Motion, Trachea Midline. Negative for: Meningeal Signs, MIDLINE TENDERNESS, JVD, Lymphadenopathy Respiratory/Chest: Positive for: Clear to Auscultation, Good Air Exchange. Negative for: Respiratory Distress, Accessory Muscle Use Cardiovascular: Positive for: Normal S1, S2, Tachycardic. Negative for: Regular Rate and Rhythm, Murmurs, Irregular Rhythm, Bradycardic, Rub, Gallop, Muffled Abdomen: Positive for: Normal Bowel Sounds. Negative for: Tenderness, Distention (obese), Peritoneal Signs Genitourinary Male: Positive for: Erythema (over scrotum, B/L inguinal areas) Upper Extremity: Positive for: Normal Inspection. Negative for: Cyanosis, Edema Lower Extremity: Positive for: Normal Inspection. Negative for: Edema Neurological: Positive for: Speech Normal, Other (Negative brudzinkis and kernigs signs). Negative for: GCS=15 (GCS of 9 (E2V2M5)) Skin: Positive for: Warm, Rashes, Erythematous (B/L inguinal areas with erythema , yellow plaques and white powder in place). Negative for: Dry (moist intertriginous areas), Normal Color Lymphatic: Negative for: Cervical Adenopathy Psychiatric: Positive for: Other (Unresponsive to verbal stimulation). Negative for: Alert, Oriented x 3, Normal Insight, Normal Concentration, Normal Affect - Medications Active Medications: Active Medications Generic Name Dose Route Start Last Admin Trade Name Freq PRN Reason Stop Dose Admin Acetaminophen 650 mg 03/13/17 10:13 Tylenol 325mg Tab PO Q6H PRN TEMP>=99.5F Acetaminophen 650 mg 03/13/17 10:13 03/16/17 03:20 Tylenol 650 Mg Supp RC 650 mg Q6H PRN Administration TEMP>=99.5F Enoxaparin Sodium 40 mg 03/12/17 12:00 03/15/17 09:10 Lovenox SC 40 mg DAILY KAMILAH Administration Protocol Meropenem 1g/NS 100mL IVPB 1 gm in 100 mls @ 100 mls/hr 03/15/17 10:00 22:31 Meropenem 1g/Ns 100ml Ivpb IVPB 03/22/17 10:01 100 mls/hr Q12 KAMILAH Administration Protocol Potassium Phosphate 15 mmole/ 1,005 mls @ 100 mls/hr 03/15/17 16:26 03/15/17 23:50 Dextrose IV 100 mls/hr .Q10H3M KAMILAH Administration Micafungin Sodium 100 mg/ 100 mls @ 100 mls/hr 03/16/17 10:00 Sodium Chloride IV 03/16/17 10:59 DAILY KAMILAH Protocol Amikacin Sulfate 500 mg/ 102 mls @ 204 mls/hr 03/16/17 09:30 Sodium Chloride IVPB 03/16/17 09:59 ONCE ONE Protocol Potassium Phosphate 15 mmole/ 255 mls @ 42.5 mls/hr 03/16/17 09:29 Dextrose IVPB 03/16/17 15:28 ONCE ONE Insulin Detemir 50 unit 03/16/17 10:00 Levemir SC Q12H [facility] Insulin Human Lispro 0 units 03/14/17 16:11 03/16/17 07:58 Humalog High SC 7 units Q4H KAMILAH Administration Protocol Metoprolol Tartrate 25 mg 03/14/17 18:00 03/15/17 17:21 Lopressor PO 25 mg BID KAMILAH Administration Nystatin 1 gm 03/12/17 18:00 03/15/17 17:23 Nystop Topical Powder TOP 1 applic BID KAMILAH Administration Nystatin 1 ea 03/14/17 22:00 03/15/17 17:23 Mycostatin Cream TOP 1 applic TID KAMILAH Administration Pantoprazole Sodium 40 mg 03/14/17 10:00 03/15/17 22:31 Protonix Inj IVP 40 mg Q12 KAMILAH Administration Potassium Phos/Sodium Phos 1 pkt 03/13/17 06:15 03/15/17 22:49 Neutra-Phos GT Not Given Q8H [facility] - Patient Studies Lab Studies: Microbiology Studies 03/14/17 22:17 Urine Culture - Final Urine,Abad No Growth (<1,000 CFU/ML) 03/13/17 07:30 Blood Culture - Preliminary Blood-Venous NO GROWTH AFTER 3 DAYS 03/13/17 07:50 Blood Culture - Preliminary Blood-Venous NO GROWTH AFTER 3 DAYS 03/15/17 07:00 Blood Culture - Preliminary Blood-Venous NO GROWTH AFTER 24 HOURS 03/15/17 06:45 Blood Culture - Preliminary Blood-Venous NO GROWTH AFTER 24 HOURS 03/14/17 22:00 Blood Culture - Preliminary Blood-Venous NO GROWTH AFTER 24 HOURS 03/14/17 21:30 Blood Culture - Preliminary Blood-Venous NO GROWTH AFTER 24 HOURS 03/13/17 06:52 Urine Culture - Final Urine Yeast Species Lab Studies 03/16/17 03/16/17 03/16/17 Range/Units 07:44 07:41 07:41 WBC 16.8 H D (4.5-11.0) 10^3/ul RBC 5.38 (3.5-6.1) 10^6/uL Hgb 16.1 (14.0-18.0) g/dL Hct 48.6 (42.0-52.0) % MCV 90.3 (80.0-105.0) fl MCH 29.9 (25.0-35.0) pg MCHC 33.1 (31.0-37.0) g/dl RDW 14.3 (11.5-14.5) % Plt Count 166 (120.0-450.0) 10^3/uL MPV 9.7 (7.0-11.0) fl Gran % 89.7 H (50.0-68.0) % Lymph % (Auto) 2.8 L (22.0-35.0) % [place] % (Auto) 7.3 H (1.0-6.0) % Eos % (Auto) 0.1 L (1.5-5.0) % Baso % (Auto) 0.1 (0.0-3.0) % Gran # 15.07 H (1.4-6.5) Lymph # 0.5 L (1.2-3.4) [place] # 1.2 H (0.1-0.6) Eos # 0.0 (0.0-0.7) Baso # 0.01 (0.0-2.0) K/mm3 pCO2 (35-45) mm/Hg pO2 63 H (80-100) mm/Hg HCO3 (21-28) mmol/L ABG pH (7.35-7.45) ABG Total CO2 (22-28) mmol.L ABG O2 Saturation (95-98) % ABG Base Excess (-2.0-3.0) mmol/L ABG Potassium (3.6-5.2) mmol/L VBG pH 7.34 (7.32-7.43) VBG pCO2 50.0 (40-60) VBG HCO3 27.0 (21-28) mmol/l VBG Total CO2 28.5 H (22-28) mmol.L VBG O2 Sat (Calc) 95.3 H (40-65) % VBG Base Excess 0.5 (0.0-2.0) mmol/L VBG Potassium 3.5 L (3.6-5.2) mmol/L Sodium 146.0 (132-148) mmol/L Chloride 110.0 H (98-107) mmol/L Glucose 291 H (75-110) mg/dl Lactate 4.0 H* (0.7-2.1) mmol/L FiO2 21.0 % Potassium (3.6-5.0) mmol/L Carbon Dioxide (21-33) mmol/L Anion Gap (10-20) BUN (7-21) mg/dL Creatinine (0.5-1.4) mg/dL Est GFR ( Amer) Est GFR (Non-Af Amer) POC Glucose (mg/dL) 284 H (65-110) mg/dL Random Glucose (70-110) mg/dL Calcium (8.4-10.5) mg/dL Phosphorus (2.5-4.5) mg/dL Magnesium (1.7-2.2) mg/dL Total Bilirubin (0.2-1.3) mg/dL Direct Bilirubin (0.0-0.4) mg/dL AST (17-59) U/L ALT (7-56) U/L Alkaline Phosphatase (38-126) U/L Total Creatine Kinase (35-230) U/L Total Protein (5.8-8.3) g/dL Albumin (3.0-4.8) g/dL Globulin gm/dL Albumin/Globulin Ratio (1.1-1.8) Procalcitonin (0.19-0.49) NG/ML Arterial Blood Potassium (3.6-5.2) mmol/L Venous Blood Potassium 3.5 L (3.6-5.2) mmol/L Urine Color (YELLOW) Urine Appearance (CLEAR) Urine pH (4.7-8.0) Ur Specific [place] (1.005-1.035) Urine Protein (<30 mg/dL) mg/dL Urine Glucose (UA) (NEGATIVE) mg/dL Urine Ketones (NEGATIVE) mg/dL Urine Blood (NEGATIVE) Urine Nitrate (NEGATIVE) Urine Bilirubin (NEGATIVE) Urine Urobilinogen (<1 E.U./dL) E.U./dL Ur Leukocyte Esterase (NEGATIVE) Brennan/uL Urine RBC (0-2) /hpf Urine WBC (0-6) /hpf Urine Bacteria (NEG) 03/16/17 03/16/17 03/16/17 Range/Units 07:41 05:00 04:10 WBC (4.5-11.0) 10^3/ul RBC (3.5-6.1) 10^6/uL Hgb (14.0-18.0) g/dL Hct (42.0-52.0) % MCV (80.0-105.0) fl MCH (25.0-35.0) pg MCHC (31.0-37.0) g/dl RDW (11.5-14.5) % Plt Count (120.0-450.0) 10^3/uL MPV (7.0-11.0) fl Gran % (50.0-68.0) % Lymph % (Auto) (22.0-35.0) % [place] % (Auto) (1.0-6.0) % Eos % (Auto) (1.5-5.0) % Baso % (Auto) (0.0-3.0) % Gran # (1.4-6.5) Lymph # (1.2-3.4) [place] # (0.1-0.6) Eos # (0.0-0.7) Baso # (0.0-2.0) K/mm3 pCO2 28 L (35-45) mm/Hg pO2 86.0 (80-100) mm/Hg HCO3 24.5 (21-28) mmol/L ABG pH 7.55 H (7.35-7.45) ABG Total CO2 25.4 (22-28) mmol.L ABG O2 Saturation 101.0 H (95-98) % ABG Base Excess 3.1 H (-2.0-3.0) mmol/L ABG Potassium 3.2 L (3.6-5.2) mmol/L VBG pH (7.32-7.43) VBG pCO2 (40-60) VBG HCO3 (21-28) mmol/l VBG Total CO2 (22-28) mmol.L VBG O2 Sat (Calc) (40-65) % VBG Base Excess (0.0-2.0) mmol/L VBG Potassium (3.6-5.2) mmol/L Sodium 148 145.0 (132-148) mmol/L Chloride 111 H 114.0 H (98-107) mmol/L Glucose 307 H (75-110) mg/dl Lactate 1.7 (0.7-2.1) mmol/L FiO2 28.0 % Potassium 3.6 (3.6-5.0) mmol/L Carbon Dioxide 26 (21-33) mmol/L Anion Gap 15 (10-20) BUN 25 H (7-21) mg/dL Creatinine 2.1 H (0.5-1.4) mg/dL Est GFR ( Amer) 38 Est GFR (Non-Af Amer) 31 POC Glucose (mg/dL) 274 H (65-110) mg/dL Random Glucose 277 H (70-110) mg/dL Calcium 8.4 (8.4-10.5) mg/dL Phosphorus 2.4 L (2.5-4.5) mg/dL Magnesium 1.9 (1.7-2.2) mg/dL Total Bilirubin 0.7 (0.2-1.3) mg/dL Direct Bilirubin 0.6 H (0.0-0.4) mg/dL AST 28 (17-59) U/L ALT < 6 L (7-56) U/L Alkaline Phosphatase 90 (38-126) U/L Total Creatine Kinase 74 (35-230) U/L Total Protein 7.2 (5.8-8.3) g/dL Albumin 3.3 (3.0-4.8) g/dL Globulin 4.0 gm/dL Albumin/Globulin Ratio 0.8 L (1.1-1.8) Procalcitonin (0.19-0.49) NG/ML Arterial Blood Potassium 3.2 L (3.6-5.2) mmol/L Venous Blood Potassium (3.6-5.2) mmol/L Urine Color (YELLOW) Urine Appearance (CLEAR) Urine pH (4.7-8.0) Ur Specific [place] (1.005-1.035) Urine Protein (<30 mg/dL) mg/dL Urine Glucose (UA) (NEGATIVE) mg/dL Urine Ketones (NEGATIVE) mg/dL Urine Blood (NEGATIVE) Urine Nitrate (NEGATIVE) Urine Bilirubin (NEGATIVE) Urine Urobilinogen (<1 E.U./dL) E.U./dL Ur Leukocyte Esterase (NEGATIVE) Brennan/uL Urine RBC (0-2) /hpf Urine WBC (0-6) /hpf Urine Bacteria (NEG) 03/16/17 03/15/17 03/15/17 Range/Units 00:48 20:49 17:17 WBC (4.5-11.0) 10^3/ul RBC (3.5-6.1) 10^6/uL Hgb (14.0-18.0) g/dL Hct (42.0-52.0) % MCV (80.0-105.0) fl MCH (25.0-35.0) pg MCHC (31.0-37.0) g/dl RDW (11.5-14.5) % Plt Count (120.0-450.0) 10^3/uL MPV (7.0-11.0) fl Gran % (50.0-68.0) % Lymph % (Auto) (22.0-35.0) % [place] % (Auto) (1.0-6.0) % Eos % (Auto) (1.5-5.0) % Baso % (Auto) (0.0-3.0) % Gran # (1.4-6.5) Lymph # (1.2-3.4) [place] # (0.1-0.6) Eos # (0.0-0.7) Baso # (0.0-2.0) K/mm3 pCO2 (35-45) mm/Hg pO2 (80-100) mm/Hg HCO3 (21-28) mmol/L ABG pH (7.35-7.45) ABG Total CO2 (22-28) mmol.L ABG O2 Saturation (95-98) % ABG Base Excess (-2.0-3.0) mmol/L ABG Potassium (3.6-5.2) mmol/L VBG pH (7.32-7.43) VBG pCO2 (40-60) VBG HCO3 (21-28) mmol/l VBG Total CO2 (22-28) mmol.L VBG O2 Sat (Calc) (40-65) % VBG Base Excess (0.0-2.0) mmol/L VBG Potassium (3.6-5.2) mmol/L Sodium (132-148) mmol/L Chloride (98-107) mmol/L Glucose (75-110) mg/dl Lactate (0.7-2.1) mmol/L FiO2 % Potassium (3.6-5.0) mmol/L Carbon Dioxide (21-33) mmol/L Anion Gap (10-20) BUN (7-21) mg/dL Creatinine (0.5-1.4) mg/dL Est GFR ( Amer) Est GFR (Non-Af Amer) POC Glucose (mg/dL) 274 H 273 H 174 H (65-110) mg/dL Random Glucose (70-110) mg/dL Calcium (8.4-10.5) mg/dL Phosphorus (2.5-4.5) mg/dL Magnesium (1.7-2.2) mg/dL Total Bilirubin (0.2-1.3) mg/dL Direct Bilirubin (0.0-0.4) mg/dL AST (17-59) U/L ALT (7-56) U/L Alkaline Phosphatase (38-126) U/L Total Creatine Kinase (35-230) U/L Total Protein (5.8-8.3) g/dL Albumin (3.0-4.8) g/dL Globulin gm/dL Albumin/Globulin Ratio (1.1-1.8) Procalcitonin (0.19-0.49) NG/ML Arterial Blood Potassium (3.6-5.2) mmol/L Venous Blood Potassium (3.6-5.2) mmol/L Urine Color (YELLOW) Urine Appearance (CLEAR) Urine pH (4.7-8.0) Ur Specific [place] (1.005-1.035) Urine Protein (<30 mg/dL) mg/dL Urine Glucose (UA) (NEGATIVE) mg/dL Urine Ketones (NEGATIVE) mg/dL Urine Blood (NEGATIVE) Urine Nitrate (NEGATIVE) Urine Bilirubin (NEGATIVE) Urine Urobilinogen (<1 E.U./dL) E.U./dL Ur Leukocyte Esterase (NEGATIVE) Brennan/uL Urine RBC (0-2) /hpf Urine WBC (0-6) /hpf Urine Bacteria (NEG) 03/15/17 03/15/17 03/15/17 Range/Units 15:07 11:36 10:09 WBC (4.5-11.0) 10^3/ul RBC (3.5-6.1) 10^6/uL Hgb (14.0-18.0) g/dL Hct (42.0-52.0) % MCV (80.0-105.0) fl MCH (25.0-35.0) pg MCHC (31.0-37.0) g/dl RDW (11.5-14.5) % Plt Count (120.0-450.0) 10^3/uL MPV (7.0-11.0) fl Gran % (50.0-68.0) % Lymph % (Auto) (22.0-35.0) % [place] % (Auto) (1.0-6.0) % Eos % (Auto) (1.5-5.0) % Baso % (Auto) (0.0-3.0) % Gran # (1.4-6.5) Lymph # (1.2-3.4) [place] # (0.1-0.6) Eos # (0.0-0.7) Baso # (0.0-2.0) K/mm3 pCO2 (35-45) mm/Hg pO2 (80-100) mm/Hg HCO3 (21-28) mmol/L ABG pH (7.35-7.45) ABG Total CO2 (22-28) mmol.L ABG O2 Saturation (95-98) % ABG Base Excess (-2.0-3.0) mmol/L ABG Potassium (3.6-5.2) mmol/L VBG pH (7.32-7.43) VBG pCO2 (40-60) VBG HCO3 (21-28) mmol/l VBG Total CO2 (22-28) mmol.L VBG O2 Sat (Calc) (40-65) % VBG Base Excess (0.0-2.0) mmol/L VBG Potassium (3.6-5.2) mmol/L Sodium (132-148) mmol/L Chloride (98-107) mmol/L Glucose (75-110) mg/dl Lactate (0.7-2.1) mmol/L FiO2 % Potassium (3.6-5.0) mmol/L Carbon Dioxide (21-33) mmol/L Anion Gap (10-20) BUN (7-21) mg/dL Creatinine (0.5-1.4) mg/dL Est GFR ( Amer) Est GFR (Non-Af Amer) POC Glucose (mg/dL) 312 H 327 H (65-110) mg/dL Random Glucose (70-110) mg/dL Calcium (8.4-10.5) mg/dL Phosphorus (2.5-4.5) mg/dL Magnesium (1.7-2.2) mg/dL Total Bilirubin (0.2-1.3) mg/dL Direct Bilirubin (0.0-0.4) mg/dL AST (17-59) U/L ALT (7-56) U/L Alkaline Phosphatase (38-126) U/L Total Creatine Kinase (35-230) U/L Total Protein (5.8-8.3) g/dL Albumin (3.0-4.8) g/dL Globulin gm/dL Albumin/Globulin Ratio (1.1-1.8) Procalcitonin (0.19-0.49) NG/ML Arterial Blood Potassium (3.6-5.2) mmol/L Venous Blood Potassium (3.6-5.2) mmol/L Urine Color Yellow (YELLOW) Urine Appearance Turbid (CLEAR) Urine pH 6.5 (4.7-8.0) Ur Specific [place] 1.010 (1.005-1.035) Urine Protein 100 H (<30 mg/dL) mg/dL Urine Glucose (UA) 500 H (NEGATIVE) mg/dL Urine Ketones Negative (NEGATIVE) mg/dL Urine Blood Moderate H (NEGATIVE) Urine Nitrate Negative (NEGATIVE) Urine Bilirubin Negative (NEGATIVE) Urine Urobilinogen 0.2 (<1 E.U./dL) E.U./dL Ur Leukocyte Esterase Moderate H (NEGATIVE) Brennan/uL Urine RBC 1 - 3 (0-2) /hpf Urine WBC Tntc (0-6) /hpf Urine Bacteria Few (NEG) 03/15/17 Range/Units 06:30 WBC (4.5-11.0) 10^3/ul RBC (3.5-6.1) 10^6/uL Hgb (14.0-18.0) g/dL Hct (42.0-52.0) % MCV (80.0-105.0) fl MCH (25.0-35.0) pg MCHC (31.0-37.0) g/dl RDW (11.5-14.5) % Plt Count (120.0-450.0) 10^3/uL MPV (7.0-11.0) fl Gran % (50.0-68.0) % Lymph % (Auto) (22.0-35.0) % [place] % (Auto) (1.0-6.0) % Eos % (Auto) (1.5-5.0) % Baso % (Auto) (0.0-3.0) % Gran # (1.4-6.5) Lymph # (1.2-3.4) [place] # (0.1-0.6) Eos # (0.0-0.7) Baso # (0.0-2.0) K/mm3 pCO2 (35-45) mm/Hg pO2 (80-100) mm/Hg HCO3 (21-28) mmol/L ABG pH (7.35-7.45) ABG Total CO2 (22-28) mmol.L ABG O2 Saturation (95-98) % ABG Base Excess (-2.0-3.0) mmol/L ABG Potassium (3.6-5.2) mmol/L VBG pH (7.32-7.43) VBG pCO2 (40-60) VBG HCO3 (21-28) mmol/l VBG Total CO2 (22-28) mmol.L VBG O2 Sat (Calc) (40-65) % VBG Base Excess (0.0-2.0) mmol/L VBG Potassium (3.6-5.2) mmol/L Sodium (132-148) mmol/L Chloride (98-107) mmol/L Glucose (75-110) mg/dl Lactate (0.7-2.1) mmol/L FiO2 % Potassium (3.6-5.0) mmol/L Carbon Dioxide (21-33) mmol/L Anion Gap (10-20) BUN (7-21) mg/dL Creatinine (0.5-1.4) mg/dL Est GFR ( Amer) Est GFR (Non-Af Amer) POC Glucose (mg/dL) (65-110) mg/dL Random Glucose (70-110) mg/dL Calcium (8.4-10.5) mg/dL Phosphorus (2.5-4.5) mg/dL Magnesium (1.7-2.2) mg/dL Total Bilirubin (0.2-1.3) mg/dL Direct Bilirubin (0.0-0.4) mg/dL AST (17-59) U/L ALT (7-56) U/L Alkaline Phosphatase (38-126) U/L Total Creatine Kinase (35-230) U/L Total Protein (5.8-8.3) g/dL Albumin (3.0-4.8) g/dL Globulin gm/dL Albumin/Globulin Ratio (1.1-1.8) Procalcitonin 0.56 H (0.19-0.49) NG/ML Arterial Blood Potassium (3.6-5.2) mmol/L Venous Blood Potassium (3.6-5.2) mmol/L Urine Color (YELLOW) Urine Appearance (CLEAR) Urine pH (4.7-8.0) Ur Specific [place] (1.005-1.035) Urine Protein (<30 mg/dL) mg/dL Urine Glucose (UA) (NEGATIVE) mg/dL Urine Ketones (NEGATIVE) mg/dL Urine Blood (NEGATIVE) Urine Nitrate (NEGATIVE) Urine Bilirubin (NEGATIVE) Urine Urobilinogen (<1 E.U./dL) E.U./dL Ur Leukocyte Esterase (NEGATIVE) Brennan/uL Urine RBC (0-2) /hpf Urine WBC (0-6) /hpf Urine Bacteria (NEG) Laboratory Results - last 24 hr 03/15/17 03/15/17 03/15/17 06:30 10:09 11:36 WBC RBC Hgb Hct MCV MCH MCHC RDW Plt Count MPV Gran % Lymph % (Auto) [place] % (Auto) Eos % (Auto) Baso % (Auto) Gran # Lymph # [place] # Eos # Baso # pCO2 pO2 HCO3 ABG pH ABG Total CO2 ABG O2 Saturation ABG Base Excess ABG Potassium VBG pH VBG pCO2 VBG HCO3 VBG Total CO2 VBG O2 Sat (Calc) VBG Base Excess VBG Potassium Sodium Chloride Glucose Lactate FiO2 Potassium Carbon Dioxide Anion Gap BUN Creatinine Est GFR ( Amer) Est GFR (Non-Af Amer) POC Glucose (mg/dL) 327 H Random Glucose Calcium Phosphorus Magnesium Total Bilirubin Direct Bilirubin AST ALT Alkaline Phosphatase Total Creatine Kinase Total Protein Albumin Globulin Albumin/Globulin Ratio Procalcitonin 0.56 H Arterial Blood Potassium Venous Blood Potassium Urine Color Yellow Urine Appearance Turbid Urine pH 6.5 Ur Specific [place] 1.010 Urine Protein 100 H Urine Glucose (UA) 500 H Urine Ketones Negative Urine Blood Moderate H Urine Nitrate Negative Urine Bilirubin Negative Urine Urobilinogen 0.2 Ur Leukocyte Esterase Moderate H Urine RBC 1 - 3 Urine WBC Tntc Urine Bacteria Few 03/15/17 03/15/17 03/15/17 15:07 17:17 20:49 WBC RBC Hgb Hct MCV MCH MCHC RDW Plt Count MPV Gran % Lymph % (Auto) [place] % (Auto) Eos % (Auto) Baso % (Auto) Gran # Lymph # [place] # Eos # Baso # pCO2 pO2 HCO3 ABG pH ABG Total CO2 ABG O2 Saturation ABG Base Excess ABG Potassium VBG pH VBG pCO2 VBG HCO3 VBG Total CO2 VBG O2 Sat (Calc) VBG Base Excess VBG Potassium Sodium Chloride Glucose Lactate FiO2 Potassium Carbon Dioxide Anion Gap BUN Creatinine Est GFR ( Amer) Est GFR (Non-Af Amer) POC Glucose (mg/dL) 312 H 174 H 273 H Random Glucose Calcium Phosphorus Magnesium Total Bilirubin Direct Bilirubin AST ALT Alkaline Phosphatase Total Creatine Kinase Total Protein Albumin Globulin Albumin/Globulin Ratio Procalcitonin Arterial Blood Potassium Venous Blood Potassium Urine Color Urine Appearance Urine pH Ur Specific [place] Urine Protein Urine Glucose (UA) Urine Ketones Urine Blood Urine Nitrate Urine Bilirubin Urine Urobilinogen Ur Leukocyte Esterase Urine RBC Urine WBC Urine Bacteria 03/16/17 03/16/17 03/16/17 00:48 04:10 05:00 WBC RBC Hgb Hct MCV MCH MCHC RDW Plt Count MPV Gran % Lymph % (Auto) [place] % (Auto) Eos % (Auto) Baso % (Auto) Gran # Lymph # [place] # Eos # Baso # pCO2 28 L pO2 86.0 HCO3 24.5 ABG pH 7.55 H ABG Total CO2 25.4 ABG O2 Saturation 101.0 H ABG Base Excess 3.1 H ABG Potassium 3.2 L VBG pH VBG pCO2 VBG HCO3 VBG Total CO2 VBG O2 Sat (Calc) VBG Base Excess VBG Potassium Sodium 145.0 Chloride 114.0 H Glucose 307 H Lactate 1.7 FiO2 28.0 Potassium Carbon Dioxide Anion Gap BUN Creatinine Est GFR ( Amer) Est GFR (Non-Af Amer) POC Glucose (mg/dL) 274 H 274 H Random Glucose Calcium Phosphorus Magnesium Total Bilirubin Direct Bilirubin AST ALT Alkaline Phosphatase Total Creatine Kinase Total Protein Albumin Globulin Albumin/Globulin Ratio Procalcitonin Arterial Blood Potassium 3.2 L Venous Blood Potassium Urine Color Urine Appearance Urine pH Ur Specific [place] Urine Protein Urine Glucose (UA) Urine Ketones Urine Blood Urine Nitrate Urine Bilirubin Urine Urobilinogen Ur Leukocyte Esterase Urine RBC Urine WBC Urine Bacteria 03/16/17 03/16/17 03/16/17 07:41 07:41 07:41 WBC 16.8 H D RBC 5.38 Hgb 16.1 Hct 48.6 MCV 90.3 MCH 29.9 MCHC 33.1 RDW 14.3 Plt Count 166 MPV 9.7 Gran % 89.7 H Lymph % (Auto) 2.8 L [place] % (Auto) 7.3 H Eos % (Auto) 0.1 L Baso % (Auto) 0.1 Gran # 15.07 H Lymph # 0.5 L [place] # 1.2 H Eos # 0.0 Baso # 0.01 pCO2 pO2 63 H HCO3 ABG pH ABG Total CO2 ABG O2 Saturation ABG Base Excess ABG Potassium VBG pH 7.34 VBG pCO2 50.0 VBG HCO3 27.0 VBG Total CO2 28.5 H VBG O2 Sat (Calc) 95.3 H VBG Base Excess 0.5 VBG Potassium 3.5 L Sodium 148 146.0 Chloride 111 H 110.0 H Glucose 291 H Lactate 4.0 H* FiO2 21.0 Potassium 3.6 Carbon Dioxide 26 Anion Gap 15 BUN 25 H Creatinine 2.1 H Est GFR ( Amer) 38 Est GFR (Non-Af Amer) 31 POC Glucose (mg/dL) Random Glucose 277 H Calcium 8.4 Phosphorus 2.4 L Magnesium 1.9 Total Bilirubin 0.7 Direct Bilirubin 0.6 H AST 28 ALT < 6 L Alkaline Phosphatase 90 Total Creatine Kinase 74 Total Protein 7.2 Albumin 3.3 Globulin 4.0 Albumin/Globulin Ratio 0.8 L Procalcitonin Arterial Blood Potassium Venous Blood Potassium 3.5 L Urine Color Urine Appearance Urine pH Ur Specific [place] Urine Protein Urine Glucose (UA) Urine Ketones Urine Blood Urine Nitrate Urine Bilirubin Urine Urobilinogen Ur Leukocyte Esterase Urine RBC Urine WBC Urine Bacteria 03/16/17 07:44 WBC RBC Hgb Hct MCV MCH MCHC RDW Plt Count MPV Gran % Lymph % (Auto) [place] % (Auto) Eos % (Auto) Baso % (Auto) Gran # Lymph # [place] # Eos # Baso # pCO2 pO2 HCO3 ABG pH ABG Total CO2 ABG O2 Saturation ABG Base Excess ABG Potassium VBG pH VBG pCO2 VBG HCO3 VBG Total CO2 VBG O2 Sat (Calc) VBG Base Excess VBG Potassium Sodium Chloride Glucose Lactate FiO2 Potassium Carbon Dioxide Anion Gap BUN Creatinine Est GFR ( Amer) Est GFR (Non-Af Amer) POC Glucose (mg/dL) 284 H Random Glucose Calcium Phosphorus Magnesium Total Bilirubin Direct Bilirubin AST ALT Alkaline Phosphatase Total Creatine Kinase Total Protein Albumin Globulin Albumin/Globulin Ratio Procalcitonin Arterial Blood Potassium Venous Blood Potassium Urine Color Urine Appearance Urine pH Ur Specific [place] Urine Protein Urine Glucose (UA) Urine Ketones Urine Blood Urine Nitrate Urine Bilirubin Urine Urobilinogen Ur Leukocyte Esterase Urine RBC Urine WBC Urine Bacteria EKG/Cardiology Studies: Cardiology / EKG Studies 03/16/17 08:06 EKG [ELECTROCARDIOGRAM] Stat Comment: Reason For Exam: LACTIC ACID 4.0 Fingerstick Blood Sugar Results: 284 Review of Systems - Review of Systems Review of Systems: Please refer to HPI Critical Care Progress Note - Nutrition Nutrition: Nutrition Category Date Time Status Liquid Diet [DIET] Diets 03/14/17 Dinner Ordered Assessment/Plan - Assessment and Plan (Free Text) Assessment: ICU consulted for 71 year old male with acute mental status changes who was recently discharged from ICU care on 03/15. Plan: Patient with increased leukocytosis, tachycardia and lactate overnight with mild to no changes on chest x-ray. Infectious etiology likely source of AMS. Patient to be transferred to ICU for further monitoring and to r/o meningitis and other sources of new infection. - Date & Time Date: 03/16/17 Time: 09:50 <Jovon KULKARNI,Inaalayna H - Last Filed: 03/16/17 14:46> CCU Objective - Vital Signs / Intake & Output Intake and Output (Last 8hrs): Intake & Output 09/03/16/17 03/16/17 22:59 06:59 14:59 Intake Total 1830 1050 Output Total 2200 Balance -370 1050 Weight 214 lb Intake: IV 1350 1050 R forearm 1050 Right Antecubital 1350 Oral 480 0 Output: Urine 2200 Urethral (Abad) 2200 Other: # Voids Urine, Voided 2 # Bowel Movements 1 0 - Medications Active Medications: Active Medications Generic Name Dose Route Start Last Admin Trade Name Freq PRN Reason Stop Dose Admin Acetaminophen 650 mg 03/13/17 10:13 Tylenol 325mg Tab PO Q6H PRN TEMP>=99.5F Acetaminophen 650 mg 03/13/17 10:13 03/16/17 09:50 Tylenol 650 Mg Supp RC 650 mg Q6H PRN Administration TEMP>=99.5F Enoxaparin Sodium 40 mg 03/12/17 12:00 03/15/17 09:10 Lovenox SC 40 mg DAILY KAMILAH Administration Protocol Meropenem 1g/NS 100mL IVPB 1 gm in 100 mls @ 100 mls/hr 03/15/17 10:00 12:31 Meropenem 1g/Ns 100ml Ivpb IVPB 03/22/17 10:01 Not Given Q12 KAMILAH Protocol Potassium Phosphate 15 mmole/ 1,005 mls @ 100 mls/hr 03/15/17 16:26 03/16/17 12:34 Dextrose IV 100 mls/hr .Q10H3M KAMILAH Administration Potassium Phosphate 15 mmole/ 255 mls @ 42.5 mls/hr 03/16/17 09:29 Dextrose IVPB 03/16/17 15:28 ONCE ONE Acyclovir 800 mg/ Sodium 100 mls @ 100 mls/hr 03/16/17 17:30 Chloride IV 03/23/17 17:31 Q12 KAMILAH Protocol Insulin Detemir 50 unit 03/16/17 10:00 03/16/17 12:30 Levemir SC Not Given Q12H [facility] Insulin Human Lispro 0 units 03/14/17 16:11 03/16/17 11:22 Humalog High SC 7 units Q4H K[facility]ILAH Administration Protocol Metoprolol Tartrate 25 mg 03/14/17 18:00 03/16/17 12:30 Lopressor PO Not Given BID KAMILAH Nystatin 1 gm 03/12/17 18:00 03/16/17 10:33 Nystop Topical Powder TOP 1 applic BID K[facility]ILAH Administration Nystatin 1 ea 03/14/17 22:00 03/16/17 10:32 Mycostatin Cream TOP 1 applic TID KAMILAH Administration Pantoprazole Sodium 40 mg 03/14/17 10:00 03/16/17 10:00 Protonix Inj IVP 40 mg Q12 [facility]AH Administration Potassium Phos/Sodium Phos 1 pkt 03/13/17 06:15 03/15/17 22:49 Neutra-Phos GT Not Given Q8H KAMILAH - Patient Studies Lab Studies: Microbiology Studies 03/15/17 10:09 Urine Culture - Final Urine,Abad No Growth (<1,000 CFU/ML) 03/14/17 22:17 Urine Culture - Final Urine,Abad No Growth (<1,000 CFU/ML) 03/13/17 07:30 Blood Culture - Preliminary Blood-Venous NO GROWTH AFTER 3 DAYS 03/13/17 07:50 Blood Culture - Preliminary Blood-Venous NO GROWTH AFTER 3 DAYS 03/15/17 07:00 Blood Culture - Preliminary Blood-Venous NO GROWTH AFTER 24 HOURS 03/15/17 06:45 Blood Culture - Preliminary Blood-Venous NO GROWTH AFTER 24 HOURS 03/14/17 22:00 Blood Culture - Preliminary Blood-Venous NO GROWTH AFTER 24 HOURS 03/14/17 21:30 Blood Culture - Preliminary Blood-Venous NO GROWTH AFTER 24 HOURS 03/13/17 06:52 Urine Culture - Final Urine Yeast Species Lab Studies 03/16/17 03/16/17 03/16/17 Range/Units 11:11 07:44 07:41 WBC 16.8 H D (4.5-11.0) 10^3/ul RBC 5.38 (3.5-6.1) 10^6/uL Hgb 16.1 (14.0-18.0) g/dL Hct 48.6 (42.0-52.0) % MCV 90.3 (80.0-105.0) fl MCH 29.9 (25.0-35.0) pg MCHC 33.1 (31.0-37.0) g/dl RDW 14.3 (11.5-14.5) % Plt Count 166 (120.0-450.0) 10^3/uL MPV 9.7 (7.0-11.0) fl Gran % 89.7 H (50.0-68.0) % Lymph % (Auto) 2.8 L (22.0-35.0) % Harney % (Auto) 7.3 H (1.0-6.0) % Eos % (Auto) 0.1 L (1.5-5.0) % Baso % (Auto) 0.1 (0.0-3.0) % Gran # 15.07 H (1.4-6.5) Lymph # 0.5 L (1.2-3.4) Harney # 1.2 H (0.1-0.6) Eos # 0.0 (0.0-0.7) Baso # 0.01 (0.0-2.0) K/mm3 Neutrophils % (Manual) 90 H (50.0-70.0) % Band Neutrophils % 4 H (0-2) % Lymphocytes % (Manual) 3 L (22.0-35.0) % Monocytes % (Manual) 3 (1.0-6.0) % Platelet Evaluation Normal (NORMAL) Large Platelets Present Anisocytosis (manual) Slight pCO2 (35-45) mm/Hg pO2 (80-100) mm/Hg HCO3 (21-28) mmol/L ABG pH (7.35-7.45) ABG Total CO2 (22-28) mmol.L ABG O2 Saturation (95-98) % ABG Base Excess (-2.0-3.0) mmol/L ABG Potassium (3.6-5.2) mmol/L VBG pH (7.32-7.43) VBG pCO2 (40-60) VBG HCO3 (21-28) mmol/l VBG Total CO2 (22-28) mmol.L VBG O2 Sat (Calc) (40-65) % VBG Base Excess (0.0-2.0) mmol/L VBG Potassium (3.6-5.2) mmol/L Sodium (132-148) mmol/L Chloride (98-107) mmol/L Glucose (75-110) mg/dl Lactate (0.7-2.1) mmol/L FiO2 % Potassium (3.6-5.0) mmol/L Carbon Dioxide (21-33) mmol/L Anion Gap (10-20) BUN (7-21) mg/dL Creatinine (0.5-1.4) mg/dL Est GFR ( Amer) Est GFR (Non-Af Amer) POC Glucose (mg/dL) 256 H 284 H (65-110) mg/dL Random Glucose (70-110) mg/dL Calcium (8.4-10.5) mg/dL Phosphorus (2.5-4.5) mg/dL Magnesium (1.7-2.2) mg/dL Total Bilirubin (0.2-1.3) mg/dL Direct Bilirubin (0.0-0.4) mg/dL AST (17-59) U/L ALT (7-56) U/L Alkaline Phosphatase (38-126) U/L Total Creatine Kinase (35-230) U/L Total Protein (5.8-8.3) g/dL Albumin (3.0-4.8) g/dL Globulin gm/dL Albumin/Globulin Ratio (1.1-1.8) Arterial Blood Potassium (3.6-5.2) mmol/L Venous Blood Potassium (3.6-5.2) mmol/L 03/16/17 03/16/17 03/16/17 Range/Units 07:41 07:41 05:00 WBC (4.5-11.0) 10^3/ul RBC (3.5-6.1) 10^6/uL Hgb (14.0-18.0) g/dL Hct (42.0-52.0) % MCV (80.0-105.0) fl MCH (25.0-35.0) pg MCHC (31.0-37.0) g/dl RDW (11.5-14.5) % Plt Count (120.0-450.0) 10^3/uL MPV (7.0-11.0) fl Gran % (50.0-68.0) % Lymph % (Auto) (22.0-35.0) % Harney % (Auto) (1.0-6.0) % Eos % (Auto) (1.5-5.0) % Baso % (Auto) (0.0-3.0) % Gran # (1.4-6.5) Lymph # (1.2-3.4) Harney # (0.1-0.6) Eos # (0.0-0.7) Baso # (0.0-2.0) K/mm3 Neutrophils % (Manual) (50.0-70.0) % Band Neutrophils % (0-2) % Lymphocytes % (Manual) (22.0-35.0) % Monocytes % (Manual) (1.0-6.0) % Platelet Evaluation (NORMAL) Large Platelets Anisocytosis (manual) pCO2 (35-45) mm/Hg pO2 63 H (80-100) mm/Hg HCO3 (21-28) mmol/L ABG pH (7.35-7.45) ABG Total CO2 (22-28) mmol.L ABG O2 Saturation (95-98) % ABG Base Excess (-2.0-3.0) mmol/L ABG Potassium (3.6-5.2) mmol/L VBG pH 7.34 (7.32-7.43) VBG pCO2 50.0 (40-60) VBG HCO3 27.0 (21-28) mmol/l VBG Total CO2 28.5 H (22-28) mmol.L VBG O2 Sat (Calc) 95.3 H (40-65) % VBG Base Excess 0.5 (0.0-2.0) mmol/L VBG Potassium 3.5 L (3.6-5.2) mmol/L Sodium 146.0 148 (132-148) mmol/L Chloride 110.0 H 111 H (98-107) mmol/L Glucose 291 H (75-110) mg/dl Lactate 4.0 H* (0.7-2.1) mmol/L FiO2 21.0 % Potassium 3.6 (3.6-5.0) mmol/L Carbon Dioxide 26 (21-33) mmol/L Anion Gap 15 (10-20) BUN 25 H (7-21) mg/dL Creatinine 2.1 H (0.5-1.4) mg/dL Est GFR ( Amer) 38 Est GFR (Non-Af Amer) 31 POC Glucose (mg/dL) 274 H (65-110) mg/dL Random Glucose 277 H (70-110) mg/dL Calcium 8.4 (8.4-10.5) mg/dL Phosphorus 2.4 L (2.5-4.5) mg/dL Magnesium 1.9 (1.7-2.2) mg/dL Total Bilirubin 0.7 (0.2-1.3) mg/dL Direct Bilirubin 0.6 H (0.0-0.4) mg/dL AST 28 (17-59) U/L ALT < 6 L (7-56) U/L Alkaline Phosphatase 90 (38-126) U/L Total Creatine Kinase 74 (35-230) U/L Total Protein 7.2 (5.8-8.3) g/dL Albumin 3.3 (3.0-4.8) g/dL Globulin 4.0 gm/dL Albumin/Globulin Ratio 0.8 L (1.1-1.8) Arterial Blood Potassium (3.6-5.2) mmol/L Venous Blood Potassium 3.5 L (3.6-5.2) mmol/L 03/16/17 03/16/17 03/15/17 Range/Units 04:10 00:48 20:49 WBC (4.5-11.0) 10^3/ul RBC (3.5-6.1) 10^6/uL Hgb (14.0-18.0) g/dL Hct (42.0-52.0) % MCV (80.0-105.0) fl MCH (25.0-35.0) pg MCHC (31.0-37.0) g/dl RDW (11.5-14.5) % Plt Count (120.0-450.0) 10^3/uL MPV (7.0-11.0) fl Gran % (50.0-68.0) % Lymph % (Auto) (22.0-35.0) % Harney % (Auto) (1.0-6.0) % Eos % (Auto) (1.5-5.0) % Baso % (Auto) (0.0-3.0) % Gran # (1.4-6.5) Lymph # (1.2-3.4) Harney # (0.1-0.6) Eos # (0.0-0.7) Baso # (0.0-2.0) K/mm3 Neutrophils % (Manual) (50.0-70.0) % Band Neutrophils % (0-2) % Lymphocytes % (Manual) (22.0-35.0) % Monocytes % (Manual) (1.0-6.0) % Platelet Evaluation (NORMAL) Large Platelets Anisocytosis (manual) pCO2 28 L (35-45) mm/Hg pO2 86.0 (80-100) mm/Hg HCO3 24.5 (21-28) mmol/L ABG pH 7.55 H (7.35-7.45) ABG Total CO2 25.4 (22-28) mmol.L ABG O2 Saturation 101.0 H (95-98) % ABG Base Excess 3.1 H (-2.0-3.0) mmol/L ABG Potassium 3.2 L (3.6-5.2) mmol/L VBG pH (7.32-7.43) VBG pCO2 (40-60) VBG HCO3 (21-28) mmol/l VBG Total CO2 (22-28) mmol.L VBG O2 Sat (Calc) (40-65) % VBG Base Excess (0.0-2.0) mmol/L VBG Potassium (3.6-5.2) mmol/L Sodium 145.0 (132-148) mmol/L Chloride 114.0 H (98-107) mmol/L Glucose 307 H (75-110) mg/dl Lactate 1.7 (0.7-2.1) mmol/L FiO2 28.0 % Potassium (3.6-5.0) mmol/L Carbon Dioxide (21-33) mmol/L Anion Gap (10-20) BUN (7-21) mg/dL Creatinine (0.5-1.4) mg/dL Est GFR ( Amer) Est GFR (Non-Af Amer) POC Glucose (mg/dL) 274 H 273 H (65-110) mg/dL Random Glucose (70-110) mg/dL Calcium (8.4-10.5) mg/dL Phosphorus (2.5-4.5) mg/dL Magnesium (1.7-2.2) mg/dL Total Bilirubin (0.2-1.3) mg/dL Direct Bilirubin (0.0-0.4) mg/dL AST (17-59) U/L ALT (7-56) U/L Alkaline Phosphatase (38-126) U/L Total Creatine Kinase (35-230) U/L Total Protein (5.8-8.3) g/dL Albumin (3.0-4.8) g/dL Globulin gm/dL Albumin/Globulin Ratio (1.1-1.8) Arterial Blood Potassium 3.2 L (3.6-5.2) mmol/L Venous Blood Potassium (3.6-5.2) mmol/L 03/15/17 03/15/17 Range/Units 17:17 15:07 WBC (4.5-11.0) 10^3/ul RBC (3.5-6.1) 10^6/uL Hgb (14.0-18.0) g/dL Hct (42.0-52.0) % MCV (80.0-105.0) fl MCH (25.0-35.0) pg MCHC (31.0-37.0) g/dl RDW (11.5-14.5) % Plt Count (120.0-450.0) 10^3/uL MPV (7.0-11.0) fl Gran % (50.0-68.0) % Lymph % (Auto) (22.0-35.0) % Harney % (Auto) (1.0-6.0) % Eos % (Auto) (1.5-5.0) % Baso % (Auto) (0.0-3.0) % Gran # (1.4-6.5) Lymph # (1.2-3.4) Harney # (0.1-0.6) Eos # (0.0-0.7) Baso # (0.0-2.0) K/mm3 Neutrophils % (Manual) (50.0-70.0) % Band Neutrophils % (0-2) % Lymphocytes % (Manual) (22.0-35.0) % Monocytes % (Manual) (1.0-6.0) % Platelet Evaluation (NORMAL) Large Platelets Anisocytosis (manual) pCO2 (35-45) mm/Hg pO2 (80-100) mm/Hg HCO3 (21-28) mmol/L ABG pH (7.35-7.45) ABG Total CO2 (22-28) mmol.L ABG O2 Saturation (95-98) % ABG Base Excess (-2.0-3.0) mmol/L ABG Potassium (3.6-5.2) mmol/L VBG pH (7.32-7.43) VBG pCO2 (40-60) VBG HCO3 (21-28) mmol/l VBG Total CO2 (22-28) mmol.L VBG O2 Sat (Calc) (40-65) % VBG Base Excess (0.0-2.0) mmol/L VBG Potassium (3.6-5.2) mmol/L Sodium (132-148) mmol/L Chloride (98-107) mmol/L Glucose (75-110) mg/dl Lactate (0.7-2.1) mmol/L FiO2 % Potassium (3.6-5.0) mmol/L Carbon Dioxide (21-33) mmol/L Anion Gap (10-20) BUN (7-21) mg/dL Creatinine (0.5-1.4) mg/dL Est GFR ( Amer) Est GFR (Non-Af Amer) POC Glucose (mg/dL) 174 H 312 H (65-110) mg/dL Random Glucose (70-110) mg/dL Calcium (8.4-10.5) mg/dL Phosphorus (2.5-4.5) mg/dL Magnesium (1.7-2.2) mg/dL Total Bilirubin (0.2-1.3) mg/dL Direct Bilirubin (0.0-0.4) mg/dL AST (17-59) U/L ALT (7-56) U/L Alkaline Phosphatase (38-126) U/L Total Creatine Kinase (35-230) U/L Total Protein (5.8-8.3) g/dL Albumin (3.0-4.8) g/dL Globulin gm/dL Albumin/Globulin Ratio (1.1-1.8) Arterial Blood Potassium (3.6-5.2) mmol/L Venous Blood Potassium (3.6-5.2) mmol/L Laboratory Results - last 24 hr 03/15/17 03/15/17 03/15/17 15:07 17:17 20:49 WBC RBC Hgb Hct MCV MCH MCHC RDW Plt Count MPV Gran % Lymph % (Auto) Harney % (Auto) Eos % (Auto) Baso % (Auto) Gran # Lymph # Harney # Eos # Baso # Neutrophils % (Manual) Band Neutrophils % Lymphocytes % (Manual) Monocytes % (Manual) Platelet Evaluation Large Platelets Anisocytosis (manual) pCO2 pO2 HCO3 ABG pH ABG Total CO2 ABG O2 Saturation ABG Base Excess ABG Potassium VBG pH VBG pCO2 VBG HCO3 VBG Total CO2 VBG O2 Sat (Calc) VBG Base Excess VBG Potassium Sodium Chloride Glucose Lactate FiO2 Potassium Carbon Dioxide Anion Gap BUN Creatinine Est GFR ( Amer) Est GFR (Non-Af Amer) POC Glucose (mg/dL) 312 H 174 H 273 H Random Glucose Calcium Phosphorus Magnesium Total Bilirubin Direct Bilirubin AST ALT Alkaline Phosphatase Total Creatine Kinase Total Protein Albumin Globulin Albumin/Globulin Ratio Arterial Blood Potassium Venous Blood Potassium 03/16/17 03/16/17 03/16/17 00:48 04:10 05:00 WBC RBC Hgb Hct MCV MCH MCHC RDW Plt Count MPV Gran % Lymph % (Auto) Harney % (Auto) Eos % (Auto) Baso % (Auto) Gran # Lymph # Harney # Eos # Baso # Neutrophils % (Manual) Band Neutrophils % Lymphocytes % (Manual) Monocytes % (Manual) Platelet Evaluation Large Platelets Anisocytosis (manual) pCO2 28 L pO2 86.0 HCO3 24.5 ABG pH 7.55 H ABG Total CO2 25.4 ABG O2 Saturation 101.0 H ABG Base Excess 3.1 H ABG Potassium 3.2 L VBG pH VBG pCO2 VBG HCO3 VBG Total CO2 VBG O2 Sat (Calc) VBG Base Excess VBG Potassium Sodium 145.0 Chloride 114.0 H Glucose 307 H Lactate 1.7 FiO2 28.0 Potassium Carbon Dioxide Anion Gap BUN Creatinine Est GFR ( Amer) Est GFR (Non-Af Amer) POC Glucose (mg/dL) 274 H 274 H Random Glucose Calcium Phosphorus Magnesium Total Bilirubin Direct Bilirubin AST ALT Alkaline Phosphatase Total Creatine Kinase Total Protein Albumin Globulin Albumin/Globulin Ratio Arterial Blood Potassium 3.2 L Venous Blood Potassium 03/16/17 03/16/17 03/16/17 07:41 07:41 07:41 WBC 16.8 H D RBC 5.38 Hgb 16.1 Hct 48.6 MCV 90.3 MCH 29.9 MCHC 33.1 RDW 14.3 Plt Count 166 MPV 9.7 Gran % 89.7 H Lymph % (Auto) 2.8 L Harney % (Auto) 7.3 H Eos % (Auto) 0.1 L Baso % (Auto) 0.1 Gran # 15.07 H Lymph # 0.5 L Harney # 1.2 H Eos # 0.0 Baso # 0.01 Neutrophils % (Manual) 90 H Band Neutrophils % 4 H Lymphocytes % (Manual) 3 L Monocytes % (Manual) 3 Platelet Evaluation Normal Large Platelets Present Anisocytosis (manual) Slight pCO2 pO2 63 H HCO3 ABG pH ABG Total CO2 ABG O2 Saturation ABG Base Excess ABG Potassium VBG pH 7.34 VBG pCO2 50.0 VBG HCO3 27.0 VBG Total CO2 28.5 H VBG O2 Sat (Calc) 95.3 H VBG Base Excess 0.5 VBG Potassium 3.5 L Sodium 148 146.0 Chloride 111 H 110.0 H Glucose 291 H Lactate 4.0 H* FiO2 21.0 Potassium 3.6 Carbon Dioxide 26 Anion Gap 15 BUN 25 H Creatinine 2.1 H Est GFR ( Amer) 38 Est GFR (Non-Af Amer) 31 POC Glucose (mg/dL) Random Glucose 277 H Calcium 8.4 Phosphorus 2.4 L Magnesium 1.9 Total Bilirubin 0.7 Direct Bilirubin 0.6 H AST 28 ALT < 6 L Alkaline Phosphatase 90 Total Creatine Kinase 74 Total Protein 7.2 Albumin 3.3 Globulin 4.0 Albumin/Globulin Ratio 0.8 L Arterial Blood Potassium Venous Blood Potassium 3.5 L 03/16/17 03/16/17 07:44 11:11 WBC RBC Hgb Hct MCV MCH MCHC RDW Plt Count MPV Gran % Lymph % (Auto) Harney % (Auto) Eos % (Auto) Baso % (Auto) Gran # Lymph # Harney # Eos # Baso # Neutrophils % (Manual) Band Neutrophils % Lymphocytes % (Manual) Monocytes % (Manual) Platelet Evaluation Large Platelets Anisocytosis (manual) pCO2 pO2 HCO3 ABG pH ABG Total CO2 ABG O2 Saturation ABG Base Excess ABG Potassium VBG pH VBG pCO2 VBG HCO3 VBG Total CO2 VBG O2 Sat (Calc) VBG Base Excess VBG Potassium Sodium Chloride Glucose Lactate FiO2 Potassium Carbon Dioxide Anion Gap BUN Creatinine Est GFR ( Amer) Est GFR (Non-Af Amer) POC Glucose (mg/dL) 284 H 256 H Random Glucose Calcium Phosphorus Magnesium Total Bilirubin Direct Bilirubin AST ALT Alkaline Phosphatase Total Creatine Kinase Total Protein Albumin Globulin Albumin/Globulin Ratio Arterial Blood Potassium Venous Blood Potassium EKG/Cardiology Studies: Cardiology / EKG Studies 03/16/17 08:06 EKG [ELECTROCARDIOGRAM] Stat Comment: Reason For Exam: LACTIC ACID 4.0 Critical Care Progress Note - Nutrition Nutrition: Nutrition Category Date Time Status Liquid Diet [DIET] Diets 03/14/17 Dinner Ordered Attending/Attestation - Attestation I have personally seen and examined this patient.: Yes I have fully participated in the care of the patient.: Yes I have reviewed all pertinent clinical information: Yes Notes (Text): 03/16/17 14:43 71 y/o M that we know well from the ICU. The patient currently was seen awake and at baseline as he was in the ICU. He in continued on multiple abx due to his fevers, elevated WBC and AMS. At this point he is beign treated for FUO. Source unclear. The case was discussed with ID. ABX were upscaled and Antifungal and antivirals were added. LP was attempted with the residents but patient was too combative and difficult to proceed. Will be sent to IR for FLURo . Currrently doesn't meet ICU criteria. Family aware . DNR/DNI Please contact the ICu if any help is needed. cc time 45 min
[2017-03-16] MEDS ORDERED: Micafungin 100 MG in Sodium Chloride 0.9% 100 ML IV SCH (10:00)
[2017-03-16] MEDS ORDERED: Lidocaine 1% Inj (20ml) IJ STA (10:29)
[2017-03-16] MEDS: Nystatin 100,000 Units/gm Cream(15 gm) TOP SCH ×3 (10:32→17:40)
[2017-03-16] MEDS: Nystatin 100,000 Units/gm Topical Pow(15 gm) TOP SCH ×2 (10:33→17:40)
[2017-03-16 11:11] LABS: ANISOCYTOSIS SLIGHT; BAND 4 % (0-2); LARGE PLATELETS PRESENT; NEUTROPHIL 90 % (50.0-70.0); PLATELET ESTIMATE NORMAL (NORMAL)
--- NOTE | 2017-03-16 11:21 | CP.PCM.PN ---
<Katty Rico - Last Filed: 03/16/17 12:08> Subjective - Date & Time of Evaluation Date of Evaluation: 03/16/17 Time of Evaluation: 09:30 - Subjective Subjective: Covering GI note for Dr. Weathers. S&E at bedside, chart reviewed, at bedside, patient with temp last night and reported to be restless and lethargic, he is awake but not follow commands. No reports of overt GI bleed, for transfer to ICU. Ct head done, negative for acute findings, CXR reports mild venous congestion and bibasilar atelectasis. Objective - Vital Signs/Intake and Output Vital Signs (last 24 hours): Temp Pulse Resp BP Pulse Ox 102.6 F H 121 H 36 H 130/86 97 03/16/17 06:00 03/16/17 06:00 03/16/17 06:00 03/16/17 06:00 03/16/17 06:00 Intake and Output: 03/16/17 03/16/17 06:59 18:59 Intake Total 1050 Balance 1050 - Medications Medications: Current Medications Acetaminophen (Tylenol 325mg Tab) 650 mg PO Q6H PRN PRN Reason: TEMP>=99.5F Acetaminophen (Tylenol 650 Mg Supp) 650 mg RC Q6H PRN PRN Reason: TEMP>=99.5F Last Admin: 03/16/17 03:20 Dose: 650 mg Enoxaparin Sodium (Lovenox) 40 mg SC DAILY [facility] PRN Reason: Protocol Last Admin: 03/15/17 09:10 Dose: 40 mg Meropenem 1g/NS 100mL IVPB (Meropenem 1g/Ns 100ml Ivpb) 1 gm in 100 mls @ 100 mls/hr IVPB Q12 [facility] PRN Reason: Protocol Stop: 03/22/17 10:01 Last Admin: 03/15/17 22:31 Dose: 100 mls/hr Potassium Phosphate 15 mmole/ (Dextrose) 1,005 mls @ 100 mls/hr IV .Q10H3M [facility] Last Admin: 03/15/17 23:50 Dose: 100 mls/hr Potassium Phosphate 15 mmole/ (Dextrose) 255 mls @ 42.5 mls/hr IVPB ONCE ONE Stop: 03/16/17 15:28 Insulin Detemir (Levemir) 50 unit SC Q12H [facility] Insulin Human Lispro (Humalog High) 0 units SC Q4H [facility] PRN Reason: Protocol Last Admin: 03/16/17 07:58 Dose: 7 units Metoprolol Tartrate (Lopressor) 25 mg PO BID [facility] Last Admin: 03/15/17 17:21 Dose: 25 mg Nystatin (Nystop Topical Powder) 1 gm TOP BID [facility] Last Admin: 03/15/17 17:23 Dose: 1 applic Nystatin (Mycostatin Cream) 1 ea TOP TID [facility] Last Admin: 03/15/17 17:23 Dose: 1 applic Pantoprazole Sodium (Protonix Inj) 40 mg IVP Q12 [facility] Last Admin: 03/15/17 22:31 Dose: 40 mg Potassium Phos/Sodium Phos (Neutra-Phos) 1 pkt GT Q8H [facility] Last Admin: 03/15/17 22:49 Dose: Not Given - Labs Labs: 03/16/17 07:41 03/16/17 07:41 PT 12.7 Seconds (9.9-11.8) H 03/12/17 08:30 INR 1.18 (0.93-1.08) H 03/12/17 08:30 APTT 30.1 Seconds (23.7-30.8) 03/12/17 08:30 - Constitutional Appears: No Acute Distress - Head Exam Head Exam: NORMOCEPHALIC - Eye Exam Eye Exam: Normal appearance. absent: Scleral icterus - ENT Exam ENT Exam: Mucous Membranes Moist - Neck Exam Neck Exam: Normal Inspection - Respiratory Exam Respiratory Exam: NORMAL BREATHING PATTERN. absent: Respiratory Distress - Cardiovascular Exam Cardiovascular Exam: +S1, +S2 - GI/Abdominal Exam GI & Abdominal Exam: Soft. absent: Guarding, Tenderness, Normal Bowel Sounds, Rebound - Extremities Exam Extremities Exam: Normal Capillary Refill. absent: Calf Tenderness, Pedal Edema - Neurological Exam Neurological Exam: Altered, Awake - Skin Skin Exam: Dry, Warm Assessment and Plan - Assessment and Plan (Free Text) Assessment: ASSESSMENT: Fevers Guiac Positive, h/h stable, no active GI bleed Hemorrhoids Altered Mental Status S/p Respiratitory Failure Improving leukocytosis UTI DKA Obesity Left Occipital Hematoma Plan: for transfer to ICU cooling blanket FU blood culture and urine culture Monitor H&H and for GI bleed Continue Protonix twice a day On the Lovenox IV antibiotics as per ID diet when patient is more alert, continue IVF as per ICU team Seen and discussed with Dr. Mix. <Sae Mix V - Last Filed: 03/16/17 23:17> Objective - Vital Signs/Intake and Output Vital Signs (last 24 hours): Temp Pulse Resp BP Pulse Ox 102.6 F H 111 H 36 H 130/86 97 03/16/17 06:00 03/16/17 18:00 03/16/17 06:00 03/16/17 06:00 03/16/17 06:00 Intake and Output: 03/16/17 03/17/17 18:59 06:59 Intake Total 200 Balance 200 - Medications Medications: Current Medications Acetaminophen (Tylenol 325mg Tab) 650 mg PO Q6H PRN PRN Reason: TEMP>=99.5F Acetaminophen (Tylenol 650 Mg Supp) 650 mg RC Q6H PRN PRN Reason: TEMP>=99.5F Last Admin: 03/16/17 18:03 Dose: 650 mg Enoxaparin Sodium (Lovenox) 40 mg SC DAILY [facility] PRN Reason: Protocol Last Admin: 03/16/17 14:58 Dose: Not Given Meropenem 1g/NS 100mL IVPB (Meropenem 1g/Ns 100ml Ivpb) 1 gm in 100 mls @ 100 mls/hr IVPB Q12 [facility] PRN Reason: Protocol Stop: 03/22/17 10:01 Last Admin: 03/16/17 21:50 Dose: 100 mls/hr Potassium Phosphate 15 mmole/ (Dextrose) 1,005 mls @ 100 mls/hr IV .Q10H3M [facility] Last Admin: 03/16/17 12:34 Dose: 100 mls/hr Acyclovir 800 mg/ Sodium (Chloride) 100 mls @ 100 mls/hr IV Q12 [facility] PRN Reason: Protocol Stop: 03/23/17 17:31 Last Admin: 03/16/17 17:41 Dose: 100 mls/hr Insulin Detemir (Levemir) 50 unit SC Q12H [facility] Last Admin: 03/16/17 21:49 Dose: 50 unit Insulin Human Lispro (Humalog High) 0 units SC Q4H [facility] PRN Reason: Protocol Last Admin: 03/16/17 20:40 Dose: 2 units Metoprolol Tartrate (Lopressor) 25 mg PO BID [facility] Last Admin: 03/16/17 17:40 Dose: Not Given Nystatin (Nystop Topical Powder) 1 gm TOP BID [facility] Last Admin: 03/16/17 17:40 Dose: 1 applic Nystatin (Mycostatin Cream) 1 ea TOP TID [facility] Last Admin: 03/16/17 17:40 Dose: 1 applic Pantoprazole Sodium (Protonix Inj) 40 mg IVP Q12 [facility] Last Admin: 03/16/17 21:53 Dose: 40 mg Potassium Phos/Sodium Phos (Neutra-Phos) 1 pkt GT Q8H [facility] Last Admin: 03/16/17 21:52 Dose: 1 pkt - Labs Labs: 03/16/17 07:41 03/16/17 07:41 PT 12.7 Seconds (9.9-11.8) H 03/12/17 08:30 INR 1.18 (0.93-1.08) H 03/12/17 08:30 APTT 30.1 Seconds (23.7-30.8) 03/12/17 08:30 Attending/Attestation - Attestation I have personally seen and examined this patient.: Yes I have fully participated in the care of the patient.: Yes I have reviewed all pertinent clinical information, including history, physical exam and plan: Yes Notes (Text): This is an addendum to GI progress report dictated by Katty Rico APN.The patient was seen and examined earlier. Medical records, lab studies, imagings were reviewed. Last 24 hours events reviewed. Agreed with the above treatment plan as outlined in Katty Rico APN's notes the with the addition of the following on examination abdomen soft no tenderness Hemoglobin and hematocrit stable Continue PPI 03/16/17 18:15
[2017-03-16] MEDS: Insulin Detemir 100 units/ml Vial (Levemir) SC SCH ×2 (12:30→21:49)
[2017-03-16] MEDS: Meropenem 1g/NS 100mL IVPB 1 GM/100 ML PIGGYBACK IVPB SCH ×3 (12:31→21:50)
[2017-03-16] MEDS: POTASSIUM PHOSPHATE IV SCH ×2 (12:34→23:00)
[2017-03-16] MEDS: WATER IV SCH ×2 (12:34→23:00)
[2017-03-16] MEDS: DEXTROSE IV SCH ×2 (12:34→23:00)
--- NOTE | 2017-03-16 13:22 | CARD ---
APPROVED REPORT EXAM: Two-dimensional and M-mode echocardiogram with Doppler and color Doppler. INDICATION RESP. FAILURE 2D DIMENSIONS Left Atrium (2D)4.2 (1.6-4.0cm) Aortic Valve AoV Peak Jgzcttki561.0cm/Aguilar Peak GR.13mmHg Mitral Valve E/A ratio0.0 TDI E/Lateral E'0.0E/Medial E'0.0 LEFT VENTRICLE The systolic function is moderately impaired. AORTIC VALVE The aortic valve is calcified but opens well. MITRAL VALVE The mitral valve is thickened but opens well. Mitral annular calcification is mild. TRICUSPID VALVE not well visualized PULMONIC VALVE The pulmonic valve is not well visualized. PERICARDIAL EFFUSION There is no pericardial effusion. <Conclusion> Very limited study Moderate global LV hypokinesis MAC noted Calvified AoV
--- NOTE | 2017-03-16 13:31 | PN ---
CARDIOLOGY FOLLOWUP DATE: 03/16/2017 SUBJECTIVE: The patient is lethargic. He does answer to verbal stimuli. OBJECTIVE: VITAL SIGNS: Blood pressure 130/86, heart rate is in the 120s, his temperature is 102. NECK: Negative JVD. LUNGS: Decreased breath sounds bilaterally. HEART: Reveal S1, S2. EXTREMITIES: Without edema. LABORATORY DATA: Hemoglobin is 16.1, white count is 16.8. Chemistries revealed a glucose of 277 with a creatinine of 2.1. IMPRESSION: 1. Altered mental status. 2. Sepsis. 3. History of diabetes mellitus. 4. Renal insufficiency. 5. History of peripheral vascular disease. Given these findings, the patient is for LP today. His long-term prognosis is guarded. Bernardo Cruz MD
--- NOTE | 2017-03-16 14:02 | CP.PCM.PN ---
Subjective - Date & Time of Evaluation Date of Evaluation: 03/16/17 Time of Evaluation: 11:40 - Subjective Subjective: Patient was transferred from the ICU to the floors yesterday. Last night, the patient was noted to have fevers, and is becoming lethargic. No note of diarrhea , no vomiting, no convulsions. Objective - Vital Signs/Intake and Output Vital Signs (last 24 hours): Temp Pulse Resp BP Pulse Ox 102.6 F H 121 H 36 H 130/86 97 03/16/17 06:00 03/16/17 06:00 03/16/17 06:00 03/16/17 06:00 03/16/17 06:00 Intake and Output: 03/16/17 03/16/17 06:59 18:59 Intake Total 1050 Balance 1050 - Medications Medications: Current Medications Acetaminophen (Tylenol 325mg Tab) 650 mg PO Q6H PRN PRN Reason: TEMP>=99.5F Acetaminophen (Tylenol 650 Mg Supp) 650 mg RC Q6H PRN PRN Reason: TEMP>=99.5F Last Admin: 03/16/17 03:20 Dose: 650 mg Enoxaparin Sodium (Lovenox) 40 mg SC DAILY [facility] PRN Reason: Protocol Last Admin: 03/15/17 09:10 Dose: 40 mg Meropenem 1g/NS 100mL IVPB (Meropenem 1g/Ns 100ml Ivpb) 1 gm in 100 mls @ 100 mls/hr IVPB Q12 [facility] PRN Reason: Protocol Stop: 03/22/17 10:01 Last Admin: 03/15/17 22:31 Dose: 100 mls/hr Potassium Phosphate 15 mmole/ (Dextrose) 1,005 mls @ 100 mls/hr IV .Q10H3M [facility] Last Admin: 03/15/17 23:50 Dose: 100 mls/hr Micafungin Sodium 100 mg/ (Sodium Chloride) 100 mls @ 100 mls/hr IV DAILY [facility] PRN Reason: Protocol Stop: 03/16/17 10:59 Amikacin Sulfate 500 mg/ (Sodium Chloride) 102 mls @ 204 mls/hr IVPB ONCE ONE PRN Reason: Protocol Stop: 03/16/17 09:59 Insulin Detemir (Levemir) 50 unit SC Q12H [facility] Insulin Human Lispro (Humalog High) 0 units SC Q4H [facility] PRN Reason: Protocol Last Admin: 03/16/17 07:58 Dose: 7 units Metoprolol Tartrate (Lopressor) 25 mg PO BID [facility] Last Admin: 03/15/17 17:21 Dose: 25 mg Nystatin (Nystop Topical Powder) 1 gm TOP BID [facility] Last Admin: 03/15/17 17:23 Dose: 1 applic Nystatin (Mycostatin Cream) 1 ea TOP TID [facility] Last Admin: 03/15/17 17:23 Dose: 1 applic Pantoprazole Sodium (Protonix Inj) 40 mg IVP Q12 [facility] Last Admin: 03/15/17 22:31 Dose: 40 mg Potassium Phos/Sodium Phos (Neutra-Phos) 1 pkt GT Q8H [facility] Last Admin: 03/15/17 22:49 Dose: Not Given - Labs Labs: 03/16/17 07:41 03/16/17 07:41 PT 12.7 Seconds (9.9-11.8) H 03/12/17 08:30 INR 1.18 (0.93-1.08) H 03/12/17 08:30 APTT 30.1 Seconds (23.7-30.8) 03/12/17 08:30 - Constitutional Appears: Other (lethargic) - Head Exam Head Exam: NORMAL INSPECTION - Neck Exam Neck Exam: absent: Meningismus - Respiratory Exam Respiratory Exam: Decreased Breath Sounds. absent: Rales - Cardiovascular Exam Cardiovascular Exam: +S1, +S2 - GI/Abdominal Exam GI & Abdominal Exam: Soft, Tenderness (mild, epigastric). absent: Distended, Firm, Guarding, Rigid, Rebound Assessment and Plan - Assessment and Plan (Free Text) Plan: Assessment new onset systemic Inflammatory Response syndrome with fever, R/O sepsis R/O encephalitis R/O intra-abdominal infection R/O UTI with yeast in the urine S/P ventilator-dependent respiratory failure in a patient with hyperglycemia and metabolic acidosis in a patient with DM, probable Katiuska rash on the perineum acute on chronic renal failure DM HTN obesity with BMI 32 Plan continue Merrem and will give a dose of IV Vancomycin, give a dose of IV amikacin, switched fluconazole to Mycamine and started renally-adjusted IV Acyclovir pending repeat blood cx, urine cx; CXR does not show infiltrates; reviewed CT head showing left occipital scalp hematoma (which is also seen on the brain MRI) discussed with Dr. Ra Sigala - for lumbar puncture today will also get repeat CT scan of the abdomen and pelvis will continue to monitor clinically Prognosis is guarded at best
[2017-03-16] MEDS: Enoxaparin 40 mg Syringe SC SCH (14:58)
[2017-03-16] MEDS: Potassium & Sodium Phosphate GT SCH ×2 (14:59→21:52)
--- NOTE | 2017-03-16 17:42 | CT ---
PROCEDURE: CT Abdomen and Pelvis without intravenous contrast HISTORY: r/o sepsis, r/o ischemic colitis COMPARISON: Chest abdomen and pelvis CT without contrast 03/14/2017. TECHNIQUE: Helical CT of the abdomen and pelvis was performed without oral or intravenous contrast as per referring physician request .. Contrast Dose: None Radiation dose: Total exam DLP = 1547.15 mGy-cm. This CT exam was performed using one or more of the following dose reduction techniques: Automated exposure control, adjustment of the mA and/or kV according to patient size, and/or use of iterative reconstruction technique. FINDINGS: LOWER THORAX: Limited bilateral pleural effusions persist. No definite infiltrate. LIVER: Elevated right hemidiaphragm is again appreciated with the nonfocal appearing liver. No portal venous gas is encountered. GALLBLADDER AND BILE DUCTS: Prior cholecystectomy again evident. PANCREAS: Unremarkable. No gross lesion or ductal dilatation. SPLEEN: Unremarkable. ADRENALS: Unremarkable. No mass. KIDNEYS AND URETERS: Bilateral hydroureteronephrosis it has developed and appears moderate in severity with the urinary bladder distended moderately. Urinary bladder wall does not appear particularly thickened and there is no radiodense urolithiasis identified bilaterally. While a hydrostatic etiology is possible as the cause of bilateral hydronephrosis is not favored given lack of the usual prominent urinary bladder distension that accompanies the etiology. Consider possible loosening calculi in distal strictures or interval inflammatory change obstructing the bilateral ureterovesical junctions or distal ureters. No perinephric fluid collection bilaterally. Stable lateral cyst identified greater the left and right kidney including minimal calcifications at the periphery of the lower of the dominant left renal cyst. VASCULATURE: Unremarkable. No aortic aneurysm. BOWEL: The bowel appears stable in the interval without gross mural thickening evident her lack of contrast agents limits the sensitivity this examination significantly. No pneumatosis is identified in either large or small bowel. . No obstruction. No gross mural thickening. A rectal probe is noted in situ terminating at the distal sigmoid segment. APPENDIX: Unremarkable. Normal appendix. PERITONEUM: Unremarkable. No free fluid. No free air. LYMPH NODES: Unremarkable. No enlarged lymph nodes. BLADDER: Please see renal section above. REPRODUCTIVE: Enlarged prostate gland again evident. BONES: No acute fracture. OTHER FINDINGS: None. IMPRESSION: 1. No secondary sign of bowel ischemia is appreciable including pneumatosis of the large or small bowel loops or portal venous gas. Superior mesenteric vein also is normal in density. No definitive mural thickening. Again, lack of contrast agents limits evaluation of the abdominal viscera including large and small bowel. 2. Moderate bilateral hydroureteronephrosis with only a mildly distended urinary bladder. No radiodense urolithiasis is identified obstructing distal ureters or the ureterovesical junctions bilaterally. Please see discussion above. 3. Other lesser findings as discussed above.
--- NOTE | 2017-03-16 18:52 | PN ---
DATE: 03/16/2017 SUBJECTIVE: The patient is seen lying in bed. He is awake, his eyes are open. He does not follow any commands. He does not really respond. PHYSICAL EXAMINATION GENERAL: Obese, elderly male lying in bed. VITAL SIGNS: Blood pressure 130/86, heart rate 121, respiratory rate 36, temperature 102.6, T-max 104. HEENT: Normocephalic, atraumatic. NECK: Supple, no JVD. LUNGS: Bilateral equal air entry, no rales, no rhonchi. CARDIAC: S1 and S2, regular rate and rhythm, no murmur, no rub. ABDOMEN: Obese, distended, soft, nontender, and bowel sounds present. EXTREMITIES: A 2+ pitting edema of the lower extremities. INTAKE AND OUTPUT: [id number] LABORATORY DATA: WBC 16.8, hemoglobin 16, hematocrit 48.6, platelet 166. Sodium 148, potassium 3.6, chloride 111, CO2 26, BUN 25, creatinine 2.1, glucose 277, calcium 8.4, phosphorus 2.4, magnesium 1.9, albumin 3.3. Urinalysis from yesterday yellow turbid, pH 6.5, specific gravity 1.010, protein 100, glucose 500, leukocyte esterase moderate. Stool occult positive. VBG pH 7.34, PCO2 50. Urine culture no growth. Blood culture no growth so far from yesterday. CURRENT MEDICATIONS: Acyclovir started today, insulin, Lopressor 25 mg b.i.d., Lovenox 40 mg subcu daily not given, meropenem 1 g q.12 hours, Mycostatin, IV fluids with potassium phosphate, Protonix, Tylenol, one dose given, fluconazole discontinued, started on micafungin. Rocephin 2 g given, vancomycin 1 g given, Zosyn 3.375 mg. ASSESSMENT: 1. Systemic inflammatory response syndrome, fever, leukocytosis, bandemia, altered mental status. 2. Acute kidney injury superimposed on chronic kidney disease stage II/III. 3. Severe uncontrolled diabetes. 4. Hypokalemia. 5. Hypophosphatemia. 6. Hypernatremia improving. 7. Fungal urinary tract infection. 8. Encephalopathy. PLAN: 1. Continue antifungals, change from Diflucan to Micafungin. 2. Agree with antivirals. 3. Continue antibiotics. 4. Continue hypotonic IV fluid with potassium phosphate. 5. Follow up repeat cultures. 6. Agree with spinal tap. 7. The patient is critically ill. Case discussed with nursing staff. Case discussed with at bedside. Past medical and surgical history, family history, social history, all reviewed and unchanged. Caitlyn Coburn MD
--- NOTE | 2017-03-16 19:56 | RAD ---
PROCEDURE: Attempted lumbar puncture HISTORY: Evaluate for meningitis. PHYSICIAN(S): Bernardo Escalera MD. TECHNIQUE: The patient was placed prone with a slight oblique positioning on the fluoroscopy table in the lumbar area prepped and draped usual sterile fashion. 1 percent xylocaine was used to anesthetize the skin soft tissues. Under fluoroscopic guidance, a 20 gauge spinal needle was placed at the L4-5, L3-4, and L 2 3 levels. An oblique approach beneath the right lamina was performed at each level. Dry spinal tabs were obtained each level. The lumbar punctures were attempted by Dr. Forte and Dr. Escalera. The patient tolerated the procedure well FINDINGS: . IMPRESSION: Attempted fluoroscopically-guided lumbar puncture as described above.
[2017-03-17] MEDS: Insulin Lispro (HUMAlog) HIGH Coverage SC SCH ×6 (01:00→20:50)
--- NOTE | 2017-03-17 01:24 | CARD ---
APPROVED REPORT EKG Measurement Heart [id number] CA [id number] <Conclusion> Sinus tachycardia with short CA Left anterior fascicular block Anteroseptal infarct, age undetermined T wave abnormality, consider lateral ischemia Abnormal ECG
--- NOTE | 2017-03-17 02:03 | PN ---
ENDO FOLLOWUP NOTE LOCATION: Room 377. SUBJECTIVE: This is a 71-year-old male with recent uncontrolled type 2 insulin-requiring diabetes and now being followed closely for metabolic management. He currently has ongoing dextrose 5% in normal saline with potassium phosphate at 15 mmol running at 100 mL per hour for ongoing management of initial dehydration and prerenal azotemia as noted. He is currently on a liquid diet as noted. He also has been febrile with temperatures upto 102.6 degrees as noted with persistent hypersomnolence and lethargy. He was previously intubated on admission. He also underwent a lumbar tap today as noted. He remains lethargic and only arousable by tactile stimulation as noted. His glycemic levels are still fluctuating and are ranging from 284 to 309 mg/dL. His latest chemistry shows a BUN of 25, sodium 148, potassium 3.6, chloride 111, CO2 of 26, glucose 277, and creatinine 2.1. So at this time, we will modify once again his basal insulin and increase the Levemir to 50 units subcu every 12 hours to start today as ordered. We will also continue the high-dose correction scale using Humalog insulin as given every 4 hours as noted. We will obtain serial chemistries and supplement accordingly as needed. We will follow. Trinidad Gomez MD
[2017-03-17] MEDS: Potassium & Sodium Phosphate GT SCH ×3 (05:23→22:11)
--- NOTE | 2017-03-17 06:12 | CON ---
GENITOURINARY CONSULTATION DATE: 03/16/2017 CHIEF COMPLAINT: Altered mental status. HISTORY OF PRESENT ILLNESS: This is a 71-year-old male, who was seen in [facility]. The patient is seen on the [facility] floor, he was transferred up from the ICU earlier today. The patient was brought to the emergency room for an altered mental status. History obtained from the patient's and friend and from his chart. He was noted to be acting differently for a few days prior to admission. According to the patient's , he was unresponsive this morning. The morning of admission on March 11, he was intubated by EMS and brought to the hospital. During his hospital workup, the patient has had a fever, no apparent cause has been found. He was found to have an elevated PSA and a urology consultation was requested. The patient is now seen in his room. He is awake and answering questions, although, he appears not to know his history. PAST MEDICAL HISTORY: Diabetes, hypertension, questionable bladder issues with urinary frequency. HOME MEDICATIONS: Include insulin, Cozaar, metoprolol, and glipizide. ALLERGIES: NO KNOWN DRUG ALLERGIES. FAMILY HISTORY: Noncontributory to this hospitalization. SOCIAL HISTORY: The patient reports no smoking or EtOH use, but he is an unreliable historian. REVIEW OF SYSTEMS: A 12-point review of systems was obtained from the patient, his only complaint is of feeling a fever. Again, the patient's history is unreliable. Other review of systems would be obtained from the history of present illness. PHYSICAL EXAMINATION: GENERAL: The patient is awake and responsive, he is answering questions, although not completely accurate. VITAL SIGNS: He has a fever of 102.6 earlier today, currently feels warm. Pulse 120, blood pressure 130/86, and respirations currently 22. NECK: Supple. There is no noted adenopathy. CHEST: Reveals slightly increased inspiratory effort. CARDIOPULMONARY: Positive S1 and S2. Pulses rapid. There is no peripheral edema noted. ABDOMEN: The abdomen is obese, soft, nontender, nondistended. There is no CVA tenderness. There is no noted hepatosplenomegaly. GENITOURINARY: Phallus is normal, although . Scrotum is erythematosus. Testes bilaterally distended, atrophic, nontender, no masses. Epididymides not swollen. No tenderness or masses noted. EXTREMITIES: There is some mild peripheral edema noted. There is no cyanosis noted. LABORATORY DATA: WBC count was 17.2 on admission and has come down and now has come back up to 16.8, hemoglobin 16, and platelets 166. BUN of 25 with a creatinine of 2.1. GFR of 31. Urinalysis positive for protein, positive for glucose, moderate leukocyte esterase, nitrites were positive on admission now has become negative. Urine culture grew some yeast species. Blood cultures have shown no growth. The patient had a CT scan of the chest, abdomen, and pelvis done on March 14, which showed no definite obstructive uropathy, there was a tiny right renal cyst. There is a punctate intrarenal calculus difficult to exclude at the mid pole of the right kidney. There is some nonspecific streaky perinephric changes. There is some dependent atelectasis favored over pneumonia with trace pleural effusions, bilateral renal cysts, left greater than right. PSA was noted to be 8.7 from March 15. IMPRESSION AND PLAN: This is a 71-year-old male with a fever of unknown origin, altered mental status. The patient went today for lumbar puncture, which was unsuccessful. Urologically, the patient appears to be voiding, his bladder is not distended. He does not have the Abad catheter in place. He appears to have incontinence, which may be longstanding as there is history of a bladder problem. The PSA is likely elevated from his infection. His urine cultures have been negative, although did show some yeast. There is no evidence of any obstructive uropathy and the patient does not need any acute urologic intervention at this time. We would continue him on fluids, broad-spectrum antibiotics, and search for a source of his infection. Thank you for allowing us to participate in the care of this patient. We will follow him with you. Urologically, I would plan on a repeat PSA in the future to see if it is coming down or it is likely from some inflammation or possibly it could be related to underlying prostate cancer. However, given the patient's acute medical condition, I would not pursue that at this time. Sajan Nguyen MD
--- NOTE | 2017-03-17 08:22 | CP.PCM.PN ---
Subjective - Date & Time of Evaluation Date of Evaluation: 03/17/17 Time of Evaluation: 07:45 - Subjective Subjective: (covering for Dr. Linder) Patient is seen this morning. He is more awake and alert this morning and able to answer questions. He denies pain. He is shaking and says he feels cold. Objective - Vital Signs/Intake and Output Vital Signs (last 24 hours): Temp Pulse Resp BP Pulse Ox 102.6 F H 111 H 36 H 130/86 97 03/16/17 06:00 03/16/17 18:00 03/16/17 06:00 03/16/17 06:00 03/16/17 06:00 Intake and Output: 03/17/17 03/17/17 06:59 18:59 Intake Total 200 0 Balance 200 0 - Medications Medications: Current Medications Acetaminophen (Tylenol 325mg Tab) 650 mg PO Q6H PRN PRN Reason: TEMP>=99.5F Acetaminophen (Tylenol 650 Mg Supp) 650 mg RC Q6H PRN PRN Reason: TEMP>=99.5F Last Admin: 03/17/17 03:50 Dose: 650 mg Enoxaparin Sodium (Lovenox) 40 mg SC DAILY [facility] PRN Reason: Protocol Last Admin: 03/16/17 14:58 Dose: Not Given Meropenem 1g/NS 100mL IVPB (Meropenem 1g/Ns 100ml Ivpb) 1 gm in 100 mls @ 100 mls/hr IVPB Q12 [facility] PRN Reason: Protocol Stop: 03/22/17 10:01 Last Admin: 03/16/17 21:50 Dose: 100 mls/hr Potassium Phosphate 15 mmole/ (Dextrose) 1,005 mls @ 100 mls/hr IV .Q10H3M [facility] Last Admin: 03/16/17 23:00 Dose: 100 mls/hr Acyclovir 800 mg/ Sodium (Chloride) 100 mls @ 100 mls/hr IV Q12 [facility] PRN Reason: Protocol Stop: 03/23/17 17:31 Last Admin: 03/16/17 17:41 Dose: 100 mls/hr Insulin Detemir (Levemir) 50 unit SC Q12H [facility] Last Admin: 03/16/17 21:49 Dose: 50 unit Insulin Human Lispro (Humalog High) 0 units SC Q4H [facility] PRN Reason: Protocol Last Admin: 03/17/17 04:26 Dose: Not Given Metoprolol Tartrate (Lopressor) 25 mg PO BID [facility] Last Admin: 03/16/17 17:40 Dose: Not Given Nystatin (Nystop Topical Powder) 1 gm TOP BID [facility] Last Admin: 03/16/17 17:40 Dose: 1 applic Nystatin (Mycostatin Cream) 1 ea TOP TID [facility] Last Admin: 03/16/17 17:40 Dose: 1 applic Pantoprazole Sodium (Protonix Inj) 40 mg IVP Q12 [facility] Last Admin: 03/16/17 21:53 Dose: 40 mg Potassium Phos/Sodium Phos (Neutra-Phos) 1 pkt GT Q8H [facility] Last Admin: 03/17/17 05:23 Dose: 1 pkt - Labs Labs: 03/16/17 07:41 03/16/17 07:41 PT 12.7 Seconds (9.9-11.8) H 03/12/17 08:30 INR 1.18 (0.93-1.08) H 03/12/17 08:30 APTT 30.1 Seconds (23.7-30.8) 03/12/17 08:30 - Respiratory Exam Respiratory Exam: Clear to Ausculation Bilateral, NORMAL BREATHING PATTERN - Cardiovascular Exam Cardiovascular Exam: Tachycardia, +S1, +S2 - GI/Abdominal Exam GI & Abdominal Exam: Soft. absent: Tenderness - Neurological Exam Neurological Exam: Alert, Awake Assessment and Plan - Assessment and Plan (Free Text) Assessment: Fever r/o sepsis s/p VDRF s/p DKA history of diabetes Altered mental state Hypernatremia Acute kidney injury Plan: Patient is much more awake and alert this morning. He continues to have high fevers. Blood cultures negative so far. Lumbar puncture was attempted yesterday with and without fluoroscopy; both elicited a dry tap. MRI of spine has been ordered to rule out spinal abscess. Patient's creatinine increased yesterday; MRI spine with gadolinium was okayed by medical research tech, Dr. Coburn. r/ o malignancy. will start anti-inflammatory to see if it will reduce fever. continue IV fluids. awaiting results of today's chemistry.
--- NOTE | 2017-03-17 08:23 | CP.PCM.PN ---
Subjective - Date & Time of Evaluation Date of Evaluation: 03/16/17 Time of Evaluation: 08:05 - Subjective Subjective: (covering for Dr. Linder) Patient is seen this morning. Lethargic, not answering questions, opens eyes a little. Objective - Vital Signs/Intake and Output Vital Signs (last 24 hours): Temp Pulse Resp BP Pulse Ox 102.6 F H 121 H 36 H 130/86 97 03/16/17 06:00 03/16/17 06:00 03/16/17 06:00 03/16/17 06:00 03/16/17 06:00 Intake and Output: 03/16/17 03/16/17 06:59 18:59 Intake Total 1050 Balance 1050 - Medications Medications: Current Medications Acetaminophen (Tylenol 325mg Tab) 650 mg PO Q6H PRN PRN Reason: TEMP>=99.5F Acetaminophen (Tylenol 650 Mg Supp) 650 mg RC Q6H PRN PRN Reason: TEMP>=99.5F Last Admin: 03/16/17 03:20 Dose: 650 mg Enoxaparin Sodium (Lovenox) 40 mg SC DAILY [facility] PRN Reason: Protocol Last Admin: 03/15/17 09:10 Dose: 40 mg Piperacillin Sod/Tazobactam Sod (Zosyn 3.375 In Ns 100ml) 100 mls @ 200 mls/hr IVPB Q6 [facility] PRN Reason: Protocol Stop: 03/19/17 18:01 Last Admin: 03/16/17 05:29 Dose: 200 mls/hr Fluconazole 100 mg/ (Miscellaneous) 50 mls @ 100 mls/hr IVPB DAILY [facility] PRN Reason: Protocol Last Admin: 03/15/17 09:13 Dose: 100 mls/hr Meropenem 1g/NS 100mL IVPB (Meropenem 1g/Ns 100ml Ivpb) 1 gm in 100 mls @ 100 mls/hr IVPB Q12 [facility] PRN Reason: Protocol Stop: 03/22/17 10:01 Last Admin: 03/15/17 22:31 Dose: 100 mls/hr Potassium Phosphate 15 mmole/ (Dextrose) 1,005 mls @ 100 mls/hr IV .Q10H3M [facility] Last Admin: 03/15/17 23:50 Dose: 100 mls/hr Insulin Detemir (Levemir) 50 unit SC Q12H [facility] Insulin Human Lispro (Humalog High) 0 units SC Q4H [facility] PRN Reason: Protocol Last Admin: 03/16/17 07:58 Dose: 7 units Metoprolol Tartrate (Lopressor) 25 mg PO BID [facility] Last Admin: 03/15/17 17:21 Dose: 25 mg Nystatin (Nystop Topical Powder) 1 gm TOP BID [facility] Last Admin: 03/15/17 17:23 Dose: 1 applic Nystatin (Mycostatin Cream) 1 ea TOP TID [facility] Last Admin: 03/15/17 17:23 Dose: 1 applic Pantoprazole Sodium (Protonix Inj) 40 mg IVP Q12 [facility] Last Admin: 03/15/17 22:31 Dose: 40 mg Potassium Phos/Sodium Phos (Neutra-Phos) 1 pkt GT Q8H [facility] Last Admin: 03/15/17 22:49 Dose: Not Given - Labs Labs: 03/16/17 07:41 03/16/17 07:41 PT 12.7 Seconds (9.9-11.8) H 03/12/17 08:30 INR 1.18 (0.93-1.08) H 03/12/17 08:30 APTT 30.1 Seconds (23.7-30.8) 03/12/17 08:30 - Respiratory Exam Respiratory Exam: Decreased Breath Sounds Additional comments: tachypneic - Cardiovascular Exam Cardiovascular Exam: Tachycardia, +S1, +S2 - GI/Abdominal Exam GI & Abdominal Exam: Soft. absent: Tenderness - Extremities Exam Additional comments: BL SCDs - Neurological Exam Neurological Exam: Altered Assessment and Plan - Assessment and Plan (Free Text) Assessment: Sepsis s/p Ventilator dependent respiratory failure s/p DKA altered mental state - encephalopathy? HTN Hypernatremia Acute Kidney injury Plan: Patient lethargic. Discussed with nurse who says patient was more awake yesterday. WBC count adam to 16.8 from 9.9 yesterday with shift to the left. Lactic acid elevated and patient spiking fevers. Patient appears to be septic with unknown source. Blood and urine cultures negative so far. Patient is tachypneic and tachycardic. Check EKG. imcu specialist was called to re-evaluate the patient. Sodium decreased from 150 to 148 and BUN/creatinine are rising. continue IV fluids. Repeat CT Head was done for change in mental status. No acute changes seen on CT from previous. Infectious disease, nephrology, cardiology, gastroenterology, endocrinology and neurology are on the case. We will await their recommendations as well as the a r specialist for possible transfer back to the intensive care unit. Patient's prognosis is poor.
[2017-03-17] MEDS ORDERED: Digoxin 250 mcg (0.25 mg) Tab PO STA (08:25)
[2017-03-17] MEDS: DEXTROSE IV SCH (08:39)
[2017-03-17] MEDS: WATER IV SCH (08:39)
[2017-03-17] MEDS: POTASSIUM PHOSPHATE IV SCH (08:39)
[2017-03-17] MEDS: Micafungin 100 MG in Sodium Chloride 0.9% 100 ML IV SCH (09:35)
[2017-03-17] MEDS: Meropenem 1g/NS 100mL IVPB 1 GM/100 ML PIGGYBACK IVPB SCH ×2 (09:35→22:10)
[2017-03-17] MEDS: Enoxaparin 40 mg Syringe SC SCH (09:36)
[2017-03-17] MEDS: Insulin Detemir 100 units/ml Vial (Levemir) SC SCH ×2 (09:37→22:57)
[2017-03-17] MEDS: Nystatin 100,000 Units/gm Cream(15 gm) TOP SCH ×3 (09:43→18:00)
[2017-03-17] MEDS: Nystatin 100,000 Units/gm Topical Pow(15 gm) TOP SCH ×2 (09:43→17:59)
[2017-03-17 09:46] VITALS: PULSE 113
--- NOTE | 2017-03-17 11:53 | PN ---
DATE: 03/17/2017 SUBJECTIVE: The patient is lying in bed comfortably. Denies any abdominal pain, nausea, vomiting, rectal bleeding or melena. PHYSICAL EXAMINATION VITAL SIGNS: Revealed temperature of 100.3, blood pressure 123/83, heart rate of 113. HEENT: Revealed sclerae to be white. Conjunctivae pink. NECK: Supple. HEART: Reveals an irregular rate. CHEST: Revealed scattered rhonchi. ABDOMEN: Obese, soft, nontender. EXTREMITIES: Show no edema. LABORATORY DATA: Revealed white blood cell count 16.8, hemoglobin 16.1. Chemistries reveal BUN 25, creatinine 2.1. CT scan of the abdomen and pelvis performed yesterday revealed bilateral hydronephrosis and urinary bladder distention. There is no mural thickening of the bowel wall, pneumatosis or obstruction. IMPRESSION: A 71-year-old male admitted to the hospital with respiratory failure, altered mental status, diabetic ketoacidosis, urinary tract infection, obesity with heme-positive stool. There is no evidence of any overt bleeding. RECOMMENDATIONS: Continue supportive care and urology followup for bilateral hydronephrosis and urinary bladder distention. Sabino Weathers MD
--- NOTE | 2017-03-17 13:41 | PN ---
DATE: 03/17/2017 SUBJECTIVE: The patient is in bed, in no acute distress, nontoxic; however, he is having chills. He is having fevers. He is weak and he has shortness of breath. PHYSICAL EXAMINATION: VITAL SIGNS: Temperature is 101.3, blood pressures is 120/80, respiratory rate of 22 and heart rate of 115. HEENT: Unremarkable. NECK: Supple. LUNGS: Decreased breath sounds. HEART: Normal S1 and S2. ABDOMEN: Soft and nontender. LABORATORY EXAMINATION: Reveals a white count of 16,800; hemoglobin of 16; platelets of 166. Chemistries reveal the patient to has had BUN of 25, creatinine of 2.1 with a procalcitonin of 0.56. Microbiology reveals the blood cultures have no growth from the ; the urine cultures from and urine cultures from , no growth. note is reviewed. The patient had a CAT scan of the abdomen and pelvis yesterday with bilateral hydroureteronephrosis. Dr. Nguyen's consultation is reviewed. ASSESSMENT AND PLAN: This is a 71-year-old male, seen earlier today in #377, bed #2 with fevers and chills and shortness of breath and tachycardia with systemic inflammatory response syndrome, now with status post ventilator dependent, respiratory failure, metabolic acidosis and diabetes, [id number] renal failure, hypertension, obesity, body mass index of 32 with negative blood cultures, on meropenem. Vancomycin and amikacin were given. Mycamine was started. The etiology of the fevers and chills not entirely clear, most likely urine as the source. Review of the medications reveals and dose of amikacin was given yesterday by Dr. Andersen. The patient is on meropenem and dose of vancomycin was given and adjusted dose of acyclovir. MRI of the spine is ordered. Overall prognosis is poor. The patient was started on Mycamine yesterday, which was discontinued by pharmacy. We will reorder Mycamine again pending final culture results and we will follow with you. Benton Jackman MD
[2017-03-17 14:28] LABS: EOS # 0.1 (0.0-0.7); EOS % 0.6 % (1.5-5.0); GRAN # 8.9 (1.4-6.5); GRAN % 85.3 % (50.0-68.0); HEMATOCRIT 32.3 % (42.0-52.0); LYMPH # 0.8 (1.2-3.4); MEAN CELL VOLUME 89.2 fl (80.0-105.0); MEAN CORPUSCULAR HGB CONC 32.5 g/dl (31.0-37.0); MONO # 0.6 (0.1-0.6); MONO % 6.1 % (1.0-6.0); RED CELL DISTRIBUTION WIDTH 14.2 % (11.5-14.5); WHITE BLOOD COUNT 10.4 10^3/ul (4.5-11.0)
[2017-03-17 14:42] LABS: ALB/GLOB RATIO 0.5 (1.1-1.8); BILIRUBIN,DIRECT 0.3 mg/dL (0.0-0.4); BILIRUBIN,TOTAL 0.3 mg/dL (0.2-1.3); MAGNESIUM 1.2 mg/dL (1.7-2.2); PHOSPHOROUS 3.1 mg/dL (2.5-4.5); TOTAL PROTEIN 5.1 g/dL (5.8-8.3)
[2017-03-17 14:52] LABS: CALCIUM 4.8 mg/dL (8.4-10.5)
[2017-03-17 14:53] LABS: POTASSIUM 2.2 mmol/L (3.6-5.0)
[2017-03-17 15:23] LABS: URIC ACID 3.4 mg/dL (3.5-8.5)
[2017-03-17 15:59] LABS: CALCIUM 7.4 mg/dL (8.4-10.5)
--- NOTE | 2017-03-17 20:04 | PN ---
DATE: 03/17/2017 SUBJECTIVE: The patient is seen lying in bed. He is awake. He is alert. He is responsive. He is oriented x2 at least. He has a marked improvement in his mental status. PHYSICAL EXAMINATION: GENERAL: Obese, elderly male lying in bed. VITAL SIGNS: Blood pressure 123/83, heart rate 113, respiratory rate 20, temperature 100.3, T-max 102.7. HEENT: Normocephalic, atraumatic, positive pallor. NECK: Supple, no JVD. LUNGS: Bilateral equal air entry, no rales. CARDIAC: S1 and S2, regular rate and rhythm, no murmur, no rub. ABDOMEN: Obese, distended, soft, nontender, and bowel sounds present. EXTREMITIES: 1+ pitting edema of the lower extremities. INTAKE AND OUTPUT: Not charted. LABORATORY DATA: WBC 10, hemoglobin 10.5, hematocrit 32, platelet count 112. Sodium 156, potassium 2.2, chloride 119, CO2 of 22, BUN 28, creatinine 1.8, glucose 148, uric acid 3.4, calcium 4.8. Blood culture no growth. Urine culture no growth. Spinal tap, unsuccessful. CURRENT MEDICATIONS: Acyclovir 800 q. 12, Cardizem 60 t.i.d., insulin, Lopressor 25 b.i.d., Lovenox 40 subcu daily, meropenem 1 g q. 12, micafungin 100, ibuprofen, Mycostatin, 20 mEq potassium chloride rider x2, potassium phosphate in D5W at a 100, Protonix, Tylenol. ASSESSMENT: 1. Acute kidney injury, underlying chronic kidney disease stage III, suspect. 2. Sepsis, leukocytosis, fever, altered mental status. 3. Resolved diabetic ketoacidosis. 4. Encephalitis ? PLAN: 1. Today's labs look erroneous. 2. Repeat blood work. 3. Continue antifungal, antiviral, and antibiotics. 4. Tight glycemic control. 5. Monitor electrolytes. 6. Continue IV fluids with potassium phosphate. Caitlyn Coburn MD
--- NOTE | 2017-03-17 21:02 | CP.PCM.PN ---
Subjective - Date & Time of Evaluation Date of Evaluation: 03/17/17 Time of Evaluation: 21:00 - Subjective Subjective: # 16 Cou De catheter was inserted with some resistance. No drainage yet. Objective - Vital Signs/Intake and Output Vital Signs (last 24 hours): Temp Pulse Resp BP Pulse Ox 98.6 F 82 17 115/87 95 03/17/17 17:55 03/17/17 19:34 03/17/17 16:31 03/17/17 19:34 03/17/17 16:14 Intake and Output: 03/17/17 03/18/17 18:59 06:59 Intake Total 540 Output Total 100 Balance 440 - Medications Medications: Current Medications Acetaminophen (Tylenol 325mg Tab) 650 mg PO Q6H PRN PRN Reason: TEMP>=99.5F Acetaminophen (Tylenol 650 Mg Supp) 650 mg RC Q6H PRN PRN Reason: TEMP>=99.5F Last Admin: 03/17/17 03:50 Dose: 650 mg Diltiazem HCl (Cardizem) 60 mg PO TID [facility] Last Admin: 03/17/17 19:34 Dose: 60 mg Enoxaparin Sodium (Lovenox) 40 mg SC DAILY [facility] PRN Reason: Protocol Last Admin: 03/17/17 09:36 Dose: 40 mg Meropenem 1g/NS 100mL IVPB (Meropenem 1g/Ns 100ml Ivpb) 1 gm in 100 mls @ 100 mls/hr IVPB Q12 [facility] PRN Reason: Protocol Stop: 03/22/17 10:01 Last Admin: 03/17/17 09:35 Dose: 100 mls/hr Potassium Phosphate 15 mmole/ (Dextrose) 1,005 mls @ 100 mls/hr IV .Q10H3M [facility] Last Admin: 03/17/17 08:39 Dose: 100 mls/hr Acyclovir 800 mg/ Sodium (Chloride) 100 mls @ 100 mls/hr IV Q12 KAMILAH PRN Reason: Protocol Stop: 03/23/17 17:31 Last Admin: 03/17/17 09:36 Dose: 100 mls/hr Micafungin Sodium 100 mg/ (Sodium Chloride) 100 mls @ 100 mls/hr IV DAILY [facility] PRN Reason: Protocol Stop: 03/25/17 10:01 Last Admin: 03/17/17 09:35 Dose: 100 mls/hr Ibuprofen (Motrin Oral Susp) 400 mg PO BID [facility] Last Admin: 03/17/17 17:55 Dose: 400 mg Insulin Detemir (Levemir) 50 unit SC Q12H [facility] Last Admin: 03/17/17 09:37 Dose: 50 unit Insulin Human Lispro (Humalog High) 0 units SC Q4H [facility] PRN Reason: Protocol Last Admin: 03/17/17 17:58 Dose: 1 units Metoprolol Tartrate (Lopressor) 25 mg PO BID [facility] Last Admin: 03/17/17 17:55 Dose: 25 mg Nystatin (Nystop Topical Powder) 1 gm TOP BID [facility] Last Admin: 03/17/17 17:59 Dose: 1 applic Nystatin (Mycostatin Cream) 1 ea TOP TID [facility] Last Admin: 03/17/17 18:00 Dose: 1 applic Pantoprazole Sodium (Protonix Inj) 40 mg IVP Q12 [facility] Last Admin: 03/17/17 09:36 Dose: 40 mg Potassium Phos/Sodium Phos (Neutra-Phos) 1 pkt GT Q8H [facility] Last Admin: 03/17/17 16:10 Dose: 1 pkt - Labs Labs: 03/17/17 14:20 03/17/17 15:15 PT 12.7 Seconds (9.9-11.8) H 03/12/17 08:30 INR 1.18 (0.93-1.08) H 03/12/17 08:30 APTT 30.1 Seconds (23.7-30.8) 03/12/17 08:30
[2017-03-18] MEDS: Insulin Lispro (HUMAlog) HIGH Coverage SC SCH ×3 (00:34→07:59)
--- NOTE | 2017-03-18 00:58 | PN ---
ENDO FOLLOWUP NOTE LOCATION: Room 377. SUBJECTIVE: This is a 71-year-old male with recent acute respiratory failure, currently extubated and transferred to the floor, but continues to have shortness of breath with ongoing fever, chills and rigors and also concomitant leukocytosis and is being treated empirically with IV antibiotics as noted for respiratory distress syndrome. His glycemic levels are fluctuating, but much improved at this time and the latest glucose levels have ranged from 159 to 249 and 266 mg/dL. His latest chemistries showed a BUN of 38, sodium 147, potassium 3.0, chloride 110, CO2 of 25, glucose 165 and creatinine 3.0. So at this time, we will continue the high dose basal insulin, given as Levemir at 50 units subcutaneous every 12 hours at 10 a.m. and 10 p.m., daily as given. We will titrate incrementally as indicated to optimize metabolic control. We will follow and advise accordingly. Trinidad Gomez MD
[2017-03-18 09:05] LABS: ALB/GLOB RATIO 0.8 (1.1-1.8); BILIRUBIN,DIRECT 0.4 mg/dL (0.0-0.4); BILIRUBIN,TOTAL 0.4 mg/dL (0.2-1.3); CALCIUM 7.2 mg/dL (8.4-10.5); MAGNESIUM 1.5 mg/dL (1.7-2.2); PHOSPHOROUS 6.1 mg/dL (2.5-4.5); POTASSIUM 3.9 mmol/L (3.6-5.0); TOTAL PROTEIN 5.8 g/dL (5.8-8.3)
[2017-03-18] MEDS: Meropenem 1g/NS 100mL IVPB 1 GM/100 ML PIGGYBACK IVPB SCH ×2 (10:02→21:36)
[2017-03-18] MEDS: Micafungin 100 MG in Sodium Chloride 0.9% 100 ML IV SCH (10:03)
[2017-03-18] MEDS: Enoxaparin 40 mg Syringe SC SCH (10:04)
[2017-03-18] MEDS: Insulin Detemir 100 units/ml Vial (Levemir) SC SCH ×2 (10:21→23:01)
[2017-03-18] MEDS: Nystatin 100,000 Units/gm Topical Pow(15 gm) TOP SCH ×2 (10:33→17:25)
[2017-03-18] MEDS: Nystatin 100,000 Units/gm Cream(15 gm) TOP SCH (10:34)
--- NOTE | 2017-03-18 11:02 | PN ---
DATE: ENDOCRINOLOGY FOLLOWUP NOTE LOCATION: Room 372. SUBJECTIVE: This is a 71-year-old male with recent uncontrolled type 2 insulin requiring diabetes presenting here with acute respiratory failure and unresponsiveness and symptoms improved clinically and metabolically as noted there of. His glycemic levels are low normal as noted overnight with glucose levels ranging from 85-160 mg/dL. It was 62 at midnight last night. LABORATORY DATA: The latest chemistries this morning showed a BUN of 46, sodium 144, potassium 3.9, chloride 107, CO2 25, glucose 80, and creatinine 3.7. So at this time, we will modify once again and lower the basal insulin with Levemir to be given as 20 units subcutaneously every 12 hours at 10 a.m. and 10 p.m. daily as given. We will titrate incrementally as indicate to optimize metabolic control. We will also continue the low dose correction scale using regular insulin as given. We will obtain serum chemistries and supplement accordingly as needed. We will also continue the ongoing dextrose infusion as given. We will follow and advise accordingly. Trinidad Gomez MD
[2017-03-18] MEDS: Insulin Reg-LOW-Coverage SC SCH ×3 (11:25→23:00)
[2017-03-18 13:17] LABS: BASO # 0.01 K/mm3 (0.0-2.0); BASO % 0.1 % (0.0-3.0); EOS # 0.4 (0.0-0.7); EOS % 3.1 % (1.5-5.0); GRAN # 10.22 (1.4-6.5); GRAN % 80.5 % (50.0-68.0); HEMATOCRIT 38.8 % (42.0-52.0); LYMPH % 7.6 % (22.0-35.0); MEAN CELL VOLUME 89.6 fl (80.0-105.0); MEAN CORPUSCULAR HEMOGLOBIN 29.3 pg (25.0-35.0); MEAN CORPUSCULAR HGB CONC 32.7 g/dl (31.0-37.0); MEAN PLATELET VOLUME 10.2 fl (7.0-11.0); MONO # 1.1 (0.1-0.6); MONO % 8.7 % (1.0-6.0); RED CELL DISTRIBUTION WIDTH 14.2 % (11.5-14.5); WHITE BLOOD COUNT 12.7 10^3/ul (4.5-11.0)
[2017-03-18] MEDS: Magnesium Sulfate 2 GM in Sodium Chloride 0.9% 100 ML IVPB SCH ×2 (13:48→17:22)
--- NOTE | 2017-03-18 14:59 | PN ---
DATE: 03/18/2017 SUBJECTIVE: The patient seen in 372, bed 2. This morning, the patient is much more comfortable. No more fevers and appears to be afebrile for almost 24 hours and less short of breath, less tachycardic, and much improved PHYSICAL EXAMINATION VITAL SIGNS: Temperature is 97, blood pressure is 120/70, respiratory rate of 22, heart rate of 90. HEENT: Unremarkable. NECK: Supple. LUNGS: Decreased breath sounds. HEART EXAM: Normal S1 and S2. ABDOMINAL: Soft, nontender. LABORATORY DATA: Reveals the patient's white count is 10,400; hemoglobin of 10; platelets of 112. Reveals the BUN of 46, creatinine is 3.7. The patient's procalcitonin is elevated at 0.7 yesterday and the urinalysis is noted, too numerous to count wbc's in the urine. Microbiology reveals the blood are no growth, urine cultures are no growth. Review of orders reveals the patient to be on meropenem, micafungin. The patient is on acyclovir. The patient had a CAT scan of the abdomen and pelvis read by Dr. Carlos Joy. Dr. Forte's note is reviewed. Dr. Sabino Weathers, the lpta's note is reviewed. ASSESSMENT AND PLAN: This is a [id number]-male seen earlier today in room 372, bed 2, with systemic inflammatory response syndrome, status post ventilatory-dependent respiratory failure, metabolic acidosis, diabetes, [id number] renal failure, and hypertension, morbid obesity with a body mass index of 32 with negative blood culture, negative urine culture, although positive urinalysis, now on Mycamine day #2, meropenem, and acyclovir, appears to have responded to the current regimen. We will follow with you and check on final culture results. Benton Jackman MD
--- NOTE | 2017-03-18 16:30 | PN ---
DATE: 03/18/2017 SUBJECTIVE: The patient is seen lying in bed. He is awake. He is talking. He is not really following commands. is at bedside. PHYSICAL EXAMINATION: GENERAL EXAMINATION: Elderly male, lying in bed. VITAL SIGNS: Blood pressure 110/62, heart rate 89, respiratory rate 22, temperature 97.5, T-max is 103.3. HEENT: Normocephalic, atraumatic, positive pallor. NECK: Supple, no JVD. LUNGS: Bilateral equal air entry, decreased breath sounds at bases. CARDIAC: S1, S2, regular rate and rhythm, no murmur, no rub. ABDOMEN: Obese, distended, soft, nontender, bowel sounds present. EXTREMITIES: 1+ pitting edema of the lower extremities. INTAKE AND OUTPUT: 740/100. LABORATORY DATA: WBC 12.7, hemoglobin 12.7, hematocrit 38.8, platelets 163. Sodium 144, potassium 3.9, chloride 107, CO2 of 25, BUN of 46, creatinine 3.7, glucose 80, calcium 7.2. Phosphorus 6.1. Magnesium 1.5. Albumin 2.6. Corrected calcium is 8.2. Blood cultures no growth. Urine culture from 03/15 no growth. CURRENT MEDICATIONS: Acyclovir 800 q. 12, Cardizem 60 t.i.d., insulin, Lopressor 25 b.i.d., magnesium sulfate 2 g given this morning, meropenem 1 g q. 12, Protonix, Tylenol. He took insulin micafungin 100. ASSESSMENT: 1. Acute kidney injury, worsening renal function. 2. Underlying chronic kidney disease, stage III. 3. Status post diabetic ketoacidosis. 4. Altered mental status, questionable baseline. 5. Poorly controlled diabetes. 6. Hypertension. 7. Sepsis/leukocytosis/bandemia/altered mental status. 8. Bilateral hydronephrosis/perinephric stranding? PLAN: 1. Multifactorial etiology for acute kidney injury suspect. Sepsis related UTI, urinary retention? 2. Encephalitis? 3. Continue antifungals, antivirals, antibiotics. 4. Monitor urine output closely. 5. Repeat urine culture, urine sodium, urine creatinine. 6. Dose all antibiotics for creatinine clearance, 10-30 mL per minute. Caitlyn Coburn MD [facility] # [id number]
--- NOTE | 2017-03-18 17:55 | PN ---
DATE: 03/18/2017 SUBJECTIVE: The patient is seen in room #372, bed #2. According to the patient's nurses, the patient is a little bit more confused today. The patient required reinsertion of Abad catheter because of the patient's urinary retention and inability to urinate. Yesterday, the patient was found to be alert, awake, oriented x3, but today, the patient appears to be confused. The patient was seen by the patient's nurse.. The patient had some pinkish discharge from the from the penis. Urologist was called. The patient was found to be in urinary retention. The patient had drain; after insertion of Abad catheter, the patient had 400 mL of pink-colored urine drained. OBJECTIVE: VITAL SIGNS: T max is 100.3 in the last 24 hours, T-max is 101.3, before that the patient's T-max was 104. Blood pressure 110/62, 128/71. Respiration 22, O2 sat 97%. HEENT: The patient's head examination is normocephalic, atraumatic. HEENT examination shows pinkish conjunctivae. Anicteric sclerae. Dry oral mucosa. No neck rigidity. CHEST: Examination kyphosis. LUNGS: Examination shows occasional rhonchi in upper lung lozoya. CARDIOVASCULAR: Examination shows S1, S2. Questionable soft systolic murmur at left sternal border, right second intercostal space. ABDOMEN: Protuberant. Positive bowel sounds. GENITALIA: Male. Positive Abad catheter noted. EXTREMITIES: Shows no pitting edema, no calf tenderness, no Homans signs. Positive SCDs, no NELDA stockings noted. MUSCULOSKELETAL: Examination shows a body mass index of 33. NEUROLOGICALLY: The patient is alert, awake and oriented x0 to x1. The patient is confused and disoriented.. DIAGNOSTICS: March 18, WBC 12.7, hemoglobin/hematocrit 12.7/39, platelet 163. Granulocytes 80% segs. Day before yesterday's CBC shows a neutrophils 90, bands 4. Sodium 144, potassium 3.9, chloride 107, CO2 of 25, anion gap 16, BUN 46, creatinine 3.7, GFR 20. Glucose 121, 115, 85, 80, 104, 62. Calcium 7.2. Phosphorus 6.1. Magnesium 1.1. The patient's creatinine is slowly trending upward. The patient's urine culture from [facility], yeast species; repeat blood and urine cultures, no growth. C. diff antigen and toxin was negative. The patient had a repeat CT of the abdomen and pelvis repeated on March 16. The patient's EEG was reviewed. The patient was re-consulted with neurology for evaluation of possible spinal tap, which was not successful. IMPRESSION AND PLAN: 1. Status post diabetic ketoacidosis. 2. Status post ventilator-dependent respiratory failure. 3. Recurrent, persistent high-grade fever. 4. Questionable sepsis. 5. Transient hypotension. 6. Leukocytosis with granulocytosis and bandemia. 7. Normocytic anemia. 8. Increased anion gap, metabolic acidosis and lactic acidosis. 9. Status post severe hypernatremia. 10. Hypokalemia. 11. Acute kidney injury and acute renal failure with underlying chronic kidney disease, stage III. 12. Uncontrolled insulin-requiring diabetes mellitus with hemoglobin A1c of 14.4. 13. Hyperphosphatemia. 14. Hypoalbuminemia. 15. Hyperprocalcitoninemia. 16. Elevated prostate-specific antigen of 8.7. 17. Dyslipidemia with hypertriglyceridemia and hypercholesteremia with elevated LDL and decreased HDL. 18. Status post hypophosphatemia, now presently hyperphosphatemia. 19. Hypomagnesemia. 20. Funguria with proteinuria, glycosuria, microscopic hematuria, pyuria and bacteriuria. 21. Fecal occult blood positive, etiology undetermined. 22. Severe oropharyngeal dysphagia with high risk for aspiration. 23. Bilateral pleural effusion. 24. Elevated right hemidiaphragm. 25. Status post cholecystectomy. 26. Moderate bilateral hydroureteronephrosis with urinary bladder distention. 27. Bilateral renal cysts. 28. Prostatomegaly. 29. Status post attempted spinal tap. 30. Left anterior hemiblock. 31. Age indeterminate anteroseptal infarct and lateral coronary ischemic changes. 32. Status post diabetic ketoacidosis. 33. Left occipital hematoma. 34. Possible sepsis with systemic inflammatory response syndrome. 35. Morbid obesity. 36. Questionable urinary retention with incontinence. 37. Elevated prostate-specific antigen. 38. Sinus tachycardia. 39. Metabolic acidosis. 40. Questionable encephalitis. PLAN: At this time, the patient has been ordered serial labs. The patient has been ordered current consultation with cardiology, endocrinology, gastroenterology, infectious disease, nephrology. The patient is to be seen by infectious disease, nephrology, neurology. CURRENT MEDICATIONS: Cardizem 60 mg three times a day, Humulin low-dose sliding scale a.c. and at bedtime, Levemir 20 units twice a day, Lopressor 25 mg twice a day, Lovenox 40 mg subQ daily, magnesium sulfate rider ordered x2, meropenem 1 g IV q. 12, nystatin powder, Protonix 40 IV q. 12, Tylenol p.r.n. fever, Xopenex, acyclovir 800 mg q. 12 hours. The patient is awaiting for an MRI of the left lumbar and thoracic spine. The patient is on dysphagia, modified consistency diet. The patient has been ordered fingerstick blood sugar. Abad reinsertion ordered, out of bed to chair ordered. The patient has been ordered physical therapy, occupational therapy, speech therapy. At present, the patient's current disposition is not completely clear, but according to the patient's medical condition, the patient most likely will require 24-hour care and supervision. The patient's case is also referred to the rn social work. Paulino Linder MD
--- NOTE | 2017-03-18 18:39 | MRI ---
PROCEDURE: MR LUMBAR SPINE WITHOUT CONTRAST HISTORY: r/o spinal abscess COMPARISON: None available. TECHNIQUE: Multiecho multiplanar sequences were performed through the lumbar spine without the use of intravenous contrast. FINDINGS: There is normal alignment of the lumbar vertebral bodies. Lumbar lordosis is maintained. Vertebral bodies are normal height. There is no acute fracture, spondylolysis or spondylolisthesis. There is a lipid poor hemangioma in the T12 vertebral body. There is focal fatty marrow in the L1 vertebral body. The conus medullaris terminates at a normal level. There is apparent mild thickening of the nerve roots of cauda equina. There is mild fatty atrophy of the paraspinal soft tissues. T12-L1: No disc herniation, spinal canal stenosis or neural foraminal narrowing. L1-2: There is a right far lateral annular tear and disc protrusion which abuts the exiting right L1 nerve root. Also noted is moderate facet arthropathy. No neural foraminal or spinal canal stenosis. L2-3: Diffuse posterior disc bulge with a superimposed left foraminal and left far lateral disc protrusion which abuts the exiting left L2 nerve root. Moderate bilateral facet arthropathy contributes to mild right and moderate left neural foraminal stenosis. No spinal canal stenosis. L3-4: Diffuse posterior disc bulge without central spinal canal stenosis. Moderate bilateral facet arthropathy contributes to mild right and moderate left neural foraminal stenosis. L4-5: Diffuse posterior disc bulge with superimposed right foraminal disc protrusion without central spinal canal stenosis. Moderate bilateral facet arthropathy contributes to severe right neural foraminal stenosis with probable impingement of the exiting right L4 nerve root. Also noted is moderate left neural foraminal stenosis. L5-S1: Diffuse posterior disc bulge and mild bilateral facet arthropathy without neural foraminal stenosis. No central spinal canal stenosis. OTHER FINDINGS: None IMPRESSION: 1. Mild multilevel degenerative disc disease, worse at L2-3 with a diffuse posterior disc bulge and superimposed left foraminal and left far lateral disc protrusion which abuts the exiting left L2 nerve root. Moderate bilateral facet arthropathy contributes to mild right and moderate left neural foraminal stenosis. No spinal canal stenosis. 2. At L4-5 diffuse bulge with superimposed right foraminal disc protrusion in conjunction with moderate facet arthropathy results in severe right neural foraminal stenosis and probable impingement of the exiting right L4 nerve root. No spinal canal stenosis. 3. Apparent mild thickening of the nerve roots of cauda equina. Evaluation is limited in the absence of intravenous contrast. If there is a clinical concern for arachnoiditis, MRI with intravenous contrast would be helpful for further evaluation.
--- NOTE | 2017-03-18 19:04 | MRI ---
PROCEDURE: MR THORACIC SPINE WITHOUT CONTRAST HISTORY: r/o spinal abscess COMPARISON: Comparison is made to the previous CT of the abdomen and pelvis without contrast dated 03/16/2017 TECHNIQUE: Multiecho multiplanar sequences were performed through the thoracic spine without the use of intravenous contrast. No IV contrast was given due to patient's renal insufficiency and low GFR: 16 FINDINGS: ALIGNMENT: Normal thoracic spinal alignment. Normal thoracic kyphosis. VERTEBRA: Vertebral body height are preserved. MARROW: Marrow signal unremarkable. PARASPINAL SOFT TISSUES: Unremarkable. CORD: Unremarkable thoracic cord. No volume loss, signal abnormality or syrinx. DISCS: No disc herniation, spinal canal stenosis, or neuroforaminal narrowing. OTHER FINDINGS: None. IMPRESSION: Limited assessment for small abscess formation or osteomyelitis without IV contrast administration. No evidence of significant spinal or neural foraminal narrowing at the thoracic spine. No evidence of cortical destruction or disc is space abnormality to suggest diskitis or osteomyelitis. Preliminary report was submitted by [facility].
[2017-03-18 21:09] LABS: URINE BILIRUBIN NEGATIVE (NEGATIVE); URINE BLOOD LARGE (NEGATIVE); URINE GLUCOSE (UA) NEGATIVE (NEGATIVE); URINE KETONE NEGATIVE (NEGATIVE); URINE LEUKOCYTE ESTERASE LARGE Leu/uL (NEGATIVE); URINE PROTEIN 100 mg/dL (<30 mg/dL); URINE UROBILINOGEN 0.2 E.U./dL (<1 E.U./dL)
[2017-03-18 21:10] LABS: URINE APPEARANCE CLOUDY (CLEAR); URINE COLOR LIGHT YELLOW (YELLOW)
[2017-03-18 21:28] LABS: URINE BACTERIA LARGE (NEG); URINE RBC TNTC /hpf (0-2); URINE WBC TNTC /hpf (0-6)
[2017-03-19] MEDS: Insulin Reg-LOW-Coverage SC SCH ×4 (08:24→22:21)
[2017-03-19] MEDS: Meropenem 1g/NS 100mL IVPB 1 GM/100 ML PIGGYBACK IVPB SCH (09:36)
[2017-03-19] MEDS: Enoxaparin 40 mg Syringe SC SCH (09:36)
[2017-03-19] MEDS: Nystatin 100,000 Units/gm Topical Pow(15 gm) TOP SCH ×2 (09:37→18:40)
[2017-03-19] MEDS: Insulin Detemir 100 units/ml Vial (Levemir) SC SCH ×2 (09:40→22:24)
--- NOTE | 2017-03-19 10:40 | CP.PCM.PN ---
<ANGELICA DIAZ - Last Filed: 03/19/17 13:33> Subjective - Date & Time of Evaluation Date of Evaluation: 03/19/17 Time of Evaluation: 10:36 - Subjective Subjective: Medicine Progress Note for Dr. Linder: Pt seen and examined at bedside. Pt denied any acute overnight events. Pt appears to be less altered and is able to answer basic questioning. Pt is urinating per henriquez with straw colored urine. Pt denies any discharge or hematuria. Pt denies CP, SOB, n/v/d, fever, chills, abdominal pain, or dysuria. Objective - Vital Signs/Intake and Output Vital Signs (last 24 hours): Temp Pulse Resp BP Pulse Ox 97.5 F L 88 22 135/66 93 L 03/19/17 08:20 03/19/17 09:36 03/19/17 08:20 03/19/17 09:40 03/19/17 08:20 Intake and Output: 03/19/17 03/19/17 06:59 18:59 Intake Total 240 Output Total 2125 Balance -1885 - Medications Medications: Current Medications Acetaminophen (Tylenol 325mg Tab) 650 mg PO Q6H PRN PRN Reason: TEMP>=99.5F Acetaminophen (Tylenol 650 Mg Supp) 650 mg RC Q6H PRN PRN Reason: TEMP>=99.5F Last Admin: 03/17/17 03:50 Dose: 650 mg Diltiazem HCl (Cardizem) 60 mg PO TID [facility] Last Admin: 03/19/17 09:40 Dose: 60 mg Enoxaparin Sodium (Lovenox) 40 mg SC DAILY [facility] PRN Reason: Protocol Last Admin: 03/19/17 09:36 Dose: 40 mg Meropenem 1g/NS 100mL IVPB (Meropenem 1g/Ns 100ml Ivpb) 1 gm in 100 mls @ 100 mls/hr IVPB Q12 [facility] PRN Reason: Protocol Stop: 03/22/17 10:01 Last Admin: 03/19/17 09:36 Dose: 100 mls/hr Acyclovir 800 mg/ Sodium (Chloride) 100 mls @ 100 mls/hr IV Q12 [facility] PRN Reason: Protocol Stop: 03/23/17 17:31 Last Admin: 03/18/17 23:02 Dose: 100 mls/hr Insulin Detemir (Levemir) 20 unit SC Q12H [facility] Last Admin: 03/19/17 09:40 Dose: 20 unit Insulin Human Regular (Humulin R Low) 0 units SC ACHS [facility] PRN Reason: Protocol Last Admin: 03/19/17 08:24 Dose: Not Given Metoprolol Tartrate (Lopressor) 25 mg PO BID [facility] Last Admin: 03/19/17 09:36 Dose: 25 mg Nystatin (Nystop Topical Powder) 1 gm TOP BID [facility] Last Admin: 03/19/17 09:37 Dose: 1 applic Pantoprazole Sodium (Protonix Inj) 40 mg IVP Q12 [facility] Last Admin: 03/19/17 09:35 Dose: 40 mg - Labs Labs: 03/18/17 13:14 03/18/17 08:40 PT 12.7 Seconds (9.9-11.8) H 03/12/17 08:30 INR 1.18 (0.93-1.08) H 03/12/17 08:30 APTT 30.1 Seconds (23.7-30.8) 03/12/17 08:30 - Constitutional Appears: No Acute Distress - Head Exam Head Exam: ATRAUMATIC, NORMOCEPHALIC - Eye Exam Eye Exam: EOMI, PERRL - ENT Exam ENT Exam: Mucous Membranes Moist - Neck Exam Neck Exam: Full ROM - Respiratory Exam Respiratory Exam: Clear to Ausculation Bilateral. absent: Rales, Rhonchi, Wheezes - Cardiovascular Exam Cardiovascular Exam: RRR. absent: Gallop, Rubs, Murmur - GI/Abdominal Exam GI & Abdominal Exam: Soft. absent: Distended, Guarding, Tenderness, Rebound - Exam Additional comments: Urine straw colored per henriquez - Extremities Exam Extremities Exam: Normal Inspection - Neurological Exam Neurological Exam: Alert, Awake. absent: Oriented x3 (oriented to person and place, but not time) - Psychiatric Exam Psychiatric exam: Flat Affect - Skin Skin Exam: Dry, Intact, Normal Color, Warm Assessment and Plan - Assessment and Plan (Free Text) Assessment: 71yo M with PMHx including HTN and DM here with AMS, DKA, and SIRS. Plan: 1. AMS - Pt clinically improving as he is awake, alert, and oriented to person and place, but not time today - PT/OT eval/treat requested - promote OOB and ambulate as tolerated - CT head - no intracranial hemorrhage. Left occipital scalp hematoma - MRI Brain - poor study due motion artifact. No evidence of acute infarct. 1cm cyst or solid lesion at right posterior fossa - Ammonia - wnl - Carotid US - bilateral 20-39% proximal ICA stenosis. Antegrade flow in vertebrals - Neurology following, appreciate recs - Speech eval - high risk for aspiration 2. Severe Sepsis, improving - Spine MRI ordered to r/o spinal abscess Lumbar MRI showed multilevel DDD, multilevel disc bulge, no stenosis, if clinical concern for arachnoiditis get MRI with IV Thoracic MRI negative - Leukocytosis improving, Afebrile - ID following, appreciate recs - Blood Cxs - negative - Urine Cxs - urine per henriquez showed no growth - Nystatin Topical for rash - Merrem 1 gm IVPB Q12H - Acyclovir 800 mg IVPB Q12H 3. DKA, resolved - gap closed - likely secondary to severe sepsis, UTI - Endocrindology following, appreciate recs - ISS coverage - Levemir 30U SC q12 4. Electrolyte abnormalities - Recheck and replete as needed - Hypernatremia D5W @100 5. Renal insufficiency - Urology consulted for renal cyst found on CT No urologic intervention needed at this time - Nephrology following - Renal US - mild R hydronephrosis - BUN/Creat improving - continue to monitor 6. Positive FOB - CT - no abdominal abscess or suspicious fluid collections. Bilateral renal cysts, right greater than left - GI consulted, appreciate recs continue to monitor H/H for GI bleed - on protonix 40q12 7. Mildly Elevated Troponins - Cardiology following, appreciate recs - No evidence of heart failure - tolerating current IV fluids - Cont Cardizem and Lopressor GI/DVT PPx - Protonix - Lovenox Dispo: High risk for aspiration Palliative care consult appreciated. DNR/DNI. If patient does not improve clinically, alternate options may be discussed [facility]: NO blood products. Blood expanding products okay to use Pt seen and disccused in detail with Dr. Linder. Christian Diaz PGY1 <Paulino Linder U - Last Filed: 03/24/17 21:58> Objective - Vital Signs/Intake and Output Vital Signs (last 24 hours): Temp Pulse Resp BP Pulse Ox 97.9 F 68 20 110/60 98 03/24/17 16:44 03/24/17 17:57 03/24/17 16:44 03/24/17 17:22 03/24/17 16:44 Intake and Output: 03/24/17 03/25/17 18:59 06:59 Intake Total 320 600 Output Total 700 900 Balance -380 -300 - Medications Medications: Current Medications Acetaminophen (Tylenol 325mg Tab) 650 mg PO Q6H PRN PRN Reason: TEMP>=99.5F Acetaminophen (Tylenol 650 Mg Supp) 650 mg RC Q6H PRN PRN Reason: TEMP>=99.5F Last Admin: 03/17/17 03:50 Dose: 650 mg Apixaban (Eliquis) 5 mg PO BID [facility] PRN Reason: Protocol Last Admin: 03/24/17 18:39 Dose: 5 mg Diltiazem HCl (Cardizem) 60 mg PO TID [facility] Last Admin: 03/24/17 18:39 Dose: 60 mg Fluconazole (Diflucan) 100 mg PO DAILY [facility] PRN Reason: Protocol Last Admin: 03/24/17 10:11 Dose: 100 mg Insulin Detemir (Levemir) 10 unit SC DAILY [facility] Last Admin: 03/24/17 10:12 Dose: 1 unit Insulin Human Regular (Humulin R Low) 0 units SC ACHS [facility] PRN Reason: Protocol Last Admin: 03/24/17 18:40 Dose: 3 units Magnesium Oxide (Mag-Ox) 400 mg PO BID [facility] Last Admin: 03/24/17 18:39 Dose: 400 mg Metoprolol Tartrate (Lopressor) 25 mg PO BID [facility] Last Admin: 03/24/17 17:22 Dose: Not Given Nystatin (Nystop Topical Powder) 1 gm TOP BID [facility] Last Admin: 03/23/17 17:32 Dose: 1 applic Pantoprazole Sodium (Protonix Ec Tab) 40 mg PO 0600 [facility] Last Admin: 03/24/17 05:41 Dose: 40 mg Valacyclovir HCl (Valtrex) 1 gm PO DAILY [facility] PRN Reason: Protocol Last Admin: 03/24/17 17:24 Dose: 1 gm - Labs Labs: 03/24/17 05:30 03/23/17 05:00 PT 13.7 Seconds (9.9-11.8) H 03/22/17 08:50 INR 1.27 (0.93-1.08) H 03/22/17 08:50 APTT 59.1 Seconds (23.7-30.8) H 03/22/17 08:50 Attending/Attestation - Attestation I have personally seen and examined this patient.: Yes I have fully participated in the care of the patient.: Yes I have reviewed all pertinent clinical information, including history, physical exam and plan: Yes
--- NOTE | 2017-03-19 13:25 | PN ---
CARDIOLOGY FOLLOWUP DATE: 03/19/2017 SUBJECTIVE: The patient is much more alert without shortness of breath, without chest pain. PHYSICAL EXAMINATION: VITAL SIGNS: Blood pressure is 135/66, heart rate in the 80s. NECK: Negative JVD. LUNGS: Without rales. HEART: Reveals S1, S2. EXTREMITIES: Without change. LABORATORY DATA: Hemoglobin is 12.7. Chemistries; BUN and creatinine is 46 and 3.7. IMPRESSION: 1. Altered mental status which seems to have improved. 2. Renal insufficiency. 3. Diabetes mellitus. 4. Peripheral vascular disease. Given these findings, the patient's mental status as well as his cardiac status seems more stable today. Bernardo Cruz MD
[2017-03-19] MEDS ORDERED: Insulin Detemir 100 units/ml Vial (Levemir) SC SCH (15:25)
--- NOTE | 2017-03-19 15:47 | CP.PCM.PN ---
Subjective - Date & Time of Evaluation Date of Evaluation: 03/19/17 Time of Evaluation: 11:35 - Subjective Subjective: Patient is more alert today, no fevers. Objective - Vital Signs/Intake and Output Vital Signs (last 24 hours): Temp Pulse Resp BP Pulse Ox 97.5 F L 88 22 135/66 93 L 03/19/17 08:20 03/19/17 08:20 03/19/17 08:20 03/19/17 08:20 03/19/17 08:20 Intake and Output: 03/19/17 03/19/17 06:59 18:59 Intake Total 240 Output Total 2125 Balance -1885 - Medications Medications: Current Medications Acetaminophen (Tylenol 325mg Tab) 650 mg PO Q6H PRN PRN Reason: TEMP>=99.5F Acetaminophen (Tylenol 650 Mg Supp) 650 mg RC Q6H PRN PRN Reason: TEMP>=99.5F Last Admin: 03/17/17 03:50 Dose: 650 mg Diltiazem HCl (Cardizem) 60 mg PO TID [facility] Last Admin: 03/18/17 17:23 Dose: 60 mg Enoxaparin Sodium (Lovenox) 40 mg SC DAILY [facility] PRN Reason: Protocol Last Admin: 03/18/17 10:04 Dose: 40 mg Meropenem 1g/NS 100mL IVPB (Meropenem 1g/Ns 100ml Ivpb) 1 gm in 100 mls @ 100 mls/hr IVPB Q12 [facility] PRN Reason: Protocol Stop: 03/22/17 10:01 Last Admin: 03/18/17 21:36 Dose: 100 mls/hr Acyclovir 800 mg/ Sodium (Chloride) 100 mls @ 100 mls/hr IV Q12 [facility] PRN Reason: Protocol Stop: 03/23/17 17:31 Last Admin: 03/18/17 23:02 Dose: 100 mls/hr Insulin Detemir (Levemir) 20 unit SC Q12H [facility] Last Admin: 03/18/17 23:01 Dose: Not Given Insulin Human Regular (Humulin R Low) 0 units SC ACHS [facility] PRN Reason: Protocol Last Admin: 03/19/17 08:24 Dose: Not Given Metoprolol Tartrate (Lopressor) 25 mg PO BID [facility] Last Admin: 03/18/17 17:22 Dose: 25 mg Nystatin (Nystop Topical Powder) 1 gm TOP BID [facility] Last Admin: 03/18/17 17:25 Dose: 1 applic Pantoprazole Sodium (Protonix Inj) 40 mg IVP Q12 [facility] Last Admin: 03/18/17 21:38 Dose: 40 mg - Labs Labs: 03/18/17 13:14 03/18/17 08:40 PT 12.7 Seconds (9.9-11.8) H 03/12/17 08:30 INR 1.18 (0.93-1.08) H 03/12/17 08:30 APTT 30.1 Seconds (23.7-30.8) 03/12/17 08:30 - Constitutional Appears: Non-toxic, No Acute Distress - Head Exam Head Exam: NORMAL INSPECTION - Neck Exam Neck Exam: absent: Meningismus - Respiratory Exam Respiratory Exam: Decreased Breath Sounds - Cardiovascular Exam Cardiovascular Exam: +S1, +S2 - GI/Abdominal Exam GI & Abdominal Exam: Soft. absent: Tenderness Assessment and Plan - Assessment and Plan (Free Text) Plan: Assessment new onset systemic Inflammatory Response syndrome with fever, R/O sepsis R/O encephalitis, consider UTI with yeast in the urine S/P ventilator-dependent respiratory failure in a patient with hyperglycemia and metabolic acidosis in a patient with DM, probable Katiuska rash on the perineum acute on chronic renal failure DM HTN obesity with BMI 32 Plan continue Merrem, Mycamine and Acyclovir (Day 4) - cultures have been negative; CXR does not show infiltrates; reviewed CT head showing left occipital scalp hematoma (which is also seen on the brain MRI) awaiting identification of the yeast in the urine will continue to monitor clinically Prognosis is guarded at best
[2017-03-19 16:18] LABS: HEMATOCRIT 35.4 % (42.0-52.0); MEAN CELL VOLUME 88.9 fl (80.0-105.0); MEAN CORPUSCULAR HEMOGLOBIN 29.1 pg (25.0-35.0); MEAN CORPUSCULAR HGB CONC 32.8 g/dl (31.0-37.0); MEAN PLATELET VOLUME 9.1 fl (7.0-11.0); WHITE BLOOD COUNT 5.2 10^3/ul (4.5-11.0)
[2017-03-19 16:27] LABS: ALB/GLOB RATIO 0.8 (1.1-1.8); BILIRUBIN,DIRECT 0.3 mg/dL (0.0-0.4); BILIRUBIN,TOTAL 0.4 mg/dL (0.2-1.3); CALCIUM 7.3 mg/dL (8.4-10.5); MAGNESIUM 2.1 mg/dL (1.7-2.2); PHOSPHOROUS 3.1 mg/dL (2.5-4.5); POTASSIUM 3.7 mmol/L (3.6-5.0); TOTAL PROTEIN 5.8 g/dL (5.8-8.3)
--- NOTE | 2017-03-19 19:35 | CON ---
DATE: 03/19/2017 GENITOURINARY CONSULTATION CHIEF COMPLAINT: Urinary retention HISTORY OF PRESENT ILLNESS: Patient is a 71-year-old diabetic who was admitted with diabetic ketoacidosis. He initially had a Abad placed. The Abad was removed and nurses noticed the patient has not voided. I called the house doctor two nights ago, who attempted to place the Abad catheter, was unable to and apparently there was subsequent bleeding after the attempt. They then left the Abad catheter out. Yesterday, they called and said he had not voided. There was over 400 mL on bladder scan. A new Abad catheter was inserted and over 400 to 500 mL was obtained. Patient was not uncomfortable. History was obtained from the chart. The patient is not a good historian. Urine culture from 03/14 was no growth. A urine culture on 03/13 just had some yeast species. Patient had a CAT scan done on 03/16, which showed some bilateral hydronephrosis. I reviewed the films. I think there was bladder distention and the worsening of his creatinine up to 3.7, may very well have been on this basis. His baseline was 1.3 at its lowest on 03/15. Currently, the Abad is draining. His Abad put out 2125 mL in the last 24 hours, only 775 prior and 03/17 only 100 mL. Hopefully, his creatinine will come down at this point. ALLERGIES: REVEALS HE HAS NO ALLERGIES. MEDICATIONS: He takes insulin, Cozaar, Toprol, glipizide at home. PAST MEDICAL HISTORY: He has a history of hypertension. He has had diabetic ketoacidosis he is noncompliant. SOCIAL HISTORY: He no longer smokes. FAMILY HISTORY: Noncontributory. REVIEW OF SYSTEMS: Again, patient is not able to give adequate history, but no apparent chills or shakes. No Apparent cardiac or respiratory problems. PHYSICAL EXAMINATION: VITAL SIGNS: Shows him to be afebrile, pulse 88, blood pressure 135/66, respirations 22. HEENT: Normocephalic. Sclerae clear. NECK: No CVA pain. ABDOMEN: No hepatosplenomegaly, rebound or guarding. GENITOURINARY: The Abad is indwelling. It is anchored with the disk and even though the disk is properly placed, there was traction on it as soon as his leg is moved. It exerts traction on the meatus and is going to be pulled out. I instructed the nurses to remove the disk, which is causing harm to his penis and to take the tubing, so that there is more redundancy to the catheter and not causing traction. SKIN: Shows no purpura or edema. LABORATORY DATA: His current lab work shows a white count of 12,700, hemoglobin of 12.7, creatinine is 3.7 yesterday. His BUN was 46. PLAN: Keep the Abad indwelling. When the patient is discharged, I will continue to keep it until his baseline is established and then in the office, he can have cysto and urodynamics done. Do not pick the Abad out at this time and please consult us before removing the Abad. I was not able to do a rectal at this time, but we will do this at a later date. It will not change what is being done. Cheikh Muhammad MD
--- NOTE | 2017-03-19 20:24 | PN ---
ENDO FOLLOWUP NOTE LOCATION: In the room 372. SUBJECTIVE: This is a 71-year-old male with recent uncontrolled type 2 insulin-requiring diabetes with extremes of glycemic fluctuation with low-normal glycemic profile last night and today he has supervening hyperglycemic acceleration as noted there of. His glucose values last night ranged from 63 to 99 and 129 mg/dL and today have become higher at 188 to 370 mg/dL. His latest chemistries showed a BUN of 46, sodium 144, potassium 3.9, chloride 107, CO2 of 25, glucose 80, and creatinine 3.7. So at this time, we will titrate once again his basal insulin and increase the Levemir to 30 units subcu every 12 hours to start tonight. We will titrate incrementally as indicate to optimize metabolic control. We will also continue the low dose correction scale using Humalog insulin as given. We will obtain serum chemistries and supplement accordingly as needed. We will follow with you. Trinidad Gomez MD
--- NOTE | 2017-03-19 23:29 | PN ---
DATE: 03/19/2017 NEUROLOGY PROGRESS NOTE SUBJECTIVE: The patient is lying on the bed, in no acute distress. Denies having any headaches or dizziness. PHYSICAL EXAMINATION VITAL SIGNS: His blood pressure is 126/66, heart rate is 85 per minute, breathing at the rate of 16 per minute, temperature is 98.9 degree Fahrenheit. HEENT: Head is normocephalic and atraumatic. NECK: Supple. There are no carotid bruits. LUNGS: Clear. CARDIOVASCULAR EXAM: S1 and S2 audible. No murmurs. ABDOMEN: Soft and nontender. Bowel sounds are present. NEUROLOGICAL EXAMINATION: Mental Status: The patient is awake and alert, oriented to place as [place], year is 2017. He does not remember the month. He follows all simple commands. He does not know how he got to the hospital. Cranial Nerve Examination: Pupils are 3 mm bilaterally, reactive to light. Visual lozoya are full. Extraocular movements are intact. There is no facial asymmetry. He is moving all 4 extremities symmetrically. Plantars downgoing bilaterally. LABORATORY DATA: Reviewed. Shows WBC of 5.2, hemoglobin 11.6, hematocrit 35.4, and platelets are 193. Sodium is 140, potassium 3.7, chloride 107, carbon dioxide 24, BUN of 32, creatinine of 2.0 and glucose of 285. IMPRESSION: 1. Status post altered mental status which is possibly toxic metabolic encephalopathy. 2. Status post respiratory failure. 3. Status post diabetic ketoacidosis. RECOMMENDATION: 1. The patient's mental status is significantly better. The patient is more awake, alert and more responsive. 2. The patient to be continued on IV antibiotics. Currently, he is on meropenem as well as acyclovir for possible viral etiology for his encephalopathy. 3. Please continue supportive care and other treatment. Thank you for the opportunity to participate in the care of this patient. Jone Sigala MD
--- NOTE | 2017-03-19 23:38 | PN ---
DATE: 03/19/2017 SUBJECTIVE: The patient is seen lying in bed. He is awake, he is alert, but not really following commands. He denies any pain. He denies any shortness of breath. PHYSICAL EXAMINATION: GENERAL: Morbidly obese, elderly male, lying in bed. VITAL SIGNS: Blood pressure 135/66, heart rate 88, respiratory rate 22, temperature 97.5. HEENT: Normocephalic, atraumatic, positive pallor. NECK: Supple, no JVD. LUNGS: Bilateral equal air entry, bilateral equal expansion, decreased breath sounds at bases. CARDIAC: S1 and S2, regular rate and rhythm, no murmur, no rub. ABDOMEN: Obese, distended, soft, nontender, bowel sounds present. EXTREMITIES: 2+ pitting edema of the lower extremities, 2+ pitting edema of the upper extremities, blisters on the right hand. INTAKE AND OUTPUT: 360/2900. LABORATORY DATA: WBC 5.2, hemoglobin 11.6, hematocrit 35, platelets 193. Sodium 140, potassium 3.7, chloride 107, CO2 24, BUN 32, creatinine 2.0, glucose 285, calcium 7.3, phosphorus 3.1, magnesium 2.1. Albumin 2.6, corrected calcium 8.3. Urinalysis, light yellow cloudy, pH 6.0, specific gravity 1.025, protein 100, blood large, leukocyte esterase large, RBCs too numerous to count, WBCs too numerous to count. Blood culture no growth from 03/16. C. diff negative. Thoracic spine MRI and lumbar spine MRI, multilevel DJD, worse at L2-3 with diffuse posterior disk bulge, moderate bilateral facet arthropathy at L4-5 diffuse bulge. No spinal canal stenosis. Apparent mild thickening of the nerve roots at cauda equina. CURRENT MEDICATIONS: Acyclovir, Cardizem, insulin, Lopressor, Lovenox, meropenem 1 g q. 12, micafungin, nystatin, Protonix, Tylenol. ASSESSMENT AND PLAN 1. Acute kidney injury, superimposed on chronic kidney disease stage III. 2. Resolving acute kidney injury, multifactorial, in the setting of sepsis, leukocytosis, fevers, urinary retention. 3. Severely uncontrolled diabetes. 4. Status post diabetic ketoacidosis. 5. Encephalitis? PLAN 1. Continue current management. 2. Monitor urine output closely. 3. Continue antibiotics. 4. Can increase dose of antibiotics for creatinine clearance 30-50 mL per minute. 5. Monitor electrolytes and urine output closely. Caitlyn Coburn MD
[2017-03-20] MEDS: Meropenem 1g/NS 100mL IVPB 1 GM/100 ML PIGGYBACK IVPB SCH ×3 (00:03→22:00)
--- NOTE | 2017-03-20 02:26 | PN ---
DATE: 03/19/2017 SUBJECTIVE: The patient is seen in room 372, bed 2. The patient is seen lying in the bed. The patient is more alert as compared to yesterday. The patient was found to be more alert this morning. The patient was found to be alert, awake, oriented x1. OBJECTIVE: GENERAL: The patient was seen lying in the bed. VITAL SIGNS: T-max is 98.3, heart rate 80s to 90, blood pressure 126/66, respiration 18-22, and O2 sat is 95-97%. HEENT: Head examination normocephalic, atraumatic. HEENT examination shows pinkish pale conjunctivae. Anicteric sclerae. No oropharyngeal lesion. NECK: No neck rigidity. CHEST: Kyphosis. LUNGS: Shows occasional rhonchi, upper lung lozoya. ABDOMEN: Protuberant, obese. GENITALIA: Male. Positive Abad catheter noted draining clear urine. EXTREMITIES: Shows no pitting edema. No calf tenderness. No Salima's signs. Positive SCDs. The patient has some weakness of the right upper extremity. MUSCULOSKELETAL: Examination shows a body mass index of 37. Cranial nerve limited. Gait examination is not tested. The patient seen by physical therapist. The patient was evaluated. The patient, treatment plan was gait training therapeutic exercises, neuromuscular reeducation and the patient's family education recommendation by physical therapy subacute rehab. DIAGNOSTICS: On 03/19/2017; WBC 5.2, hemoglobin/hematocrit 11.6/35.4, platelet 193. Sodium 140, potassium 3.7, chloride 107, CO2 of 24, anion gap 13, BUN 32, creatinine 2.0, GFR 40, glucose 270, 285, 370, 188, calcium 7.3, phosphorus 3.1, magnesium 2.1. LFTs are normal. Albumin 2.6. No repeat stool blood or occult blood ordered. Clostridium difficile antigen and toxin repeated x2 has been negative. The patient's lumbar and thoracic spine reports were reviewed. Thoracic spine and MRI was negative. IMPRESSION AND PLAN: 1. Status post diabetic ketoacidosis. 2. Uncontrolled type 1 insulin requiring diabetes mellitus with elevated hemoglobin A1c. 3. Systemic inflammatory response syndrome with high-grade fever. 4. Funguria. 5. Status post ventilator dependent respiratory failure. 6. Increased anion gap metabolic acidosis and lactic acidosis. 7. Uncontrolled insulin requiring diabetes mellitus. 8. Questionable right upper extremity secondary to decreased range of motion of the right shoulder. 9. Moderate bihemispheric cerebral dysfunction. 10. T12 vertebral body lipid poor hemangioma and L1 vertebral body fatty marrow. 11. Lumbar spine degenerative disc disease with disc bulging and bilateral facet arthropathy with neural foraminal stenosis and lumbar spine facet arthropathy with disc bulging and facet arthropathy with neural foraminal stenosis and impingement of the nerves. 12. Status post attempted lumbar puncture. 13. Bilateral pleural effusion. 14. Moderate bilateral hydroureteronephrosis with urinary retention and distended bladder. 15. Morbid obesity with elevated body mass index of 37. 16. Diffuse cerebral cortical atrophy with the microangiopathy. 17. Right posterior fossa. Possible proteinaceous cyst versus solid lesion versus complex cyst or solid mass. 18. Bilateral occipital scalp hematoma, left more than the right. 19. Status post diabetic ketoacidosis. 20. Tachycardia. 21. Questionable cognitive impairment. 22. Leukocytosis with granulocytosis and bandemia. 23. Mild normocytic anemia. 24. Lactic acidosis. 25. Acute kidney injury with underlying chronic kidney disease stage III. 26. Hypokalemia. 27. Uncontrolled insulin-requiring diabetes mellitus with hemoglobin A1c of 14.4 and fructosamine of 324. 28. Hypo and hyperphosphatemia. 29. Mild hypoalbuminemia. 30. Hypoalbuminemia. 31. Hyperprolactinemia. 32. Elevated prostate-specific antigen. 33. Hypertriglyceridemia, hypercholesterolemia and elevated LDL with decreased HDL. 34. Hypocalcemia. 35. Questionable non-ST elevation myocardial infarction with elevated troponin. 36. Funguria with proteinuria, ketonuria, microscopic hematuria, pyuria, bacteriuria. 37. Fecal occult blood positive, etiology undetermined. 38. Urinary retention. 39. Questionable traumatic hematuria. 40. Bilateral hydroureteronephrosis. 41. Deconditioning. 42. Gait dysfunction. 43. Insulin requiring diabetes mellitus. The patient has been ordered repeat labs. The patient has been ordered serial CBCs.. At present, the patient's further management will be dependent upon the patient's clinical condition, hemodynamic status and as per the patient response to therapeutic intervention. The patient has been ordered serial CBC, CMP, LFT, magnesium phosphorus. The patient has been ordered repeat urine culture. The patient has been ordered a shoulder x-ray of the right shoulder current consultation cardiology, endocrinology, gastroenterology, infectious disease, nephrology, neurology and urology and palliative care. The patient was seen by Dr. Weathers, his recommendation was supportive care. The patient's current medications are Cardizem 60 mg three times a day, Humalog low dose sliding scale coverage a.c. and at bedtime, Levemir 30 units twice a day, Lopressor 25 mg twice a day, Lovenox 40 mg subcu daily, meropenem 1 g IV q. 12, micafungin 100 mg daily, nystatin topical powder to affected area, Protonix 40 mg q. 12, Tylenol p.r.n., Zovirax 800 mg q. 12. The patient is on dysphagia modified consistency diet, out of bed, SCDs, NELDA stockings, physical therapy, occupational therapy, speech therapy, repeat stool occult blood ordered. The patient seen by physical therapist as well as speech therapist. The patient tolerated solid food with slow oral transit. Patient recommendation by speech therapy to increase diet to bite size with thin liquid with 1:1 feeding assistance, which will be ordered. The patient will be ordered diet as per the speech therapist. The patient will be ordered advance bite sized diet with 1:1 assistance with 1:1 feeding assistance, 1:1 feeding assistance will be ordered. At present, the patient will be continued on physical therapy, occupational therapy. Recommendation by physical therapist noticed noted. The patient's case is seen by the social services aide. The patient's has expressed the patient to go to subacute rehab to [facility]. Referral was sent awaiting response. The patient at present is on triple antibiotics including meropenem 1 g IV q. 12, micafungin 100 mg daily and IV acyclovir 800 mg IV q. 12 for suspicion of encephalitis. Paulino Linder MD
[2017-03-20] MEDS: Insulin Reg-LOW-Coverage SC SCH ×4 (07:53→22:32)
--- NOTE | 2017-03-20 09:04 | RAD ---
PROCEDURE: Radiographs of the Right Shoulder HISTORY: DECREASED ROM RIGHT SHOULDER COMPARISON: No prior. FINDINGS: BONES: Bone alignment and mineralization are normal. There is no acute displaced fracture or bone destruction. JOINTS: There is moderate degenerative osteoarthrosis in the glenohumeral and acromioclavicular joints. SOFT TISSUES: Normal. OTHER FINDINGS: None. IMPRESSION: No acute fracture or dislocation. Moderate degenerative osteoarthrosis in the glenohumeral and acromioclavicular joints.
[2017-03-20] MEDS: Insulin Detemir 100 units/ml Vial (Levemir) SC SCH ×2 (10:12→22:43)
[2017-03-20] MEDS: Enoxaparin 40 mg Syringe SC SCH (10:12)
[2017-03-20] MEDS: Nystatin 100,000 Units/gm Topical Pow(15 gm) TOP SCH ×2 (10:14→17:31)
--- NOTE | 2017-03-20 11:48 | PN ---
DATE: 03/20/2017 CARDIOLOGY FOLLOWUP SUBJECTIVE: The patient is awake, alert, in a chair without shortness of breath, without chest pain. OBJECTIVE: VITAL SIGNS: On physical exam, the blood pressure is 104/54, the heart rate is in the 70s. NECK: Negative JVD. LUNGS: Without rales. HEART: Reveals S1 and S2. EXTREMITIES: Without edema. LABORATORY DATA: White count is now down to 5.2 from 12.7 yesterday, hemoglobin is 11.6. Glucose is 285. BUN and creatinine have improved to 32 and 2.0. IMPRESSION: 1. Resolution of altered mental status. 2. Renal insufficiency which has improved. 3. Diabetes mellitus. 4. Peripheral vascular disease. Given these findings, the patient's cardiac status is stable. His mental status has much improved. Bernardo Cruz MD
--- NOTE | 2017-03-20 12:31 | CP.PCM.PN ---
Subjective - Date & Time of Evaluation Date of Evaluation: 03/20/17 Time of Evaluation: 10:35 - Subjective Subjective: Comfortable, not in distress, afebrile, has some hand swelling Objective - Vital Signs/Intake and Output Vital Signs (last 24 hours): Temp Pulse Resp BP Pulse Ox 98.9 F 73 19 126/66 95 03/19/17 16:00 03/20/17 06:00 03/19/17 16:00 03/19/17 18:39 03/19/17 16:00 Intake and Output: 03/20/17 03/20/17 06:59 18:59 Output Total 1900 Balance -1900 - Medications Medications: Current Medications Acetaminophen (Tylenol 325mg Tab) 650 mg PO Q6H PRN PRN Reason: TEMP>=99.5F Acetaminophen (Tylenol 650 Mg Supp) 650 mg RC Q6H PRN PRN Reason: TEMP>=99.5F Last Admin: 03/17/17 03:50 Dose: 650 mg Diltiazem HCl (Cardizem) 60 mg PO TID [facility] Last Admin: 03/19/17 18:39 Dose: 60 mg Enoxaparin Sodium (Lovenox) 40 mg SC DAILY [facility] PRN Reason: Protocol Last Admin: 03/19/17 09:36 Dose: 40 mg Meropenem 1g/NS 100mL IVPB (Meropenem 1g/Ns 100ml Ivpb) 1 gm in 100 mls @ 100 mls/hr IVPB Q12 [facility] PRN Reason: Protocol Stop: 03/22/17 10:01 Last Admin: 03/20/17 00:03 Dose: 100 mls/hr Acyclovir 800 mg/ Sodium (Chloride) 100 mls @ 100 mls/hr IV Q12 [facility] PRN Reason: Protocol Stop: 03/23/17 17:31 Last Admin: 03/19/17 22:25 Dose: 100 mls/hr Micafungin Sodium 100 mg/ (Sodium Chloride) 100 mls @ 100 mls/hr IV DAILY [facility] PRN Reason: Protocol Stop: 03/27/17 10:01 Insulin Detemir (Levemir) 30 unit SC Q12 [facility] Last Admin: 03/19/17 22:24 Dose: 30 unit Insulin Human Regular (Humulin R Low) 0 units SC ACHS [facility] PRN Reason: Protocol Last Admin: 03/19/17 22:21 Dose: Not Given Metoprolol Tartrate (Lopressor) 25 mg PO BID [facility] Last Admin: 03/19/17 18:39 Dose: 25 mg Nystatin (Nystop Topical Powder) 1 gm TOP BID [facility] Last Admin: 03/19/17 18:40 Dose: 1 applic Pantoprazole Sodium (Protonix Inj) 40 mg IVP Q12 [facility] Last Admin: 03/19/17 09:35 Dose: 40 mg - Labs Labs: 03/19/17 16:10 03/19/17 16:10 PT 12.7 Seconds (9.9-11.8) H 03/12/17 08:30 INR 1.18 (0.93-1.08) H 03/12/17 08:30 APTT 30.1 Seconds (23.7-30.8) 03/12/17 08:30 - Constitutional Appears: Non-toxic, No Acute Distress - Head Exam Head Exam: NORMAL INSPECTION - Neck Exam Neck Exam: absent: Meningismus - Respiratory Exam Respiratory Exam: Decreased Breath Sounds - Cardiovascular Exam Cardiovascular Exam: +S1, +S2 - GI/Abdominal Exam GI & Abdominal Exam: Soft. absent: Tenderness Assessment and Plan - Assessment and Plan (Free Text) Plan: Assessment S/P systemic Inflammatory Response syndrome with fever, R/O sepsis R/O encephalitis, consider UTI with yeast in the urine right hand swelling R/O DVT S/P ventilator-dependent respiratory failure in a patient with hyperglycemia and metabolic acidosis in a patient with DM, probable Kat[place]ka rash on the perineum acute on chronic renal failure DM HTN obesity with BMI 32 Plan continue Merrem, Mycamine and Acyclovir (Day 5) - cultures have been negative; CXR does not show infiltrates; reviewed CT head showing left occipital scalp hematoma (which is also seen on the brain MRI) awaiting identification of the yeast in the urine follow up dopper U/S right upper extremity will continue to monitor clinically Prognosis is guarded at best
[2017-03-20] MEDS: Micafungin 100 MG in Sodium Chloride 0.9% 100 ML IV SCH (12:37)
--- NOTE | 2017-03-20 12:57 | PN ---
DATE: SUBJECTIVE: The patient is currently seen returning from having had a venous Doppler of his upper extremity. Results are pending. The patient has an indwelling Abad catheter, which is draining well. MEDICATIONS: Medication list reviewed. The patient is currently on acyclovir, diltiazem, insulin, Lopressor, Lovenox, meropenem, micafungin, Nystatin, Protonix, and Tylenol p.r.n. OBJECTIVE: INTAKE/OUTPUT: Intake not charted and output 1900. VITAL SIGNS: Blood pressure 104/54, temperature 98.2, respiratory rate 20 with a pulse of 71. HEENT: Shows him to be normocephalic and atraumatic. Conjunctivae pink. Sclerae nonicteric. NECK: Supple. No neck vein distention. CHEST: Clear to auscultation and percussion. No rales or rhonchi. No wheezing. CARDIOVASCULAR: Shows a regular rate and rhythm without audible murmurs, rubs, or gallops. ABDOMEN: Soft. Bowel sounds normal. No rebound or guarding. No masses. EXTREMITIES: Show no pitting edema. Puffiness and edema of his upper extremities. No cyanosis. No clubbing. LABORATORY DATA AND IMAGING: Microbiology, all cultures are negative today with the exception of yeast growing out of his urine on 03/13/2017. Repeat urine cultures have been negative. Repeat blood cultures have been negative. C diff is negative. CBC, white blood cell count from yesterday was 5.2 with hemoglobin of 11.6 and platelet count 193,000. Chemistries from yesterday showed a BUN of 32 and creatinine of 2.0. Electrolytes otherwise normal. Glucose is 285, calcium 7.3, phosphorus 3.1, magnesium 2.1, and albumin is 2.6. Repeat urine showed TNTC rbc's and TNTC wbc's. ASSESSMENT: 1. Acute renal failure superimposed on chronic kidney disease stage III, suspect. Old records from the [facility] not available at the time of my initial encounter and at the time of this dictation. The patient had initial drop in his creatinine down to 1.3, it elevated up to 3.7 secondary to obstructive uropathy. The patient's CT scan of the abdomen showed bilateral hydronephrosis possibly secondary to bladder dysfunction. He was seen by Urology and for now the patient will an indwelling Abad catheter. His creatinine is now back to 2.0 and expected fall back into the low 1 range. 2. Uncontrolled diabetes mellitus secondary to noncompliance, status post diabetic ketoacidosis on admission. 3. Altered mental status, this appears to be improving with time, possible encephalitis. 4. Obstructive uropathy as noted above. The patient will need outpatient followup. 5. Mild anemia, currently stable. PLAN: 1. Continue IV antibiotic therapy, antiviral therapy, and antifungal therapy as per Infectious Disease. 2. Continue to monitor accurate I's and O's. 3. Await report of the patient's upper extremity venous Doppler study to rule out DVT. 4 Try and obtain outpatient records from the patient's family and from the [facility], where he had received his care prior to coming to this hospital. Munir Moran MD
[2017-03-20] MEDS: Heparin 25,000units in D5W 25,000 UNITS/250 ML BAG IV PRN (13:05)
--- NOTE | 2017-03-20 13:17 | CP.PCM.PN ---
<ANGELICA DIAZ - Last Filed: 03/20/17 13:13> Subjective - Date & Time of Evaluation Date of Evaluation: 03/20/17 Time of Evaluation: 13:14 - Subjective Subjective: Medicine Progress Note for Dr. Linder: Pt was seen and examined at bedside. Pt denies any acute overnight events. Pt is alert and oriented and able to answer questions appropriately. Pt states that the swelling in right hand seems to be worse today. Pt denies CP, SOB, n/v/ d, fever, chills, abdominal pain, dysuria, fatigue, or dizziness. Objective - Vital Signs/Intake and Output Vital Signs (last 24 hours): Temp Pulse Resp BP Pulse Ox 98.2 F 71 20 104/54 L 97 03/20/17 08:41 03/20/17 08:41 03/20/17 08:41 03/20/17 10:11 03/20/17 08:41 Intake and Output: 03/20/17 03/20/17 06:59 18:59 Output Total 1900 Balance -1900 - Medications Medications: Current Medications Acetaminophen (Tylenol 325mg Tab) 650 mg PO Q6H PRN PRN Reason: TEMP>=99.5F Acetaminophen (Tylenol 650 Mg Supp) 650 mg RC Q6H PRN PRN Reason: TEMP>=99.5F Last Admin: 03/17/17 03:50 Dose: 650 mg Diltiazem HCl (Cardizem) 60 mg PO TID [facility] Last Admin: 03/20/17 10:11 Dose: Not Given Meropenem 1g/NS 100mL IVPB (Meropenem 1g/Ns 100ml Ivpb) 1 gm in 100 mls @ 100 mls/hr IVPB Q12 [facility] PRN Reason: Protocol Stop: 03/22/17 10:01 Last Admin: 03/20/17 10:13 Dose: 100 mls/hr Acyclovir 800 mg/ Sodium (Chloride) 100 mls @ 100 mls/hr IV Q12 [facility] PRN Reason: Protocol Stop: 03/23/17 17:31 Last Admin: 03/20/17 12:29 Dose: 100 mls/hr Micafungin Sodium 100 mg/ (Sodium Chloride) 100 mls @ 100 mls/hr IV DAILY [facility] PRN Reason: Protocol Stop: 03/27/17 10:01 Last Admin: 03/20/17 12:37 Dose: 100 mls/hr Heparin Sodium/Dextrose (Heparin 25,000 Units/250ml In D5w) 25,000 units in 250 mls @ 19.641 mls/hr IV .[id number] PRN; Protocol; 18 UNITS/KG/HR PRN Reason: ADJUST RATE PER PROTOCOL Last Admin: 03/20/17 13:05 Dose: 18 units/kg/hr, 19.641 mls/hr Insulin Detemir (Levemir) 30 unit SC Q12 [facility] Last Admin: 03/20/17 10:12 Dose: 30 unit Insulin Human Regular (Humulin R Low) 0 units SC ACHS [facility] PRN Reason: Protocol Last Admin: 03/20/17 12:38 Dose: Not Given Metoprolol Tartrate (Lopressor) 25 mg PO BID [facility] Last Admin: 03/20/17 10:12 Dose: Not Given Nystatin (Nystop Topical Powder) 1 gm TOP BID [facility] Last Admin: 03/20/17 10:14 Dose: 1 applic Pantoprazole Sodium (Protonix Inj) 40 mg IVP Q12 [facility] Last Admin: 03/20/17 10:13 Dose: 40 mg - Labs Labs: 03/19/17 16:10 03/19/17 16:10 PT 12.7 Seconds (9.9-11.8) H 03/12/17 08:30 INR 1.18 (0.93-1.08) H 03/12/17 08:30 APTT 30.1 Seconds (23.7-30.8) 03/12/17 08:30 - Constitutional Appears: No Acute Distress - Head Exam Head Exam: ATRAUMATIC, NORMOCEPHALIC - Eye Exam Eye Exam: EOMI, PERRL - ENT Exam ENT Exam: Mucous Membranes Moist - Neck Exam Neck Exam: Full ROM - Respiratory Exam Respiratory Exam: Clear to Ausculation Bilateral. absent: Rales, Rhonchi, Wheezes - Cardiovascular Exam Cardiovascular Exam: RRR. absent: Gallop, Rubs, Murmur - GI/Abdominal Exam GI & Abdominal Exam: Soft. absent: Distended, Guarding, Tenderness, Rebound - Exam Additional comments: Urine per henriquez straw colored - Extremities Exam Additional comments: Swelling on right hand increased with multiple blisters on dorsum of hand. No swelling in LUE or b/l LE - Neurological Exam Neurological Exam: Alert, Awake, Oriented x3 - Psychiatric Exam Psychiatric exam: Normal Affect, Normal Mood - Skin Skin Exam: Dry, Intact, Normal Color, Warm Assessment and Plan - Assessment and Plan (Free Text) Assessment: 71yo M with PMHx including HTN and DM here with AMS, DKA, SIRS, and LUE DVT. Plan: 1. LUE DVT - Upper extremity venous duplex showed DVT in left proximal basilic vein - Heparin 8700 unit bolus followed by Heparin drip per DVT protocol 2. AMS - Pt clinically improving as he is awake, alert, and oriented x3 - PT/OT eval/treat requested - promote OOB and ambulate as tolerated - CT head - no intracranial hemorrhage. Left occipital scalp hematoma - MRI Brain - poor study due motion artifact. No evidence of acute infarct. 1cm cyst or solid lesion at right posterior fossa - Ammonia - wnl - Carotid US - bilateral 20-39% proximal ICA stenosis. Antegrade flow in vertebrals - Neurology following, appreciate recs - Speech eval - high risk for aspiration 3. Severe Sepsis, improving - Spine MRI ordered to r/o spinal abscess Lumbar MRI showed multilevel DDD, multilevel disc bulge, no stenosis, if clinical concern for arachnoiditis get MRI with IV Thoracic MRI negative - Leukocytosis improving, Afebrile - ID following, appreciate recs - Blood Cxs - negative - Urine Cxs - urine per henriquez showed no growth; f/u identification of yeast in urine - Nystatin Topical for rash - Merrem 1 gm IVPB Q12H day 5 - Acyclovir 800 mg IVPB Q12H day 5 - Mycamine 100 mg IVPB daily day 5 4. DKA, resolved - gap closed - likely secondary to severe sepsis, UTI - Endocrindology following, appreciate recs - ISS coverage - Levemir 30U SC q12 5. Electrolyte abnormalities - Recheck and replete as needed 6. Renal insufficiency - Urology consulted for renal cyst found on CT No urologic intervention needed at this time - Nephrology following - Renal US - mild R hydronephrosis - BUN/Creat improving - continue to monitor 7. Positive FOB - CT - no abdominal abscess or suspicious fluid collections. Bilateral renal cysts, right greater than left - GI consulted, appreciate recs continue to monitor H/H for GI bleed - on protonix 40q12 8. Mildly Elevated Troponins - Cardiology following, appreciate recs - No evidence of heart failure - tolerating current IV fluids - Cont Cardizem and Lopressor GI/DVT PPx - Protonix - DVT ppx covered with Heparin drip Dispo: High risk for aspiration Palliative care consult appreciated. DNR/DNI. If patient does not improve clinically, alternate options may be discussed [facility]: NO blood products. Blood expanding products okay to use Pt seen and disccused in detail with Dr. Linder. Christian Diaz PGY1 <Paulino Linder U - Last Filed: 03/24/17 21:58> Objective - Vital Signs/Intake and Output Vital Signs (last 24 hours): Temp Pulse Resp BP Pulse Ox 97.9 F 68 20 110/60 98 03/24/17 16:44 03/24/17 17:57 03/24/17 16:44 03/24/17 17:22 03/24/17 16:44 Intake and Output: 03/24/17 03/25/17 18:59 06:59 Intake Total 320 600 Output Total 700 900 Balance -380 -300 - Medications Medications: Current Medications Acetaminophen (Tylenol 325mg Tab) 650 mg PO Q6H PRN PRN Reason: TEMP>=99.5F Acetaminophen (Tylenol 650 Mg Supp) 650 mg RC Q6H PRN PRN Reason: TEMP>=99.5F Last Admin: 03/17/17 03:50 Dose: 650 mg Apixaban (Eliquis) 5 mg PO BID [facility] PRN Reason: Protocol Last Admin: 03/24/17 18:39 Dose: 5 mg Diltiazem HCl (Cardizem) 60 mg PO TID [facility] Last Admin: 03/24/17 18:39 Dose: 60 mg Fluconazole (Diflucan) 100 mg PO DAILY [facility] PRN Reason: Protocol Last Admin: 03/24/17 10:11 Dose: 100 mg Insulin Detemir (Levemir) 10 unit SC DAILY [facility] Last Admin: 03/24/17 10:12 Dose: 1 unit Insulin Human Regular (Humulin R Low) 0 units SC ACHS [facility] PRN Reason: Protocol Last Admin: 03/24/17 18:40 Dose: 3 units Magnesium Oxide (Mag-Ox) 400 mg PO BID [facility] Last Admin: 03/24/17 18:39 Dose: 400 mg Metoprolol Tartrate (Lopressor) 25 mg PO BID [facility] Last Admin: 03/24/17 17:22 Dose: Not Given Nystatin (Nystop Topical Powder) 1 gm TOP BID [facility] Last Admin: 03/23/17 17:32 Dose: 1 applic Pantoprazole Sodium (Protonix Ec Tab) 40 mg PO 0600 [facility] Last Admin: 03/24/17 05:41 Dose: 40 mg Valacyclovir HCl (Valtrex) 1 gm PO DAILY [facility] PRN Reason: Protocol Last Admin: 03/24/17 17:24 Dose: 1 gm - Labs Labs: 03/24/17 05:30 03/23/17 05:00 PT 13.7 Seconds (9.9-11.8) H 03/22/17 08:50 INR 1.27 (0.93-1.08) H 03/22/17 08:50 APTT 59.1 Seconds (23.7-30.8) H 03/22/17 08:50 Attending/Attestation - Attestation I have personally seen and examined this patient.: Yes I have fully participated in the care of the patient.: Yes I have reviewed all pertinent clinical information, including history, physical exam and plan: Yes
--- NOTE | 2017-03-20 14:39 | PN ---
ENDO FOLLOWUP NOTE LOCATION: In room 372. SUBJECTIVE: This is a 71-year-old male with recent uncontrolled type 2 insulin-requiring diabetes, now being followed closely for metabolic management. He presented here with acute respiratory failure and was initially intubated at that time and has since then improved clinically and hemodynamically as noted thereof. His latest glucose levels today are fluctuating, but improved and have ranged from 137 to 157 mg/dL. His glucose levels were 270 to 295 last night as noted. The latest chemistries shows a BUN of 32, sodium 140, potassium 3.7, chloride 107, CO2 of 24, glucose 285 and creatinine 2.0. So at this time, we will continue the same basal insulin to allow for dose equilibration and keep him on the Levemir given as 30 units subcu at 12 hours as ordered. We will titrate incrementally as indicate to optimize metabolic control. We will follow and advise accordingly. Trinidad Gomez MD
--- NOTE | 2017-03-20 15:59 | US ---
HISTORY: Arm pain and swelling. Evaluate for deep venous thrombosis. PHYSICIAN(S): Bernardo Escalera MD. FINDINGS: There is catheter associated thrombus the left basilic vein above the elbow. The left internal jugular vein and visualized left subclavian vein are patent and unremarkable. There is no sonographic evidence for deep venous thrombosis the visualized segments of the right upper extremity. IMPRESSION: 1. Catheter-associated thrombus in the left basilic vein above the elbow. Catheter should be removed.
[2017-03-20 19:48] LABS: INR 1.3 (0.93-1.08)
[2017-03-20 19:49] LABS: PARTIAL THROMBOPLASTIN TIME 73.7 Seconds (23.7-30.8)
--- NOTE | 2017-03-20 20:23 | PN ---
DATE: 03/20/2017 SUBJECTIVE: The patient is seen today in recliner in room 372 bed 2. The patient is out of bed to chair. The patient was examined. The patient is alert, awake, responsive, oriented to person and place. The patient was noted to have swelling of the bilateral upper extremities, left more than the right. The patient's overnight nurse's notes were reviewed. OBJECTIVE: GENERAL: Pleasant at this time. VITAL SIGNS: T-max 98.2, pulse is 80, blood pressure 118/64, respiration 20, O2 sat 96%. HEENT: Head examination: Normocephalic, atraumatic. HEENT examination shows pinkish conjunctivae. Anicteric sclerae. No oropharyngeal lesion. NECK: No neck rigidity. CHEST: Symmetrical. LUNG: Examination shows occasional rhonchi, positive swelling of the bilateral lower extremities noted. Positive midline noted. ABDOMEN: Obese. Positive bowel sound. GENITALIA: Male. Positive Abad catheter noted. Clear urine noted. EXTREMITIES: Lower extremities show no pitting edema, no calf tenderness, no Salima's signs. VASCULAR EXAMINATION: Palpable pulses. SCD noted. MUSCULOSKELETAL: Examination shows a BMI of 37. NEUROLOGIC: The patient is alert, awake, oriented x1 to 2. LABORATORY DATA: None from today, reason unknown. The patient has been ordered daily labs which has not done. Fingerstick blood sugar 153, 157, 137, 295, 270. Stool occult blood not repeated yet. C diff antigen was done yesterday which is antigen and toxin x2 negative. DIAGNOSTIC DATA: X-ray shows moderate degenerative osteoarthrosis in the glenohumeral and acromioclavicular joint of the right shoulder. No fracture. The patient's venous Doppler of the upper extremities was done which shows left basilic vein associated thrombosis, left basilic vein catheter-associated thrombosis. IMPRESSION AND PLAN: 1. Acute left upper extremity, left basilic vein catheter-associated thrombosis. 2. Right upper extremity weakness secondary to moderate degenerative osteoarthrosis of the right glenohumeral and acromioclavicular joint. 3. Morbid obesity with elevated body mass index of 37. 4. Status post diabetic ketoacidosis, status post ventilator-dependent respiratory failure. 5. History of hypertension, normotension now. 6. Leukocytosis with granulocytosis and bandemia. 7. Normocytic anemia. 8. Altered mental status with encephalopathy versus questionable suspicion of encephalitis. 9. Uncontrolled insulin-requiring diabetes mellitus with hyperglycemia with hemoglobin A1c of greater than 14 and elevated fructosamine of 324. 10. Hypokalemia. 11. Hypernatremia. 12. Acute kidney injury with underlying chronic kidney disease stage 3/4. 13. Hypomagnesemia. 14. Hyper and hypophosphatemia. 15. Hypoalbuminemia. 16. Hyperprocalcitoninemia. 17. Hypocalcemia. 18. Hypo and hyperphosphatemia. 19. Elevated prostate-specific antigen of 8.7. 20. Hypertriglyceridemia and hypercholesterolemia with elevated LDL and decreased HDL. 21. Fecal occult blood positive, etiology undetermined. 22. with proteinuria, glycosuria, ketonuria, microscopic hematuria, pyuria, bacteriuria. 23. Systemic inflammatory response syndrome with fever, possible sepsis versus possible encephalitis. 24. with possible urinary tract infection. 25. Perineal Candidal rash. 26. Status post diabetic ketoacidosis and increased anion gap metabolic acidosis and lactic acidosis. 27. Left upper extremity left basilic vein catheter-associated thrombosis. 28. Lumbar spine multilevel degenerative disc disease with disc bulging, foramen stenosis, bilateral facet arthropathy, neural foraminal stenosis, disc protrusion, facet arthropathy, and possible impingement of the right L4 nerve root with apparent mild thickening of the nerve roots of the cauda equina. 29. Moderate bi-hemispheric cerebral dysfunction. PLAN: At this time, the patient's PICC line will be removed. The patient is started on heparin anticoagulation. The patient has been ordered repeat labs which is already ordered in the computer. CURRENT CONSULTATIONS: 1. Cardiology. 2. Endocrinology. 3. Gastroenterology. 4. Infectious Disease. 5. Nephrology. 6. Neurology. CURRENT MEDICATIONS: Cardizem 60 mg 3 times a day, heparin drip has been ordered, Humulin R low dose sliding scale coverage, Levemir 30 units q.12, Lopressor 25 mg twice a day, meropenem 1 g IV q. 12, micafungin 100 mg IV daily, nystatin powder to the affected area, Protonix 40 mg daily, Tylenol 650 q.6 p.r.n. Zovirax 800 mg IV q.12. The patient's diet has been advanced To bite size thin, moderate consistent carbohydrate, low fat, low cholesterol, renal on dialysis 2 g sodium diet with 1:1 feeding assistance. The patient's case has been referred to Physical Therapy. The patient was seen by speech therapist. The patient tolerated solid food. The patient was noted by the speech therapist to be currently safe for diet to be advanced to bite size with thin liquid, discontinue puree. The patient's family met with the social media developer. The patient will be continued on the above therapeutic intervention. The patient has been ordered out of bed to chair. The patient was seen by the physical therapist. Their recommendation was to continue physical therapy and subacute rehab. At present, the patient is to be continued on the above therapeutic intervention with close monitoring. The patient's left upper extremity PICC line and midline will be removed as soon as the anticoagulation was started. Paulino Linder MD
[2017-03-21] MEDS: Heparin 25,000units in D5W 25,000 UNITS/250 ML BAG IV PRN ×2 (01:46→11:59)
[2017-03-21 08:40] LABS: BASO # 0.01 K/mm3 (0.0-2.0); BASO % 0.1 % (0.0-3.0); EOS # 0.3 (0.0-0.7); EOS % 3.1 % (1.5-5.0); GRAN # 4.24 (1.4-6.5); GRAN % 51.3 % (50.0-68.0); HEMATOCRIT 36.5 % (42.0-52.0); MEAN CELL VOLUME 89.5 fl (80.0-105.0); MEAN CORPUSCULAR HEMOGLOBIN 29.2 pg (25.0-35.0); MEAN CORPUSCULAR HGB CONC 32.6 g/dl (31.0-37.0); MEAN PLATELET VOLUME 9.3 fl (7.0-11.0); MONO # 0.8 (0.1-0.6); MONO % 9.5 % (1.0-6.0); RED CELL DISTRIBUTION WIDTH 13.8 % (11.5-14.5); WHITE BLOOD COUNT 8.3 10^3/ul (4.5-11.0)
[2017-03-21 08:44] LABS: ALB/GLOB RATIO 0.8 (1.1-1.8); ALKALINE PHOSPHATASE 79 U/L (38-126); ALT/SGPT 22 U/L (7-56); AST/SGOT 39 U/L (17-59); BILIRUBIN,DIRECT 0.3 mg/dL (0.0-0.4); BILIRUBIN,TOTAL 0.3 mg/dL (0.2-1.3); BLOOD UREA NITROGEN 21 mg/dL (7-21); CALCIUM 7.7 mg/dL (8.4-10.5); CARBON DIOXIDE 28 mmol/L (21-33); CHLORIDE 108 mmol/L (98-107); GFR AFRICAN-AMERICAN > 60; GLUCOSE,RANDOM 54 mg/dL (70-110); MAGNESIUM 1.9 mg/dL (1.7-2.2); PHOSPHOROUS 3.6 mg/dL (2.5-4.5); POTASSIUM 3.3 mmol/L (3.6-5.0); SODIUM 143 mmol/L (132-148); TOTAL PROTEIN 6.2 g/dL (5.8-8.3)
[2017-03-21] MEDS: Insulin Reg-LOW-Coverage SC SCH ×4 (08:54→21:16)
[2017-03-21] MEDS: Potassium Chloride 40 mEq/30 ml LIQ UD PO SCH ×2 (09:34→10:34)
[2017-03-21] MEDS: Micafungin 100 MG in Sodium Chloride 0.9% 100 ML IV SCH (10:18)
[2017-03-21] MEDS: Nystatin 100,000 Units/gm Topical Pow(15 gm) TOP SCH (10:19)
--- NOTE | 2017-03-21 10:20 | CP.PCM.PN ---
<JEREMIAHANGELICA - Last Filed: 03/21/17 11:57> Subjective - Date & Time of Evaluation Date of Evaluation: 03/21/17 Time of Evaluation: 10:15 - Subjective Subjective: Medicine Progress Note for Dr. Linder: Pt seen and examined at bedside. Pt denies any acute overnight events. Pt states that he is feeling better. Pt tolerates diet well. Pt is OOB to chair and bathroom. Pt denies CP, SOB, n/v/d, fever, chills, abdominal pain, dysuria, polyuria, focal deficits, dizziness, or fatigue. Objective - Vital Signs/Intake and Output Vital Signs (last 24 hours): Temp Pulse Resp BP Pulse Ox 97.5 F L 67 18 143/61 98 03/21/17 06:00 03/21/17 06:00 03/21/17 06:00 03/21/17 06:00 03/21/17 06:00 Intake and Output: 03/21/17 03/21/17 06:59 18:59 Intake Total 850 Output Total 600 Balance 250 - Medications Medications: Current Medications Acetaminophen (Tylenol 325mg Tab) 650 mg PO Q6H PRN PRN Reason: TEMP>=99.5F Acetaminophen (Tylenol 650 Mg Supp) 650 mg RC Q6H PRN PRN Reason: TEMP>=99.5F Last Admin: 03/17/17 03:50 Dose: 650 mg Diltiazem HCl (Cardizem) 60 mg PO TID [facility] Last Admin: 03/20/17 17:29 Dose: 60 mg Meropenem 1g/NS 100mL IVPB (Meropenem 1g/Ns 100ml Ivpb) 1 gm in 100 mls @ 100 mls/hr IVPB Q12 [facility] PRN Reason: Protocol Stop: 03/22/17 10:01 Last Admin: 03/20/17 22:00 Dose: 100 mls/hr Acyclovir 800 mg/ Sodium (Chloride) 100 mls @ 100 mls/hr IV Q12 [facility] PRN Reason: Protocol Stop: 03/23/17 17:31 Last Admin: 03/21/17 01:39 Dose: 100 mls/hr Micafungin Sodium 100 mg/ (Sodium Chloride) 100 mls @ 100 mls/hr IV DAILY [facility] PRN Reason: Protocol Stop: 03/27/17 10:01 Last Admin: 03/20/17 12:37 Dose: 100 mls/hr Heparin Sodium/Dextrose (Heparin 25,000 Units/250ml In D5w) 25,000 units in 250 mls @ 19.641 mls/hr IV .[id number] PRN; Protocol; 18 UNITS/KG/HR PRN Reason: ADJUST RATE PER PROTOCOL Last Admin: 03/21/17 01:46 Dose: 18 units/kg/hr, 19.641 mls/hr Insulin Detemir (Levemir) 30 unit SC Q12 [facility] Last Admin: 03/20/17 22:43 Dose: 30 unit Insulin Human Regular (Humulin R Low) 0 units SC ACHS [facility] PRN Reason: Protocol Last Admin: 03/21/17 08:54 Dose: Not Given Metoprolol Tartrate (Lopressor) 25 mg PO BID [facility] Last Admin: 03/20/17 17:30 Dose: 25 mg Nystatin (Nystop Topical Powder) 1 gm TOP BID [facility] Last Admin: 03/20/17 17:31 Dose: 1 applic Pantoprazole Sodium (Protonix Inj) 40 mg IVP Q12 [facility] Last Admin: 03/20/17 22:43 Dose: 40 mg Potassium Chloride (Potassium Chloride Oral Soln) 40 meq PO Q1H [facility] Stop: 03/21/17 10:31 - Labs Labs: 03/21/17 08:30 03/21/17 08:30 PT 14.0 Seconds (9.9-11.8) H 03/20/17 19:24 INR 1.30 (0.93-1.08) H 03/20/17 19:24 APTT 102.7 Seconds (23.7-30.8) H* 03/21/17 08:30 - Constitutional Appears: No Acute Distress - Head Exam Head Exam: ATRAUMATIC, NORMOCEPHALIC - Eye Exam Eye Exam: EOMI, PERRL - ENT Exam ENT Exam: Mucous Membranes Moist - Neck Exam Neck Exam: Full ROM. absent: Lymphadenopathy, Tenderness, Thyromegaly - Respiratory Exam Respiratory Exam: Clear to Ausculation Bilateral. absent: Rales, Rhonchi, Wheezes - Cardiovascular Exam Cardiovascular Exam: RRR. absent: Diastolic murmur, Gallop, Rubs, Murmur - GI/Abdominal Exam GI & Abdominal Exam: Soft. absent: Distended, Guarding, Tenderness, Mass, Rebound - Extremities Exam Extremities Exam: Normal Inspection - Neurological Exam Neurological Exam: Alert, Awake, Oriented x3 - Psychiatric Exam Psychiatric exam: Flat Affect, Normal Mood - Skin Skin Exam: Dry, Intact, Normal Color, Warm Assessment and Plan - Assessment and Plan (Free Text) Assessment: 71yo M with PMHx including HTN and DM here with AMS, DKA, SIRS, and LUE DVT. Plan: 1. LUE DVT - Upper extremity venous duplex showed DVT in left proximal basilic vein - Cont Heparin drip per DVT protocol 2. AMS - Pt clinically improving as he is awake, alert, and oriented x3 - PT/OT eval/treat requested - promote OOB and ambulate as tolerated - CT head - no intracranial hemorrhage. Left occipital scalp hematoma - MRI Brain - poor study due motion artifact. No evidence of acute infarct. 1cm cyst or solid lesion at right posterior fossa - Ammonia - wnl - Carotid US - bilateral 20-39% proximal ICA stenosis. Antegrade flow in vertebrals - Neurology following, appreciate recs - Speech eval - high risk for aspiration 3. Severe Sepsis, resolved - Afebrile, no leukocytosis - Spine MRI ordered to r/o spinal abscess Lumbar MRI showed multilevel DDD, multilevel disc bulge, no stenosis, if clinical concern for arachnoiditis get MRI with IV Thoracic MRI negative - ID following, appreciate recs Merrem 1 gm IVPB Q12H day 6 Acyclovir 800 mg IVPB Q12H day 6, switch to PO valtrex apon completion of acyclovir day 7 Mycamine 100 mg IVPB daily day 6 - Blood Cxs - negative - Urine Cxs - urine per henriquez showed no growth; f/u identification of yeast in urine - Nystatin Topical for rash 4. DKA, resolved - gap closed - likely secondary to severe sepsis, UTI - Endocrindology following, appreciate recs - ISS coverage - Levemir 30U SC q12 5. Electrolyte abnormalities - Potassium 3.3 today, repleted - Cont to monitor and replete as necessary 6. Renal insufficiency - Urology consulted for renal cyst found on CT No urologic intervention needed at this time - Nephrology following - Renal US - mild R hydronephrosis - BUN/Creat improving - continue to monitor 7. Positive FOB - CT - no abdominal abscess or suspicious fluid collections. Bilateral renal cysts, right greater than left - GI consulted, appreciate recs continue to monitor H/H for GI bleed - on protonix 40q12 8. Mildly Elevated Troponins - Cardiology following, appreciate recs - No evidence of heart failure - tolerating current IV fluids - Cont Cardizem and Lopressor GI/DVT PPx - Protonix - DVT ppx covered with Heparin drip Dispo: High risk for aspiration Palliative care consult appreciated. DNR/DNI. If patient does not improve clinically, alternate options may be discussed Restorationist: NO blood products. Blood expanding products okay to use Pt seen and disccused in detail with Dr. Linder. Christian Diaz PGY1 <Paulino Linder U - Last Filed: 03/24/17 21:58> Objective - Vital Signs/Intake and Output Vital Signs (last 24 hours): Temp Pulse Resp BP Pulse Ox 97.9 F 68 20 110/60 98 03/24/17 16:44 03/24/17 17:57 03/24/17 16:44 03/24/17 17:22 03/24/17 16:44 Intake and Output: 03/24/17 03/25/17 18:59 06:59 Intake Total 320 600 Output Total 700 900 Balance -380 -300 - Medications Medications: Current Medications Acetaminophen (Tylenol 325mg Tab) 650 mg PO Q6H PRN PRN Reason: TEMP>=99.5F Acetaminophen (Tylenol 650 Mg Supp) 650 mg RC Q6H PRN PRN Reason: TEMP>=99.5F Last Admin: 03/17/17 03:50 Dose: 650 mg Apixaban (Eliquis) 5 mg PO BID [facility] PRN Reason: Protocol Last Admin: 03/24/17 18:39 Dose: 5 mg Diltiazem HCl (Cardizem) 60 mg PO TID [facility] Last Admin: 03/24/17 18:39 Dose: 60 mg Fluconazole (Diflucan) 100 mg PO DAILY [facility] PRN Reason: Protocol Last Admin: 03/24/17 10:11 Dose: 100 mg Insulin Detemir (Levemir) 10 unit SC DAILY [facility] Last Admin: 03/24/17 10:12 Dose: 1 unit Insulin Human Regular (Humulin R Low) 0 units SC ACHS [facility] PRN Reason: Protocol Last Admin: 03/24/17 18:40 Dose: 3 units Magnesium Oxide (Mag-Ox) 400 mg PO BID [facility] Last Admin: 03/24/17 18:39 Dose: 400 mg Metoprolol Tartrate (Lopressor) 25 mg PO BID [facility] Last Admin: 03/24/17 17:22 Dose: Not Given Nystatin (Nystop Topical Powder) 1 gm TOP BID [facility] Last Admin: 03/23/17 17:32 Dose: 1 applic Pantoprazole Sodium (Protonix Ec Tab) 40 mg PO 0600 [facility] Last Admin: 03/24/17 05:41 Dose: 40 mg Valacyclovir HCl (Valtrex) 1 gm PO DAILY [facility] PRN Reason: Protocol Last Admin: 03/24/17 17:24 Dose: 1 gm - Labs Labs: 03/24/17 05:30 03/23/17 05:00 PT 13.7 Seconds (9.9-11.8) H 03/22/17 08:50 INR 1.27 (0.93-1.08) H 03/22/17 08:50 APTT 59.1 Seconds (23.7-30.8) H 03/22/17 08:50 Attending/Attestation - Attestation I have personally seen and examined this patient.: Yes I have fully participated in the care of the patient.: Yes I have reviewed all pertinent clinical information, including history, physical exam and plan: Yes
[2017-03-21] MEDS: Insulin Detemir 100 units/ml Vial (Levemir) SC SCH ×2 (10:31→21:14)
[2017-03-21] MEDS: Meropenem 1g/NS 100mL IVPB 1 GM/100 ML PIGGYBACK IVPB SCH ×2 (10:34→21:08)
--- NOTE | 2017-03-21 10:39 | CP.PCM.PN ---
Subjective - Date & Time of Evaluation Date of Evaluation: 03/21/17 Time of Evaluation: 09:55 - Subjective Subjective: Comfortable, not in distress, afebrile. Decreasing swelling of the right forearm. Objective - Vital Signs/Intake and Output Vital Signs (last 24 hours): Temp Pulse Resp BP Pulse Ox 98.1 F 74 20 118/64 96 03/20/17 16:00 03/20/17 18:00 03/20/17 16:00 03/20/17 17:29 03/20/17 16:00 Intake and Output: 03/20/17 03/21/17 18:59 06:59 Intake Total 850 Output Total 600 Balance 250 - Medications Medications: Current Medications Acetaminophen (Tylenol 325mg Tab) 650 mg PO Q6H PRN PRN Reason: TEMP>=99.5F Acetaminophen (Tylenol 650 Mg Supp) 650 mg RC Q6H PRN PRN Reason: TEMP>=99.5F Last Admin: 03/17/17 03:50 Dose: 650 mg Diltiazem HCl (Cardizem) 60 mg PO TID [facility] Last Admin: 03/20/17 17:29 Dose: 60 mg Meropenem 1g/NS 100mL IVPB (Meropenem 1g/Ns 100ml Ivpb) 1 gm in 100 mls @ 100 mls/hr IVPB Q12 [facility] PRN Reason: Protocol Stop: 03/22/17 10:01 Last Admin: 03/20/17 22:00 Dose: 100 mls/hr Acyclovir 800 mg/ Sodium (Chloride) 100 mls @ 100 mls/hr IV Q12 [facility] PRN Reason: Protocol Stop: 03/23/17 17:31 Last Admin: 03/21/17 01:39 Dose: 100 mls/hr Micafungin Sodium 100 mg/ (Sodium Chloride) 100 mls @ 100 mls/hr IV DAILY [facility] PRN Reason: Protocol Stop: 03/27/17 10:01 Last Admin: 03/20/17 12:37 Dose: 100 mls/hr Heparin Sodium/Dextrose (Heparin 25,000 Units/250ml In D5w) 25,000 units in 250 mls @ 19.641 mls/hr IV .[id number] PRN; Protocol; 18 UNITS/KG/HR PRN Reason: ADJUST RATE PER PROTOCOL Last Admin: 03/21/17 01:46 Dose: 18 units/kg/hr, 19.641 mls/hr Insulin Detemir (Levemir) 30 unit SC Q12 [facility] Last Admin: 03/20/17 22:43 Dose: 30 unit Insulin Human Regular (Humulin R Low) 0 units SC ACHS [facility] PRN Reason: Protocol Last Admin: 03/20/17 22:32 Dose: Not Given Metoprolol Tartrate (Lopressor) 25 mg PO BID [facility] Last Admin: 03/20/17 17:30 Dose: 25 mg Nystatin (Nystop Topical Powder) 1 gm TOP BID [facility] Last Admin: 03/20/17 17:31 Dose: 1 applic Pantoprazole Sodium (Protonix Inj) 40 mg IVP Q12 [facility] Last Admin: 03/20/17 22:43 Dose: 40 mg - Labs Labs: 03/19/17 16:10 03/19/17 16:10 PT 14.0 Seconds (9.9-11.8) H 03/20/17 19:24 INR 1.30 (0.93-1.08) H 03/20/17 19:24 APTT 74.1 Seconds (23.7-30.8) H* 03/21/17 01:45 - Constitutional Appears: Non-toxic, No Acute Distress - Head Exam Head Exam: NORMAL INSPECTION - ENT Exam ENT Exam: Mucous Membranes Moist - Neck Exam Neck Exam: absent: Lymphadenopathy, Meningismus - Respiratory Exam Respiratory Exam: Decreased Breath Sounds - Cardiovascular Exam Cardiovascular Exam: +S1, +S2 - GI/Abdominal Exam GI & Abdominal Exam: Soft. absent: Tenderness - Extremities Exam Additional comments: right forearm with some swelling Assessment and Plan - Assessment and Plan (Free Text) Plan: Assessment S/P systemic Inflammatory Response syndrome with fever, R/O sepsis R/O encephalitis, consider UTI with yeast in the urine right forearm swelling with no evidence of DVT but with basilic vein ( superficial vein) thrombosis S/P ventilator-dependent respiratory failure in a patient with hyperglycemia and metabolic acidosis in a patient with DM, probable Katiuska rash on the perineum acute on chronic renal failure DM HTN obesity with BMI 32 Plan continue Merrem, Mycamine and Acyclovir (Day 6) - cultures have been negative; CXR does not show infiltrates; reviewed CT head showing left occipital scalp hematoma (which is also seen on the brain MRI) - can switch to PO Valtrex, would complete 7 days of Merrem still awaiting identification of the yeast in the urine recommend removal of the IV line on the right basilic vein will continue to monitor clinically
[2017-03-21 15:40] LABS: INR 1.17 (0.93-1.08); PARTIAL THROMBOPLASTIN TIME 31.6 Seconds (23.7-30.8)
--- NOTE | 2017-03-21 16:41 | PN ---
ENDO FOLLOWUP NOTE LOCATION: In room 372. SUBJECTIVE: This is a 71-year-old male with recent uncontrolled type 2 insulin-requiring diabetes, now being followed closely for metabolic management. His glycemic levels are fluctuating, but much lower at this time with a perfume and toilet water maker hypoglycemia as noted thereof and glucose levels have ranging from 54 to 93 mg/dL. The latest glucose level today is 180 as noted. Chemistries shows BUN of 21, sodium 143, potassium 3.3, chloride 108, CO2 of 28, glucose 54 and creatinine 1.4. So at this time, we will modify once again his basal insulin and lower the Levemir to 14 units subcu every 12 hours as ordered. We will titrate incrementally as indicate to optimize metabolic control. We will obtain serum chemistries and supplement accordingly as needed. We will follow with you. Trinidad Gomez MD
[2017-03-21 23:00] LABS: INR 1.24 (0.93-1.08)
[2017-03-21 23:02] LABS: PARTIAL THROMBOPLASTIN TIME 79.4 Seconds (23.7-30.8)
--- NOTE | 2017-03-22 01:02 | PN ---
DATE: 03/21/2017 SUBJECTIVE: The patient is seen lying in bed. He is resting comfortably. He does not appear to be in any kind of distress. PHYSICAL EXAMINATION: GENERAL: Morbidly obese elderly male lying in bed. VITAL SIGNS: Blood pressure 121/60, heart rate 79, respiratory rate 20, temperature 98.3. HEENT: Normocephalic, atraumatic. NECK: Supple, no JVD. LUNGS: Bilateral equal entry, no rales. CARDIAC: S1 and S2. Regular rate and rhythm. No murmur, no rub. ABDOMEN: Obese, distended, soft, nontender, bowel sounds present. EXTREMITIES: 1+ pitting edema of the lower extremities. INTAKE AND OUTPUT: 815/600. LABORATORY DATA: WBC 8.8, hemoglobin 11.9, hematocrit 36.5, platelets 275. Sodium 143, potassium 3.3, chloride 108, CO2 is 28, BUN 21, creatinine 1.4, glucose 54, calcium 7.7, phosphorus 3.6, magnesium 1.9, albumin 2.7, corrected calcium 8.6, AST 39, ALT 32. Clostridium difficile negative. Urine culture negative. Blood culture from 03/16/2017, no growth. CURRENT MEDICATIONS: Cardizem 60 t.i.d., Eliquis 10 mg b.i.d., heparin at 18 units/kg/hour, insulin, Lopressor 25 b.i.d., meropenem 1 g q. 12, micafungin 100 daily, nystatin, Protonix, Tylenol, valacyclovir 1 g daily. ASSESSMENT: 1. Acute kidney injury, multifactorial, slowly resolving. 2. Encephalitis?/encephalopathy, improving. 3. Poorly controlled diabetes. 4. Status post diabetic ketoacidosis. 5. Sepsis related acute tubular necrosis plus urinary retention plus prerenal azotemia, acute kidney injury. 6. Underlying chronic kidney disease stage II/III suspect. 7. Cellulitis/catheter related thrombosis on the left basilic vein. 8. Dementia?. PLAN: 1. Continue antifungals, antibacterial, antiviral. 2. Agree with anticoagulation. 3. Replace potassium aggressively. 4. Push p.o. intake. 5. Add glycemic control. Caitlyn Coburn, MD
--- NOTE | 2017-03-22 01:29 | PN ---
DATE: 03/21/2017 LOCATION: The patient is seen in room 372, bed 2. SUBJECTIVE: The patient is seen lying in the bed with the patient's at bedside. The patient is alert, awake, and responsive. The last 24 hours events were explained to the patient's today and the patient's overnight nurse's notes were reviewed. The patient's left upper extremity DVT was confirmed on the ultrasound. The patient's PICC line was removed by the biomedical specialist overnight. The patient is awaiting for replacement PICC line placement. The patient was seen between the hours of 11:00 a.m. and 12 noon. PHYSICAL EXAMINATION: VITAL SIGNS: T-max 98.3, pulse 79, blood pressure is 143/61, and O2 saturation 96%. HEAD: Head examination, normocephalic and atraumatic. HEENT: Shows pinkish conjunctivae. Anicteric sclerae. No oropharyngeal lesion. NECK: No neck rigidity. CHEST: Kyphosis. LUNGS: Shows no rales, crackles or wheezing. CARDIOVASCULAR: S1 and S2, regular rhythm. Questionable soft systolic murmur at the left sternal border an d right second intercostal space. ABDOMEN: Soft and obese. Positive bowel sound. GENITALIA: Male. Positive Abad catheter, EXTREMITIES: Shows positive SCDs of the lower extremity. Left upper extremity swelling more than the right. PICC line removed from the left upper extremity. MUSCULOSKELETAL: Shows a body mass index of 37. NEUROLOGIC: Cranial nerves II-XII limited. Gait examination could not be tested. VASCULAR: Palpable pulses. DIAGNOSTICS STUDIES: From 03/21/2017, WBC 8.3, hemoglobin/hematocrit 11.9/36.5, and platelet 275. PTT this morning was 74, repeat PT 102, repeat PT/PTT 12.6/31.6. Chemistry; sodium 143, potassium was 3.3, chloride 108, CO2 28, anion gap 10, BUN 21, creatinine is down to 1.4, GFR greater than 60, glucose 285 and 254, calcium 7.7, and albumin 2.7. CURRENT MEDICATIONS: Cardizem 60 mg 3 times a day. The patient was started on Eliquis 10 mg twice a day for 7 days. The patient's heparin will be discontinued once Eliquis is started. The patient is on Humulin low dose sliding scale coverage, Levemir decreased to 14 units q.12 hours, Lopressor 25 mg twice a day, meropenem 1 g IV q.12 hours, micafungin 100 mg daily, nystatin powder, Protonix 40 mg p.o. daily, Tylenol p.r.n., and Valtrex 1 g p.o. daily. IMPRESSION: 1. Status post diabetic ketoacidosis. 2. Status post ventilator dependent respiratory failure. 3. Left upper extremity, left basilic vein catheter associated thrombosis. 4. Left anterior hemiblock. 5. Anteroseptal lateral coronary ischemic changes. 6. Left ventricular hypertrophy. 7. Moderately impaired left ventricular systolic function. 8. Calcified aortic valve. 9. Mild mitral annular calcification. 10. Moderate global left ventricular hypokinesis. 11. Encephalopathy. 12. Acute kidney injury with underlying chronic kidney disease stage III. 13. Systemic inflammatory response syndrome with high-grade fever, possible sepsis, and possible encephalitis with funguria. PLAN: At this time, the patient's condition, diagnoses, overall decompensated state, and need for 24-hour care and supervision, need for aggressive physical therapy, need for significant assistance with all the activities of daily living, it was explained to the patient and the patient's at length. The patient's was also suggested to consider 24-hour care at home upon discharge from subacute rehab versus alf placement. Plan at this time, the patient is to be continued on therapeutic intervention. The patient is a DNR/DNI . The patient's repeat labs ordered. PT/PTT ordered. The patient is started on Eliquis 10 mg twice a day for 1 week and heparin drip will be discontinued after 6 hours. Repeat CBC, PT/PTT ordered. Current consultations Cardiology, Endocrinology, Gastroenterology, Infectious Disease, Nephrology, Neurology, and Urology. Plan at this time, the patient has been ordered physical therapy, occupational therapy, ambulation therapy, out of bed, and gait training. The patient's case referred to subacute rehab according to the social services assistant. The patient's case is referred to [facility]. The patient is seen by physical therapy. Recommend to continue PT and subacute rehab. Dictated and electronically signed, not read. Paulino Linder MD
[2017-03-22 05:54] LABS: INR 1.36 (0.93-1.08)
[2017-03-22] MEDS: Pantoprazole 40 mg EC Tab PO SCH (06:16)
[2017-03-22 06:35] LABS: BASO # 0.02 K/mm3 (0.0-2.0); BASO % 0.3 % (0.0-3.0); EOS # 0.2 (0.0-0.7); EOS % 3.7 % (1.5-5.0); HEMATOCRIT 34.9 % (42.0-52.0); LYMPH # 2.3 (1.2-3.4); LYMPH % 37.7 % (22.0-35.0); MEAN CELL VOLUME 89.9 fl (80.0-105.0); MEAN CORPUSCULAR HEMOGLOBIN 29.6 pg (25.0-35.0); MONO # 0.5 (0.1-0.6); MONO % 8.3 % (1.0-6.0); RED CELL DISTRIBUTION WIDTH 13.6 % (11.5-14.5)
[2017-03-22 06:44] LABS: ALB/GLOB RATIO 0.7 (1.1-1.8); ALKALINE PHOSPHATASE 77 U/L (38-126); ALT/SGPT 21 U/L (7-56); AST/SGOT 46 U/L (17-59); BILIRUBIN,DIRECT 0.3 mg/dL (0.0-0.4); BILIRUBIN,TOTAL 0.3 mg/dL (0.2-1.3); BLOOD UREA NITROGEN 18 mg/dL (7-21); CALCIUM 7.5 mg/dL (8.4-10.5); CARBON DIOXIDE 27 mmol/L (21-33); CHLORIDE 109 mmol/L (98-107); GFR AFRICAN-AMERICAN > 60; GLUCOSE,RANDOM 57 mg/dL (70-110); MAGNESIUM 1.7 mg/dL (1.7-2.2); PHOSPHOROUS 3.6 mg/dL (2.5-4.5); POTASSIUM 3.5 mmol/L (3.6-5.0); SODIUM 143 mmol/L (132-148); TOTAL PROTEIN 5.8 g/dL (5.8-8.3)
[2017-03-22 08:59] LABS: BASO # 0.02 K/mm3 (0.0-2.0); BASO % 0.3 % (0.0-3.0); EOS # 0.2 (0.0-0.7); EOS % 3.5 % (1.5-5.0); GRAN # 3.06 (1.4-6.5); GRAN % 51.3 % (50.0-68.0); HEMATOCRIT 35.4 % (42.0-52.0); LYMPH # 2.3 (1.2-3.4); LYMPH % 38.5 % (22.0-35.0); MEAN CELL VOLUME 89.4 fl (80.0-105.0); MEAN CORPUSCULAR HEMOGLOBIN 29.3 pg (25.0-35.0); MEAN CORPUSCULAR HGB CONC 32.8 g/dl (31.0-37.0); MEAN PLATELET VOLUME 8.7 fl (7.0-11.0); MONO # 0.4 (0.1-0.6); MONO % 6.4 % (1.0-6.0); RED CELL DISTRIBUTION WIDTH 13.4 % (11.5-14.5)
[2017-03-22 09:10] LABS: INR 1.27 (0.93-1.08); PARTIAL THROMBOPLASTIN TIME 59.1 Seconds (23.7-30.8)
[2017-03-22] MEDS ORDERED: Sodium Chloride 0.9% 1,000 ML IV STA (09:19)
[2017-03-22] MEDS: Insulin Reg-LOW-Coverage SC SCH ×4 (09:20→22:53)
[2017-03-22] MEDS: Micafungin 100 MG in Sodium Chloride 0.9% 100 ML IV SCH (09:21)
[2017-03-22] MEDS: Insulin Detemir 100 units/ml Vial (Levemir) SC SCH (09:32)
[2017-03-22] MEDS: Meropenem 1g/NS 100mL IVPB 1 GM/100 ML PIGGYBACK IVPB SCH (09:35)
[2017-03-22] MEDS: Nystatin 100,000 Units/gm Topical Pow(15 gm) TOP SCH ×3 (09:42→17:42)
--- NOTE | 2017-03-22 10:56 | PN ---
DATE: 03/22/2017 SUBJECTIVE: The patient is awake, alert. No shortness of breath. No chest pain. OBJECTIVE: VITAL SIGNS: Blood pressure is 150/60, the heart rates in the 60s. NECK: Negative JVD. LUNGS: Without rales. HEART: S1, S2. EXTREMITIES: Without edema. LABORATORY DATA: Hemoglobin is 11.6. Chemistries, glucose varies between 56 and 67, potassium is 3.5. IMPRESSION: 1. Status post altered mental status which is now resolved. 2. Diabetes mellitus. 3. Renal insufficiency. 4. Peripheral vascular disease. PLAN: Given these findings, the patient is request being transferred to the bed at [facility]. I have talked to the about calling receiving doctor which the patient is actively doing. If the doctor in the [place] is going to accept, we will help make arrangements for transfer to the [place]. Bernardo Cruz MD
--- NOTE | 2017-03-22 13:55 | CP.PCM.PN ---
Subjective - Date & Time of Evaluation Date of Evaluation: 03/22/17 Time of Evaluation: 11:00 - Subjective Subjective: Resting comfortably in bed, not in distress. No fevers. Objective - Vital Signs/Intake and Output Vital Signs (last 24 hours): Temp Pulse Resp BP Pulse Ox 98.3 F 79 20 121/60 96 03/21/17 17:02 03/21/17 18:38 03/21/17 17:02 03/21/17 18:38 03/21/17 17:02 Intake and Output: 03/22/17 03/22/17 06:59 18:59 Intake Total 889 360 Output Total 800 600 Balance 89 -240 - Medications Medications: Current Medications Acetaminophen (Tylenol 325mg Tab) 650 mg PO Q6H PRN PRN Reason: TEMP>=99.5F Acetaminophen (Tylenol 650 Mg Supp) 650 mg RC Q6H PRN PRN Reason: TEMP>=99.5F Last Admin: 03/17/17 03:50 Dose: 650 mg Apixaban (Eliquis) 10 mg PO BID [facility] PRN Reason: Protocol Stop: 03/28/17 10:01 Last Admin: 03/21/17 23:19 Dose: 10 mg Diltiazem HCl (Cardizem) 60 mg PO TID [facility] Last Admin: 03/21/17 18:38 Dose: 60 mg Meropenem 1g/NS 100mL IVPB (Meropenem 1g/Ns 100ml Ivpb) 1 gm in 100 mls @ 100 mls/hr IVPB Q12 [facility] PRN Reason: Protocol Stop: 03/22/17 10:01 Last Admin: 03/21/17 21:08 Dose: 100 mls/hr Micafungin Sodium 100 mg/ (Sodium Chloride) 100 mls @ 100 mls/hr IV DAILY [facility] PRN Reason: Protocol Stop: 03/27/17 10:01 Last Admin: 03/21/17 10:18 Dose: 100 mls/hr Insulin Detemir (Levemir) 14 unit SC Q12 [facility] Last Admin: 03/21/17 21:14 Dose: 14 unit Insulin Human Regular (Humulin R Low) 0 units SC ACHS [facility] PRN Reason: Protocol Last Admin: 03/21/17 21:16 Dose: Not Given Metoprolol Tartrate (Lopressor) 25 mg PO BID [facility] Last Admin: 03/21/17 18:38 Dose: 25 mg Nystatin (Nystop Topical Powder) 1 gm TOP BID [facility] Last Admin: 03/21/17 10:19 Dose: 1 applic Pantoprazole Sodium (Protonix Ec Tab) 40 mg PO 0600 [facility] Last Admin: 03/22/17 06:16 Dose: 40 mg Valacyclovir HCl (Valtrex) 1 gm PO DAILY [facility] PRN Reason: Protocol Last Admin: 03/21/17 16:12 Dose: 1 gm - Labs Labs: 03/22/17 06:15 03/22/17 06:15 PT 14.7 Seconds (9.9-11.8) H 03/22/17 05:20 INR 1.36 (0.93-1.08) H 03/22/17 05:20 APTT 79.4 Seconds (23.7-30.8) H* 03/21/17 22:36 - Constitutional Appears: Non-toxic, No Acute Distress - Head Exam Head Exam: NORMAL INSPECTION - ENT Exam ENT Exam: Mucous Membranes Moist - Neck Exam Neck Exam: absent: Meningismus - Respiratory Exam Respiratory Exam: Decreased Breath Sounds - Cardiovascular Exam Cardiovascular Exam: +S1, +S2 - GI/Abdominal Exam GI & Abdominal Exam: Soft. absent: Tenderness Assessment and Plan - Assessment and Plan (Free Text) Plan: Assessment S/P systemic Inflammatory Response syndrome with fever, R/O sepsis R/O encephalitis, consider UTI with yeast in the urine right forearm swelling with no evidence of DVT but with basilic vein ( superficial vein) thrombosis S/P ventilator-dependent respiratory failure in a patient with hyperglycemia and metabolic acidosis in a patient with DM, probable [place] rash on the perineum acute on chronic renal failure DM HTN obesity with BMI 32 Plan on Merrem, Mycamine and Acyclovir (Day 7) - cultures have been negative; CXR does not show infiltrates; reviewed CT head showing left occipital scalp hematoma (which is also seen on the brain MRI) - can switch to PO Valtrex, would complete 7 days of Merrem (will d/c today) may switch to PO Diflucan for another 3-5 days recommend removal of the IV line on the right basilic vein will continue to monitor clinically
--- NOTE | 2017-03-22 15:01 | PN ---
ENDOCRINOLOGY FOLLOWUP NOTE DATE: LOCATION: Room 372. This is a 71-year-old male with recent uncontrolled type 2 insulin-requiring diabetes, now being followed closely for metabolic management. His oral intake remains very poor and variable at this time. Continues to have low normal glycemic profile especially in the morning as noted. Repeat level of 67 and the latest glucose is 158 mg/dL. His latest chemistry showed the BUN of 18, sodium 143, potassium 3.5, chloride 109, CO2 of 27, glucose 57, and creatinine 1.2. So at this time, we will lower the Levemir to 10 units subcu every 10 a.m. daily as ordered. We will titrate incrementally as indicated to optimize metabolic control. We will obtain serum chemistries and supplement accordingly as needed. We will follow with you. Trinidad Gomez MD
--- NOTE | 2017-03-22 15:11 | CP.PCM.PN ---
<JEREMIAHANGELICA - Last Filed: 03/22/17 15:08> Subjective - Date & Time of Evaluation Date of Evaluation: 03/22/17 Time of Evaluation: 15:08 - Subjective Subjective: Medicine Progress Note for Dr. Linder: Pt seen and examined at bedside. Nursing noticed blood in the henriquez and around the penile meatus this AM. Pt denies any pain, CP, SOB, n/v/d, chills, fever, abdominal pain, dysuria, dizziness, or fatigue. Objective - Vital Signs/Intake and Output Vital Signs (last 24 hours): Temp Pulse Resp BP Pulse Ox 98.7 F 77 18 128/63 98 03/22/17 14:34 03/22/17 14:37 03/22/17 14:34 03/22/17 14:37 03/22/17 14:34 Intake and Output: 03/22/17 03/22/17 06:59 18:59 Intake Total 889 360 Output Total 800 600 Balance 89 -240 - Medications Medications: Current Medications Acetaminophen (Tylenol 325mg Tab) 650 mg PO Q6H PRN PRN Reason: TEMP>=99.5F Acetaminophen (Tylenol 650 Mg Supp) 650 mg RC Q6H PRN PRN Reason: TEMP>=99.5F Last Admin: 03/17/17 03:50 Dose: 650 mg Apixaban (Eliquis) 10 mg PO BID [facility] PRN Reason: Protocol Last Admin: 03/21/17 23:19 Dose: 10 mg Apixaban (Eliquis) 5 mg PO BID [facility] PRN Reason: Protocol Diltiazem HCl (Cardizem) 60 mg PO TID [facility] Last Admin: 03/22/17 14:37 Dose: 60 mg Micafungin Sodium 100 mg/ (Sodium Chloride) 100 mls @ 100 mls/hr IV DAILY [facility] PRN Reason: Protocol Stop: 03/27/17 10:01 Last Admin: 03/22/17 09:21 Dose: 100 mls/hr Insulin Detemir (Levemir) 10 unit SC DAILY [facility] Insulin Human Regular (Humulin R Low) 0 units SC ACHS [facility] PRN Reason: Protocol Last Admin: 03/22/17 11:59 Dose: 1 units Metoprolol Tartrate (Lopressor) 25 mg PO BID [facility] Last Admin: 03/22/17 09:34 Dose: 25 mg Nystatin (Nystop Topical Powder) 1 gm TOP BID [facility] Last Admin: 03/22/17 09:42 Dose: 1 applic Pantoprazole Sodium (Protonix Ec Tab) 40 mg PO 0600 [facility] Last Admin: 03/22/17 06:16 Dose: 40 mg Valacyclovir HCl (Valtrex) 1 gm PO DAILY [facility] PRN Reason: Protocol Last Admin: 03/22/17 10:54 Dose: 1 gm - Labs Labs: 03/22/17 08:50 03/22/17 06:15 PT 13.7 Seconds (9.9-11.8) H 03/22/17 08:50 INR 1.27 (0.93-1.08) H 03/22/17 08:50 APTT 59.1 Seconds (23.7-30.8) H 03/22/17 08:50 - Constitutional Appears: No Acute Distress - Head Exam Head Exam: ATRAUMATIC, NORMOCEPHALIC - Eye Exam Eye Exam: EOMI, PERRL - ENT Exam ENT Exam: Mucous Membranes Moist - Neck Exam Neck Exam: Full ROM. absent: Lymphadenopathy, Tenderness, Thyromegaly - Respiratory Exam Respiratory Exam: Clear to Ausculation Bilateral. absent: Rales, Rhonchi, Wheezes - Cardiovascular Exam Cardiovascular Exam: RRR. absent: Diastolic murmur, Gallop, Rubs, Murmur - GI/Abdominal Exam GI & Abdominal Exam: Soft. absent: Distended, Firm, Guarding, Tenderness, Mass , Organomegaly, Rebound - Exam Additional comments: Hematuria per henriquez bag. Blood around penile meatus. - Neurological Exam Neurological Exam: Alert, Awake, Oriented x3 - Psychiatric Exam Psychiatric exam: Flat Affect, Normal Mood - Skin Skin Exam: Dry, Intact, Normal Color, Warm Assessment and Plan - Assessment and Plan (Free Text) Assessment: 71yo M with PMHx including HTN and DM here with AMS, DKA, SIRS, and LUE DVT. Plan: 1. LUE DVT - Upper extremity venous duplex showed DVT in left proximal basilic vein - Heparin gtt stopped, started Eliquis today, however eliquis has been held due to verito blood in urine 2. Hematuria - Verito blood in urine and at penile meatus - Urology consulted, hematuria due to the henriquez and anticoagulation No intervention needed at this time - H/H stable 3. AMS - Pt clinically improving as he is awake, alert, and oriented x3 - PT/OT eval/treat requested - promote OOB and ambulate as tolerated - CT head - no intracranial hemorrhage. Left occipital scalp hematoma - MRI Brain - poor study due motion artifact. No evidence of acute infarct. 1cm cyst or solid lesion at right posterior fossa - Ammonia - wnl - Carotid US - bilateral 20-39% proximal ICA stenosis. Antegrade flow in vertebrals - Neurology following, appreciate recs - Speech eval - high risk for aspiration 4. Severe Sepsis, resolved - Afebrile, no leukocytosis - Spine MRI ordered to r/o spinal abscess Lumbar MRI showed multilevel DDD, multilevel disc bulge, no stenosis, if clinical concern for arachnoiditis get MRI with IV Thoracic MRI negative - ID following, appreciate recs Merrem 1 gm IVPB Q12H day 7 Acyclovir 800 mg IVPB Q12H day 7 Mycamine 100 mg IVPB daily day 7 DC merrem and acyclovir today and switch to PO valtrex - Blood Cxs - negative - Urine Cxs - urine per henriquez showed no growth; f/u identification of yeast in urine - Nystatin Topical for rash 5. DKA, resolved - gap closed - likely secondary to severe sepsis, UTI - Endocrindology following, appreciate recs Decrease to Levemir 10 units SC daily as blood glucose was 57 today ISS coverage 6. Electrolyte abnormalities - Potassium 3.5 today, repleted - Cont to monitor and replete as necessary 7. Renal insufficiency - Urology consulted for renal cyst found on CT No urologic intervention needed at this time - Nephrology following - Renal US - mild R hydronephrosis - BUN/Creat improving - continue to monitor 8. Positive FOB - CT - no abdominal abscess or suspicious fluid collections. Bilateral renal cysts, right greater than left - GI consulted, appreciate recs continue to monitor H/H for GI bleed - on protonix 40q12 9. Mildly Elevated Troponins - Cardiology following, appreciate recs - No evidence of heart failure - tolerating current IV fluids - Cont Cardizem and Lopressor GI/DVT PPx - Protonix - DVT ppx covered with Heparin drip Dispo: High risk for aspiration Palliative care consult appreciated. DNR/DNI. If patient does not improve clinically, alternate options may be discussed Jew: NO blood products. Blood expanding products okay to use Pt seen and disccused in detail with Dr. Linder. Christian Diaz PGY1 <Paulino Linder U - Last Filed: 03/24/17 21:58> Objective - Vital Signs/Intake and Output Vital Signs (last 24 hours): Temp Pulse Resp BP Pulse Ox 97.9 F 68 20 110/60 98 03/24/17 16:44 03/24/17 17:57 03/24/17 16:44 03/24/17 17:22 03/24/17 16:44 Intake and Output: 03/24/17 03/25/17 18:59 06:59 Intake Total 320 600 Output Total 700 900 Balance -380 -300 - Medications Medications: Current Medications Acetaminophen (Tylenol 325mg Tab) 650 mg PO Q6H PRN PRN Reason: TEMP>=99.5F Acetaminophen (Tylenol 650 Mg Supp) 650 mg RC Q6H PRN PRN Reason: TEMP>=99.5F Last Admin: 03/17/17 03:50 Dose: 650 mg Apixaban (Eliquis) 5 mg PO BID [facility] PRN Reason: Protocol Last Admin: 03/24/17 18:39 Dose: 5 mg Diltiazem HCl (Cardizem) 60 mg PO TID [facility] Last Admin: 03/24/17 18:39 Dose: 60 mg Fluconazole (Diflucan) 100 mg PO DAILY [facility] PRN Reason: Protocol Last Admin: 03/24/17 10:11 Dose: 100 mg Insulin Detemir (Levemir) 10 unit SC DAILY [facility] Last Admin: 03/24/17 10:12 Dose: 1 unit Insulin Human Regular (Humulin R Low) 0 units SC ACHS [facility] PRN Reason: Protocol Last Admin: 03/24/17 18:40 Dose: 3 units Magnesium Oxide (Mag-Ox) 400 mg PO BID [facility] Last Admin: 03/24/17 18:39 Dose: 400 mg Metoprolol Tartrate (Lopressor) 25 mg PO BID [facility] Last Admin: 03/24/17 17:22 Dose: Not Given Nystatin (Nystop Topical Powder) 1 gm TOP BID [facility] Last Admin: 03/23/17 17:32 Dose: 1 applic Pantoprazole Sodium (Protonix Ec Tab) 40 mg PO 0600 [facility] Last Admin: 03/24/17 05:41 Dose: 40 mg Valacyclovir HCl (Valtrex) 1 gm PO DAILY [facility] PRN Reason: Protocol Last Admin: 03/24/17 17:24 Dose: 1 gm - Labs Labs: 03/24/17 05:30 03/23/17 05:00 PT 13.7 Seconds (9.9-11.8) H 03/22/17 08:50 INR 1.27 (0.93-1.08) H 03/22/17 08:50 APTT 59.1 Seconds (23.7-30.8) H 03/22/17 08:50 Attending/Attestation - Attestation I have personally seen and examined this patient.: Yes I have fully participated in the care of the patient.: Yes I have reviewed all pertinent clinical information, including history, physical exam and plan: Yes
--- NOTE | 2017-03-22 15:59 | PN ---
DATE: 03/22/2017 SUBJECTIVE: The patient is seen in his room at [facility]. PHYSICAL EXAMINATION: GENERAL: He is awake and alert, in no acute distress. He is answering questions. VITAL SIGNS: He is afebrile, temperature of 97.7, BP 150/60, respirations 18, and pulse of 63. ABDOMEN: Soft, nontender, and nondistended. GENITOURINARY: Phallus is normal. Abad catheter in place, which is draining clear-colored urine. There is some slightly blood-tinged urine in the drainage bag. There is some dry blood around the urethral meatus. IMPRESSION AND PLAN: The patient had a Abad catheter inserted for urinary retention. He reports he had been voiding well at home prior to admission. The patient was on anticoagulation for venous thrombosis and hematuria is likely a combination of anticoagulation and Abad trauma. The patient is planning to go to a subacute rehab facility. I discussed with him and his the timing of a voiding trial. If the patient is still in need for rehab, I would leave the Abad catheter for now. When he is physically improved, the Abad should be removed for a voiding trial. The patient should have outpatient urologic followup after he finish his rehab to check his voiding and also regarding the history of the elevated PSA. I discussed this with the patient and his and the medical service technician and the plan will be for the patient to be discharged with the Abad catheter. He should have a voiding trial while in rehab when his medical condition is improved. We will recheck him as an outpatient regarding the hematuria and plan on a repeat PSA when he has recovered from his acute illness. Sajan Nguyen MD
--- NOTE | 2017-03-22 21:39 | PN ---
DATE: 03/22/2017 SUBJECTIVE: The patient is seen today in lying in the bed. The patient's is also present at the bedside. Early this morning, the patient developed some hematuria and also some bright red blood noted, questionable from the rectum. PHYSICAL EXAMINATION: VITAL SIGNS: The T-max 98.7, pulse 77, blood pressure 128/63, respiration 18, O2 sat 98%. Intake and output 360 and 600. GENERAL: The patient is seen lying in the bed. The patient is alert, awake, responsive. HEAD: Normocephalic, atraumatic. HEENT: Shows pinkish pale conjunctivae. Anicteric sclerae. No oropharyngeal lesion. NECK: No neck rigidity. CHEST: Kyphosis. LUNGS: Shows occasional rhonchi. CARDIOVASCULAR: S1 and S2, regular rhythm. ABDOMEN: Protuberant, obese. Positive bowel sound. GENITALIA: Male. Positive Abad catheter. EXTREMITY: Shows positive SCDs. MUSCULOSKELETAL: Shows a body mass index of 37. NEUROLOGIC: Cranial nerves II through XII limited. Gait examination not tested. VASCULAR: Palpable pulses. DIAGNOSTICS: From 03/22: WBC 6.0, hemoglobin and hematocrit 11.6 and 35.4, platelet 250. PT and PTT is 13.7 and 59.1. The patient's heparin drip and Eliquis has been stopped. Sodium is 143, potassium 3.5, chloride 109, BUN and creatinine 18 and 1.2, glucose 60, calcium 7.5, total protein of , albumin 2.4. Stool occult blood positive today. IMPRESSION: 1. Questionable and possible traumatic hematuria. 2. Questionable rectal bleeding with fecal occult blood positive. 3. Hypertension. 4. Leukocytosis with granulocytosis. 5. Normocytic anemia. 6. Transient thrombocytopenia. 7. Granulocytosis. 8. Bandemia. 9. Mild coagulopathy. 10. Status post diabetic ketoacidosis. 11. Status post ventilator dependent respiratory failure. 12. Hypokalemia. 13. Acute kidney injury. 14. Uncontrolled insulin-requiring diabetes mellitus with hemoglobin A1C of 14.4. 15. Elevated fructose, mean of 324. 16. Hypocalcemia. 17. Hypophosphatemia and hyperphosphatemia. 18. Hypomagnesemia. 19. Protein malnutrition. 20. Hyperprolactinemia. 21. Elevated prostate-specific antigen of 8.7. 22. Hypertriglyceridemia, hypercholesteremia with elevated LDL and decreased HDL. 23. Questionable non-ST elevation myocardial infarction with elevated troponin. 24. Funguria with proteinuria, glycosuria, ketonuria, hematuria, pyuria, bacteriuria. 25. Fecal occult blood positive. 26. Abnormal EEG with moderate bihemispheric cerebral dysfunction. 27. Questionable sepsis versus systemic inflammatory response syndrome versus questionable encephalitis. 28. Urinary retention with questionable acute tubular necrosis. 29. Left upper extremity, left basilic vein catheter-induced thrombosis. 30. Encephalopathy. 31. Urinary retention. 32. Traumatic hematuria. 33. Gait dysfunction. 34. Deconditioning. 35. Morbid obesity. PLAN: At this time, the patient's Eliquis and heparin has been discontinued. The patient is currently on Cardizem 60 mg 3 times a day. Eliquis is held. The patient is on sliding scale regular insulin low-dose, Levemir 10 units subcu daily which has been adjusted by Dr. Gomez, Lopressor 25 twice a day, micafungin 100 mg daily, nystatin powder for the affected area. The patient was given potassium supplementation, Protonix 40 daily. The patient was given IV fluid hydration. The patient is on Tylenol p.r.n. for fever, Valtrex 1 g p.o. daily. The patient is on dysphagia and diabetic diet. The patient has been seen by physical therapist and ambulation therapy. At present, the patient's condition was discussed with the patient's , who wants the patient instead of subacute rehab to be transferred to the [facility]. I received a call from the chief resident of medicine from [facility]. The patient's condition, diagnosis, and condition was discussed. The chief medical records tech at the [facility] has obtained all the records from [facility] about the patient. According to the medical chief resident at [facility], the condition and the transfers were discussed with the chief of the Department of Medicine, and the patient was not accepted for transfer to [facility] according to the chief medical records tech of [facility]. I have advised chief medical records tech of [facility] to contact the [facility] psychiatric social worker and case management and the patient's family to inform about the decision about the patient's transfer. At present, the best option has been explained to the patient's . At present, the patient will be continued on the above therapeutic intervention with physical therapy and occupational therapy. Dictated and electronically signed, not read. Paulino Linder MD
--- NOTE | 2017-03-23 03:50 | PN ---
DATE: 03/22/2017 SUBJECTIVE: The patient is seen lying in bed, comfortable. He does not appear to be in any kind of distress. He is arousable. PHYSICAL EXAMINATION: GENERAL: Obese, elderly male lying in bed. VITAL SIGNS: Blood pressure 128/63, heart rate 77, respiratory rate 18, and temperature 98.7. HEENT: Normocephalic and atraumatic. NECK: Supple, no JVD. LUNGS: Bilateral equal air entry, bilateral rhonchi, no rales, decreased breath sounds at bases. CARDIAC: S1 and S2, regular rate and rhythm, no murmur, no rub. ABDOMEN: Obese, distended, soft, nontender, bowel sounds present. EXTREMITIES: 1+ pitting edema of the lower extremities. INTAKE AND OUTPUT: 1264/800. LABORATORY DATA: WBC 6, hemoglobin 11.6, hematocrit 35, and platelets 250. Sodium 143, potassium 3.5, chloride 109, CO2 of 27, BUN 18, creatinine 1.2, glucose 57, calcium 7.5, phosphorus 3.6, magnesium 1.7, albumin 2.4, corrected calcium is 8.6, and globulin 3.3. CURRENT MEDICATIONS: Cardizem, Eliquis, insulin, Lopressor, Protonix, Tylenol, valacyclovir 1 g daily, micafungin, nystatin, and Protonix. ASSESSMENT: 1. Resolving acute kidney injury. 2. Resolving sepsis. 3. Resolving encephalopathy. 4. Status post diabetic ketoacidosis. 5. Poorly controlled diabetes. 6. Dementia. PLAN: 1. Continue antifungals, antiviral, antibacterial. 2. Maintain euglycemia. 3. Continue antihypertensives. 4. Monitor urine output. 5. Monitor daily electrolytes. 6. Replace potassium. Caitlyn Coburn MD
[2017-03-23] MEDS: Pantoprazole 40 mg EC Tab PO SCH (05:51)
[2017-03-23] MEDS: Insulin Reg-LOW-Coverage SC SCH ×4 (08:29→22:53)
[2017-03-23 08:58] LABS: BASO # 0.02 K/mm3 (0.0-2.0); BASO % 0.4 % (0.0-3.0); EOS # 0.2 (0.0-0.7); EOS % 4.3 % (1.5-5.0); GRAN # 3.09 (1.4-6.5); GRAN % 57.4 % (50.0-68.0); HEMATOCRIT 33.7 % (42.0-52.0); LYMPH # 1.7 (1.2-3.4); MEAN CELL VOLUME 89.4 fl (80.0-105.0); MEAN CORPUSCULAR HEMOGLOBIN 29.2 pg (25.0-35.0); MEAN CORPUSCULAR HGB CONC 32.6 g/dl (31.0-37.0); MEAN PLATELET VOLUME 8.5 fl (7.0-11.0); MONO # 0.4 (0.1-0.6); MONO % 6.9 % (1.0-6.0); RED CELL DISTRIBUTION WIDTH 13.2 % (11.5-14.5); WHITE BLOOD COUNT 5.4 10^3/ul (4.5-11.0)
[2017-03-23 09:12] LABS: ALB/GLOB RATIO 0.7 (1.1-1.8); ALKALINE PHOSPHATASE 81 U/L (38-126); ALT/SGPT 27 U/L (7-56); AST/SGOT 39 U/L (17-59); BILIRUBIN,DIRECT 0.4 mg/dL (0.0-0.4); BILIRUBIN,TOTAL 0.5 mg/dL (0.2-1.3); BLOOD UREA NITROGEN 15 mg/dL (7-21); CALCIUM 7.8 mg/dL (8.4-10.5); CARBON DIOXIDE 25 mmol/L (21-33); CHLORIDE 108 mmol/L (98-107); GFR AFRICAN-AMERICAN > 60; GLUCOSE,RANDOM 186 mg/dL (70-110); MAGNESIUM 1.5 mg/dL (1.7-2.2); PHOSPHOROUS 3.1 mg/dL (2.5-4.5); POTASSIUM 4.6 mmol/L (3.6-5.0); SODIUM 139 mmol/L (132-148)
[2017-03-23] MEDS: Magnesium Oxide 400 mg Tab UD PO SCH ×2 (10:01→17:31)
[2017-03-23] MEDS: Insulin Detemir 100 units/ml Vial (Levemir) SC SCH (10:02)
[2017-03-23] MEDS: Micafungin 100 MG in Sodium Chloride 0.9% 100 ML IV SCH (10:02)
[2017-03-23] MEDS: Nystatin 100,000 Units/gm Topical Pow(15 gm) TOP SCH ×2 (10:03→17:32)
--- NOTE | 2017-03-23 10:47 | CP.PCM.PN ---
Subjective - Date & Time of Evaluation Date of Evaluation: 03/23/17 Time of Evaluation: 09:50 - Subjective Subjective: Able to walk around his bed without issues, no fevers, no vomiting, no diarrhea. Objective - Vital Signs/Intake and Output Vital Signs (last 24 hours): Temp Pulse Resp BP Pulse Ox 97 F L 85 18 108/55 L 95 03/22/17 17:39 03/23/17 06:00 03/22/17 17:39 03/22/17 17:42 03/22/17 17:39 Intake and Output: 03/23/17 03/23/17 06:59 18:59 Intake Total 660 0 Output Total 1000 650 Balance -340 -650 - Medications Medications: Current Medications Acetaminophen (Tylenol 325mg Tab) 650 mg PO Q6H PRN PRN Reason: TEMP>=99.5F Acetaminophen (Tylenol 650 Mg Supp) 650 mg RC Q6H PRN PRN Reason: TEMP>=99.5F Last Admin: 03/17/17 03:50 Dose: 650 mg Apixaban (Eliquis) 5 mg PO BID COUNT INCLUDES THE [facility] PRN Reason: Protocol Diltiazem HCl (Cardizem) 60 mg PO TID COUNT INCLUDES THE [facility] Last Admin: 03/22/17 17:42 Dose: Not Given Micafungin Sodium 100 mg/ (Sodium Chloride) 100 mls @ 100 mls/hr IV DAILY COUNT INCLUDES THE [facility] PRN Reason: Protocol Stop: 03/27/17 10:01 Last Admin: 03/22/17 09:21 Dose: 100 mls/hr Insulin Detemir (Levemir) 10 unit SC DAILY COUNT INCLUDES THE [facility] Insulin Human Regular (Humulin R Low) 0 units SC ACHS COUNT INCLUDES THE [facility] PRN Reason: Protocol Last Admin: 03/22/17 22:53 Dose: Not Given Metoprolol Tartrate (Lopressor) 25 mg PO BID COUNT INCLUDES THE [facility] Last Admin: 03/22/17 17:42 Dose: Not Given Nystatin (Nystop Topical Powder) 1 gm TOP BID COUNT INCLUDES THE [facility] Last Admin: 03/22/17 17:42 Dose: 1 applic Pantoprazole Sodium (Protonix Ec Tab) 40 mg PO 0600 COUNT INCLUDES THE [facility] Last Admin: 03/23/17 05:51 Dose: 40 mg Valacyclovir HCl (Valtrex) 1 gm PO DAILY [facility] PRN Reason: Protocol Last Admin: 03/22/17 10:54 Dose: 1 gm - Labs Labs: 03/22/17 08:50 03/22/17 06:15 PT 13.7 Seconds (9.9-11.8) H 03/22/17 08:50 INR 1.27 (0.93-1.08) H 03/22/17 08:50 APTT 59.1 Seconds (23.7-30.8) H 03/22/17 08:50 - Constitutional Appears: Non-toxic, No Acute Distress - Head Exam Head Exam: NORMAL INSPECTION - ENT Exam ENT Exam: Mucous Membranes Moist - Neck Exam Neck Exam: absent: Meningismus - Respiratory Exam Respiratory Exam: Decreased Breath Sounds - Cardiovascular Exam Cardiovascular Exam: +S1, +S2 - GI/Abdominal Exam GI & Abdominal Exam: Soft. absent: Tenderness Assessment and Plan - Assessment and Plan (Free Text) Plan: Assessment S/P systemic Inflammatory Response syndrome with fever, R/O sepsis R/O encephalitis, consider UTI with yeast in the urine right forearm swelling with no evidence of DVT but with basilic vein ( superficial vein) thrombosis S/P ventilator-dependent respiratory failure in a patient with hyperglycemia and metabolic acidosis in a patient with DM, probable Katiuska rash on the perineum acute on chronic renal failure DM HTN obesity with BMI 32 Plan on fluconazole and PO Valtrex (Day 8 of 10-14 days) - cultures have been negative; CXR does not show infiltrates; reviewed CT head showing left occipital scalp hematoma (which is also seen on the brain MRI) will continue to monitor clinically
[2017-03-23] MEDS: Magnesium Sulfate 2 GM in Sodium Chloride 0.9% 100 ML IVPB SCH ×2 (11:27→12:35)
--- NOTE | 2017-03-23 14:14 | CP.PCM.PN ---
<ANGELICA DIAZ - Last Filed: 03/23/17 14:03> Subjective - Date & Time of Evaluation Date of Evaluation: 03/23/17 Time of Evaluation: 14:03 - Subjective Subjective: Medicine Progress Note for Dr. Linder: Pt seen and examined at bedside. Pt denies any acute overnight events. Pt denies CP, SOB, n/v/d, abdominal pain, dysuria, fatigue, or dizziness. Objective - Vital Signs/Intake and Output Vital Signs (last 24 hours): Temp Pulse Resp BP Pulse Ox 97 F L 76 18 110/72 95 03/22/17 17:39 03/23/17 13:55 03/22/17 17:39 03/23/17 13:55 03/22/17 17:39 Intake and Output: 03/23/17 03/23/17 06:59 18:59 Intake Total 660 0 Output Total 1000 650 Balance -340 -650 - Medications Medications: Current Medications Acetaminophen (Tylenol 325mg Tab) 650 mg PO Q6H PRN PRN Reason: TEMP>=99.5F Acetaminophen (Tylenol 650 Mg Supp) 650 mg RC Q6H PRN PRN Reason: TEMP>=99.5F Last Admin: 03/17/17 03:50 Dose: 650 mg Apixaban (Eliquis) 5 mg PO BID [facility] PRN Reason: Protocol Last Admin: 03/23/17 10:45 Dose: Not Given Diltiazem HCl (Cardizem) 60 mg PO TID [facility] Last Admin: 03/23/17 13:55 Dose: 60 mg Fluconazole (Diflucan) 100 mg PO DAILY [facility] PRN Reason: Protocol Insulin Detemir (Levemir) 10 unit SC DAILY [facility] Last Admin: 03/23/17 10:02 Dose: 10 unit Insulin Human Regular (Humulin R Low) 0 units SC ACHS [facility] PRN Reason: Protocol Last Admin: 03/23/17 12:36 Dose: Not Given Magnesium Oxide (Mag-Ox) 400 mg PO BID [facility] Last Admin: 03/23/17 10:01 Dose: 400 mg Metoprolol Tartrate (Lopressor) 25 mg PO BID [facility] Last Admin: 03/23/17 10:01 Dose: 25 mg Nystatin (Nystop Topical Powder) 1 gm TOP BID [facility] Last Admin: 03/23/17 10:03 Dose: 1 applic Pantoprazole Sodium (Protonix Ec Tab) 40 mg PO 0600 [facility] Last Admin: 03/23/17 05:51 Dose: 40 mg Valacyclovir HCl (Valtrex) 1 gm PO DAILY [facility] PRN Reason: Protocol Last Admin: 03/22/17 10:54 Dose: 1 gm - Labs Labs: 03/23/17 05:00 03/23/17 05:00 PT 13.7 Seconds (9.9-11.8) H 03/22/17 08:50 INR 1.27 (0.93-1.08) H 03/22/17 08:50 APTT 59.1 Seconds (23.7-30.8) H 03/22/17 08:50 - Constitutional Appears: No Acute Distress - Head Exam Head Exam: ATRAUMATIC, NORMOCEPHALIC - Eye Exam Eye Exam: EOMI, PERRL - ENT Exam ENT Exam: Mucous Membranes Moist - Neck Exam Neck Exam: Full ROM. absent: Lymphadenopathy, Tenderness, Thyromegaly - Respiratory Exam Respiratory Exam: Clear to Ausculation Bilateral. absent: Rales, Rhonchi, Wheezes - Cardiovascular Exam Cardiovascular Exam: RRR. absent: Gallop, Rubs, Murmur - GI/Abdominal Exam GI & Abdominal Exam: Soft. absent: Distended, Guarding, Tenderness, Mass, Rebound - Exam Additional comments: Urine pink colored per henriquez, no verito blood - Extremities Exam Extremities Exam: Normal Inspection - Neurological Exam Neurological Exam: Awake, Oriented x3 - Psychiatric Exam Psychiatric exam: Normal Affect, Normal Mood - Skin Skin Exam: Dry, Intact, Normal Color, Warm Assessment and Plan - Assessment and Plan (Free Text) Assessment: 71yo M with PMHx including HTN and DM here with AMS, DKA, SIRS, and LUE DVT. Plan: 1. LUE DVT - Upper extremity venous duplex showed DVT in left proximal basilic vein - Hematuria improved, however will continue to hold eliquis 2. Hematuria - Urine pink colored per henriquez, no verito blood - Hold eliquis until hematuria is resolved - Urology consulted, hematuria due to the henriquez and anticoagulation No intervention needed at this time - H/H stable 3. AMS - Pt clinically improving as he is awake, alert, and oriented x3 - PT/OT eval/treat requested - promote OOB and ambulate as tolerated - CT head - no intracranial hemorrhage. Left occipital scalp hematoma - MRI Brain - poor study due motion artifact. No evidence of acute infarct. 1cm cyst or solid lesion at right posterior fossa - Ammonia - wnl - Carotid US - bilateral 20-39% proximal ICA stenosis. Antegrade flow in vertebrals - Neurology following, appreciate recs - Speech eval - high risk for aspiration 4. Severe Sepsis, resolved - Afebrile, no leukocytosis - Spine MRI ordered to r/o spinal abscess Lumbar MRI showed multilevel DDD, multilevel disc bulge, no stenosis, if clinical concern for arachnoiditis get MRI with IV Thoracic MRI negative - ID following, appreciate recs Valtrex 1 gm PO daily Fluconazole 100 mg PO daily - Blood Cxs - negative - Urine Cxs - urine per henriquez showed no growth; f/u identification of yeast in urine - Nystatin Topical for rash 5. DKA, resolved - gap closed - likely secondary to severe sepsis, UTI - Endocrindology following, appreciate recs Decrease to Levemir 10 units SC daily as blood glucose was 57 today ISS coverage 6. Electrolyte abnormalities - Potassium 3.6 today, resolved - Mg 1.5, repleted IV and PO - Cont to monitor and replete as necessary 7. Renal insufficiency - Urology consulted for renal cyst found on CT No urologic intervention needed at this time - Nephrology following, recs appreciated - Renal US - mild R hydronephrosis - BUN/Creat improving - continue to monitor 8. Positive FOB - CT - no abdominal abscess or suspicious fluid collections. Bilateral renal cysts, right greater than left - GI consulted, appreciate recs continue to monitor H/H for GI bleed - on protonix 40 daily 9. Mildly Elevated Troponins, resolved - Cardiology following, appreciate recs - No evidence of heart failure - Cont Cardizem and Lopressor GI/DVT PPx - Protonix - DVT, no ppx at this time due to hematuria Dispo: High risk for aspiration Palliative care consult appreciated. DNR/DNI. If patient does not improve clinically, alternate options may be discussed Druze: NO blood products. Blood expanding products okay to use Pt seen and disccused in detail with Dr. Linder. Christian Diaz PGY1 <Paulino Linder U - Last Filed: 03/24/17 21:59> Objective - Vital Signs/Intake and Output Vital Signs (last 24 hours): Temp Pulse Resp BP Pulse Ox 97.9 F 68 20 110/60 98 03/24/17 16:44 03/24/17 17:57 03/24/17 16:44 03/24/17 17:22 03/24/17 16:44 Intake and Output: 03/24/17 03/25/17 18:59 06:59 Intake Total 320 600 Output Total 700 900 Balance -380 -300 - Medications Medications: Current Medications Acetaminophen (Tylenol 325mg Tab) 650 mg PO Q6H PRN PRN Reason: TEMP>=99.5F Acetaminophen (Tylenol 650 Mg Supp) 650 mg RC Q6H PRN PRN Reason: TEMP>=99.5F Last Admin: 03/17/17 03:50 Dose: 650 mg Apixaban (Eliquis) 5 mg PO BID [facility] PRN Reason: Protocol Last Admin: 03/24/17 18:39 Dose: 5 mg Diltiazem HCl (Cardizem) 60 mg PO TID [facility] Last Admin: 03/24/17 18:39 Dose: 60 mg Fluconazole (Diflucan) 100 mg PO DAILY [facility] PRN Reason: Protocol Last Admin: 03/24/17 10:11 Dose: 100 mg Insulin Detemir (Levemir) 10 unit SC DAILY [facility] Last Admin: 03/24/17 10:12 Dose: 1 unit Insulin Human Regular (Humulin R Low) 0 units SC ACHS [facility] PRN Reason: Protocol Last Admin: 03/24/17 18:40 Dose: 3 units Magnesium Oxide (Mag-Ox) 400 mg PO BID [facility] Last Admin: 03/24/17 18:39 Dose: 400 mg Metoprolol Tartrate (Lopressor) 25 mg PO BID [facility] Last Admin: 03/24/17 17:22 Dose: Not Given Nystatin (Nystop Topical Powder) 1 gm TOP BID [facility] Last Admin: 03/23/17 17:32 Dose: 1 applic Pantoprazole Sodium (Protonix Ec Tab) 40 mg PO 0600 [facility] Last Admin: 03/24/17 05:41 Dose: 40 mg Valacyclovir HCl (Valtrex) 1 gm PO DAILY [facility] PRN Reason: Protocol Last Admin: 03/24/17 17:24 Dose: 1 gm - Labs Labs: 03/24/17 05:30 03/23/17 05:00 PT 13.7 Seconds (9.9-11.8) H 03/22/17 08:50 INR 1.27 (0.93-1.08) H 03/22/17 08:50 APTT 59.1 Seconds (23.7-30.8) H 03/22/17 08:50 Attending/Attestation - Attestation I have personally seen and examined this patient.: Yes I have fully participated in the care of the patient.: Yes I have reviewed all pertinent clinical information, including history, physical exam and plan: Yes
--- NOTE | 2017-03-24 04:57 | PN ---
DATE: ENDO FOLLOW NOTE SUBJECTIVE: uncontrolled type 2 insulin requiring diabetes mellitus, now being followed closely for metabolic management.. His glycemic levels are fluctuating, but improved at this time and his latest glucose levels have ranged from 188 to 251 mg/dL. His latest chemistry showed a BUN of 15, sodium 139, potassium 4.6, chloride 108, CO2 25, glucose 186, and creatinine 1.0. So, at this time, will continue the low dose basal insulin. Given Levemir at 10 units subcutaneous daily as ordered. We will titrate incrementally as indicated to optimize metabolic control. We will also continue the low dose correction scale using regular insulin as given. We will obtain serum chemistry and supplement accordingly as needed. We will follow. Trinidad Gomez MD
[2017-03-24] MEDS: Pantoprazole 40 mg EC Tab PO SCH (05:41)
[2017-03-24 06:52] LABS: BASO # 0.02 K/mm3 (0.0-2.0); BASO % 0.4 % (0.0-3.0); EOS # 0.2 (0.0-0.7); EOS % 3.2 % (1.5-5.0); GRAN # 2.97 (1.4-6.5); GRAN % 53.1 % (50.0-68.0); HEMATOCRIT 33.2 % (42.0-52.0); LYMPH % 36.5 % (22.0-35.0); MEAN CELL VOLUME 88.5 fl (80.0-105.0); MEAN CORPUSCULAR HEMOGLOBIN 28.5 pg (25.0-35.0); MEAN CORPUSCULAR HGB CONC 32.2 g/dl (31.0-37.0); MONO # 0.4 (0.1-0.6); MONO % 6.8 % (1.0-6.0); WHITE BLOOD COUNT 5.6 10^3/ul (4.5-11.0)
[2017-03-24] MEDS: Magnesium Oxide 400 mg Tab UD PO SCH ×2 (10:10→18:39)
[2017-03-24] MEDS: Insulin Detemir 100 units/ml Vial (Levemir) SC SCH (10:12)
[2017-03-24] MEDS: Magnesium Sulfate 2 GM in Sodium Chloride 0.9% 100 ML IVPB SCH ×2 (11:16→17:22)
[2017-03-24] MEDS: Insulin Reg-LOW-Coverage SC SCH ×4 (11:30→22:05)
--- NOTE | 2017-03-24 16:22 | PN ---
DATE: 03/24/2017 SUBJECTIVE: The patient is in bed in no acute distress, nontoxic. PHYSICAL EXAMINATION: VITAL SIGNS: Temperature is 97, blood pressure is 150/70, respiratory rate of 20, heart rate of 72. HEENT: Unremarkable. NECK: Supple. LUNGS: Decreased breath sounds. HEART: Normal S1 and S2. ABDOMEN: Soft, nontender. LABORATORY DATA: Examination reveals a white count of 5.6, hemoglobin of 10, platelets of 297. BUN of 15, creatinine of 1.0, procalcitonin 0.7. Urinalysis is noted. Microbiology reveals the urine culture is negative. Stool for C. diff antigen and toxin are negative. The patient is on p.o. Diflucan and p.o. Valtrex. ASSESSMENT AND PLAN: This is a 71-year-old status post SIRS (systemic inflammatory response syndrome) with fever and urinary tract infection and urine as the source and right forearm swelling. No evidence of deep venous thrombosis, but basilic vein, superficial vein thrombosis status post ventilatory dependant respiratory failure in a patient with diabetes and obesity with BMI of 32 and hypertension, on p.o. Diflucan, p.o. Valtrex day #9, with complete 10 to 14 days. The patient is at risk for developing nosocomial infections. Benton Jackman MD
--- NOTE | 2017-03-24 17:11 | PN ---
DATE: 03/24/2017 SUBJECTIVE: The patient is seen lying in bed. He is awake, he is alert, he is comfortable. He is oriented. He does not appear to be in any kind of distress. PHYSICAL EXAMINATION GENERAL: Obese elderly male lying in bed. VITAL SIGNS: Blood pressure 150/70, heart rate 72, respiratory rate 20, temperature 97.7. HEENT: Normocephalic, atraumatic, positive pallor. NECK: Supple, no JVD. LUNGS: Bilateral equal entry, equal expansion. CARDIAC: Regular rate and rhythm, no murmur, no rub. ABDOMEN: Obese, distended, soft, nontender, bowel sounds present. EXTREMITIES: No lower extremity edema. INTAKE AND OUTPUT: 240/2350. LABORATORY DATA: WBC 5.6, hemoglobin 10.7, hematocrit 33.2, platelets 297. No chemistry available. CURRENT MEDICATIONS: Cardizem 60 t.i.d., Diflucan 100 aliquots, insulin, Lopressor 25 b.i.d., mag oxide, nystatin, Protonix, Tylenol, valacyclovir 1 g daily, magnesium sulfate 2 g ordered. ASSESSMENT: 1. Resolved acute kidney injury. 2. Resolving encephalitis?/encephalopathy. 3. Severe diabetes, uncontrolled. 4. Status post diabetic ketoacidosis. 5. Fungal urinary tract infection? 6. Hypertension. PLAN: 1. Continue antibiotics as per ID recommendations. 2. Physical therapy. 3. Monitor a.m. glucose and continue insulin. 4. Discharge planning. Caitlyn Coburn MD
--- NOTE | 2017-03-24 17:43 | PN ---
DATE: 03/23/2017 SUBJECTIVE The patient is seen lying in bed. PHYSICAL EXAMINATION GENERAL: He is awake, he is alert, and he is comfortable. Obese elderly male lying in bed. VITAL SIGNS: Blood pressure 163/65, heart rate 75, respiratory rate 16 to 18, temperature 97.7. HEENT: Normocephalic, atraumatic, positive pallor. NECK: Supple, no JVD. LUNGS: Bilateral equal entry, bilateral equal expansion, no rales. CARDIAC: S1 and S2, regular rate and rhythm, no murmur, no rub. ABDOMEN: Obese, distended, soft, nontender, bowel sounds present. EXTREMITIES: Trace lower extremity edema. INTAKE AND OUTPUT: 1020/1600 LABORATORY DATA WBC 5.4, hemoglobin 11, hematocrit 34, platelets 260. Sodium 139, potassium 4.6, chloride 108, CO2 25, BUN 15, creatinine 1.0, glucose 186, calcium 7.8, phosphorus 3.1 magnesium 1.5, albumin 2.5, corrected calcium is 8.8. CURRENT MEDICATIONS Cardizem, Diflucan, Eliquis insulin, Levemir Lopressor, mag oxide, nystatin, Protonix, Tylenol, valacyclovir 1 g daily ASSESSMENT 1. Acute kidney injury, resolved. 2. Altered mental status, improving. 3. ? Encephalitis. 4. Status post diabetic ketoacidosis. 5. Hypertension. 6. Anemia of chronic disease. PLAN 1. Continue antibiotics as per ID recommendations. 2. Replace magnesium. 3. Monitor fingersticks and continue insulin coverage. 4. Physical therapy Caitlyn Coburn MD
--- NOTE | 2017-03-25 00:41 | PN ---
DATE: 03/23/2017 SUBJECTIVE: The patient is sitting up in the bed with the patient's at bedside. The patient's hematuria has decreased. The patient and and the patient were told that the [facility] has not accepted the patient for inpatient treatment, hospitalization, etc., which they acknowledged understood. Overnight nurse's notes were reviewed. PHYSICAL EXAMINATION: VITAL SIGNS: T-max afebrile, heart rate 68 to 74 to 83, respiration 18 to 20, blood pressure ranging from 114/77 to 142/84 to 135/75, O2 sat is mid-to-high 90s. Intake output reviewed. HEENT AND NECK: Head examination, normocephalic and atraumatic. HEENT examination shows pinkish pale conjunctivae. Anicteric sclerae. No oropharyngeal lesion. No neck rigidity. CHEST: Symmetrical. LUNGS: Shows no rales, crackles or wheezing. CARDIOVASCULAR: S1, S2, regular rhythm. Questionable soft systolic murmur, right second intercostal space, left sternal border. ABDOMEN: Protuberant, obese. GENITALIA: Male. Positive Abad catheter. Decreasing hematuria in the Abad bag. MUSCULOSKELETAL: Examination shows elevated body mass index. NEUROLOGIC: The patient is alert, awake, and responsive, follows simple commands. DIAGNOSTICS: From 03/23/2017 were reviewed and explained to the patient. IMPRESSION AND PLAN: 1. Status post diabetic ketoacidosis. 2. Status post ventilator-dependent respiratory failure. 3. Funguria. 4. Fungal contact dermatitis of the groin and perineal areas. 5. Uncontrolled insulin-requiring diabetes mellitus with hemoglobin A1c of greater than 14. 6. Morbid obesity. 7. Moderate bihemispheric cerebral dysfunction. 8. Possibly traumatic hematuria. 9. Left upper extremity and left arm, left basilic vein deep venous thrombosis secondary to percutaneously inserted central catheter line placement. 10. Leukocytosis with granulocytosis. 11. Systemic inflammatory response syndrome versus questionable and possible sepsis. 12. Increased anion gap metabolic acidosis and lactic acidosis secondary to diabetic ketoacidosis. 13. Hypertension. 14. Tachycardia. 15. Hematuria (resolving). 16. Hypercholesteremia. 17. Elevated prostate-specific antigen. 18. Gait dysfunction. 19. Deconditioning. 20. Anemia. 21. Acute kidney injury with underlying chronic kidney disease stage III. 22. Hypomagnesemia. 23. Hypo and hyperphosphatemia. 24. Hypokalemia. 25. Resolving acute kidney injury. 26. Elevated prostate-specific antigen. 27. Hydroureteronephrosis. 28. Urinary retention. PLAN: At this time, the patient's and the patient has been told about the patient's non-acceptance at [facility]. I have advised the patient's that the patient most likely will require and will benefit from 24-hour care and supervision, whether at home or alternate options. The patient's was advised to contact social media assistant for discharge planning. I have emphasized and indicated very clearly that due to the patient's multiple comorbidities and deconditioned state and multiple complicated comorbidities, the patient will require 24-hour care and supervision. In view of the patient's 's inability to care for the patient, I have advised this is probably the best option. All of the above was explained to the patient and the patient's in layman's language. All questions concerned answered. The patient's medication list was reviewed as per the AUG. The patient's IV antibiotics all have been stopped by Infectious Disease. The patient is medically clear and stable for discharge as the patient has also been cleared by Urology for discharge with outpatient followup with Urology, which has been explained to the patient and the patient's . The patient's medications were reviewed as per the AUG of 01/20/2017. Dictated and electronically signed, not read. Signing off; Paulino Linder MD
[2017-03-25] MEDS: Pantoprazole 40 mg EC Tab PO SCH (05:59)
--- NOTE | 2017-03-25 06:41 | PN ---
ENDOCRINOLOGY FOLLOWUP NOTE: DATE: ROOM: 372. SUBJECTIVE: This is a 71-year-old male with recent uncontrolled type 2 insulin requiring diabetes, now being followed closely for metabolic management. His glycemic levels are fluctuating, but much improved at this time. His oral intake has improved as per the nursing staff. His latest glucose values have ranged from 264 to 295 and 277 mg/dL. His latest chemistry showed a BUN of 16, sodium 139, potassium 4.6, chloride 108, CO2 is 25, glucose 186, and creatinine 1.0. So, at this time, we will actually adding a short-acting insulin to cover his meal time with insulin requirements. We will be adding Humalog given as subcu t.i.d. before meals as ordered. We will titrate incrementally as indicated to optimize metabolic control. We will follow orders have been given. We will obtain serial chemistries and supplement accordingly as needed. We will follow. Trinidad Gomez MD
[2017-03-25 07:53] LABS: BASO # 0.03 K/mm3 (0.0-2.0); BASO % 0.5 % (0.0-3.0); EOS # 0.2 (0.0-0.7); EOS % 2.7 % (1.5-5.0); GRAN # 3.84 (1.4-6.5); GRAN % 59.8 % (50.0-68.0); HEMATOCRIT 33.8 % (42.0-52.0); LYMPH % 31.4 % (22.0-35.0); MEAN CELL VOLUME 88.9 fl (80.0-105.0); MEAN CORPUSCULAR HEMOGLOBIN 28.9 pg (25.0-35.0); MEAN CORPUSCULAR HGB CONC 32.5 g/dl (31.0-37.0); MEAN PLATELET VOLUME 9.3 fl (7.0-11.0); MONO # 0.4 (0.1-0.6); MONO % 5.6 % (1.0-6.0); RED CELL DISTRIBUTION WIDTH 13.1 % (11.5-14.5); WHITE BLOOD COUNT 6.4 10^3/ul (4.5-11.0)
[2017-03-25 08:02] LABS: ALB/GLOB RATIO 0.8 (1.1-1.8); ALKALINE PHOSPHATASE 88 U/L (38-126); ALT/SGPT 30 U/L (7-56); AST/SGOT 38 U/L (17-59); BILIRUBIN,DIRECT 0.4 mg/dL (0.0-0.4); BILIRUBIN,TOTAL 0.4 mg/dL (0.2-1.3); BLOOD UREA NITROGEN 11 mg/dL (7-21); CALCIUM 8.3 mg/dL (8.4-10.5); CARBON DIOXIDE 26 mmol/L (21-33); CHLORIDE 105 mmol/L (98-107); GFR AFRICAN-AMERICAN > 60; GLUCOSE,RANDOM 237 mg/dL (70-110); MAGNESIUM 2.2 mg/dL (1.7-2.2); POTASSIUM 4.2 mmol/L (3.6-5.0); SODIUM 138 mmol/L (132-148); TOTAL PROTEIN 6.2 g/dL (5.8-8.3)
[2017-03-25] MEDS: Insulin Lispro (humaLOG) LOW Coverage SC SCH ×4 (08:42→21:47)
[2017-03-25] MEDS: Insulin Lispro 1 UNITS/0.01 ML SC SCH ×3 (08:46→17:46)
--- NOTE | 2017-03-25 09:19 | PN ---
DATE: 03/24/2017 SUBJECTIVE: The patient is seen again in the bed with the patient's at bedside. The patient is alert, awake, responsive. The patient is stating that he wants to go home, but the patient's wanted him to go to rehab. The patient was seen by the social worker delinquency prevention. As mentioned in yesterday's note, the patient was declined by the [facility]. So the patient's case was referred to [facility] for subacute rehab as per the patient's 's request. The patient is seen sitting up in the bed. The patient is alert, awake, responsive, does not appear to be in any discomfort. The patient's Abad catheter bag is draining dark colored urine. There is significantly less hematuria noted. OBJECTIVE: VITAL SIGNS: T-max afebrile; heart rate 74-86; respirations 18-20; blood pressure 128/78, 130/72, 140/80; respirations 18-20, O2 sat is averaging around 96-98%. GENERAL: The patient is seen sitting up in the bed. HEAD: Examination normocephalic, atraumatic. EENT: Examination shows pinkish conjunctivae. Anicteric sclerae. No oropharyngeal lesion. NECK: No neck rigidity. CHEST: Examination kyphosis. LUNGS: Examination shows no rales, crackles or wheezing. CARDIOVASCULAR: Examination S1, S2, regular rhythm. Questionable soft systolic murmur left sternal border, right second intercostal space. ABDOMEN: Obese, protuberant. GENITALIA: Male. Positive Abad catheter. EXTREMITIES: Shows positive right upper extremity PICC line. Lower extremity shows no pitting edema. No calf tenderness. No Homans' sign. Trace swelling of the lower extremity. MUSCULOSKELETAL: Examination shows an elevated body mass index with obesity. NEUROLOGIC: The patient is alert, awake, responsive, is able to move upper and lower extremity without assistance. The patient's right upper extremity range of motion is increased which was decreased at the time of admission. Gait examination is not tested. VASCULAR: Examination is palpable pulses. NEUROLOGIC: The patient is alert, awake, responsive. DIAGNOSTIC DATA: None from today. The patient's magnesium was low yesterday which was supplemented. IMPRESSION: 1. Status post diabetic ketoacidosis. 2. Status post increased anion gap metabolic acidosis and lactic acidosis. 3. Status post ventilator-dependent respiratory failure. 4. Moderate bihemispheric cerebral dysfunction. 5. Traumatic hematuria (resolving). 6. Urinary retention. 7. Elevated prostate-specific antigen. 8. Uncontrolled insulin-requiring diabetes mellitus with elevated hemoglobin A1c of greater than 11 and 14. 9. Sinus tachycardia. 10. Morbid obesity. 11. Gait dysfunction. 12. Degenerative joint disease and arthritis of the right shoulder and acromioclavicular joint. 13. Left upper extremity, left basilic vein thrombosis secondary to PICC line placement. 14. Status post left upper extremity PICC line removal. 15. Hypertension. 16. Hypovitaminosis D. 17. Altered mental status versus toxic metabolic encephalopathy versus questionable encephalitis. PLAN: At this time, the patient is off all IV antibiotics as per infectious disease. The patient has been placed on all p.o. medication. The patient has been medically stabilized for discharge to subacute rehab if accepted. Even though I have explained to the patient's that the patient most likely will benefit from 24 hours care and supervision whether at home or at alternate options, which the patient's understands and acknowledges. I have explained to the patient's that due to the patient's complicated and multiple comorbidities, the patient will most likely benefit from 24 hours care and supervision. With activities of daily living. The patient is awaiting for discharge to either subacute rehab or other alternates, which ever is acceptable to the patient and the patient's family. Paluino Linder MD
[2017-03-25] MEDS: Magnesium Oxide 400 mg Tab UD PO SCH ×2 (09:50→17:46)
[2017-03-25] MEDS: Nystatin 100,000 Units/gm Topical Pow(15 gm) TOP SCH ×2 (09:54→17:46)
[2017-03-25] MEDS ORDERED: Magnesium Hydroxide Susp 30 ml UD PO STA (17:19)
[2017-03-25] MEDS ORDERED: Sodium Chloride 0.9% 1,000 ML IV SCH (17:30)
[2017-03-25] MEDS: POLYETHYLENE GLYCOL 3350 17 GM/Dose PACKET PO SCH (17:44)
--- NOTE | 2017-03-25 20:44 | PN ---
DATE: 03/25/2017 SUBJECTIVE: The patient is seen in room #372, bed #2. The patient is seen lying in the bed. According to the patient's nurse, the patient has been complaining of constipation. The patient was found to be alert, awake, oriented x2. According to the nurses' notes and complaining of constipation. Overnight nurse's notes were reviewed. OBJECTIVE: The patient is seen lying in the bed. The patient is comfortable in no distress. T max is 97.6, heart rate 70-84, blood pressure 155/66, 160/70, 150/70, respiration 20, O2 sat 100%. Intake output noted. Head examination normocephalic, atraumatic. HEENT examination shows pink conjunctivae. Anicteric sclerae. No oropharyngeal lesion. Dry oral mucosa. No neck rigidity. Chest: Examination kyphosis. Lungs: Examination shows no rales, crackles or wheezing. Cardiovascular: Shows S1, S2, regular rhythm. Abdomen: Soft, obese, protuberant. Positive bowel sounds. Genitalia: Male. Positive Abad catheter. Extremities: Shows no edema. No pitting edema, no calf tenderness. No Homans sign. Neurologic: The patient is alert, awake, responsive, follows command. Moves upper and lower extremity without assistance. Gait examination is not tested. Musculoskeletal: Examination shows a body mass index of 27. Cranial nerves II-XII limited. DIAGNOSTICS: March 25, 2017, WBC 6.4, hemoglobin/hematocrit 11 and 33.8, platelet 334. Normal differential. Sodium 138, potassium 4.2, chloride 105, CO2 26, anion gap 11, BUN 11, creatinine 0.85. GFR greater than 60, glucose 237, calcium 8.3, magnesium 2.2. LFTs are normal. Albumin 2.8. Repeat urine cultures negative. C diff antigen toxin negative. IMPRESSION AND PLAN: 1. Status post diabetic ketoacidosis. 2. Status post ventilator dependent respiratory failure. 3. Constipation. 4. Gait dysfunction and severe deconditioning. 5. Bilateral 20-39% proximal internal carotid artery stenosis. 6. Diffuse cerebral cortical atrophy with microangiopathic cerebral disease. 7. 1-cm lesion of the anterior superior margin of the right side of the incisura or possibility of the superior anterior margin of the right cerebellum, suspicious for a proteinaceous cyst or solid lesion. 8. Bilateral occipital scalp hematoma, left more than the right. 9. Age related neuro degenerative changes. 10. Left upper extremity, left basilic vein thrombosis secondary to PICC line. 11. Bibasilar atelectasis versus pneumonia. 12. Bilateral pleural effusion, right more than the left. 13. Cholecystectomy. 14. Right renal cyst. 15. Urinary retention. 16. Obstructive uropathy. 17. Perinephric streaky changes bilaterally. 18. Prostatomegaly. 19. Multilevel lumbar spondylosis. 20. Bilateral renal cyst, left more than the right. 21. Elevated right hemidiaphragm. 22. Bilateral hydroureteronephrosis with urinary bladder distention. 23. Bilateral hydronephrosis. 24. Urinary retention. 25. Elevated prostate-specific antigen. 26. Bilateral renal cyst. 27. Prostatomegaly. 28. Multilevel lumbar spine degenerative disc disease, posterior disc bulge with bilateral facet arthropathy and for neuroforaminal stenosis and facet arthropathy. 29. Right shoulder degenerative osteoarthrosis of the glenohumeral head and acromioclavicular joint. 30. Left upper extremity, left basilic vein, catheter associated thrombosis. 31. Questionable cardiomyopathy with moderately impaired left ventricular systolic function. 32. Aortic valve calcification. 33. Mild mitral annular calcification. 34. Moderate global LV hypokinesis. 35 Sinus tachycardia and left anterior hemiblock. 36. Left anterior hemiblock with sinus tachycardia. 37. Age indeterminate intraseptal infarct with possible lateral coronary ischemia. 38. Gait dysfunction. 39. Obesity. 40. Left anterior hemiblock. 41. Deconditioning. 42. Moderate bihemispheric cerebral dysfunction. 43. Uncontrolled insulin-requiring diabetes mellitus with hemoglobin A1c of greater than 14 and hyperglycemia and elevated fructosamine of 324. 44. Hyperprolactinemia. 45. Elevated prostate specific antigen of 8.7. 46. Hypertriglyceridemia, hypercholesteremia, elevated LDL and decreased HDL. 47. Questionable non-ST elevation myocardial infarction with elevated troponin. 48. Elevated beta-hydroxybutyrate level of 800. 49. Hypovitaminosis-D. 50. Funguria with proteinuria, glycosuria, ketonuria, hematuria, pyuria, bacteriuria. 51. Fecal occult blood positive, etiology unclear. 52. Gait dysfunction and deconditioning. PLAN: Plan at this time the patient case is referred to [facility] for subacute rehab placement, awaiting acceptance, the patient has been ordered stool softeners for constipation. The patient's current consultations are cardiology, endocrinology, gastroenterology, infectious disease, nephrology, neurology, palliative care and urology. CURRENT MEDICATIONS: Cardizem 60 mg three times a day for pain, Diflucan 100 mg daily, Eliquis 5 mg twice a day, Humalog 4 units with meals, Humalog low dose sliding scale coverage a.c. and at bedtime, Levemir 10 units at bedtime, Lopressor increased to 25 three times a day, magnesium oxide 400 twice a day. The patient is given a dose of milk of magnesia 30 mL stat, MiraLax 17 g twice a day, nystatin powder to the affected area twice a day, Protonix 40 mg daily, the patient is started on IV fluids 0.9 normal saline at 100 mL an hour as the patient's blood pressure at present is 109/63. The patient is started on Tylenol 650 every 6h, p.r.n., Valtrex 1 g daily, the patient is on dysphagia, modified consistency diet, out of bed to chair, SCDs, NELDA stockings, physical therapy, occupational therapy, gait and ambulation therapy ordered. The patient seen by physical therapist. Their recommendation is continue PT subacute rehab. Paulino Linder MD
--- NOTE | 2017-03-25 20:49 | PN ---
DATE: ENDOCRINOLOGY FOLLOWUP NOTE LOCATION: In room ##372. SUBJECTIVE: This is a 71-year-old male with recent uncontrolled type 2 insulin-requiring diabetes, now being followed closely for metabolic management. His glycemic levels are fluctuating, but improved. The latest glucose values today have ranged from 214 to 263 mg/dL. It was 232 to 264 last night as noted. The latest chemistry showed a BUN of 11, sodium 138, potassium 4.2, chloride 105, CO2 of 26, glucose 237 and creatinine 1.0. So at this time, we will modify once again his basal and bolus insulin regimen and increase the Levemir to 12 units subcu at bedtime daily to start tonight. We will titrate incrementally as indicate to optimize metabolic control. We will also continue the same low dose correctional scale using Humalog insulin as given. Moreover, we will increase the Humalog given for the mealtime to 6 units subcu t.i.d. before meals to start tomorrow morning before breakfast as ordered. We will titrate incrementally as indicate to optimize metabolic control. We will follow and advise accordingly. Trinidad Gomez MD
[2017-03-25] MEDS ORDERED: Insulin Detemir 100 units/ml Vial (Levemir) SC SCH ×2 (22:00)
--- NOTE | 2017-03-26 00:45 | PN ---
DATE: SUBJECTIVE: The patient is seen lying in bed. He is awake, he is alert. He is much more oriented. He is in no acute distress. OBJECTIVE: VITAL SIGNS: Blood pressure 155/60, heart rate 74, respiratory rate 18, temperature 97.6. HEENT: Normocephalic, atraumatic, positive pallor. Neck: Supple, no JVD. Lungs Bilateral equal entry, no rales. Cardiac: S1 and S2, regular rate and rhythm, no murmur, no rub. Abdomen: Obese, distended, soft, nontender, bowel sounds present. Extremities: No lower extremity edema. Intake and output 920/2100. LABORATORY DATA: WBC 6.4, hemoglobin 11, hematocrit 34, platelets 334. Sodium 138, potassium of 4.2, chloride 105, CO2 26, BUN 11, creatinine 1.0, glucose 237, calcium 8.3, magnesium 2.2, albumin 2.8. CURRENT MEDICATIONS: List reviewed. ASSESSMENT/PLAN: 1. Resolved acute kidney injury. 2. Resolving encephalopathy/encephalitis. 3. Status post [id number] amputation. 4. Poorly controlled diabetes. 5. Hypertension. 6. Pneumonia. 7. Funguria. PLAN: 1. Continue antibiotics as per the ID recommendations. 2. Monitor fingersticks and continue insulin coverage. 3. Physical therapy. 4. Discharge planning. Caitlyn Coburn MD
[2017-03-26] MEDS: Pantoprazole 40 mg EC Tab PO SCH (06:33)
[2017-03-26 08:02] VITALS: RESP 18; TEMP 98; O2SAT 99
[2017-03-26] MEDS: Insulin Lispro (humaLOG) LOW Coverage SC SCH ×2 (09:13→11:33)
[2017-03-26] MEDS: Insulin Lispro 1 UNITS/0.01 ML SC SCH ×2 (09:19→11:32)
[2017-03-26] MEDS: Magnesium Oxide 400 mg Tab UD PO SCH (09:21)
[2017-03-26] MEDS: Nystatin 100,000 Units/gm Topical Pow(15 gm) TOP SCH (09:22)
[2017-03-26] MEDS: POLYETHYLENE GLYCOL 3350 17 GM/Dose PACKET PO SCH (09:22)
--- NOTE | 2017-03-26 10:22 | PN ---
DATE: 03/25/2017 SUBJECTIVE: The patient is seen earlier today in 372, bed 2. No fevers. No chills. Uneventful night. PHYSICAL EXAMINATION: VITAL SIGNS: Temperature is 97, blood pressure 160/70, and respiratory rate of 16. HEENT: Unremarkable. NECK: Supple. LUNGS: Decreased breath sounds. HEART: Normal S1 and S2. ABDOMEN: Soft. LABORATORY DATA: Reveals a white count of 6.4, hemoglobin of 11, and platelets of 334. Coagulation is negative and blood gasses are noted. Chemistries reveals a BUN of 11 and creatinine is 1.0. Urinalysis is noted. C. diff antigen and toxin are negative. Review of orders reveals the patient to be on p.o. Valtrex and p.o. Diflucan. Dr. Linder's note is appreciated. ASSESSMENT AND PLAN: This is a 71-year-old, status post systemic inflammatory response syndrome with fever and urinary tract infection, and urine as the source. No evidence of deep venous thrombosis, but basilic vein, superficial vein thrombosis status post ventilatory dependant respiratory failure in a patient with diabetes and obesity with BMI of 32, and hypertension, currently on day #10 of Diflucan and Valtrex complete 10 to 14 days. The patient is at risk for developing nosocomial infections. Benton Jackman MD
--- NOTE | 2017-03-26 14:01 | CP.PCM.PN ---
Subjective - Date & Time of Evaluation Date of Evaluation: 03/26/17 Time of Evaluation: 11:10 - Subjective Subjective: Comfortable, no fevers, not in distress. Objective - Vital Signs/Intake and Output Vital Signs (last 24 hours): Temp Pulse Resp BP Pulse Ox 98 F 76 18 116/68 99 03/26/17 08:01 03/26/17 09:21 03/26/17 08:01 03/26/17 09:21 03/26/17 08:01 Intake and Output: 03/26/17 03/26/17 06:59 18:59 Intake Total 1890 Output Total 600 Balance 1290 - Medications Medications: Current Medications Acetaminophen (Tylenol 325mg Tab) 650 mg PO Q6H PRN PRN Reason: TEMP>=99.5F Acetaminophen (Tylenol 650 Mg Supp) 650 mg RC Q6H PRN PRN Reason: TEMP>=99.5F Last Admin: 03/17/17 03:50 Dose: 650 mg Apixaban (Eliquis) 5 mg PO BID [facility] PRN Reason: Protocol Last Admin: 03/26/17 09:19 Dose: 5 mg Diltiazem HCl (Cardizem) 60 mg PO TID [facility] Last Admin: 03/26/17 09:18 Dose: 60 mg Fluconazole (Diflucan) 100 mg PO DAILY [facility] PRN Reason: Protocol Last Admin: 03/26/17 09:18 Dose: 100 mg Sodium Chloride (Sodium Chloride 0.9%) 1,000 mls @ 100 mls/hr IV .Q10H [facility] Stop: 03/26/17 13:29 Last Admin: 03/25/17 17:47 Dose: 100 mls/hr Insulin Detemir (Levemir) 12 unit SC HS [facility] Last Admin: 03/25/17 21:53 Dose: 12 unit Insulin Human Lispro (Humalog Low) 0 units SC ACHS [facility] PRN Reason: Protocol Last Admin: 03/26/17 09:13 Dose: Not Given Insulin Human Lispro (Humalog) 6 units SC AC [facility] Last Admin: 03/26/17 09:19 Dose: 6 units Magnesium Oxide (Mag-Ox) 400 mg PO BID [facility] Last Admin: 03/26/17 09:21 Dose: 400 mg Metoprolol Tartrate (Lopressor) 25 mg PO TID [facility] Last Admin: 03/26/17 09:21 Dose: 25 mg Nystatin (Nystop Topical Powder) 1 gm TOP BID [facility] Last Admin: 03/26/17 09:22 Dose: 1 applic Pantoprazole Sodium (Protonix Ec Tab) 40 mg PO 0600 [facility] Last Admin: 03/26/17 06:33 Dose: 40 mg Polyethylene Glycol (Miralax) 17 gm PO BID [facility] Last Admin: 03/26/17 09:22 Dose: 17 gm Valacyclovir HCl (Valtrex) 1 gm PO DAILY [facility] PRN Reason: Protocol Last Admin: 03/26/17 09:22 Dose: 1 gm - Labs Labs: 03/25/17 07:30 03/25/17 07:30 PT 13.7 Seconds (9.9-11.8) H 03/22/17 08:50 INR 1.27 (0.93-1.08) H 03/22/17 08:50 APTT 59.1 Seconds (23.7-30.8) H 03/22/17 08:50 - Constitutional Appears: Non-toxic, No Acute Distress - Head Exam Head Exam: NORMAL INSPECTION - ENT Exam ENT Exam: Mucous Membranes Moist - Neck Exam Neck Exam: absent: Meningismus - Respiratory Exam Respiratory Exam: Decreased Breath Sounds - Cardiovascular Exam Cardiovascular Exam: +S1, +S2 - GI/Abdominal Exam GI & Abdominal Exam: Soft. absent: Tenderness Assessment and Plan - Assessment and Plan (Free Text) Plan: Assessment S/P systemic Inflammatory Response syndrome with fever, R/O sepsis R/O encephalitis, consider UTI with yeast in the urine right forearm swelling with no evidence of DVT but with basilic vein ( superficial vein) thrombosis S/P ventilator-dependent respiratory failure in a patient with hyperglycemia and metabolic acidosis in a patient with DM, probable [place] rash on the perineum acute on chronic renal failure DM HTN obesity with BMI 32 Plan on fluconazole and PO Valtrex (Day 11 of 10-14 days) - cultures have been negative; CXR does not show infiltrates; reviewed CT head showing left occipital scalp hematoma (which is also seen on the brain MRI) will continue to monitor clinically
[2017-03-26 14:20] VITALS: BP 120/80; PULSE 78
--- NOTE | 2017-03-26 15:35 | PN ---
ENDO FOLLOWUP NOTE LOCATION: Room #376. SUBJECTIVE: This is a 71-year-old male with recent uncontrolled type 2 insulin-requiring diabetes, now being followed closely for metabolic management. His glycemic levels are fluctuating, but improved and his oral intake continues to be quite variable as per the nursing staff. His latest glucose levels have ranged from 244 to 259 and 271 mg/dL. His latest chemistries showed a BUN of 11, sodium 138, potassium 4.2, chloride 105. CO2 of 26, glucose 237, and creatinine 1.0. So, at this time, we will modify once again his basal and bolus insulin regimen and increase the Levemir to 14 units subQ at bedtime daily to start tonight. We will continue the Humalog given at 6 units subQ t.i.d. before meals as given. We will titrate incrementally as indicated to optimize metabolic control. We will obtain serial chemistries and supplement accordingly as needed. We will follow up. Trinidad Gomez MD
--- NOTE | 2017-03-26 17:12 | PN ---
DATE: 03/26/2017 SUBJECTIVE: The patient is seen lying in bed. He is lying comfortably. He does not appear to be in any kind of distress. PHYSICAL EXAMINATION: VITAL SIGNS: Blood pressure 120/80, heart rate 78, respiratory rate 18, temperature 98. HEENT: Normocephalic, atraumatic. NECK: Supple, no JVD. LUNGS: Bilateral equal air entry. No rales. CARDIAC: S1 and S2, regular rate and rhythm. No murmur, no rub. ABDOMEN: Obese, distended, soft, nontender, bowel sounds present. EXTREMITIES: No lower extremity edema. Intake and output 1890/600. LABORATORY DATA: No new labs. MEDICATIONS: List reviewed. ASSESSMENT: 1. Resolved acute kidney injury. 2. Status post diabetic ketoacidosis. 3. Status post encephalopathy/encephalitis. 4. Poorly controlled diabetes. 5. ? Dementia. PLAN: 1. Continue antibiotic/antiviral/antifungals as per ID recommendations. 2. Monitor fingersticks and continue insulin coverage. 3. Physical therapy. Caitlyn Coburn MD
[2017-03-26] MEDS ORDERED: Insulin Detemir 100 units/ml Vial (Levemir) SC SCH (22:00)
--- NOTE | 2017-03-27 05:20 | DS ---
SUBJECTIVE The patient is seen lying in the bed in room #376, bed 2. The patient states and the patient's nurses stated that the patient had a bowel movement after yesterday's medicine. Overnight nurse's notes were reviewed. The patient stayed alert, awake, oriented x2. OBJECTIVE VITAL SIGNS: T-max is 98. Pulse 76, blood pressure 116/68, respiration 18, O2 sat 99%. Intake output noted. GENERAL: The patient's is present at the bedside. The patient is seen lying in the bed. The patient is alert, awake, responsive. The patient does not appear to be in any distress. HEENT: Head examination show normocephalic and atraumatic. HEENT examination shows pinkish pale conjunctivae. Anicteric sclerae. Dry oral mucosa. No neck rigidity. CHEST: Examination reveals kyphosis. LUNGS: Shows no rales, crackles, or wheezing. CARDIOVASCULAR: Shows S1 and S2, regular rhythm. ABDOMEN: Obese. Positive bowel sound. GENITALIA: Male. Positive Abad catheter. EXTREMITIES: Shows positive right upper extremity PICC line placement. Lower extremity shows SCDs. Positive Abad catheter draining dark urine and does not appear to be hematuric. Gait examination not tested. MUSCULOSKELETAL: Examination shows a body mass index of 37. NEUROLOGIC: The patient is alert, awake, and responsive. Neuro examination is limited. DIAGNOSTICS None from today. Yesterday's diagnostic were reviewed: Fingerstick blood sugar 271, 259, 244, 161, 214, 263, 232. The patient diabetes has been managed by Dr. Trinidad Gomez, who has seen the patient yesterday and Dr. Gomez is adjusting and optimizing her dose. IMPRESSION AND PLAN 1. Status post diabetic ketoacidosis. 2. Status post ventilator dependent respiratory failure. 3. History of hypertension. 4. History of type 1 insulin requiring diabetes mellitus. 5. History of dyslipidemia. 6. History of obesity. 7. History of gait dysfunction. 8. Transient hypotension. 9. Leukocytosis with granulocytosis. 10. Mild normocytic anemia. 11. Granulocytosis. 12. Bandemia. 13. Left upper extremity, left basilic vein thrombosis. 14. Increased anion gap metabolic acidosis and lactic acidosis. 15. Transient hypernatremia. 16. Hypokalemia. 17. Increase anion gap metabolic acidosis. 18. Status post acute kidney injury. 19. Obstructive uropathy secondary to bilateral hydroureteronephrosis. 20. Uncontrolled insulin requiring diabetes mellitus with hyperglycemia and hemoglobin A1c of greater than 14 and fructose mean greater than 320. 21. Hyperphosphatemia and hypophosphatemia. 22. Hypomagnesemia. 23. Questionable non-ST elevation myocardial infarction with elevated troponin. 24. Hypertriglyceridemia. 25. Hypercholesterolemia with elevated LDL and decreased HDL. 26. Elevated prostate-specific antigen. 27. Hypovitaminosis D. 28. Uncontrolled insulin-requiring diabetes mellitus with elevated beta-hydroxybutyrate of 800. 29. Hyperprocalcitonemia. 30. Funguria with proteinuria, glycosuria, ketonuria, hematuria, pyuria, bacteriuria. 31. Fecal occult blood positive, etiology undetermined. 32. Moderate bihemispheric cerebral dysfunction. 33. Systemic inflammatory response syndrome. 34. Bibasilar atelectasis versus questionable pneumonia. 35. Bilateral pleural effusion, right more than the left. 36. Status post cholecystectomy. 37. Bilateral renal cyst. 38. Deconditioning. 39. Gait dysfunction. 40. Left anterior hemiblock with sinus tachycardia. 41. Age indeterminate anteroseptal infarct with the lateral ischemic changes on the EKG. 42. Moderately impaired left ventricular systolic function with moderate global left ventricular hypokinesis. 43. Calcified aortic valve. 44. Mitral annular calcification. 45. Altered mental status with toxic metabolic encephalopathy versus encephalitis less likely. 46. Fungal dermatitis of the lower abdomen and groin. 47. Insulin requiring diabetes mellitus. 48. Hypomagnesemia. PLAN At this time, the patient is being medically cleared for discharge if the patient's accept and agrees for subacute rehab at [facility]. The patient's discharge orders are already for discharge to subacute at [facility] if the patient and the patient's agrees. DISCHARGE MEDICATIONS: The patient's discharge medications are Tylenol 650 mg suppository q. 6 p.r.n. Eliquis 5 mg twice a day, Cardizem 60 mg three times a day, Diflucan 100 mg daily, Levemir 12 units h.s., Humalog 6 units with breakfast and lunch and dinner, Humalog low dose sliding scale coverage, magnesium oxide 400 mg twice a day, Lopressor 25 mg three times a day, nystatin powder to the affected area, Protonix 40 mg daily, MiraLax 17 g twice a day, and Valtrex 1 g daily for total of 14 days. During this hospitalization, the patient and the patient's were extensively explained about the patient's condition, diagnosis, overall guarded to poor prognosis. I have advised to the patient's about the patient's most likely will benefit from long-term care as the patient needs 24 hours care and supervision and the is unable to provide that. The patient's does not want long-term care at present despite my multiple recommendation. Dictated and electronically signed, not read. Paulino Linder MD
== END 2017-03-26 15:50 | DRG 871 ==
LOC: ED 08:19 → CCU 10:57 → ED 11:02 → 3RSO 03-15 16:10
PROVIDERS: ADMIT Internal Medicine; ATTEND Internal Medicine
PROC: 5A1945Z Respiratory Ventilation, 24-96 Consecutive Hours (ICD-10-PCS; principal; 2017-03-12)
PROC: 0BH17EZ Insertion of Endotracheal Airway into Trachea, Via Natural or Artificial Opening (ICD-10-PCS; 2017-03-12)
PROC: 00JU3ZZ Inspection of Spinal Canal, Percutaneous Approach (ICD-10-PCS; 2017-03-16)
PROC: 02HV33Z Insertion of Infusion Device into Superior Vena Cava, Percutaneous Approach (ICD-10-PCS; 2017-03-21)
DX: A41.9 Sepsis, unspecified organism (principal); J96.00 Acute respiratory failure, unspecified whether with hypoxia or hypercapnia; N17.0 Acute kidney failure with tubular necrosis; I21.4 Non-ST elevation (NSTEMI) myocardial infarction; G04.90 Encephalitis and encephalomyelitis, unspecified; J90 Pleural effusion, not elsewhere classified; E10.10 Type 1 diabetes mellitus with ketoacidosis without coma; J18.9 Pneumonia, unspecified organism; G92 Toxic encephalopathy; Z99.11 Dependence on respirator [ventilator] status; D68.9 Coagulation defect, unspecified; N18.4 Chronic kidney disease, stage 4 (severe); E87.0 Hyperosmolality and hypernatremia; E87.3 Alkalosis; E46 Unspecified protein-calorie malnutrition; E22.1 Hyperprolactinemia; I47.1 Supraventricular tachycardia; I82.612 Acute embolism and thrombosis of superficial veins of left upper extremity; I82.622 Acute embolism and thrombosis of deep veins of left upper extremity; J98.11 Atelectasis; K92.2 Gastrointestinal hemorrhage, unspecified; N13.30 Unspecified hydronephrosis; N39.0 Urinary tract infection, site not specified; F03.90 Unspecified dementia, unspecified severity, without behavioral disturbance, psychotic disturbance, mood disturbance, and anxiety; E10.22 Type 1 diabetes mellitus with diabetic chronic kidney disease; E10.649 Type 1 diabetes mellitus with hypoglycemia without coma; D69.6 Thrombocytopenia, unspecified; D63.8 Anemia in other chronic diseases classified elsewhere; B37.2 Candidiasis of skin and nail; D18.09 Hemangioma of other sites; R65.20 Severe sepsis without septic shock; E55.9 Vitamin D deficiency, unspecified; E66.01 Morbid (severe) obesity due to excess calories; E78.00 Pure hypercholesterolemia, unspecified; E78.1 Pure hyperglyceridemia; E78.5 Hyperlipidemia, unspecified; E83.39 Other disorders of phosphorus metabolism; E83.42 Hypomagnesemia; E83.51 Hypocalcemia; E86.0 Dehydration; E87.6 Hypokalemia; G47.10 Hypersomnia, unspecified; G93.89 Other specified disorders of brain; H91.90 Unspecified hearing loss, unspecified ear; I12.9 Hypertensive chronic kidney disease with stage 1 through stage 4 chronic kidney disease, or unspecified chronic kidney disease; I35.8 Other nonrheumatic aortic valve disorders; I65.23 Occlusion and stenosis of bilateral carotid arteries; I73.9 Peripheral vascular disease, unspecified; K59.00 Constipation, unspecified; K64.9 Unspecified hemorrhoids; L25.9 Unspecified contact dermatitis, unspecified cause; M19.011 Primary osteoarthritis, right shoulder; M46.90 Unspecified inflammatory spondylopathy, site unspecified; M47.814 Spondylosis without myelopathy or radiculopathy, thoracic region; M47.816 Spondylosis without myelopathy or radiculopathy, lumbar region; M48.00 Spinal stenosis, site unspecified; M51.26 Other intervertebral disc displacement, lumbar region; M51.36 Other intervertebral disc degeneration, lumbar region; N28.1 Cyst of kidney, acquired; N32.89 Other specified disorders of bladder; N40.0 Benign prostatic hyperplasia without lower urinary tract symptoms; R13.12 Dysphagia, oropharyngeal phase; R31.29 Other microscopic hematuria; R32 Unspecified urinary incontinence; S00.03XA Contusion of scalp, initial encounter; Z66 Do not resuscitate; Z68.37 Body mass index [BMI] 37.0-37.9, adult; Z79.01 Long term (current) use of anticoagulants; Z79.4 Long term (current) use of insulin; Z79.899 Other long term (current) drug therapy; Z86.61 Personal history of infections of the central nervous system; Z86.718 Personal history of other venous thrombosis and embolism; Z87.891 Personal history of nicotine dependence; Z89.519 Acquired absence of unspecified leg below knee; Z90.49 Acquired absence of other specified parts of digestive tract; Z91.14 Patient's other noncompliance with medication regimen; Z91.19 Patient's noncompliance with other medical treatment and regimen

== ENCOUNTER 2017-07-13 14:51 | Inpatient (IN) | payer MEDICARE, OTHER ==
[2017-07-13 14:52] VITALS: PULSE 113
[2017-07-13 16:03] LABS: BASO # 0.03 K/mm3 (0.0-2.0); BASO % 0.3 % (0.0-3.0); EOS # 0.1 (0.0-0.7); EOS % 0.9 % (1.5-5.0); GRAN # 8.94 (1.4-6.5); HEMOGLOBIN 13.3 g/dL (14.0-18.0); LYMPH # 0.7 (1.2-3.4); LYMPH % 6.6 % (22.0-35.0); MEAN CELL VOLUME 90.7 fl (80.0-105.0); MEAN CORPUSCULAR HEMOGLOBIN 30.2 pg (25.0-35.0); MEAN CORPUSCULAR HGB CONC 33.3 g/dl (31.0-37.0); MEAN PLATELET VOLUME 10.4 fl (7.0-11.0); MONO # 0.5 (0.1-0.6); MONO % 5.2 % (1.0-6.0); RBC 4.4 10^6/uL (3.5-6.1); RED CELL DISTRIBUTION WIDTH 12.9 % (11.5-14.5); VENOUS BLOOD GAS BASE EXCESS -0.9 mmol/L (0.0-2.0); VENOUS BLOOD GAS PO2 196 mm/Hg (30-55); VENOUS BLOOD PH 7.47 (7.32-7.43); WHITE BLOOD COUNT 10.3 10^3/ul (4.5-11.0)
--- NOTE | 2017-07-13 16:05 | ED PDOC ---
Arrival/HPI - General Chief Complaint: Fever Time Seen by Provider: 07/13/17 15:21 Historian: Patient, Spouse () - History of Present Illness Narrative History of Present Illness (Text): 07/13/17 15:58 A 71 year old male, whose past medical history includes diabetes, hypertension, and bladder problems, is accompanied by and presents to the emergency department complaining of weakness, fatigue, and fever. Patient reports he had a catheter procedure performed yesterday at [facility] [place] for bladder infection diagnosed in March. Today patient began feeling shaky and weak. Patient's mentions patient had difficulty ambulating today and fell onto legs. Patient denits any cough, shortness of breath, chest pain, LOC, head trauma, head pain, neck pain, or any other complaints at this time. Also, patient mentions he currently takes no antibiotics. No PMD Past Medical History - Provider Review Nursing Documentation Reviewed: Yes - Infectious Disease Hx of Infectious Diseases: None - Cardiac Hx Pacemaker: No - Pulmonary Hx Respiratory Disorders: Yes (SMOKED CIGARETTES H/O .QUIT 30 YRS AGO.) Hx Bronchitis: Yes Other/Comment: INTUBATED 03-12-17 RESP. DISTRESS. - Neurological Hx Neurological Disorder: Yes - HEENT Hx HEENT Disorder: Yes Hx Cataracts: Yes (BILATERAL SX) Hx Deafness: Yes - Renal Hx Renal Disorder: Yes Other/Comment: HAS BLADDER ISSUES? - Endocrine/Metabolic Hx Diabetes Mellitus Type 1: Yes - Hematological/Oncological Hx Cancer: No - Integumentary Hx Dermatological Disorder: Yes Other/Comment: . HAS SOME INCONTINENCY.IASD. SCAR TO RIGHT LOWER BACK AND NECK AREA FROM REMOVAL OF CYST. - Musculoskeletal/Rheumatological Hx Musculoskeletal Disorders: Yes Hx Falls: Yes Hx Unsteady Gait: Yes (CANE) - Gastrointestinal Hx Gastrointestinal Disorders: Yes (APPENDECTOMY) - Genitourinary/Gynecological Other/Comment: Unknown bladder problem as per . Pt urinates a lot. - Psychiatric Hx Psychophysiologic Disorder: Yes (DRANK HEINEKEN [employer] SOCIALLY AND SMOKED CIGARETTES 30 YRS AGO PER JAMIA) Hx Substance Use: No - Surgical History Hx Mastectomy: No - Anesthesia Hx Anesthesia Reactions: No Hx Malignant Hyperthermia: No Family/Social History - Physician Review Nursing Documentation Reviewed: Yes Family/Social History: No Known Family HX Smoking Status: Unknown If Ever Smoked Hx Alcohol Use: Yes (DRINKS HEINE[employer] SOCIALLY.H/O) Hx Substance Use: No Allergies/Home Meds Allergies/Adverse Reactions: Allergies No Known Allergies Allergy (Verified 07/13/17 17:31) believes her has not allergies to medications. Home Medications: Home Meds Medication Instructions Recorded Confirmed Aspirin [Aspirin EC] 325 mg PO DAILY 07/13/17 07/13/17 Cholecalciferol [Vitamin D] 2,000 unit PO DAILY 07/13/17 07/13/17 Ferrous Sulfate [Feosol] 325 mg PO BID 07/13/17 07/13/17 Metoprolol Tartrate [Lopressor] 50 mg PO DAILY 07/13/17 07/13/17 Oxybutynin [Oxybutynin Chloride] 10 mg PO BID 07/13/17 07/13/17 Simvastatin [Zocor] 40 mg PO DAILY 07/13/17 07/13/17 Review of Systems - Physician Review All systems were reviewed & negative as marked: Yes - Review of Systems Constitutional: Fatigue (and weakness), Fevers. absent: Other (no head trauma) Eyes: Normal ENT: Normal Respiratory: absent: SOB, Cough Cardiovascular: absent: Chest Pain Gastrointestinal: Normal Genitourinary Male: Dysuria Musculoskeletal: absent: Neck Pain, Other (no head pain) Skin: Normal Neurological: Normal. absent: Other (no LOC) Endocrine: Normal Hemo/Lymphatic: Normal Psychiatric: Normal Physical Exam Vital Signs Reviewed: Yes Vital Signs Temp Pulse Resp BP Pulse Ox 07/13/17 18:55 103 F H 102 H 20 124/61 97 07/13/17 14:52 103.3 F H 95 H 18 142/30 L 98 Temperature: Febrile Blood Pressure: Normal Pulse: Regular Respiratory Rate: Normal Appearance: Positive for: Well-Appearing Pain Distress: None Mental Status: Positive for: Alert and Oriented X 3 - Systems Exam Head: Present: Atraumatic, Normocephalic Pupils: Present: PERRL Extroacular Muscles: Present: EOMI Conjunctiva: Present: Normal Ears: Present: Normal Mouth: Present: Moist Mucous Membranes Pharnyx: Present: Normal Nose (External): Present: Atraumatic Nose (Internal): Present: Normal Inspection Neck: Present: Normal Range of Motion Respiratory/Chest: Present: Clear to Auscultation, Good Air Exchange Cardiovascular: Present: Regular Rate and Rhythm Abdomen: No: Tenderness, Distention, Normal Bowel Sounds, Peritoneal Signs, Rebound, Guarding, McBurney's Point Tender, Rovsing's Sign Present, Hernias, Feeding Tubes, Ostomy Tubes, Mass/Organomegaly, Scars, Other Back: Present: Normal Inspection, Other (no c-t-l spinal or paraspinal tenderness) Upper Extremity: Present: Normal Inspection Lower Extremity: Present: Normal Inspection Neurological: Present: GCS=15, CN II-XII Intact, Speech Normal, Motor Func Grossly Intact Skin: Present: Warm, Normal Color Psychiatric: Present: Alert, Oriented x 3, Normal Insight, Normal Concentration Medical Decision Making ED Course and Treatment: 07/13/17 16:03 Impression: 71 year old male with fatigue, weakness, and fever. Plan: -- EKG -- Head CT -- Chest X-ray -- Labs -- Venous Blood Gas -- Tylenol -- Blood Culture -- Urine Culture -- Urinalysis -- Reassess and disposition Prior Visits: Notes and results from previous visits were reviewed. Patient was last seen in the emergency department on 03/12/2017 for AMS. Patient was admitted into ICU. Progress Notes: 07/13/17 16:23 A 71 year old male, whose past medical history includes diabetes, hypertension, and bladder problems, is accompanied by and presents to the emergency department complaining of weakness, fatigue, and fever. Patient reports he had a catheter procedure performed yesterday at [facility] [place] for bladder infection diagnosed in March. Today patient began feeling shaky and weak. Patient's mentions patient had difficulty ambulating today and fell onto legs. Patient denits any cough, shortness of breath, chest pain, LOC, head trauma, head pain, neck pain, or any other complaints at this time. Also, patient mentions he currently takes no antibiotics. You were otherwise breathing easily, smiling with your , good strength/sensation, alert/ oriented, clear lungs, no abdomen tenderness, fever temp 103, stable heart rate 95, stable breathing rate 18, excellent oxygen level 98% room air, elevated blood pressure 142/ which we recommend repeat in 2-3 days primary care office to determine further treatment, you have blood tests no infection count 10, stable blood level hemoglobin 13/platelets 197, stable chemistry, heart blood test negative, blood sugar 194, urine test large leukocytes, infection lactic normal 0.7, radiology CT head no acute, chest xray initial no active disease, ECG sinus tachycardia 101, tylenol observation done in the ED and after long discussion you and your stated inability to walk safely, progressive weakness. 07/13/2017 17:[address] IMPRESSION: No acute intracranial abnormalities. No significant findigns to account for the clinica presentation. No significant interval change compared to the prior examination(s). Dictator: Kerwin Krueger MD 07/13/2017 18:54 Chest X-ray IMPRESSION: No active disease. No significant interval change compared to the prior exmaination(s). Dictator: Kerwin Krueger MD 07/13/17 20:16 d/w medical economics consultant and will admit to Dr. Cavazos - Lab Interpretations Lab Results: 07/13/17 15:30 07/13/17 15:30 Lab Results 07/13/17 16:30: Troponin I < 0.01 D 07/13/17 16:09: Urine Color Dark yellow, Urine Appearance Cloudy, Urine pH 6.0, Ur Specific Hendrum 1.015, Urine Protein Trace H, Urine Glucose (UA) Negative, Urine Ketones Negative, Urine Blood Large H, Urine Nitrate Negative, Urine Bilirubin Negative, Urine Urobilinogen 0.2, Ur Leukocyte Esterase Large H, Urine RBC Tntc, Urine WBC Tntc, Ur Epithelial Cells 6 - 8, Urine Bacteria Many 07/13/17 15:30: pO2 196 H, VBG pH 7.47 H, VBG pCO2 30.0 L, VBG HCO3 21.8, VBG Total CO2 22.7, VBG O2 Sat (Calc) 100.3 H, VBG Base Excess -0.9 L, VBG Potassium 3.7, Sodium 141.0, Chloride 108.0 H, Glucose 199 H, Lactate 0.7, FiO2 21.0, Venous Blood Potassium 3.7 07/13/17 15:30: Sodium 139, Chloride 105, Potassium 3.6, Carbon Dioxide 21, Anion Gap 16, BUN 29 H, Creatinine 1.0, Est GFR ( Amer) > 60, Est GFR ( Non-Af Amer) > 60, Random Glucose 194 H, Calcium 9.9, Total Bilirubin 0.5, AST 21, ALT 33, Alkaline Phosphatase 51, Total Protein 7.7, Albumin 3.8, Globulin 3.8, Albumin/Globulin Ratio 1.0 L 07/13/17 15:30: PT 15.1 H, INR 1.32 H, APTT 26.3 07/13/17 15:30: WBC 10.3 D, RBC 4.40, Hgb 13.3 L D, Hct 39.9 L, MCV 90.7, MCH 30.2, MCHC 33.3, RDW 12.9, Plt Count 197, MPV 10.4, Gran % 87.0 H, Lymph % (Auto ) 6.6 L, Milam % (Auto) 5.2, Eos % (Auto) 0.9 L, Baso % (Auto) 0.3, Gran # 8.94 H , Lymph # 0.7 L, Milam # 0.5, Eos # 0.1, Baso # 0.03 I have reviewed the lab results: Yes - RAD Interpretation Radiology Orders: 07/13/17 15:59 CHEST TWO VIEWS (PA/LAT) [RAD] Stat 07/13/17 16:00 HEAD W/O CONTRAST [CT] Stat - EKG Interpretation Interpreted by ED Physician: Yes (sinus tachycardia, RBBB, Left anterior fasicular block) Type: 12 lead EKG Comparison: Similar to previous EKG (03/16/17) - Medication Orders Current Medication Orders: Discontinued Medications Acetaminophen (Tylenol 325mg Tab) 975 mg PO STAT STA Stop: 07/13/17 16:02 Last Admin: 07/13/17 16:11 Dose: 975 mg [facility] Pain/Vitals Document 07/13/17 16:11 SRE (Rec: 07/13/17 16:11 SRE [id number]) Pain Reassessment Is This A Pain ReAssessment? Yes Sleep Is patient sleeping during reassessment? No Re-Assess: [facility] Pain/Vitals Document 07/13/17 17:11 SRE (Rec: 07/13/17 17:29 [id number] [id number]) Pain Reassessment Is This A Pain ReAssessment? Yes Ibuprofen (Motrin Tab) 400 mg PO STAT STA Stop: 07/13/17 19:34 Last Admin: 07/13/17 19:54 Dose: 400 mg Trimethoprim/Sulfamethoxazole (Bactrim Ds Tab) 1 tab PO STAT STA PRN Reason: Protocol Stop: 07/13/17 17:05 Last Admin: 07/13/17 17:28 Dose: 1 tab - Scribe Statement The provider has reviewed the documentation as recorded by the Bell Yeung Provider Bell Attestation: All medical record entries made by the Scribe were at my direction and personally dictated by me. I have reviewed the chart and agree that the record accurately reflects my personal performance of the history, physical exam, medical decision making, and the department course for this patient. I have also personally directed, reviewed, and agree with the discharge instructions and disposition. Disposition/Present on Arrival - Present on Arrival Any Indicators Present on Arrival: No History of DVT/PE: No History of Uncontrolled Diabetes: No Urinary Catheter: No History of Decub. Ulcer: No History Surgical Site Infection Following: None - Disposition Have Diagnosis and Disposition been Completed?: Yes Diagnosis: UTI (urinary tract infection), Weakness Disposition: HOSPITALIZED Disposition Time: 20:23 Patient Plan: Admission Condition: STABLE Discharge Instructions (ExitCare): Weakness (ED) Referrals: Thaddeus Peña, [Primary Care Provider] - Follow up with primary Forms: [employer] (German)
[2017-07-13 16:09] LABS: INR 1.32 (0.93-1.08); PROTHROMBIN TIME 15.1 SECONDS (9.4-12.5)
[2017-07-13 16:10] LABS: PARTIAL THROMBOPLASTIN TIME 26.3 Seconds (25.1-36.5)
[2017-07-13 16:12] LABS: ALBUMIN 3.8 g/dL (3.0-4.8); ALT/SGPT 33 U/L (7-56); AST/SGOT 21 U/L (17-59); BLOOD UREA NITROGEN 29 mg/dL (7-21); CALCIUM 9.9 mg/dL (8.4-10.5); GFR AFRICAN-AMERICAN > 60; GFR NON-AFRICAN AMERICAN > 60
[2017-07-13 16:13] LABS: URINE BILIRUBIN NEGATIVE (NEGATIVE); URINE BLOOD LARGE (NEGATIVE); URINE GLUCOSE (UA) NEGATIVE (NEGATIVE); URINE LEUKOCYTE ESTERASE LARGE Leu/uL (NEGATIVE); URINE NITRATE NEGATIVE (NEGATIVE); URINE PROTEIN TRACE mg/dL (<30 mg/dL); URINE UROBILINOGEN 0.2 E.U./dL (<1 E.U./dL)
[2017-07-13 16:24] LABS: URINE APPEARANCE CLOUDY (CLEAR); URINE COLOR DARK YELLOW (YELLOW)
[2017-07-13 16:25] LABS: URINE BACTERIA MANY (NEG); URINE RBC TNTC /hpf (0-2); URINE WBC TNTC /hpf (0-6)
[2017-07-13] MEDS ORDERED: Tmp-Smz 800 mg-160 mg DS Tab PO STA (17:04)
--- NOTE | 2017-07-13 17:47 | CT ---
PROCEDURE: CT HEAD WITHOUT CONTRAST. HISTORY: 71yoM, weakness COMPARISON: 03/16/2017 TECHNIQUE: Axial computed tomography images were obtained through the head/brain without intravenous contrast. Radiation dose: Total exam DLP = 1439.00 mGy-cm. This CT exam was performed using one or more of the following dose reduction techniques: Automated exposure control, adjustment of the mA and/or kV according to patient size, and/or use of iterative reconstruction technique. FINDINGS: HEMORRHAGE: No intracranial hemorrhage. BRAIN: No mass effect or edema. Cortical and cerebellar atrophy, periventricular small vessel disease VENTRICLES: Unremarkable. No hydrocephalus. CALVARIUM: Unremarkable. PARANASAL SINUSES: Unremarkable as visualized. No significant inflammatory changes. MASTOID AIR CELLS: Unremarkable as visualized. No inflammatory changes. OTHER FINDINGS: Focal asymmetry in the occipital and suboccipital soft tissues primarily to the left of the midline. IMPRESSION: No acute intracranial abnormalities. No significant findings to account for the clinical presentation. No significant interval change compared to the prior examination(s).
--- NOTE | 2017-07-13 18:56 | RAD ---
HISTORY: 71yoM, fever 103.3, fatigue COMPARISON: 03/16/2017 TECHNIQUE: Chest PA and lateral FINDINGS: LUNGS: No active pulmonary disease. PLEURA: No significant pleural effusion identified. No pneumothorax apparent. CARDIOVASCULAR: No radiographic findings to suggest acute or significant cardiovascular disease. OSSEOUS STRUCTURES: No significant abnormalities. VISUALIZED UPPER ABDOMEN: Normal. OTHER FINDINGS: None. IMPRESSION: No active disease. No significant interval change compared to the prior examination(s).
--- NOTE | 2017-07-13 20:57 | CP.PCM.HP ---
History of Present Illness - History of Present Illness History of Present Illness: CC: generalized weakness Subjective: HPI: Patient is a 71 year old male with a past medical history of who presents to the emergency department for evaluation and treatment of generalized weakness. States that he underwent a catheter procedure yesterday at a [facility] in [place], [place] for continued treatment of a bladder infection originally diagnosed in March of 2017. Admits to fevers, chills, and difficulty ambulating due to the generalized weakness. States that while ambulating he fell onto his legs. Denies any trauma to the head or loss of consciousness. Patient denies specific provoking events. Denies recent travel and sick contacts. Admits to hematuria, which he states he was told to expect after having catheter procedure yesterday. Patient denies intractable headache, dizziness, blurry vision, ringing in the ears, chest pain, shortness of breath, abdominal pain, nausea, vomiting, diarrhea, constipation. ROS: 12 point review of systems negative except as indicated in HPI PMHx: diabetes, hypertension, hyperlipidemia and "bladder infection", DVT, PSHx: appendectomy, cholecystectomy Family Hx: noncontributory Social Hx: denies ETOH use, former tobacco use, smoked 2ppd for 10 years- quit 30 years ago, denies illicit drug use Medications: Please see medication reconciliation PMD: unsure of name, "works on [employer] in [place] Physical Examination: - Constitutional Appears: Non-toxic, No Acute Distress - Head Exam Head Exam: atraumatic, normocephalic - Eye Exam Eye Exam: Normal appearance, PERRL. absent: Scleral icterus - ENT Exam ENT Exam: Mucous Membranes Moist - Neck Exam Neck exam: Normal Inspection - Respiratory Exam Respiratory Exam: Normal Breathing Pattern - Cardiovascular Exam Cardiovascular Exam: +S1, +S2. absent: Gallop, JVD - GI/Abdominal Exam GI & Abdominal Exam: Normal Bowel Sounds, absent: Distended, Guarding, Pulsatile Mass, Rebound, Rigid - Extremities Exam Extremities exam: Negative for: calf tenderness - Neurological Exam Neurological exam: Patient is awake, alert, responds to verbal stimuli, answers questions appropriately, follows commands, and moves extremities past midline - Psychiatric Exam Psychiatric exam: Normal Affect, Normal Mood - Skin Skin Exam: warm and dry Assessment and Plan: Patient is a 71 year old male with past medical history of who presents to the emergency department for evaluation and treatment of generalized weakness. Sepsis, UTI - greater than 2/4 SIRS criteria met in setting of infectious source - blood cultures x 2 - urine culture - IVF half normal saline @ 45 - ceftriaxone and bactrim - procalcitonin ordered and pending - Phenazopyridine - oxybutynin - ID consulted- appreciate recommendations - CT of abdomen pending Anemia - Hgb reviewed, trended, and appreciated- better than baseline - monitor closely via CBC Hx of Htn - c/w metoprolol tartrate - c/w cardizem Hx of Hyperlipidemia - c/w statin - lipid profile pending Hx of Diabetes - insulin levemir and lispro - fingersticks ACHS - insulin sliding scale- lispro medium - resume diet as carb consistent Hx of DVT - c/w elquis- will hold if CT abdomen/pelvis indicates bleed Prophylaxis - DVT ppx- scds - GI ppx- famotidine Patient case discussed with and plan approved by attending physician. 07/13/17 20:18 Present on Admission - Present on Admission Any Indicators Present on Admission: Yes Past Patient History - Infectious Disease Hx of Infectious Diseases: None - Past Social History Smoking Status: Unknown If Ever Smoked - CARDIAC Hx Pacemaker: No - PULMONARY Hx Respiratory Disorders: Yes (SMOKED CIGARETTES H/O .QUIT 30 YRS AGO.) Hx Bronchitis: Yes Other/Comment: INTUBATED 03-12-17 RESP. DISTRESS. - NEUROLOGICAL Hx Neurological Disorder: Yes - HEENT Hx HEENT Problems: Yes Hx Cataracts: Yes (BILATERAL SX) Hx Deafness: Yes - RENAL Hx Chronic Kidney Disease: Yes Other/Comment: HAS BLADDER ISSUES? - ENDOCRINE/METABOLIC Hx Diabetes Mellitus Type 1: Yes - HEMATOLOGICAL/ONCOLOGICAL Hx Cancer: No - INTEGUMENTARY Hx Dermatological Problems: Yes Other/Comment: . HAS SOME INCONTINENCY.IASD. SCAR TO RIGHT LOWER BACK AND NECK AREA FROM REMOVAL OF CYST. - MUSCULOSKELETAL/RHEUMATOLOGICAL Hx Musculoskeletal Disorders: Yes Hx Falls: Yes Hx Unsteady Gait: Yes (CANE) - GASTROINTESTINAL Hx Gastrointestinal Disorders: Yes (APPENDECTOMY) - GENITOURINARY/GYNECOLOGICAL Other/Comment: Unknown bladder problem as per . Pt urinates a lot. - PSYCHIATRIC Hx Psychophysiologic Disorder: Yes ([employer] AND SMOKED CIGARETTES 30 YRS AGO PER JAMIA) Hx Substance Use: No - SURGICAL HISTORY Hx Mastectomy: No - ANESTHESIA Hx Anesthesia Reactions: No Hx Malignant Hyperthermia: No Meds Allergies/Adverse Reactions: Allergies Allergy/AdvReac Type Severity Reaction Status Date / Time No Known Allergies Allergy Verified 07/13/17 17:31 Results - Vital Signs Recent Vital Signs: Last Vital Signs Temp 103 F H 07/13/17 18:55 Pulse 102 H 07/13/17 18:55 Resp 20 07/13/17 18:55 BP 124/61 07/13/17 18:55 Pulse Ox 97 07/13/17 18:55 - Labs Result Diagrams: 07/13/17 15:30 07/13/17 15:30 Labs: Laboratory Results - last 24 hr 07/13/17 07/13/17 07/13/17 15:30 15:30 15:30 WBC 10.3 D RBC 4.40 Hgb 13.3 L D Hct 39.9 L MCV 90.7 MCH 30.2 MCHC 33.3 RDW 12.9 Plt Count 197 MPV 10.4 Gran % 87.0 H Lymph % (Auto) 6.6 L [place] % (Auto) 5.2 Eos % (Auto) 0.9 L Baso % (Auto) 0.3 Gran # 8.94 H Lymph # 0.7 L [place] # 0.5 Eos # 0.1 Baso # 0.03 PT 15.1 H INR 1.32 H APTT 26.3 pO2 VBG pH VBG pCO2 VBG HCO3 VBG Total CO2 VBG O2 Sat (Calc) VBG Base Excess VBG Potassium Sodium 139 Chloride 105 Glucose Lactate FiO2 Potassium 3.6 Carbon Dioxide 21 Anion Gap 16 BUN 29 H Creatinine 1.0 Est GFR ( Amer) > 60 Est GFR (Non-Af Amer) > 60 Random Glucose 194 H Calcium 9.9 Total Bilirubin 0.5 AST 21 ALT 33 Alkaline Phosphatase 51 Troponin I Total Protein 7.7 Albumin 3.8 Globulin 3.8 Albumin/Globulin Ratio 1.0 L Venous Blood Potassium Urine Color Urine Appearance Urine pH Ur Specific [place] Urine Protein Urine Glucose (UA) Urine Ketones Urine Blood Urine Nitrate Urine Bilirubin Urine Urobilinogen Ur Leukocyte Esterase Urine RBC Urine WBC Ur Epithelial Cells Urine Bacteria 07/13/17 07/13/17 07/13/17 15:30 16:09 16:30 WBC RBC Hgb Hct MCV MCH MCHC RDW Plt Count MPV Gran % Lymph % (Auto) [place] % (Auto) Eos % (Auto) Baso % (Auto) Gran # Lymph # [place] # Eos # Baso # PT INR APTT pO2 196 H VBG pH 7.47 H VBG pCO2 30.0 L VBG HCO3 21.8 VBG Total CO2 22.7 VBG O2 Sat (Calc) 100.3 H VBG Base Excess -0.9 L VBG Potassium 3.7 Sodium 141.0 Chloride 108.0 H Glucose 199 H Lactate 0.7 FiO2 21.0 Potassium Carbon Dioxide Anion Gap BUN Creatinine Est GFR ( Amer) Est GFR (Non-Af Amer) Random Glucose Calcium Total Bilirubin AST ALT Alkaline Phosphatase Troponin I < 0.01 D Total Protein Albumin Globulin Albumin/Globulin Ratio Venous Blood Potassium 3.7 Urine Color Dark yellow Urine Appearance Cloudy Urine pH 6.0 Ur Specific [place] 1.015 Urine Protein Trace H Urine Glucose (UA) Negative Urine Ketones Negative Urine Blood Large H Urine Nitrate Negative Urine Bilirubin Negative Urine Urobilinogen 0.2 Ur Leukocyte Esterase Large H Urine RBC Tntc Urine WBC Tntc Ur Epithelial Cells 6 - 8 Urine Bacteria Many
[2017-07-13] MEDS ORDERED: Lactated Ringer's 1,000 ML IV SCH (21:45)
[2017-07-13] MEDS ORDERED: Iohexol 240 (50 ml) ONE (22:13)
[2017-07-14] MEDS: Insulin Detemir 100 units/ml Vial (Levemir) SC SCH ×2 (00:01→00:10)
[2017-07-14] MEDS: Sodium Chloride 0.45% 1,000 ML IV SCH ×3 (00:02→16:00)
[2017-07-14] MEDS ORDERED: Iohexol 350 MG/100 ML VIAL ONE (00:06)
--- NOTE | 2017-07-14 01:17 | CT ---
EXAM: CT Abdomen and Pelvis With Intravenous Contrast CLINICAL HISTORY: 71 years old, male; Pain; Abdominal pain; Generalized; Additional info: Uti TECHNIQUE: Axial computed tomography images of the abdomen and pelvis with intravenous contrast. All CT scans at this facility use one or more dose reduction techniques, viz.: automated exposure control; ma/kV adjustment per patient size (including targeted exams where dose is matched to indication; i.e. head); or iterative reconstruction technique. Coronal and sagittal reformatted images were created and reviewed. CONTRAST: 100 mL of omnipaque administered intravenously. COMPARISON: CT - ABD PELVIS W/O PO OR IV CONT 2017-03-16 16:33 FINDINGS: Lower thorax: Coronary artery calcifications. Subsegmental atelectasis right lung base. ABDOMEN: Liver: Unremarkable. No mass. Gallbladder and bile ducts: Cholecystectomy. No ductal dilation. Pancreas: Unremarkable. No mass. No ductal dilation. Spleen: Unremarkable. No splenomegaly. Adrenals: Unremarkable. No mass. Kidneys and ureters: Mild right hydronephrosis. Right renal cysts. Punctate lower pole calculus. Areas of nonenhancing cortex and perinephric stranding, consistent with pyelonephritis. Large left lower pole renal cyst. Moderate left hydronephrosis. Gas in upper collecting system. Left hydroureter. No definite calculus. Stomach and bowel: Unremarkable. No obstruction. Appendix: No findings to suggest acute appendicitis. PELVIS: Bladder: Irregular, thick walled urinary bladder. Reproductive: Unremarkable as visualized. ABDOMEN and PELVIS: Intraperitoneal space: Unremarkable. No free air. No significant fluid collection. Bones/joints: Diffuse spinal degenerative changes. No acute fracture. No dislocation. Soft tissues: Unremarkable. Vasculature: Atherosclerotic vascular disease. No abdominal aortic aneurysm. Lymph nodes: Unremarkable. No enlarged lymph nodes. Other findings: Probable TURP defect. IMPRESSION: 1. Mild right hydronephrosis, changes of pyelonephritis and perinephric stranding. 2. Moderate left hydronephrosis with focus of gas in the upper collecting system, consistent with infection or recent instrumentation. 3. Thick walled, irregular urinary bladder. 4. Remainder of findings as above.
--- NOTE | 2017-07-14 02:30 | CP.PCM.PN ---
Subjective - Date & Time of Evaluation Date of Evaluation: 07/14/17 Time of Evaluation: 02:15 - Subjective Subjective: Paged by RN as patient was reported to be AAO x 1. Subjective: Patient seen and examined at bedside. Patient is awake, alert, orientated x 3, responds to verbal stimuli, follows commands, and moves his extremities past midline. Patient stated his first and last name clearly. Stated he was at [facility] and knew that it was 2018. Denied fall, trauma to the head, or loss of consciousness since last examined in ED. Admits to baseline back pain. States that he is feeling fine and offers no further complaints. Physical Examination Head: AT-NC Eyes: normal appearance Heart: + s1 +s2 Lungs: normal breathing pattern Neuro exam: AAOx3, CN II-XII intact, Muscle strength 5/5 throughout, sensation intact to touch throughout Extremities: no edema Psych: normal mood, normal affect Skin: dry and warm Assessment and Plan Back Pain - one time tramadol ordered for back pain - neurochecks placed q4 hours Objective - Vital Signs/Intake and Output Vital Signs (last 24 hours): Temp Pulse Resp BP Pulse Ox 101.9 F H 96 H 18 135/53 L 96 07/14/17 00:55 07/14/17 00:55 07/14/17 00:55 07/14/17 00:55 07/14/17 00:55 - Medications Medications: Current Medications Acetaminophen (Tylenol 325mg Tab) 650 mg PO Q6 PRN PRN Reason: FOR TEMP>=99.5F Last Admin: 07/14/17 00:53 Dose: 650 mg Apixaban (Eliquis) 5 mg PO BID [facility] PRN Reason: Protocol Aspirin (Ecotrin) 325 mg PO DAILY [facility] Atorvastatin Calcium (Lipitor) 20 mg PO DIN [facility] Cholecalciferol (Vitamin D) 1,000 intlu PO DAILY [facility] Diltiazem HCl (Cardizem) 60 mg PO TID [facility] Docusate Sodium (Colace) 100 mg PO BID [facility] Last Admin: 07/14/17 00:00 Dose: 100 mg Enoxaparin Sodium (Lovenox) 40 mg SC DAILY [facility] PRN Reason: Protocol Famotidine (Pepcid) 20 mg PO BID [facility] Last Admin: 07/14/17 00:00 Dose: 20 mg Sodium Chloride (Sodium Chloride 0.45%) 1,000 mls @ 125 mls/hr IV .Q8H [facility] Stop: 07/15/17 13:59 Last Admin: 07/14/17 00:02 Dose: 125 mls/hr Ceftriaxone Sodium (Rocephin 1 Gram Ivpb (D5w)) 1 gm in 100 mls @ 100 mls/hr IVPB DAILY [facility] PRN Reason: Protocol Stop: 07/18/17 10:59 Insulin Detemir (Levemir) 12 unit SC HS [facility] Last Admin: 07/14/17 00:10 Dose: Not Given Insulin Human Lispro (Humalog) 5 units SC ACB [facility] Insulin Human Lispro (Humalog) 5 units SC 1145 [facility] Insulin Human Lispro (Humalog) 5 units SC DAILY@1745 [facility] Insulin Human Lispro (Humalog Low) 0 units SC AC [facility] PRN Reason: Protocol Metoprolol Tartrate (Lopressor) 25 mg PO TID [facility] Ondansetron HCl (Zofran Inj) 4 mg IVP Q6 PRN PRN Reason: Nausea/Vomiting Oxybutynin Chloride (Ditropan Tab) 10 mg PO BID [facility] Last Admin: 07/14/17 00:00 Dose: 10 mg Phenazopyridine HCl (Pyridium) 200 mg PO TID [facility] Stop: 07/17/17 18:01 Tramadol HCl (Ultram) 25 mg PO STAT [facility] Stop: 07/14/17 02:20 - Labs Labs: PT 15.1 SECONDS (9.4-12.5) H 07/13/17 15:30 INR 1.32 (0.93-1.08) H 07/13/17 15:30 APTT 26.3 Seconds (25.1-36.5) 07/13/17 15:30
[2017-07-14 02:35] VITALS: BMI 35.1
[2017-07-14] MEDS ORDERED: Insulin Lispro 1 UNITS/0.01 ML SC SCH ×3 (07:30→17:45)
[2017-07-14 08:40] LABS: LDL CHOLESTEROL 61 mg/dL (0-129)
[2017-07-14 08:42] LABS: ALBUMIN 3.7 g/dL (3.0-4.8); ALT/SGPT 36 U/L (7-56); AST/SGOT 32 U/L (17-59); BILIRUBIN,DIRECT 0.5 mg/dL (0.0-0.4); BLOOD UREA NITROGEN 26 mg/dL (7-21); CALCIUM 9.4 mg/dL (8.4-10.5); GFR AFRICAN-AMERICAN > 60; GFR NON-AFRICAN AMERICAN 60; HDL CHOLESTEROL 26 mg/dL (29-60); MAGNESIUM 1.8 mg/dL (1.7-2.2)
[2017-07-14 08:46] LABS: FREE T4 1.03 ng/dL (0.78-2.19); T4 5.3 ug/dL (5.5-11.0)
[2017-07-14 08:58] LABS: BASO # 0.03 K/mm3 (0.0-2.0); BASO % 0.2 % (0.0-3.0); GRAN # 14.21 (1.4-6.5); GRAN % 83.7 % (50.0-68.0); HEMOGLOBIN 12.8 g/dL (14.0-18.0); LYMPH # 1.3 (1.2-3.4); LYMPH % 7.6 % (22.0-35.0); MEAN CELL VOLUME 92.3 fl (80.0-105.0); MEAN CORPUSCULAR HGB CONC 32.6 g/dl (31.0-37.0); MEAN PLATELET VOLUME 10.5 fl (7.0-11.0); MONO # 1.4 (0.1-0.6); MONO % 8.5 % (1.0-6.0); RBC 4.26 10^6/uL (3.5-6.1); RED CELL DISTRIBUTION WIDTH 13.3 % (11.5-14.5)
[2017-07-14] MEDS ORDERED: cefTRIAXone 1 gm 1 GM/100 ML BAG IVPB SCH (10:00)
[2017-07-14] MEDS ORDERED: cefTRIAXone 1 GM/100 ML BAG IVPB SCH (10:00)
--- NOTE | 2017-07-14 10:51 | US ---
PROCEDURE: Ultrasound of the Kidneys HISTORY: UTI COMPARISON: CT scan 07/14/2017. TECHNIQUE: Sonogram of the kidneys. FINDINGS: RIGHT KIDNEY: Measures: 10.0 x 5.1 x 5.6 cm. Mild right hydronephrosis is noted. There is a 4 millimeter x 4 millimeter echogenic focus in the lower pole of the right kidney consistent with small renal calculus. There appear to be a few small scattered right renal cysts. There may also be some slight renal scarring laterally. LEFT KIDNEY: Measures: 11.4 by 7.3 x 6.8 cm. There is also left hydronephrosis identified. There is a large posterior left renal cyst identified measuring 9 x 6 x 6 centimeters. This extends from the lower pole region. Small linear area of echogenicity in the midpole region probably reflects acoustic reflector rather than calculus. A few other smaller left renal cysts are suspected. OTHER FINDINGS: None. IMPRESSION: Bilateral hydronephrosis. Large left renal cyst.
--- NOTE | 2017-07-14 10:57 | CARD ---
APPROVED REPORT EKG Measurement Heart [id number] <Conclusion> Sinus tachycardia Right bundle branch block Left anterior fascicular block Bifascicular block Septal infarct, age undetermined C/W ECG 03/16/17: T waves 1, V 4 - 6 now upright
[2017-07-14] MEDS: Insulin Lispro (humaLOG) LOW Coverage SC SCH ×2 (11:00→11:10)
[2017-07-14] MEDS: Aspirin 325 mg EC Tablets PO SCH (11:10)
[2017-07-14] MEDS: Enoxaparin 40 mg Syringe SC SCH (11:11)
[2017-07-14] MEDS: Cholecalciferol 1,000 INTLU TAB PO SCH (11:12)
[2017-07-14] MEDS: Meropenem IV 1 gm in NS 50 ML IVPB SCH ×3 (12:27→22:47)
[2017-07-14] MEDS: cefTRIAXone 1 gm 1 GM/100 ML BAG IVPB SCH (13:06)
[2017-07-14] MEDS ORDERED: Sodium Chloride 0.9% 250 ML IV STA (16:45)
[2017-07-14] MEDS: Lactated Ringer's 1,000 ML IV SCH (17:19)
[2017-07-14] MEDS ORDERED: Vancomycin 1gm in NS 250ml 1 GM/250 ML BAG IVPB STA (18:35)
--- NOTE | 2017-07-14 22:34 | CON ---
DATE: 07/14/2017 LOCATION: The patient is seen earlier in [facility], bed 1 and the patient was seen in the Emergency Room yesterday and admitted. CHIEF COMPLAINT: Weakness and fever, unsure of the days' duration. HISTORY OF PRESENT ILLNESS: This is a 71-year-old male with history of diabetes, hypertension, bladder disease, and he had a catheter procedure at the [facility] and he is complaining of fevers and chills, and in the Emergency Room, the patient was found to have a temperature of 103 and the patient needs consultation requested. PAST MEDICAL HISTORY: Significant for diabetes mellitus, hypertension, deafness, urinary tract infection, respiratory failure, the patient was intubated, obesity, and urinary incontinence. PAST SURGICAL HISTORY: Significant for bilateral cataract surgery. The patient also had an appendectomy. ALLERGIES: THE PATIENT HAS NO KNOWN ALLERGIES. MEDICATIONS AT HOME: Include metoprolol, , Zocor, aspirin, and oxybutynin. REVIEW OF SYSTEMS: Reveals that the patient states he was having fevers and chills and urinary symptoms. No chest pain, shortness of breath, or cough. No abdominal pain, diarrhea, or constipation. The patient was last in [facility] in 02/2017, had urinary tract infection and had respiratory failure. PHYSICAL EXAMINATION: VITAL SIGNS: The patient is in bed with temperature of 103, heart rate of 102, blood pressure of 114/50, and respiratory rate of 18, which was 20. HEENT: Unremarkable. NECK: Supple. LUNGS: Have decreased breath sounds. HEART: Normal S1 and S2. ABDOMEN: Soft and nontender. LABORATORY DATA: Reveals a white count of 10,000, it is up to 17,000, hemoglobin of 13, platelets of 197, and differential noted. Coagulation is reviewed. Chemistry reveals a BUN of 29 and creatinine of 1.0. Urinalysis reveals too numerous to count WBCs. ASSESSMENT AND PLAN: A 71-year-old male with obesity, body mass index of 35, diabetes, hypertension, urinary incontinence, bladder disease, deafness, urinary tract infection, history of respiratory failure and who is admitted now with a fever, tachycardia, chills, and positive urinalysis; 1. Sepsis with urine as the source. We will treat the patient with meropenem and pending blood culture, urine culture, and initial workup results. We will review the cultures from previous admission reveals the patient had yeast in the urine and we will follow closely with you. Benton Jackman MD
[2017-07-15] MEDS: Meropenem IV 1 gm in NS 50 ML IVPB SCH ×2 (06:02→15:46)
[2017-07-15] MEDS: Lactated Ringer's 1,000 ML IV SCH ×4 (07:07→20:20)
[2017-07-15 07:46] LABS: BASO # 0.01 K/mm3 (0.0-2.0); BASO % 0.1 % (0.0-3.0); GRAN # 8.21 (1.4-6.5); GRAN % 87.3 % (50.0-68.0); HEMOGLOBIN 11.3 g/dL (14.0-18.0); LYMPH # 0.5 (1.2-3.4); LYMPH % 5.4 % (22.0-35.0); MEAN CELL VOLUME 90.8 fl (80.0-105.0); MEAN CORPUSCULAR HEMOGLOBIN 29.8 pg (25.0-35.0); MEAN CORPUSCULAR HGB CONC 32.8 g/dl (31.0-37.0); MEAN PLATELET VOLUME 9.9 fl (7.0-11.0); MONO # 0.7 (0.1-0.6); MONO % 7.2 % (1.0-6.0); RBC 3.79 10^6/uL (3.5-6.1); RED CELL DISTRIBUTION WIDTH 13.4 % (11.5-14.5); WHITE BLOOD COUNT 9.4 10^3/ul (4.5-11.0)
[2017-07-15] MEDS ORDERED: Gentamicin 80 mg/2mL Inj. ONE (07:53)
[2017-07-15] MEDS ORDERED: Iohexol 240 (50 ml) ONE (07:54)
[2017-07-15] MEDS ORDERED: Propofol 10 mg/ml Inj (20 ML) ONE (07:59)
[2017-07-15 08:00] LABS: ALB/GLOB RATIO 0.9 (1.1-1.8); ALBUMIN 3.1 g/dL (3.0-4.8); ALT/SGPT 30 U/L (7-56); AST/SGOT 35 U/L (17-59); BILIRUBIN,DIRECT 0.3 mg/dL (0.0-0.4); BLOOD UREA NITROGEN 26 mg/dL (7-21); GFR AFRICAN-AMERICAN > 60; GFR NON-AFRICAN AMERICAN 54; MAGNESIUM 1.8 mg/dL (1.7-2.2)
[2017-07-15] MEDS ORDERED: Morphine 2 mg/ml ISec IVP PRN (08:57)
[2017-07-15] MEDS ORDERED: Lactated Ringer's 1,000 ML IV SCH (09:00)
--- NOTE | 2017-07-15 09:08 | CP.PCM.CON ---
Past Patient History - Infectious Disease Hx of Infectious Diseases: None - Past Social History Smoking Status: Former Smoker - CARDIAC Hx Cardiac Disorders: Yes Hx Hypertension: Yes - PULMONARY Hx Respiratory Disorders: No - NEUROLOGICAL Hx Neurological Disorder: No - HEENT Hx HEENT Problems: Yes Hx Cataracts: Yes (BILATERAL SX) - RENAL Hx Chronic Kidney Disease: Yes Other/Comment: Reports bladder surgery - ENDOCRINE/METABOLIC Hx Diabetes Mellitus Type 1: Yes - HEMATOLOGICAL/ONCOLOGICAL Hx Blood Transfusions: No Hx Blood Transfusion Reaction: No - INTEGUMENTARY Hx Dermatological Problems: No - MUSCULOSKELETAL/RHEUMATOLOGICAL Hx Musculoskeletal Disorders: Yes Hx Falls: Yes Hx Unsteady Gait: Yes - GASTROINTESTINAL Hx Gastrointestinal Disorders: Yes (APPENDECTOMY) - GENITOURINARY/GYNECOLOGICAL Hx Incontinence: Yes Hx Urinary Tract Infection: Yes - PSYCHIATRIC Hx Psychophysiologic Disorder: No Hx Substance Use: No - SURGICAL HISTORY Hx Surgeries: Yes - ANESTHESIA Hx Anesthesia Reactions: No Hx Malignant Hyperthermia: No Meds Allergies/Adverse Reactions: Allergies Allergy/AdvReac Type Severity Reaction Status Date / Time No Known Allergies Allergy Verified 07/13/17 17:31 - Medications Medications: Current Medications Acetaminophen (Tylenol 325mg Tab) 650 mg PO Q6 PRN PRN Reason: FOR TEMP>=99.5F Last Admin: 07/14/17 17:28 Dose: 650 mg Aspirin (Ecotrin) 325 mg PO DAILY [facility] Last Admin: 07/14/17 11:10 Dose: 325 mg Atorvastatin Calcium (Lipitor) 20 mg PO DIN [facility] Last Admin: 07/14/17 17:29 Dose: 20 mg Cholecalciferol (Vitamin D) 1,000 intlu PO DAILY [facility] Last Admin: 07/14/17 11:12 Dose: 1,000 intlu Diltiazem HCl (Cardizem) 60 mg PO TID [facility] Last Admin: 07/14/17 19:53 Dose: Not Given Docusate Sodium (Colace) 100 mg PO BID [facility] Last Admin: 07/14/17 17:29 Dose: 100 mg Enoxaparin Sodium (Lovenox) 40 mg SC DAILY [facility] PRN Reason: Protocol Last Admin: 07/14/17 11:11 Dose: 40 mg Famotidine (Pepcid) 20 mg PO BID [facility] Last Admin: 07/14/17 17:29 Dose: 20 mg Meropenem (Merrem Iv 1 Gm Premix) 50 mls @ 100 mls/hr IVPB Q8 [facility] PRN Reason: Protocol Stop: 07/23/17 10:46 Last Admin: 07/15/17 06:02 Dose: 100 mls/hr Ceftriaxone Sodium (Rocephin 1 Gram Ivpb) 1 gm in 100 mls @ 100 mls/hr IVPB DAILY [facility] PRN Reason: Protocol Last Admin: 07/14/17 13:06 Dose: 100 mls/hr Lactated Ringer's (Lactated Ringer's) 1,000 mls @ 125 mls/hr IV .Q8H [facility] Stop: 07/15/17 17:00 Last Admin: 07/15/17 07:07 Dose: 125 mls/hr Lactated Ringer's (Lactated Ringer's) 1,000 mls @ 75 mls/hr IV .[id number] [facility] Stop: 07/15/17 11:01 Metoprolol Tartrate (Lopressor) 25 mg PO TID [facility] Last Admin: 07/14/17 19:53 Dose: Not Given Morphine Sulfate (Morphine) 2 mg IVP Q15M PRN PRN Reason: Pain, moderate (4-7) Ondansetron HCl (Zofran Inj) 4 mg IVP Q6 PRN PRN Reason: Nausea/Vomiting Oxybutynin Chloride (Ditropan Tab) 10 mg PO BID [facility] Last Admin: 07/14/17 17:29 Dose: 10 mg Phenazopyridine HCl (Pyridium) 200 mg PO TID [facility] Stop: 07/17/17 18:01 Last Admin: 07/14/17 17:29 Dose: 200 mg Results - Vital Signs Recent Vital Signs: Last Vital Signs Temp 97.9 F 07/15/17 08:52 Pulse 87 07/15/17 08:52 Resp 16 07/15/17 08:52 BP 96/53 L 07/15/17 08:52 Pulse Ox 98 07/15/17 08:52 - Labs Result Diagrams: 07/15/17 07:30 07/15/17 07:30 Labs: Laboratory Results - last 24 hr 07/14/17 07/14/17 07/14/17 07:30 07:30 11:10 WBC RBC Hgb Hct MCV MCH MCHC RDW Plt Count MPV Gran % Lymph % (Auto) [place] % (Auto) Eos % (Auto) Baso % (Auto) Gran # Lymph # [place] # Eos # Baso # Sodium Potassium Chloride Carbon Dioxide Anion Gap BUN Creatinine Est GFR ( Amer) Est GFR (Non-Af Amer) POC Glucose (mg/dL) 111 H Random Glucose Fructosamine 275 H Calcium Magnesium Total Bilirubin Direct Bilirubin AST ALT Alkaline Phosphatase Total Protein Albumin Globulin Albumin/Globulin Ratio 25-OH Vitamin D Total 36.4 07/14/17 07/14/17 07/15/17 15:58 21:19 07:30 WBC 9.4 D RBC 3.79 Hgb 11.3 L Hct 34.4 L MCV 90.8 MCH 29.8 MCHC 32.8 RDW 13.4 Plt Count 154 MPV 9.9 Gran % 87.3 H Lymph % (Auto) 5.4 L [place] % (Auto) 7.2 H Eos % (Auto) 0.0 L Baso % (Auto) 0.1 Gran # 8.21 H Lymph # 0.5 L [place] # 0.7 H Eos # 0.0 Baso # 0.01 Sodium Potassium Chloride Carbon Dioxide Anion Gap BUN Creatinine Est GFR ( Amer) Est GFR (Non-Af Amer) POC Glucose (mg/dL) 205 H 197 H Random Glucose Fructosamine Calcium Magnesium Total Bilirubin Direct Bilirubin AST ALT Alkaline Phosphatase Total Protein Albumin Globulin Albumin/Globulin Ratio 25-OH Vitamin D Total 07/15/17 07/15/17 07:30 07:40 WBC RBC Hgb Hct MCV MCH MCHC RDW Plt Count MPV Gran % Lymph % (Auto) [place] % (Auto) Eos % (Auto) Baso % (Auto) Gran # Lymph # [place] # Eos # Baso # Sodium 138 Potassium 3.6 Chloride 108 H Carbon Dioxide 20 L Anion Gap 14 BUN 26 H Creatinine 1.3 Est GFR ( Amer) > 60 Est GFR (Non-Af Amer) 54 POC Glucose (mg/dL) 219 H Random Glucose 241 H Fructosamine Calcium 9.0 Magnesium 1.8 Total Bilirubin 0.5 Direct Bilirubin 0.3 AST 35 ALT 30 Alkaline Phosphatase 38 Total Protein 6.7 Albumin 3.1 Globulin 3.6 Albumin/Globulin Ratio 0.9 L 25-OH Vitamin D Total Assessment & Plan - Assessment and Plan (Free Text) Assessment: Imp: UTI Pyeolnephritis Bilat hydronephrosis Incontinence DM Hypertension Obesity Thank you Full note to be dictated YS - Date & Time Date: 07/15/17 Time: 07:35
--- NOTE | 2017-07-15 09:12 | PCM.SURG1 ---
Surgeon's Initial Post Op Note - Surgeon's Notes Surgeon: Colton Smith Medical Practice Assistant: none Type of Anesthesia: General LMA Pre-Operative Diagnosis: Bilat hydronephrosis Operative Findings: cystitis. Urethral meatal stenosis - dilated. Absent or wide open prostate. Bladder debris. Unbable to catheterize ureters. Bilateral hydronephrosis Post-Operative Diagnosis: same Operation Performed: cystoscopy. urethral meatal dilation. retrograde pyelogram. cystogram Specimen/Specimens Removed: bladder debris Estimated Blood Loss: EBL {In ML}: 0 Blood Products Given: N/A Post-Op Condition: Good Date of Surgery/Procedure: 07/15/17 Time of Surgery/Procedure: 08:46
[2017-07-15] MEDS: Enoxaparin 40 mg Syringe SC SCH (10:44)
[2017-07-15] MEDS: Aspirin 325 mg EC Tablets PO SCH (10:44)
[2017-07-15] MEDS: cefTRIAXone 1 gm 1 GM/100 ML BAG IVPB SCH (10:45)
[2017-07-15] MEDS: Insulin Lispro (humaLOG) LOW Coverage SC SCH ×3 (11:30→21:48)
[2017-07-15] MEDS: Cholecalciferol 1,000 INTLU TAB PO SCH (13:00)
[2017-07-15] MEDS ORDERED: Vancomycin 1gm in NS 250ml 1 GM/250 ML BAG IVPB SCH (14:00)
--- NOTE | 2017-07-15 20:33 | PN ---
DATE: 07/15/2017 SUBJECTIVE: The patient is seen in room 370, bed 1. The patient underwent urological procedure yesterday. Patient is seen. The patient had fever, chills, and rigor. The patient was found to be overnight. The patient had fever of 104 overnight. Blood and urine cultures have been. The patient was given a dose of gentamicin before the procedure yesterday. The patient tolerated the procedure yesterday by Urology. OBJECTIVE: VITAL SIGNS: T-max in the last 24 hours is 101.9 down to 97.9, heart rate 78 to 79, blood pressure 99/53, 104/53 06/26/1953 respiration 18 to 20, O2 sat 98%. HEENT: Head; normocephalic, atraumatic. Shows pinkish conjunctivae. Dry oral mucosa. NECK: No neck rigidity. No audible JVD. No visible jugular venous distention. CHEST: Kyphosis. LUNG: Shows no rales, crackles or wheezing audible at present. CARDIOVASCULAR: Shows S1, S2, regular rhythm. Questionable soft systolic murmur left sternal border, right second intercostal space left sternal border. ABDOMEN: Is protuberant. Positive bowel sound. No hepatosplenomegaly appreciated. GENITALIA: Male. Positive Abad catheter. EXTREMITIES: Shows positive SCDs. No visible pitting edema noted. Trace swelling noted. MUSCULOSKELETAL: Shows a body mass index of 35. NEUROLOGIC: The patient is alert, awake, responsive, is able to move upper and lower extremity without assistance. GAIT: Could not be tested. The patient has been ordered SCDs and NELDA stockings. VASCULAR: Palpable pulses. Gait examination could not be assessed. MOTOR STRENGTH: The patient is able to move upper lower extremity without assistance. DIAGNOSTICS: On 07/15/2017; WBC 9.4, down from 17,000, hemoglobin/hematocrit 11.3, 34.4, platelet 154. Granulocytes 87%. Sodium 138, potassium 3.6, chloride 108, CO2 of 20, anion gap 14, BUN 26 which is down from 29, creatinine 1.3, GFR greater than 60, glucose 203, 219, 241, 197, 205, and , calcium 9.0, magnesium 1.8. LFTs are normal. Vitamin D 25-hydroxy is 36.4. Thyroid panel, TSH is normal. T4 is slightly low. Urine cultures, Enterococcus faecalis which is sensitive to ampicillin, sensitive to Macrobid, sensitive to Zyvox, sensitive to penicillin, sensitive to vancomycin. Blood cultures negative. The patient's venous Doppler of bilateral lower extremity and bilateral upper extremity results are pending. Ultrasound of the bilateral upper extremity was preliminary negative. Ultrasound of the bilateral lower extremity was preliminary negative, but awaiting of official report. The patient underwent retrograde pyelogram. IMPRESSION: 1. Sepsis with Enterococcus faecalis urinary tract infection. 2. Obstructive uropathy with urinary retention. 3. Pyelonephritis. 4. Bilateral hydronephrosis. 5. Incontinence. 6. High-grade fever of 103.3. 7. Hypo and hypertension. 8. Leukocytosis with granulocytosis. 9. Normocytic anemia. 10. Insulin-requiring diabetes mellitus. 11. Mild prerenal kidney injury. 12. Enterococcus faecalis urinary tract infection with proteinuria, hematuria, pyuria, and bacteriuria. 13. Sinus tachycardia. 14. 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 15. Status post retrograde pyelogram. 16. Right basilar subsegmental atelectasis. 17. Status post cholecystectomy. 18. Bilateral renal cyst, left more than the right. 19. Pyelonephritis with areas of perinephric stranding and non enhancing cortex. 20. Questionable nephrolithiasis. 21. Large left renal cyst. 22. Bilateral hydronephrosis, left more than the right. 23. Left hydroureter. 24. Questionable cystitis. 25. Degenerative joint disease of the spine. 26. Atherosclerotic vascular disease. 27. Possible transurethral resection of the prostate defect. 28. Status post cystoscopy, retrograde attempted pigtail stent insertion. 29. Status post cystoscopy and retrograde pyelogram. 30. Cystitis. 31. Urethral meatal stenosis, status post dilatation. 32. Status post cystoscopy, ureteral meatal dilatation, retrograde pyelogram, and cystogram, and bladder debris removal. 1. High-grade fever. 2. Tachycardia. 3. Questionable . 4. Leukocytosis with granulocytosis. 5. Systemic inflammatory response syndrome. 6. Normocytic anemia. 7. Prerenal kidney injury. 8. Insulin-requiring diabetes mellitus with hyperglycemia. 9. Bilateral hydronephrosis, left more than the right. 10. Bilateral renal cyst, left more than the right. 11. Bibasilar atelectasis. 12. Pyelonephritis. 13. Status post possible transurethral resection of prostate. 14. Questionable sepsis versus systemic inflammatory response syndrome. 15. 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 16. Gait dysfunction. 17. Deconditioning. 18. Hypertension. 19. History of diabetic ketoacidosis. 20. History of uncontrolled diabetes mellitus. PLAN: At this time, the patient's Cardizem will be stopped because of hypertension. The patient is on meropenem 1 g IV q. 8 h. The patient's Rocephin will be discontinued. The patient will be started on vancomycin 1 g IV q. 12 h. The patient has been ordered serial labs. PSA is ordered, results pending. Repeat CBC ordered. The patient has been ordered serial CMP is repeat urine culture has been ordered.. Current consultation Urology and Infectious Disease. CURRENT MEDICATIONS: Colace 100 mg twice a day, Ditropan 10 mg twice a day, Ecotrin 325 daily, Humalog low-dose sliding scale coverage a.c. and at bedtime, ringer's lactate increased to 150 mL an hour, Lipitor 20 mg daily, Lopressor 25 mg three times a day, Cardizem 60 three times a day stop, Lovenox 40 mg subcu daily, meropenem 1 g IV q. 8 h., the patient is on Pepcid 20 mg twice a day, peridium 200 three times a day for 3 to 4 days, Tylenol 650 q. 6 h. p.r.n., vancomycin 1 g IV q. 12 h., vitamin D 1000 units daily, Zofran 4 mg IV q. 6 h. p.r.n. The patient has been ordered out of bed. Corrie Villela ordered. The patient will be closely followed up by all the subspecialty involved. We will await repeat urine cultures. The patient's blood cultures so far has been negative. Dictated and electronically signed, not read. Paulino Linder MD [facility]
--- NOTE | 2017-07-15 20:41 | PN ---
DATE: 07/15/2017 SUBJECTIVE: The patient is in bed in no acute distress, nontoxic. PHYSICAL EXAMINATION VITAL SIGNS: On exam; temperature is 97, blood pressure is 106/60, respiratory rate of 20 and heart rate of 79. HEENT: Unremarkable. NECK: Supple. LUNGS: Have decreased breath sounds. HEART: Normal S1 and S2. ABDOMEN: Soft and nontender. LABORATORY DATA: Examination reveals the patient's white count is down to 9.4, hemoglobin of 11 and platelets of 154. Chemistries reveals a BUN of 26, creatinine of 1.3 and procalcitonin less than 0.05. Urinalysis is noted. Microbiology reveals the patient has Enterococcus in the urine. The blood cultures are negative. Enterococcus is sensitive to ampicillin. ALLERGIES: THE PATIENT HAS NO KNOWN ALLERGIES. ASSESSMENT AND PLAN: This is a 71-year-old male with obesity with body mass index of 35, diabetes, hypertension, urinary incontinence, bladder disease, deafness, urinary tract infection, history of respiratory failure who was admitted now with sepsis with Enterococcus urine as the source and the patient was seen by Urology Dr. Freeman who has taken the patient for cystoscopy, retrograde pigtail stent placement and pyelogram today with operative findings of urethral meatal stenosis. We will treat the patient with Unasyn upon discharge. The patient may be switched over to Augmentin, since the Enterococcus faecalis in the urine is pansensitive, but it is sensitive to ampicillin and at this time we will discontinue the vancomycin and meropenem and treat the patient with Unasyn and may be will switch to p.o. Augmentin upon discharge 875 p.o. b.i.d. If there is prostate disease involvement should extend to 3 weeks of therapy, if not 10-14 days will be adequate. Benton Jackman MD
[2017-07-16] MEDS: Lactated Ringer's 1,000 ML IV SCH ×4 (02:53→23:50)
--- NOTE | 2017-07-16 04:31 | OP ---
PROCEDURE DATE: PREOPERATIVE DIAGNOSES: 1. Hydronephrosis. 2. Urinary tract infection. POSTOPERATIVE DIAGNOSES: 1. Hydronephrosis. 2. Urinary tract infection. 3. Severe cystitis. 4. Urethral meatal stricture. 5. Inability to insert ureteral stents bilaterally. PROCEDURES: 1. Attempted bilateral retrograde pyelogram. 2. Cystogram. OPERATING SURGEON: Keli Freeman M.D. DESCRIPTION OF PROCEDURE: Procedure was done with fluoroscopic control with C-arm. The procedure was performed under video endoscopic control. The patient was placed in lithotomy position and the genitalia prepped and draped sterilely. A 22-Kazakh cystoscope sheath was introduced under direct vision. There was noted to be urethral meatal stenosis, which we required dilation prior to insertion of cystoscope sheath. Remainder of the anterior urethra was normal. The sphincter was not evident. There were no normal landmarks of the prostatic urethra. The urethra appeared to open into the bladder directly. There was no bladder neck contracture. There was severe inflammation of the bladder mucosa diffusely. There was marked bladder trabeculation with cellular formation. There was much debris within the bladder, which was irrigated free. The bladder was then able to be inspected. The urethral orifice was identified on the right, attempted catheterization was performed. Catheter was able to be inserted for approximately 1 cm through the orifice. Multiple attempts at passing guidewires and [place] wires as well as contrast injection were performed; however, the ureter could not be catheterized. The attempts at findings the left orifice was also performed. There was more cephalad on the posterior wall of the bladder on the left side; however, apparent orifice also after catheterization, could not allow guidewire or Glidewire to be inserted. Multiple attempts with open end catheter as well as with an angled tipped Proctor catheter were performed. The bladder was drained. The debris was sent both for culture and for pathologic examination. Abad catheter was inserted. Iodinated contrast then was instilled and performed a cystogram. The cystogram demonstrated a very small capacity bladder. There was noted to be bilateral vesicoureteral reflux up to the kidney on the left and into the mid to distal ureter on the right. The cystoscope and sheath had been removed. Abad catheter was left in place. Rectal examination was performed. There was no abnormal pelvic mass. The prostate was not palpable. The patient was returned to the supine position. The patient tolerated the procedure without complication. [place] MD Lydia cc: Paulino Linder MD
[2017-07-16 06:39] LABS: EOS # 0.1 (0.0-0.7); EOS % 1.9 % (1.5-5.0); GRAN # 4.98 (1.4-6.5); HEMOGLOBIN 11.3 g/dL (14.0-18.0); LYMPH # 0.9 (1.2-3.4); LYMPH % 13.5 % (22.0-35.0); MEAN CELL VOLUME 92.2 fl (80.0-105.0); MEAN CORPUSCULAR HEMOGLOBIN 29.3 pg (25.0-35.0); MEAN CORPUSCULAR HGB CONC 31.7 g/dl (31.0-37.0); MEAN PLATELET VOLUME 10.3 fl (7.0-11.0); MONO # 0.5 (0.1-0.6); MONO % 7.6 % (1.0-6.0); RBC 3.86 10^6/uL (3.5-6.1); RED CELL DISTRIBUTION WIDTH 13.6 % (11.5-14.5); WHITE BLOOD COUNT 6.5 10^3/ul (4.5-11.0)
[2017-07-16 06:50] LABS: ALB/GLOB RATIO 0.8 (1.1-1.8); ALBUMIN 3.1 g/dL (3.0-4.8); ALT/SGPT 26 U/L (7-56); AST/SGOT 33 U/L (17-59); BLOOD UREA NITROGEN 25 mg/dL (7-21); GFR AFRICAN-AMERICAN > 60; GFR NON-AFRICAN AMERICAN 60; MAGNESIUM 1.9 mg/dL (1.7-2.2)
[2017-07-16 07:00] LABS: BILIRUBIN,DIRECT 0.2 mg/dL (0.0-0.4)
--- NOTE | 2017-07-16 08:22 | PN ---
DATE: 07/14/2017 SUBJECTIVE: The patient is seen lying in the bed in room 370, bed 1. The patient is completely alert, awake, responsive, knows his name, knows the dates and knows the year and month but unable to state the date and day. The patient follows simple command. The patient is seen lying in the bed. The patient is comfortable. The patient does not appear to be in any distress. Overnight nurse's notes were reviewed. The patient denies chest pain, but still complains of difficulty urination. The patient also complained of chills. PHYSICAL EXAMINATION: VITAL SIGNS: T-max 103.3 degrees Fahrenheit down to 101.9 degrees Fahrenheit. Heart rate 94 to 102. Blood pressure 136/67 to 135/53, O2 sat 96%, and respiration 18 per minute. HEAD: Normocephalic, atraumatic. HEENT examination shows pinkish conjunctivae. Dry oral mucosa. NECK: No neck rigidity. No jugular venous distention. No audible carotid bruit. CHEST EXAMINATION: Kyphosis. LUNGS: Shows no rales, crackles or wheezing. CARDIOVASCULAR: S1, S2, regular rhythm. Questionable soft systolic murmur at left sternal border, right second intercostal space, left second intercostal space. ABDOMEN: Obese, protuberant, and soft. Positive bowel sounds. No appreciable hepatosplenomegaly noted. No guarding. No rigidity, rebound tenderness. GENITALIA: Male. RECTAL: Deferred. EXTREMITY: Shows no pitting, no Homans' sign. Positive SCDs noted. The patient is able to move upper and lower extremity without assistance. Gait examination is deferred. The patient is seen lying in the bed. Cranial nerves II through XII limited. DIAGNOSTICS: From 07/14/2017, WBC count is 17,000, hemoglobin and hematocrit are 12.8 and 39.3, and platelet 104,000. Granulocytes, 84% segs. Sodium 138, potassium 4.0, chloride 106, CO2 of 20, BUN 26, creatinine 1.2, and glucose 133. LFTs are all within normal limits. Cholesterol 119 and HDL 20. Procalcitonin level is 0.05. Renal ultrasound, CAT scan of the abdomen and pelvis noted. DIAGNOSES: 1. High-grade fever. 2. Tachycardia. 3. Questionable . 4. Leukocytosis with granulocytosis. 5. Systemic inflammatory response syndrome. 6. Normocytic anemia. 7. Prerenal kidney injury. 8. Insulin-requiring diabetes mellitus with hyperglycemia. 9. Bilateral hydronephrosis, left more than the right. 10. Bilateral renal cyst, left more than the right. 11. Bibasilar atelectasis. 12. Pyelonephritis. 13. Status post possible transurethral resection of prostate. 14. Questionable sepsis versus systemic inflammatory response syndrome. 15. 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 16. Gait dysfunction. 17. Deconditioning. 18. Hypertension. 19. History of diabetic ketoacidosis. 20. History of uncontrolled diabetes mellitus. PLAN: At this time, the patient is to be continued on IV fluids. The patient will be continued on broad-spectrum IV antibiotic. The patient will be continued on both basal and bolus insulin. The patient will be continued on GI and DVT prophylaxis. The patient's ultrasound of the upper and lower extremity are pending, results of which were determined whether the patient needs to be continued on Eliquis or not. The patient has been ordered out of bed to chair, physical therapy, ambulation therapy, and gait therapy ordered. The patient's infectious disease evaluation and urology consultation is requested. Their recommendations pending. The patient's further management will be dependent upon the patient's clinical condition, hemodynamic status, and as per the patient response to therapeutic intervention as per the patient's diagnostic test results and as per recommendation by all the physician involved in the care of the patient. Dictated and electronically signed, not read. Paulino Linder MD cc: [facility]
[2017-07-16] MEDS: Insulin Lispro (humaLOG) LOW Coverage SC SCH ×4 (08:42→21:50)
[2017-07-16] MEDS: Insulin Lispro 1 UNITS/0.01 ML SC SCH ×3 (08:42→16:49)
[2017-07-16] MEDS: Aspirin 325 mg EC Tablets PO SCH (09:31)
[2017-07-16] MEDS: Enoxaparin 40 mg Syringe SC SCH (09:32)
[2017-07-16] MEDS: Cholecalciferol 1,000 INTLU TAB PO SCH (09:32)
--- NOTE | 2017-07-16 09:33 | CON ---
DATE: 07/15/2017 UROLOGY CONSULTATION Urology consultation requested by Paulino Linder M.D. Urology consultation filled by Dr. Keli Freeman. REASON FOR CONSULTATION: Urinary tract infection and hydronephrosis. HISTORY OF PRESENT ILLNESS: The patient is a 71-year-old male admitted with abdominal pain and fever. The patient otherwise in fair health. The patient has a history of hypertension. The patient has history of diabetes. Past surgical history is significant for history of cholecystectomy and history of appendectomy. The patient also reports that he had previous urologic procedures. He is uncertain the nature of the procedure. The patient reports no history of prostate cancer. The patient reports no history of urolithiasis. No recent hematuria. The patient has had abdominal pain. He has had upper abdominal pain. He has had lower abdominal pain. Mr. Sorensen lives with his . He is not working. He is retired. The patient has history of urinary incontinence. He wears a diaper during the day and during the night. He does not get up to urinate as he voids into his diaper. The patient reports that he has good bowel control. No history of weight loss. The patient has previous urologic care at the [facility]. He is uncertain nature of this care. Mr. Sorensen was admitted to [facility] in the fall of 2016 for urinary tract infection. The patient was admitted with fever, fever over 103 degree Fahrenheit. He also was noted to have leukocytosis. The patient also had a CT scan , which showed hydronephrosis. PHYSICAL EXAMINATION: GENERAL: The patient is a well developed, well nourished, overweight male, in no acute distress. The patient is awake and alert. VITAL SIGNS: See attached. The patient had fever again last night. ABDOMEN: Soft. Mildly protuberant. Nontender. Nondistended. BACK: No CVA tenderness. GENITALIA: Without inflammation. Circumcised male. LABORATORY DATA: Reviewed. His white blood count [id number]. The CAT scan was reviewed. There was bilateral hydroureteronephrosis, left greater than right. There is a small bladder without evidence of retention. There is perinephric inflammation. There is a large left renal cyst. IMPRESSION: Urinary tract infection, pyelonephritis, voiding dysfunction, incontinence, possible prostatic pathology. PLAN: In view of the persistent fever, in view of the hydronephrosis and urinary tract infection, a cystoscopy and stent insertion is recommended. Nature of the procedure, including risks, benefits, and alternatives have been explained to the patient. Case has been discussed with the patient's as well as with the attending physician. Continue antibiotic therapy. Urine culture pending, for cystoscopy and stent insertion. Keli Freeman MD
--- NOTE | 2017-07-16 15:11 | RAD ---
PROCEDURE: Retrograde pyelogram HISTORY: ATTEMPTED RETROGRADE, UNABLE TO ADVANCE CATHETER COMPARISON: TECHNIQUE: Fluoroscopy was provided in the operating room. 56.2 seconds of fluoro time were use. Twelve images were submitted FINDINGS: The study shows an irregular contour of the bladder. A Abad catheter is in place. There is no catheter or wire seen in the ureters. There is reflux into the left ureter extending to the left collecting system. There is reflux into the distal portion of the right ureter. IMPRESSION: As above
--- NOTE | 2017-07-16 15:14 | PN ---
DATE: 07/16/2017 SUBJECTIVE: The patient is seen in room 370, bed one. The patient is still lying in the bed. The patient is alert, awake, responsive. The patient is alert, awake, oriented x2 to 3. The patient is slightly slow to respond, but responds appropriately. Overnight nurse's notes were reviewed. The patient slept well and laid in the bed. No adverse events documented in the nurses' note. PHYSICAL EXAMINATION VITAL SIGNS: T-max 97.9, pulse 72 to 77, blood pressure 107/63, O2 sat 94% to 96%. HEENT: Head examination, normocephalic, atraumatic. HEENT examination shows pinkish conjunctivae. Anicteric sclerae. No oropharyngeal lesion. No visible jugular venous distention. No audible carotid bruit. CHEST: Kyphosis. LUNGS: Shows no crackles, rales or wheezing. CARDIOVASCULAR: Shows S1, S2, regular rhythm. Questionable soft systolic murmur left sternal border, right second intercostal space. ABDOMEN: Soft, obese, protuberant. No hepatosplenomegaly noted. No guarding. No rigidity. No rebound tenderness. GENITALIA: Male. Positive Abad catheter noted. Draining pinkish tinge urine. MUSCULOSKELETAL: Examination shows as per the body mass index. Motor strength. NEUROLOGIC: The patient is alert, awake, responsive, follows command. Moves upper and lower extremity without assistance. Gait examination is not tested. EXTREMITIES: Lower extremity shows no pitting, no calf tenderness, no Homans' sign. Positive SCDs noted. VASCULAR: Examination palpable pulses. No clubbing, no cyanosis noted. DIAGNOSTICS: On 07/16/2017, WBC 6.5, hemoglobin/hematocrit 11.3/35.6, platelet 155, and 77% segs. Sodium 142, potassium is 3.6, which is low normal, chloride 108, CO2 of 22, BUN 25, creatinine 1.2, glucose 233, magnesium 1.9. LFTs are within normal limits. Repeat urine culture pending. Most Enterococcus faecalis urinary tract infection. DIAGNOSES 1. Hypotension. 2. Leukocytosis with granulocytosis, resolving. 3. Normocytic anemia. 4. Sepsis, most probably sepsis secondary to Enterococcus faecalis urinary tract infection. 5. Bilateral hydronephrosis and hydroureter, left more than the right. 6. Enterococcus faecalis urinary tract infection. 7. Severe cystitis. 8. Urethral meatus stricture and stenosis. 9. Attempted bilateral retrograde pyelogram and cystogram and ureteral stent insertion. 10. Insulin-requiring diabetes mellitus with hyperglycemia. 11. Borderline hypokalemia. 12. Gait dysfunction. 13. Deconditioning. 14. Status post recent urological procedure. 15. Hematuria. 1. Sepsis with Enterococcus faecalis urinary tract infection. 2. Obstructive uropathy with urinary retention. 3. Pyelonephritis. 4. Bilateral hydronephrosis. 5. Incontinence. 6. High-grade fever of 103.3. 7. Hypo and hypertension. 8. Leukocytosis with granulocytosis. 9. Normocytic anemia. 10. Insulin-requiring diabetes mellitus. 11. Mild prerenal kidney injury. 12. Enterococcus faecalis urinary tract infection with proteinuria, hematuria, pyuria, and bacteriuria. 13. Sinus tachycardia. 14. 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 15. Status post retrograde pyelogram. 16. Right basilar subsegmental atelectasis. 17. Status post cholecystectomy. 18. Bilateral renal cyst, left more than the right. 19. Pyelonephritis with areas of perinephric stranding and non enhancing cortex. 20. Questionable nephrolithiasis. 21. Large left renal cyst. 22. Bilateral hydronephrosis, left more than the right. 23. Left hydroureter. 24. Questionable cystitis. 25. Degenerative joint disease of the spine. 26. Atherosclerotic vascular disease. 27. Possible transurethral resection of the prostate defect. 28. Status post cystoscopy, retrograde attempted pigtail stent insertion. 29. Status post cystoscopy and retrograde pyelogram. 30. Cystitis. 31. Urethral meatal stenosis, status post dilatation. 32. Status post cystoscopy, ureteral meatal dilatation, retrograde pyelogram, and cystogram, and bladder debris removal. 1. High-grade fever. 2. Tachycardia. 3. Questionable . 4. Leukocytosis with granulocytosis. 5. Systemic inflammatory response syndrome. 6. Normocytic anemia. 7. Prerenal kidney injury. 8. Insulin-requiring diabetes mellitus with hyperglycemia. 9. Bilateral hydronephrosis, left more than the right. 10. Bilateral renal cyst, left more than the right. 11. Bibasilar atelectasis. 12. Pyelonephritis. 13. Status post possible transurethral resection of prostate. 14. Questionable sepsis versus systemic inflammatory response syndrome. 15. 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 16. Gait dysfunction. 17. Deconditioning. 18. Hypertension. 19. History of diabetic ketoacidosis. 20. History of uncontrolled diabetes mellitus. PLAN: At this time, the patient is to be continued on IV fluid, IV antibiotics as per Infectious Disease. The patient's current consultation with Infectious Disease and Urology. Patient is started on some basal Humalog insulin with breakfast, lunch and dinner, 5 units with breakfast, lunch and dinner. The patient will be continued on the sliding scale coverage, bolus insulin. The patient will be continued on IV fluid, IV antibiotics, GI, DVT prophylaxis. The patient's bilateral upper and lower extremity venous Doppler preliminary report was negative for any DVT. The patient will be continued on DVT prophylaxis. The patient will be referred for physical therapy, ambulation therapy, gait training. The patient will be ordered out of bed to chair. The patient's medications are as per the MAR of today, which was reviewed and updated. Dictated and electronically signed, not read. Paulino Linder MD [facility]
--- NOTE | 2017-07-16 15:26 | CP.PCM.PN ---
Subjective - Date & Time of Evaluation Date of Evaluation: 07/16/17 Time of Evaluation: 15:05 - Subjective Subjective: Medicine Progress Note: Patient seen and assessed at bedside. No acute events noted overnight by nursing staff. Patient has no complaints at this time but does express that he would like to speak to the urologist about stent placement. He denies fever, chills, headache, changes in his vision, rhinorrhea, sore throat, chest pain, palpitations, syncope, dizziness, SOB, cough, wheezing, abdominal pain, N/V, diarrhea, constipation, burning/pain with urination, skin changes or any numbness/tingling/weakness of any extremity. Objective - Vital Signs/Intake and Output Vital Signs (last 24 hours): Temp Pulse Resp BP Pulse Ox 97.9 F 70 20 112/71 96 07/16/17 06:00 07/16/17 14:52 07/16/17 06:00 07/16/17 14:52 07/16/17 06:00 Intake and Output: 07/16/17 07/16/17 06:59 18:59 Intake Total 2480 Output Total 825 Balance 1655 - Medications Medications: Current Medications Acetaminophen (Tylenol 325mg Tab) 650 mg PO Q6 PRN PRN Reason: FOR TEMP>=99.5F Last Admin: 07/14/17 17:28 Dose: 650 mg Aspirin (Ecotrin) 325 mg PO DAILY [facility] Last Admin: 07/16/17 09:31 Dose: 325 mg Atorvastatin Calcium (Lipitor) 20 mg PO DIN [facility] Last Admin: 07/15/17 17:51 Dose: 20 mg Cholecalciferol (Vitamin D) 1,000 intlu PO DAILY [facility] Last Admin: 07/16/17 09:32 Dose: 1,000 intlu Docusate Sodium (Colace) 100 mg PO BID [facility] Last Admin: 07/16/17 09:32 Dose: 100 mg Enoxaparin Sodium (Lovenox) 40 mg SC DAILY [facility] PRN Reason: Protocol Last Admin: 07/16/17 09:32 Dose: 40 mg Famotidine (Pepcid) 20 mg PO BID [facility] Last Admin: 07/16/17 09:32 Dose: 20 mg Lactated Ringer's (Lactated Ringer's) 1,000 mls @ 150 mls/hr IV .Q6H40M [facility] Stop: 07/19/17 17:00 Last Admin: 07/16/17 09:37 Dose: 150 mls/hr Ampicillin Sodium/Sulbactam (Sodium 3 gm/ Sodium Chloride) 100 mls @ 200 mls/ hr IVPB Q6 [facility] PRN Reason: Protocol Stop: 07/25/17 00:01 Last Admin: 07/16/17 12:11 Dose: 200 mls/hr Insulin Human Lispro (Humalog Low) 0 units SC ACHS [facility] PRN Reason: Protocol Last Admin: 07/16/17 11:57 Dose: 1 units Insulin Human Lispro (Humalog) 5 units SC ACB [facility] Last Admin: 07/16/17 08:42 Dose: 5 units Insulin Human Lispro (Humalog) 5 units SC DAILY@1145 [facility] Last Admin: 07/16/17 11:57 Dose: 5 units Insulin Human Lispro (Humalog) 5 units SC DAILY@1745 [facility] Metoprolol Tartrate (Lopressor) 25 mg PO TID [facility] Last Admin: 07/16/17 14:52 Dose: 25 mg Morphine Sulfate (Morphine) 2 mg IVP Q15M PRN PRN Reason: Pain, moderate (4-7) Ondansetron HCl (Zofran Inj) 4 mg IVP Q6 PRN PRN Reason: Nausea/Vomiting Oxybutynin Chloride (Ditropan Tab) 10 mg PO BID [facility] Last Admin: 07/16/17 09:31 Dose: 10 mg Phenazopyridine HCl (Pyridium) 200 mg PO TID [facility] Stop: 07/17/17 18:01 Last Admin: 07/16/17 14:52 Dose: 200 mg - Labs Labs: 07/16/17 05:45 07/16/17 05:45 PT 15.1 SECONDS (9.4-12.5) H 07/13/17 15:30 INR 1.32 (0.93-1.08) H 07/13/17 15:30 APTT 26.3 Seconds (25.1-36.5) 07/13/17 15:30 - Constitutional Appears: Non-toxic, No Acute Distress - Head Exam Head Exam: ATRAUMATIC, NORMAL INSPECTION, NORMOCEPHALIC - Eye Exam Eye Exam: EOMI, Normal appearance, PERRL. absent: Conjunctival injection, Nystagmus, Periorbital swelling, Periorbital tenderness, Scleral icterus Pupil Exam: NORMAL ACCOMODATION, PERRL - ENT Exam ENT Exam: Mucous Membranes Moist, Normal Exam, Normal External Ear Exam, Normal Oropharynx. absent: Mucous Membranes Dry - Neck Exam Neck Exam: Full ROM, Normal Inspection. absent: Lymphadenopathy - Respiratory Exam Respiratory Exam: Clear to Ausculation Bilateral, NORMAL BREATHING PATTERN. absent: Accessory Muscle Use, Chest Wall Tenderness, Decreased Breath Sounds, Prolonged Expiratory Phase, Rales, Rhonchi, Wheezes, Respiratory Distress, Stridor - Cardiovascular Exam Cardiovascular Exam: REGULAR RHYTHM, RRR, +S1, +S2. absent: Bradycardia, Tachycardia, Clicks, Diastolic murmur, Gallop, Irregular Rhythm, JVD, Rubs, +S4 , Murmur - GI/Abdominal Exam GI & Abdominal Exam: Soft, Normal Bowel Sounds. absent: Bruit, Distended, Firm , Guarding, Rigid, Tenderness, Diminished Bowel Sounds, Hernia, Hyperactive Bowel Sounds, Hypoactive Bowel Sounds, Organomegaly, Pulsatile Mass, Rebound, Mass - Extremities Exam Extremities Exam: Full ROM, Normal Capillary Refill, Normal Inspection. absent : Calf Tenderness, Joint Swelling, Pedal Edema, Tenderness - Back Exam Back Exam: Full ROM, NORMAL INSPECTION. absent: CVA tenderness (L), CVA tenderness (R), muscle spasm, paraspinal tenderness, rash noted, tenderness, vertebral tenderness - Neurological Exam Neurological Exam: Alert, Awake, CN II-XII Intact, Oriented x3 - Psychiatric Exam Psychiatric exam: Normal Affect, Normal Mood - Skin Skin Exam: Dry, Intact, Normal Color, Warm Assessment and Plan - Assessment and Plan (Free Text) Assessment: 71 year old male with a past medical history significant for HTN, DM2, urinary retention, HLD, CAD and previous DVT (on Eliquis) who presented with weakness and fever and was found to have urosepsis secondary to enterococcus faecalis. Plan: 1. Urosepsis secondary to Enterococcus Faecalis Infection -Currently afebrile over the past 24 hours with no tachycardia, tachypnea or leukocytosis -Unasyn 3gm IVPB Q6H for therapeutic coverage -Tylenol PRN for fever -Morphine 2mg IVP PRN (4 doses) for pain control -Lactated Ringers at 150mls/hr -Repeat urine culture pending -ID consulted, all recommendations appreciated 2. Bilateral Hydronephrosis -CT Abdomen/Pelvis and Renal U/S both showing bilateral hydronephrosis -Retrograde Pyelogram showed diffuse inflammation of the bladder mucosa, bladder debris (sent for culture) and vesicoureteral reflux bilaterally -Pyridium 200mg PO TID (12 doses) -Continue home Ditropan -Urology consulted, all recommendations appreciated 3. History of DM2 -SSI-Low and Accuchecks ACHS -Lispro 5u daily at 1145, 1745 and ACB -Carbohydrate Consistent Diet 4. History of DVT -Bilateral LE Venous Duplex pending -Holding home Eliquis pending results 5. History of HTN -Continue home Lopressor 6. History of HLD -Continue home Lipitor 7. History of CAD -Continue home ASA and Cholecalciferol GI Prophylaxis: Pepcid DVT Prophylaxis: Lovenox Patient seen and case discussed with attending, Dr. Linder.
[2017-07-16 16:34] LABS: TOTAL PSA 0.2 ng/mL (< or = 4.0)
--- NOTE | 2017-07-16 16:37 | PCM.URO ---
Urology Progress Note - Objective Lab Studies: Reviewed (NO CHANGES FOR NOW FULL NOTE TO BE DICTATED WILL DISCUSS FUTURE WORK UP) Lab Results Last 24 Hours: Laboratory Results - last 24 hr 07/15/17 07/16/17 07/16/17 21:26 05:45 05:45 WBC 6.5 D RBC 3.86 Hgb 11.3 L Hct 35.6 L MCV 92.2 MCH 29.3 MCHC 31.7 RDW 13.6 Plt Count 155 MPV 10.3 Gran % 77.0 H Lymph % (Auto) 13.5 L [place] % (Auto) 7.6 H Eos % (Auto) 1.9 Baso % (Auto) 0.0 Gran # 4.98 Lymph # 0.9 L [place] # 0.5 Eos # 0.1 Baso # 0.00 Sodium 142 Potassium 3.6 Chloride 108 H Carbon Dioxide 22 Anion Gap 16 BUN 25 H Creatinine 1.2 Est GFR ( Amer) > 60 Est GFR (Non-Af Amer) 60 POC Glucose (mg/dL) 239 H Random Glucose 232 H Calcium 9.0 Magnesium 1.9 Total Bilirubin 0.4 Direct Bilirubin 0.2 AST 33 ALT 26 Alkaline Phosphatase 45 Total Protein 6.8 Albumin 3.1 Globulin 3.7 Albumin/Globulin Ratio 0.8 L 07/16/17 07/16/17 07/16/17 08:26 11:25 15:55 WBC RBC Hgb Hct MCV MCH MCHC RDW Plt Count MPV Gran % Lymph % (Auto) [place] % (Auto) Eos % (Auto) Baso % (Auto) Gran # Lymph # [place] # Eos # Baso # Sodium Potassium Chloride Carbon Dioxide Anion Gap BUN Creatinine Est GFR ( Amer) Est GFR (Non-Af Amer) POC Glucose (mg/dL) 223 H 191 H 127 H Random Glucose Calcium Magnesium Total Bilirubin Direct Bilirubin AST ALT Alkaline Phosphatase Total Protein Albumin Globulin Albumin/Globulin Ratio Intake & Output: Intake & Output 07/15/17 07/16/17 07/16/17 18:59 06:59 18:59 Intake Total 2480 Output Total 825 Balance 1655 Intake: IV 1800 Right Wrist 1800 Oral 680 Output: Urine 825 Urine, Voided 825 Stool 0 Other: # Bowel Movements 0 Vital Signs: Vital Signs - 24 hr 01/22/18 01/22/18 01/22/18 06:00 09:27 14:52 Temperature 97.9 F Pulse Rate 72 70 70 Respiratory 20 Rate Blood Pressure 107/63 120/60 112/71 O2 Sat by Pulse 96 Oximetry
--- NOTE | 2017-07-16 17:22 | US ---
HISTORY: Leg pain and swelling. Evaluate for DVT PHYSICIAN(S): Bernardo Escalera MD. TECHNIQUE: Duplex sonography and color-flow Doppler with graded compression were used to evaluate the deep venous systems of both lower extremities. The exam is somewhat limited by edema. FINDINGS: The visualized deep venous systems of both lower extremities are sonographically normal and compressible. Normal wave forms and augmentation are seen. There is no sonographic evidence for deep venous thrombosis in the visualized segments of both lower extremities. IMPRESSION: No sonographic evidence for deep venous thrombosis in the visualized segments of both lower extremities.
--- NOTE | 2017-07-16 17:22 | US ---
HISTORY: Arm pain and swelling. Evaluate for deep venous thrombosis. PHYSICIAN(S): Bernardo Escalera MD. FINDINGS: The visualized internal jugular veins are sonographically normal and compressible. No evidence of obstruction or thrombus this is seen. The visualized segments of the subclavian veins are patent with normal waveforms. No sonographic evidence of obstruction or thrombosis is seen. The visualized deep venous systems of both upper extremities proximally are sonographically normal and compressible. IMPRESSION: 1. No sonographic evidence for deep venous thrombosis in the visualized segments of both upper strategies.
--- NOTE | 2017-07-16 17:25 | CP.PCM.PN ---
Subjective - Date & Time of Evaluation Date of Evaluation: 07/16/17 Time of Evaluation: 11:20 - Subjective Subjective: Comfortable, not in distress, afebrile overnight. Objective - Vital Signs/Intake and Output Vital Signs (last 24 hours): Temp Pulse Resp BP Pulse Ox 97.9 F 70 20 120/60 96 07/16/17 06:00 07/16/17 09:27 07/16/17 06:00 07/16/17 09:27 07/16/17 06:00 Intake and Output: 07/16/17 07/16/17 06:59 18:59 Intake Total 2480 Output Total 825 Balance 1655 - Medications Medications: Current Medications Acetaminophen (Tylenol 325mg Tab) 650 mg PO Q6 PRN PRN Reason: FOR TEMP>=99.5F Last Admin: 07/14/17 17:28 Dose: 650 mg Aspirin (Ecotrin) 325 mg PO DAILY [facility] Last Admin: 07/16/17 09:31 Dose: 325 mg Atorvastatin Calcium (Lipitor) 20 mg PO DIN [facility] Last Admin: 07/15/17 17:51 Dose: 20 mg Cholecalciferol (Vitamin D) 1,000 intlu PO DAILY [facility] Last Admin: 07/16/17 09:32 Dose: 1,000 intlu Docusate Sodium (Colace) 100 mg PO BID [facility] Last Admin: 07/16/17 09:32 Dose: 100 mg Enoxaparin Sodium (Lovenox) 40 mg SC DAILY [facility] PRN Reason: Protocol Last Admin: 07/16/17 09:32 Dose: 40 mg Famotidine (Pepcid) 20 mg PO BID [facility] Last Admin: 07/16/17 09:32 Dose: 20 mg Lactated Ringer's (Lactated Ringer's) 1,000 mls @ 150 mls/hr IV .Q6H40M [facility] Stop: 07/19/17 17:00 Last Admin: 07/16/17 09:37 Dose: 150 mls/hr Ampicillin Sodium/Sulbactam (Sodium 3 gm/ Sodium Chloride) 100 mls @ 200 mls/ hr IVPB Q6 [facility] PRN Reason: Protocol Stop: 07/25/17 00:01 Last Admin: 07/16/17 05:00 Dose: 200 mls/hr Insulin Human Lispro (Humalog Low) 0 units SC ACHS [facility] PRN Reason: Protocol Last Admin: 07/16/17 08:42 Dose: 2 units Insulin Human Lispro (Humalog) 5 units SC ACB [facility] Last Admin: 07/16/17 08:42 Dose: 5 units Insulin Human Lispro (Humalog) 5 units SC DAILY@1145 [facility] Insulin Human Lispro (Humalog) 5 units SC DAILY@1745 [facility] Metoprolol Tartrate (Lopressor) 25 mg PO TID [facility] Last Admin: 07/16/17 09:27 Dose: 25 mg Morphine Sulfate (Morphine) 2 mg IVP Q15M PRN PRN Reason: Pain, moderate (4-7) Ondansetron HCl (Zofran Inj) 4 mg IVP Q6 PRN PRN Reason: Nausea/Vomiting Oxybutynin Chloride (Ditropan Tab) 10 mg PO BID [facility] Last Admin: 07/16/17 09:31 Dose: 10 mg Phenazopyridine HCl (Pyridium) 200 mg PO TID [facility] Stop: 07/17/17 18:01 Last Admin: 07/16/17 09:32 Dose: 200 mg - Labs Labs: 07/16/17 05:45 07/16/17 05:45 PT 15.1 SECONDS (9.4-12.5) H 07/13/17 15:30 INR 1.32 (0.93-1.08) H 07/13/17 15:30 APTT 26.3 Seconds (25.1-36.5) 07/13/17 15:30 - Constitutional Appears: Non-toxic - Head Exam Head Exam: NORMAL INSPECTION - Neck Exam Neck Exam: absent: Meningismus - Respiratory Exam Respiratory Exam: Decreased Breath Sounds - Cardiovascular Exam Cardiovascular Exam: +S1, +S2 - GI/Abdominal Exam GI & Abdominal Exam: absent: Tenderness Assessment and Plan - Assessment and Plan (Free Text) Plan: Assessment Sepsis due to UTI with E. faecalis, S/P retrograde pyelogram and pigtail stent placement history of right forearm swelling with no evidence of DVT but with basilic vein (superficial vein) thrombosis S/P ventilator-dependent respiratory failure in a patient with hyperglycemia and metabolic acidosis in a patient with DM, history of [place] rash on the perineum chronic renal failure DM HTN obesity with BMI 35 Plan continue Unasyn and can change to Augmentin on discharge
--- NOTE | 2017-07-16 20:43 | US ---
EXAM: US Retroperitoneal Limited, Renal EXAM DATE/TIME: 07/16/2017 4:38 PM CLINICAL HISTORY: 71 years old, male; Abnormal findings; Abnormal lab test; Abnormal kidney function lab tests; Additional info: Is there still hydronephrosis? TECHNIQUE: Real-time ultrasound of the retroperitoneum (limited) with image documentation. COMPARISON: US - RENAL 2017-07-14 09:42 FINDINGS: Right kidney: Right kidney measures approximately 10.4 x 6.3 cm. There are small echogenic foci suggesting nonobstructing stones. Renal cysts seen on CT are not well visualized. There is mild pelvocaliectasis decreased since the prior study Left kidney: Left kidney measures approximately 11 x 6.7 cm. There is an exophytic 8.8 x 6.6 by 7.4 cm renal cyst. There are smaller cysts. There is mild pelvocaliectasis, decreased since the prior study. There are multiple small echogenic foci consistent with stones. IMPRESSION: Slight interval decrease in bilateral pelvocaliectasis; renal cysts
[2017-07-17 06:28] LABS: BASO % 0.2 % (0.0-3.0); EOS % 3.1 % (1.5-5.0); GRAN % 70.4 % (50.0-68.0); HEMOGLOBIN 11.1 g/dL (14.0-18.0); LYMPH % 18.1 % (22.0-35.0); MEAN CELL VOLUME 92.8 fl (80.0-105.0); MEAN CORPUSCULAR HEMOGLOBIN 29.5 pg (25.0-35.0); MEAN CORPUSCULAR HGB CONC 31.8 g/dl (31.0-37.0); MEAN PLATELET VOLUME 10.1 fl (7.0-11.0); MONO % 8.2 % (1.0-6.0); RBC 3.76 10^6/uL (3.5-6.1); RED CELL DISTRIBUTION WIDTH 13.5 % (11.5-14.5); WHITE BLOOD COUNT 5.8 10^3/ul (4.5-11.0)
[2017-07-17 06:29] LABS: BASO # 0.01 K/mm3 (0.0-2.0); EOS # 0.2 (0.0-0.7); GRAN # 4.06 (1.4-6.5); MONO # 0.5 (0.1-0.6)
[2017-07-17 07:08] LABS: ALB/GLOB RATIO 0.9 (1.1-1.8); ALBUMIN 2.9 g/dL (3.0-4.8); ALT/SGPT 25 U/L (7-56); AST/SGOT 33 U/L (17-59); BILIRUBIN,DIRECT 0.2 mg/dL (0.0-0.4); BLOOD UREA NITROGEN 18 mg/dL (7-21); CALCIUM 8.8 mg/dL (8.4-10.5); GFR AFRICAN-AMERICAN > 60; GFR NON-AFRICAN AMERICAN > 60; MAGNESIUM 1.8 mg/dL (1.7-2.2)
[2017-07-17] MEDS: Insulin Lispro 1 UNITS/0.01 ML SC SCH ×3 (08:00→17:35)
[2017-07-17] MEDS: Potassium Chloride 20 mEq ER Tab PO SCH ×2 (08:00→09:48)
[2017-07-17] MEDS: Insulin Lispro (humaLOG) LOW Coverage SC SCH ×4 (08:00→21:43)
[2017-07-17] MEDS: Aspirin 325 mg EC Tablets PO SCH (09:48)
[2017-07-17] MEDS: Enoxaparin 40 mg Syringe SC SCH (09:50)
[2017-07-17] MEDS ORDERED: Potassium Chloride 40 mEq/30 ml LIQ UD PO ONE (09:51)
[2017-07-17] MEDS: Lactated Ringer's 1,000 ML IV SCH (09:55)
[2017-07-17] MEDS: Cholecalciferol 1,000 INTLU TAB PO SCH (09:56)
--- NOTE | 2017-07-17 10:05 | CP.PCM.PN ---
Subjective - Date & Time of Evaluation Date of Evaluation: 07/17/17 Time of Evaluation: 07:40 - Subjective Subjective: IM Progress Note for Dr. Linder service Patient seen and examined at bedside. No acute events overnight. Today, only complaint is some left hip/back discomfort from prolonged period in bed, but denies chest pain, shortness of breath, nausea, emesis, diarrhea. S/p bilateral urinary stent placement yesterday, urine in folley dark veronica-colored without gross hematuria. Objective - Vital Signs/Intake and Output Vital Signs (last 24 hours): Temp Pulse Resp BP Pulse Ox 97.5 F L 65 18 141/76 97 07/17/17 08:55 07/17/17 08:55 07/17/17 08:55 07/17/17 08:55 07/17/17 08:55 Intake and Output: 07/17/17 07/17/17 06:59 18:59 Intake Total 480 120 Output Total 675 750 Balance -195 -630 - Medications Medications: Current Medications Acetaminophen (Tylenol 325mg Tab) 650 mg PO Q6 PRN PRN Reason: FOR TEMP>=99.5F Last Admin: 07/14/17 17:28 Dose: 650 mg Aspirin (Ecotrin) 325 mg PO DAILY [facility] Last Admin: 07/16/17 09:31 Dose: 325 mg Atorvastatin Calcium (Lipitor) 20 mg PO DIN [facility] Last Admin: 07/16/17 16:33 Dose: 20 mg Cholecalciferol (Vitamin D) 1,000 intlu PO DAILY [facility] Last Admin: 07/16/17 09:32 Dose: 1,000 intlu Docusate Sodium (Colace) 100 mg PO BID [facility] Last Admin: 07/16/17 17:42 Dose: 100 mg Enoxaparin Sodium (Lovenox) 40 mg SC DAILY [facility] PRN Reason: Protocol Last Admin: 07/16/17 09:32 Dose: 40 mg Famotidine (Pepcid) 20 mg PO BID [facility] Last Admin: 07/16/17 17:41 Dose: 20 mg Lactated Ringer's (Lactated Ringer's) 1,000 mls @ 150 mls/hr IV .Q6H40M [facility] Stop: 07/19/17 17:00 Last Admin: 07/16/17 23:50 Dose: 150 mls/hr Ampicillin Sodium/Sulbactam (Sodium 3 gm/ Sodium Chloride) 100 mls @ 200 mls/ hr IVPB Q6 [facility] PRN Reason: Protocol Stop: 07/25/17 00:01 Last Admin: 07/17/17 05:12 Dose: 200 mls/hr Insulin Human Lispro (Humalog Low) 0 units SC ACHS [facility] PRN Reason: Protocol Last Admin: 07/16/17 21:50 Dose: Not Given Insulin Human Lispro (Humalog) 5 units SC ACB [facility] Last Admin: 07/16/17 08:42 Dose: 5 units Insulin Human Lispro (Humalog) 5 units SC DAILY@1145 [facility] Last Admin: 07/16/17 11:57 Dose: 5 units Insulin Human Lispro (Humalog) 5 units SC DAILY@1745 [facility] Last Admin: 07/16/17 16:49 Dose: 5 units Metoprolol Tartrate (Lopressor) 25 mg PO TID [facility] Last Admin: 07/16/17 17:42 Dose: 25 mg Morphine Sulfate (Morphine) 2 mg IVP Q15M PRN PRN Reason: Pain, moderate (4-7) Ondansetron HCl (Zofran Inj) 4 mg IVP Q6 PRN PRN Reason: Nausea/Vomiting Oxybutynin Chloride (Ditropan Tab) 10 mg PO BID [facility] Last Admin: 07/16/17 17:41 Dose: 10 mg Phenazopyridine HCl (Pyridium) 200 mg PO TID [facility] Stop: 07/17/17 18:01 Last Admin: 07/16/17 17:41 Dose: 200 mg - Labs Labs: 07/17/17 05:30 07/17/17 05:30 PT 15.1 SECONDS (9.4-12.5) H 07/13/17 15:30 INR 1.32 (0.93-1.08) H 07/13/17 15:30 APTT 26.3 Seconds (25.1-36.5) 07/13/17 15:30 - Constitutional Appears: Non-toxic, No Acute Distress - Head Exam Head Exam: ATRAUMATIC, NORMAL INSPECTION, NORMOCEPHALIC - Eye Exam Eye Exam: EOMI, Normal appearance. absent: Conjunctival injection, Scleral icterus Pupil Exam: absent: Irregular, Unequal - ENT Exam ENT Exam: Mucous Membranes Moist - Neck Exam Neck Exam: Normal Inspection - Respiratory Exam Respiratory Exam: Clear to Ausculation Bilateral, NORMAL BREATHING PATTERN. absent: Accessory Muscle Use, Chest Wall Tenderness, Decreased Breath Sounds, Rales, Rhonchi, Wheezes - Cardiovascular Exam Cardiovascular Exam: REGULAR RHYTHM, RRR, +S1, +S2. absent: Bradycardia, Tachycardia, Irregular Rhythm, JVD, +S4 - GI/Abdominal Exam GI & Abdominal Exam: Soft, Normal Bowel Sounds. absent: Distended, Firm, Guarding, Rigid, Tenderness, Diminished Bowel Sounds, Hyperactive Bowel Sounds, Hypoactive Bowel Sounds - Rectal Exam Rectal Exam: Deferred - Extremities Exam Extremities Exam: Normal Capillary Refill, Normal Inspection. absent: Calf Tenderness, Pedal Edema, Tenderness - Back Exam Back Exam: absent: CVA tenderness (L), CVA tenderness (R) - Neurological Exam Neurological Exam: Alert, Awake Additional comments: awake and alert, following all commands appropriately moving extremities spontaneously motor grossly intact and equal - Psychiatric Exam Psychiatric exam: Normal Affect, Normal Mood - Skin Skin Exam: Dry, Intact, Normal Color, Warm Assessment and Plan - Assessment and Plan (Free Text) Assessment: This is a 71 yo M with PMH of HTN, DM2, urinary retention, HLD, CAD, and previous DVT (on Eliquis) who presented with weakness and fever, and was found to have urosepsis secondary to enterococcus faecalis. He is s/p bilateral urinary stent placement, POD #1. Plan: 1) Urosepsis secondary to Enterococcus Faecalis Infection -remains afebrile, no leukocytosis today, vitals stable -Unasyn 3gm IVPB Q6H for therapeutic coverage; transition to Augmentin on discharge as per ID -Tylenol PRN for fever -Morphine 2mg IVP PRN (4 doses) for pain control -Lactated Ringers at 150mls/hr -Repeat urine culture confirms E. faecalis, same resistance profile -ID consulted, all recommendations appreciated 2) Bilateral Hydronephrosis -CT Abdomen/Pelvis and Renal U/S both showing bilateral hydronephrosis -Retrograde Pyelogram showed diffuse inflammation of the bladder mucosa, bladder debris (sent for culture) and vesicoureteral reflux bilaterally -Pyridium 200mg PO TID (12 doses) -Continue home Ditropan -Urology consulted, all recommendations appreciated; s/p bilateral stent placement yesterday (POD#1) 3) History of DM2 -SSI-Low and Accuchecks ACHS -Lispro 5u daily at 1145, 1745 and ACB -Carbohydrate Consistent Diet 4) History of DVT -Bilateral LE Venous Duplex negative for DVT -Resume home elequis 5) History of HTN -Continue home Lopressor 6) History of HLD -Continue home Lipitor 7) History of CAD -Continue home ASA and Cholecalciferol Dispo: Med/Surg, POD #1 for bilateral urinary stent placement, continue IV abx for UTI/pyelonephritis with E. faecalis, encourage OOB to chair as tolerated FEN: Liquid diet, LR 150cc/hr Access: Peripheral IV, Abad Consults: ID, Urology Ppx: Protonix for GI, Lovenox for DVT Patient seen, reviewed, and discussed with attending, Dr. Linder.
--- NOTE | 2017-07-17 15:37 | PN ---
DATE: 07/17/2017 LOCATION: The patient is seen in room 370 bed 1. SUBJECTIVE: Overnight nurse's notes were reviewed. The patient does not appear to be in any distress. The patient still has a Abad catheter placed. No adverse events documented in the nurses' note. PHYSICAL EXAMINATION: VITAL SIGNS: T-max 99, heart rate 70 beats to 90 to 99 beats per minute, blood pressure 111/74, respirations 20, O2 sat is 98%. HEENT: The patient is seen. Head examination, normocephalic and atraumatic. HEENT examination shows pinkish conjunctivae. Dry oral mucosa. NECK: No neck rigidity. No audible carotid bruit. No visible jugular venous distention. CHEST: Kyphosis. LUNGS: Shows no rales, crackles or wheezing. Occasional upper airway rhonchi noted. CARDIOVASCULAR: Shows S1 and S2, regular rhythm. Questionable soft systolic murmur at the left sternal border, right second intercostal space. ABDOMEN: Obese, protuberant. Positive bowel sounds. No guarding. No rigidity. No rebound tenderness. No appreciable hepatosplenomegaly because of obesity. No rebound tenderness noted. GENITALIA: Male. Positive Abad catheter noted. EXTREMITIES: Shows positive SCDs. VASCULAR: Palpable pulses. MUSCULOSKELETAL: Shows a body mass index of greater than 35. NEUROLOGIC: The patient is alert, awake, responsive, follows command. Moves upper and lower extremities without assistance. Gait examination could not be tested. Motor strength is otherwise 5/5 in upper and lower extremity. DIAGNOSTICS: . Granulocytes, 70% segs. Sodium of 142, potassium 3.5, chloride 109, CO2 25. , calcium 8.8, and magnesium 1.8. LFTs are normal. Urine cultures, Enterococcus plus gram-positive cocci. Renal ultrasound, which was ordered by Urology shows bilateral non-obstructing nephrolithiasis and bilateral renal cysts. IMPRESSION: 1. Sepsis secondary to Enterococcus faecalis and gram-positive cocci urinary tract infection. 2. Bilateral hydroureteronephrosis, left more than the right. 3. Bilateral non-obstructing nephrolithiasis. 4. urinary tract infection. 5. Hypotension. 6. Normocytic anemia. 7. Granulocytosis. 8. Hypokalemia. 9. Insulin-requiring diabetes mellitus. 10. Status post attempted retrograde pyelogram and ureteral stents insertion. 11. Status post cystoscopy. 12. Urethral meatus stenosis and stricture. 13. Status post urethral meatal stenosis and stricture dilatation. 14. Indwelling Abad catheter. 15. Obesity. 16. Gait dysfunction. 17. Elevated body mass index of 35. 18. Constipation. 19. Possible prostatic hypertrophy. 20. Dyslipidemia. 21. Hypovitaminosis D. 22. Deconditioning. 1. Hypotension. 2. Leukocytosis with granulocytosis, resolving. 3. Normocytic anemia. 4. Sepsis, most probably sepsis secondary to Enterococcus faecalis urinary tract infection. 5. Bilateral hydronephrosis and hydroureter, left more than the right. 6. Enterococcus faecalis urinary tract infection. 7. Severe cystitis. 8. Urethral meatus stricture and stenosis. 9. Attempted bilateral retrograde pyelogram and cystogram and ureteral stent insertion. 10. Insulin-requiring diabetes mellitus with hyperglycemia. 11. Borderline hypokalemia. 12. Gait dysfunction. 13. Deconditioning. 14. Status post recent urological procedure. 15. Hematuria. 1. Sepsis with Enterococcus faecalis urinary tract infection. 2. Obstructive uropathy with urinary retention. 3. Pyelonephritis. 4. Bilateral hydronephrosis. 5. Incontinence. 6. High-grade fever of 103.3. 7. Hypo and hypertension. 8. Leukocytosis with granulocytosis. 9. Normocytic anemia. 10. Insulin-requiring diabetes mellitus. 11. Mild prerenal kidney injury. 12. Enterococcus faecalis urinary tract infection with proteinuria, hematuria, pyuria, and bacteriuria. 13. Sinus tachycardia. 14. 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 15. Status post retrograde pyelogram. 16. Right basilar subsegmental atelectasis. 17. Status post cholecystectomy. 18. Bilateral renal cyst, left more than the right. 19. Pyelonephritis with areas of perinephric stranding and non enhancing cortex. 20. Questionable nephrolithiasis. 21. Large left renal cyst. 22. Bilateral hydronephrosis, left more than the right. 23. Left hydroureter. 24. Questionable cystitis. 25. Degenerative joint disease of the spine. 26. Atherosclerotic vascular disease. 27. Possible transurethral resection of the prostate defect. 28. Status post cystoscopy, retrograde attempted pigtail stent insertion. 29. Status post cystoscopy and retrograde pyelogram. 30. Cystitis. 31. Urethral meatal stenosis, status post dilatation. 32. Status post cystoscopy, ureteral meatal dilatation, retrograde pyelogram, and cystogram, and bladder debris removal. 1. High-grade fever. 2. Tachycardia. 3. Questionable . 4. Leukocytosis with granulocytosis. 5. Systemic inflammatory response syndrome. 6. Normocytic anemia. 7. Prerenal kidney injury. 8. Insulin-requiring diabetes mellitus with hyperglycemia. 9. Bilateral hydronephrosis, left more than the right. 10. Bilateral renal cyst, left more than the right. 11. Bibasilar atelectasis. 12. Pyelonephritis. 13. Status post possible transurethral resection of prostate. 14. Questionable sepsis versus systemic inflammatory response syndrome. 15. 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 16. Gait dysfunction. 17. Deconditioning. 18. Hypertension. 19. History of diabetic ketoacidosis. 20. History of uncontrolled diabetes mellitus. PLAN: At this time, the patient is to be continued with the close followup with Urology and Infectious Disease. The patient's current medications are Unasyn 3 g IV q. 6 hours. The patient is on Colace 100 mg twice a day. The patient is on Ditropan 10 mg twice a day, Ecotrin 325 mg daily. Humalog, the patient is on Humalog 5 units with breakfast, 5 units with lunch and 5 units with supper. The patient is on Ringer's lactate at 150 mL an hour. Lipitor 20 mg daily. Lopressor 25 mg three times a day. The patient is on Lovenox 40 mg subcu daily for DVT prophylaxis. The patient is on Pepcid 20 mg twice a day. The patient is on Pyridium 200 mg three times a day. The patient is on Tylenol 650 q.6h. p.r.n. The patient is on vitamin D3 2000 or 1000 units daily. The patient is on Zofran 4 mg IV q.6 hours. p.r.n. The patient will be continued on the above therapeutic intervention with close followup with Infectious Disease and Urology. We are awaiting further recommendations about the patient's further management from the subspecialties. The patient's further management will be dependent upon the patient's clinical condition, hemodynamic status and as per the patient response to therapeutic intervention. The patient has also been ordered out of bed to chair, physical therapy, ambulation therapy, gait training, etc. The orders are already in the [employer]. Dictated and electronically signed, not read. Paulino Linder MD [facility]
[2017-07-17 19:16] VITALS: RESP 20; O2SAT 95
[2017-07-17 21:24] LABS: GLYCOMARK(R) 5.5 mcg/mL (7.3-36.6)
--- NOTE | 2017-07-18 00:24 | PN ---
DATE: 07/17/2017 SUBJECTIVE: The patient was seen early this morning in room 370, bed 1. No fevers. No chills. His fevers are improved. PHYSICAL EXAMINATION VITAL SIGNS: Temperature is 98, blood pressure is 110/60 and respiratory rate of 16. HEENT: Unremarkable. NECK: Supple. LUNGS: Have decreased breath sounds. HEART: Normal S1 and S2. ABDOMEN: Soft and nontender. LABORATORY DATA: Reveals a white count of 5.8, hemoglobin of 11 and platelets of 147. Coagulation is noted. Chemistries reveals a BUN of 18, creatinine of 1.0. Urinalysis is noted. Microbiology reveals Enterococcus faecalis in the urine. Blood cultures are negative. Review of the orders reveals the patient to be on Unasyn. ASSESSMENT AND PLAN: This is a 71-year-old male with sepsis, with secondary to Enterococcus faecalis, urine as a source, status post retrograde pyelogram and pigtail stent placement with history of right forearm swelling. No evidence of deep venous thrombosis. Currently, on Unasyn. He will be switched to p.o. Augmentin on discharge 875 p.o. b.i.d., complete therapy. If prostate is involved, would require 3 to 4 weeks, if not 14 days. Benton Jackman MD
[2017-07-18 06:38] LABS: BASO # 0.01 K/mm3 (0.0-2.0); BASO % 0.2 % (0.0-3.0); EOS # 0.3 (0.0-0.7); EOS % 5.2 % (1.5-5.0); GRAN # 4.49 (1.4-6.5); GRAN % 70.9 % (50.0-68.0); HEMOGLOBIN 11.2 g/dL (14.0-18.0); LYMPH # 1.1 (1.2-3.4); LYMPH % 17.1 % (22.0-35.0); MEAN CELL VOLUME 91.9 fl (80.0-105.0); MEAN CORPUSCULAR HEMOGLOBIN 29.1 pg (25.0-35.0); MEAN CORPUSCULAR HGB CONC 31.6 g/dl (31.0-37.0); MEAN PLATELET VOLUME 9.8 fl (7.0-11.0); MONO # 0.4 (0.1-0.6); MONO % 6.6 % (1.0-6.0); RBC 3.85 10^6/uL (3.5-6.1); RED CELL DISTRIBUTION WIDTH 13.3 % (11.5-14.5); WHITE BLOOD COUNT 6.3 10^3/ul (4.5-11.0)
[2017-07-18 07:14] LABS: ALB/GLOB RATIO 0.9 (1.1-1.8); ALT/SGPT 28 U/L (7-56); AST/SGOT 22 U/L (17-59); BLOOD UREA NITROGEN 14 mg/dL (7-21); GFR AFRICAN-AMERICAN > 60; GFR NON-AFRICAN AMERICAN > 60; MAGNESIUM 1.6 mg/dL (1.7-2.2)
[2017-07-18] MEDS ORDERED: Magnesium Sulfate 2 GM in Sodium Chloride 0.9% 100 ML IVPB ONE ×2 (07:29→10:00)
[2017-07-18] MEDS: Insulin Lispro 1 UNITS/0.01 ML SC SCH ×2 (08:03→12:02)
[2017-07-18] MEDS: Insulin Lispro (humaLOG) LOW Coverage SC SCH ×2 (08:35→12:04)
[2017-07-18 08:48] VITALS: BP 135/76; PULSE 65; TEMP 97.7
[2017-07-18] MEDS: Aspirin 325 mg EC Tablets PO SCH (12:06)
[2017-07-18] MEDS: Cholecalciferol 1,000 INTLU TAB PO SCH (12:06)
[2017-07-18] MEDS: Lactated Ringer's 1,000 ML IV SCH (12:13)
--- NOTE | 2017-07-18 14:10 | NM ---
PROCEDURE: Renal scan, flow study. HISTORY: with 20mg IV Lasix to r/o obs COMPARISON: July 16, 2017. Bilateral renal ultrasound. 07/14/2017 CT abdomen and pelvis. TECHNIQUE: 10.2 mCi technetium 99 M Mag 3 administered intravenously. 20 mg of Lasix administered 15 minutes. FINDINGS: Right Kidney: Flow component: Unremarkable perfusion right kidney Time to peak: 5.2 minutes Peak to T1/2 Peak: 14 minutes. Diuretic T1/2 9.5 minutes Left Kidney: Flow component: Unremarkable perfusion left kidney Time to peak: 18.2 minutes Peak to T1/2 Peak: 6 minutes Diuretic T1/2 6 minutes Split Renal Function: Right kidney 6 Left kidney 39.7 % IMPRESSION: Right kidney: Abnormally perfusion right kidney. Mildly delayed clearance of radio nuclide prior to and subsequent to the administration of diuretic. Right kidney contributes 60.3% total renal function. Left kidney: Normal perfusion of the left kidney. There is a component of initial failure clear radionuclide, however following administration of diuretic there it is acceptable clearance of radio nuclide. Findings suggest bilateral obstructive uropathy left greater than right.
[2017-07-18] MEDS: Enoxaparin 40 mg Syringe SC SCH (14:45)
--- NOTE | 2017-07-18 18:21 | PN ---
DATE: 07/18/2017 LOCATION: The patient is in bed, in no acute distress, nontoxic. PHYSICAL EXAMINATION: VITAL SIGNS: On exam, temperature is 98, blood pressure is 130/70, respiratory rate of 16. HEENT: Unremarkable. NECK: Supple. LUNGS: Have decreased breath sounds. HEART: Normal S1 and S2. ABDOMEN: Soft, nontender. LABORATORY DATA: Laboratory examination reveals a white count of 6.3, hemoglobin of 11, BUN of 14, creatinine of 0.9. Procalcitonin is less than 0.05. Urinalysis is noted and microbiology, presuming enterococcus. ASSESSMENT AND PLAN: This is a 71-year-old male seen earlier today in room 379, bed 1 with sepsis secondary to enterococcus fecalis, urine as the source as per his retrograde pyelogram, pigtail catheter placement, history of right forearm swelling. No evidence of DVT. On Unasyn. Maybe, I will switch to p.o. Augmentin upon discharge of 875 p.o. b.i.d. If there is prostate involvement will need 3 to 4 weeks of p.o. Augmentin. If there is no prostate involvement 14 days of p.o. Augmentin. Benton Jackman MD
--- NOTE | 2017-07-19 08:12 | DS ---
FINAL PROGRESS NOTE AND DISCHARGE SUMMARY HISTORY OF PRESENT ILLNESS: The patient is seen in room 370, bed 1. The patient is again seen lying in the bed. Overnight nurse's notes were reviewed. The patient continued to have the Abad catheter draining the urine. The patient's was in no distress according to the patient's nurse's notes. No adverse events documented. The patient does not offer any specific complaints. PHYSICAL EXAMINATION: VITAL SIGNS: T-max 98.1, heart rate 65 to 70 beats per minute, blood pressure 110/65, respirations 20, and O2 sat is 95%. HEENT: Head examination is normocephalic and atraumatic. HEENT examination shows pinkish conjunctivae. Anicteric sclerae. Dry oral mucosa. NECK: No neck rigidity. No visible jugular venous distention. No audible carotid bruit. CHEST: Kyphosis. LUNGS: Shows no rales, crackles, or wheezing. CARDIOVASCULAR: S1 and S2, regular rhythm. Questionable soft systolic murmur left sternal border, right second intercostal space, left second intercostal space. ABDOMEN: Soft and obese. Positive bowel sounds. No hepatosplenomegaly palpable. No guarding. No rigidity. No rebound tenderness. GENITALIA: Male. RECTAL: Deferred. EXTREMITIES: Shows no pitting edema. No calf tenderness. No Homans' sign. No clubbing. No cyanosis. VASCULAR: Palpable pulses. MUSCULOSKELETAL: Shows elevated body mass index of 35. NEUROLOGIC: The patient is alert, awake, and responsive. Cranial nerves II-XII limited. Gait examination is not tested. The patient has been ambulating with physical therapy. PSYCHIATRIC: Not applicable. DIAGNOSTIC DATA: WBC 6.3, hemoglobin and hematocrit 11.2 and 35.4, platelet 154, and granulocytes 71% segs. Sodium 141, potassium 4.0, chloride 107, CO2 of 25, BUN 14, creatinine 0.9, magnesium 1.6, and glucose 230. LFTs are within normal limits. Urine cultures are growing Enterococcus faecalis x2. IMPRESSION: 1. Enterococcus faecalis urinary tract infection with possible sepsis. 2. Urinary retention. 3. Bilateral hydronephrosis and hydroureter. 4. Severe cystitis. 5. Status post attempted retrograde pyelogram and cystogram and ureteral stents insertion. 6. Hypotension. 7. Normocytic anemia. 8. Granulocytosis. 9. Uncontrolled diabetes mellitus with hyperglycemia. 10. Hypomagnesemia. 11. History of left upper extremity deep venous thrombosis. 12. Constipation. 13. Dyslipidemia. 14. Hypovitaminosis D. CONSULTATIONS: The patient is seen in consultation by Infectious Disease and Urology. Infectious Disease recommendations are noted. The patient can be changed to p.o. Augmentin upon discharge. The patient was seen by Microbiological Lab Technician. The patient's case was referred to TCU for TCU acceptance. Physical therapy recommends TCU if the patient accepted and beds available. The patient's current medications as of today; Unasyn 3 g IV q.6 hours., Colace 100 mg twice a day, the patient is on Ditropan 10 mg twice a day, Ecotrin 325 mg daily, and Humalog 5 units with breakfast, lunch, and dinner. The patient is on low-dose Humalog sliding scale coverage, lactated Ringer's, and IV fluid at 150 mL a hour. The patient is on Lipitor 20 mg daily and the patient is on Lopressor 25 mg three times a day. The patient is on Lovenox 40 mg subcutaneously daily. The patient is on magnesium sulfate. The patient is ordered magnesium sulfate riders IV times two 2 g. The patient is on Pepcid 20 mg twice a day. The patient is on vitamin D3 of 1000 units daily. The patient is on Zofran 4 mg IV q.4 hours p.r.n. If the patient is accepted to TCU, the patient will be discharged to TCU. DISCHARGE PLAN: The patient can be discharged to TCU is accepted today or if bed is available, if not, the patient can be discharged home [facility] and home PT. DISCHARGE FOLLOWUP: Discharge follow up with Dr. Linder within [address] Freeman within 1 week. DISCHARGE MEDICATIONS: Augmentin 875 twice a day for 14 days, Lopressor 25 mg three times a day, Cardizem 60 mg three times a day, vitamin D3 of international units daily, Lopressor 50 mg daily, Zocor 40 mg daily, Ditropan 10 mg twice a day, Humalog 5 units with breakfast, lunch and dinner, aspirin 325 mg daily, and Augmentin 875 twice a day for 14 days. The patient is being cleared by Infectious Disease for discharge. The patient can be discharged home versus TCU if accepted and if the patient is discharged home, the patient will be referred [facility] and home PT. Time spent in the entire discharge process more than 45 minutes. Dictated and electronically signed, not read. Paulino Linder MD
== END 2017-07-18 18:17 | disposition home or self-care (01) | DRG 872 ==
LOC: ED 14:51 → ERH 22:15 → 3RSO 07-14 01:09 → OBSVTOIN 07-15 17:34
PROVIDERS: ADMIT Internal Medicine; ATTEND Internal Medicine
PROC: BT1B1ZZ Fluoroscopy of Bladder and Urethra using Low Osmolar Contrast (ICD-10-PCS; 2017-07-15)
PROC: 0T7D8ZZ Dilation of Urethra, Via Natural or Artificial Opening Endoscopic (ICD-10-PCS; principal; 2017-07-15 07:31)
DX: A41.9 Sepsis, unspecified organism (principal); N13.6 Pyonephrosis; E11.22 Type 2 diabetes mellitus with diabetic chronic kidney disease; E11.65 Type 2 diabetes mellitus with hyperglycemia; J98.11 Atelectasis; I45.2 Bifascicular block; N30.90 Cystitis, unspecified without hematuria; N13.70 Vesicoureteral-reflux, unspecified; N35.9 Urethral stricture, unspecified; E78.5 Hyperlipidemia, unspecified; M47.9 Spondylosis, unspecified; I25.10 Atherosclerotic heart disease of native coronary artery without angina pectoris; I12.9 Hypertensive chronic kidney disease with stage 1 through stage 4 chronic kidney disease, or unspecified chronic kidney disease; N18.9 Chronic kidney disease, unspecified; B95.2 Enterococcus as the cause of diseases classified elsewhere; E55.9 Vitamin D deficiency, unspecified; D64.9 Anemia, unspecified; N28.1 Cyst of kidney, acquired; K59.00 Constipation, unspecified; E83.42 Hypomagnesemia; E87.6 Hypokalemia; H91.90 Unspecified hearing loss, unspecified ear; E66.9 Obesity, unspecified; Z68.35 Body mass index [BMI] 35.0-35.9, adult; Z79.4 Long term (current) use of insulin; Z86.718 Personal history of other venous thrombosis and embolism; Z87.891 Personal history of nicotine dependence